=== PATIENT | female | born 1945 | race Caucasian/White ===

== ENCOUNTER 2016-05-05 00:38 | Inpatient (IN) | payer MEDICARE, OTHER ==
[~2016-05-05] VITALS: Ht 170.2 cm; Wt 102.8 kg
[~2016-05-05 00:38] MED LIST: ACET-141 PO; ANR PR; ASC250 PO; COLISTIN IV; DULO30CA45 PO; DULR PR; HYDR10FO PR; HYDR2TAB15 PO; Ipratropium 0.02% (Neb) HHN; LEVA1.2523 HHN; MAGN400O4 PO; MAGN400T28 PO; METH10TA2 PO; MULTI PO; NAPR500T8 PO; PREMVAG VAG; PYRI100T59 PO; RIVA20TA PO; SACC250C PO; TAMS-14 PO; ZINC220T PO
[2016-05-05] MEDS ORDERED: HYDROmorphONE 1 MG/ML SYG IV STA ×2 (00:53→02:02)
[2016-05-05] MEDS ORDERED: SODIUM CHLORIDE 0.9% 1L BAG IV* STA (00:53)
[2016-05-05] MEDS ORDERED: ONDANSETRON 4 MG INJ IV STA (00:53)
[2016-05-05 01:42] LABS: BASOPHILS % 0.6 % (0.0-2.0); EOSINOPHILS # 0.4 10^3/ul (0.0-0.5); EOSINOPHILS % 4.7 % (0.0-7.0); HEMATOCRIT 33.9 % (37.0-47.0); HEMOGLOBIN 10.9 g/dl (12.0-16.0); LYMPHOCYTES # 2.2 10^3/ul (0.8-2.9); LYMPHOCYTES % 27.7 % (15.0-51.0); MEAN CORPUSCULAR HEMOGLOBIN 28.8 pg (29.0-33.0); MEAN CORPUSCULAR HGB CONC 32.2 g/dl (32.0-37.0); MEAN CORPUSCULAR VOLUME 89.3 fl (82.0-101.0); MEAN PLATELET VOLUME 8.3 fl (7.4-10.4); MONOCYTE # 0.6 10^3/ul (0.3-0.9); NEUTROPHIL # 4.8 10^3/ul (1.6-7.5); PLATELET COUNT 143 10^3/UL (140-440)
[2016-05-05 01:47] LABS: CONDITION 1; LH ANALYZER COMMENTS 1
[2016-05-05 01:52] LABS: ALBUMIN 3.9 g/dl (3.3-4.9)
--- NOTE | 2016-05-05 01:52 | ERA ---
ER Documentation Chief Complaint Date/Time DATE: 05/05/16 TIME: 01:47 Chief Complaint pelvic pain,on abx since Sunday for UTI,BOZENA from [facility] 71-year-old female history of chronic pain syndrome, recurrent UTIs who is currently on colistin for a multidrug-resistant organism. The patient presents with lower abdominal pelvic pain that is moderate to severe, constant not associated with any fevers or chills. Her son is concerned that the patient may be septic as she presents with similar symptoms in the past. Patient denies any cough, no significant shortness of breath. History mostly provided by the patient's son. ROS All systems reviewed and are negative except as per history of present illness. Medications Home Meds Active Scripts [Ipratropium 0.02% (Neb)] 0.5 MG/2.5 ML NEBU No Conflict Check, 0.5 MG HHN Q4H RESP THERAPY for 30 Days Prov:LENNY FALLON NP 01/19/16 Levalbuterol Hcl* (Xopenex*) 1.25 Mg/0.5 Ml Vial.neb, 1.25 MG HHN Q4H RESP THERAPY for 30 Days Prov:LENNY FALLON NP 01/19/16 [colistin] No Conflict Check, 75 MG IV Q12 for 3 Days Prov:LENNY FALLON NP 01/19/16 Reported Medications Zinc Sulfate* (Zinc Sulfate*) 220 Mg Tablet, 220 MG PO DAILY, TAB 01/10/16 Rivaroxaban* (Xarelto*) 20 Mg Tablet, 20 MG PO WITH DINNER, TAB 01/10/16 Ascorbic Acid (Vitamin C) 250 Mg Tab, 250 MG PO DAILY, TAB 01/10/16 Pyridoxine Hcl* (Vitamin B-6*) 100 Mg Tablet, 100 MG PO Q8, TAB 01/10/16 Hydrocortisone/Pramoxine* (Proctofoam-HC*) 1%-10 Gm Foam, 1 APPLIC OR BID, EA 01/10/16 Estrogens Conjugated* (Premarin* Vaginal Cream) 1 Applic Cr, 1 APPLIC VAG DAILY , TUB 01/10/16 Multivitamins* (Theragran*) 1 Tab Tab, 1 TAB PO DAILY, TAB 01/10/16 Magnesium Hydroxide* (Milk Of Magnesia*) 400 Mg/5 Ml Oral.susp, 30 ML PO Q24H Y for CONSTIPATION, ML 01/10/16 Methadone Hcl* (Methadone*) 10 Mg Tab, 10 MG PO QID, TAB PER SON GIVE ON SCHEDULE 8AM, 2PM,8 PM, AND 12 AM 01/10/16 Magnesium Oxide* (Magnesium Oxide*) 400 Mg Tablet, 400 MG PO BID, TAB 01/10/16 Saccharomyces Boulardii* (Florastor*) 250 Mg Cap, 250 MG PO BID, CAP 01/10/16 Tamsulosin Hcl* (Flomax*) 0.4 Mg Cap.er.24h, 0.4 MG PO HS, CAP 01/10/16 Naproxen* (Naproxen EC*) 500 Mg Tablet.dr, 500 MG PO BID Y for PAIN AND/OR INFLAMMATION, TAB 01/10/16 Bisacodyl* (Bisacodyl*) 10 Mg Supp, 10 MG OR Q24H Y for CONSTIPATION, SUPP 01/10/16 Hydromorphone Hcl* (Dilaudid*) 2 Mg Tablet, 6 MG PO QID, TAB GIVE ON SCHEDULE PER SON 5AM, 11AM, 5PM, AND 12 AM 01/10/16 Duloxetine Hcl* (Cymbalta*) 30 Mg Capsule.dr, 30 MG PO DAILY, CAP 01/10/16 Hard Fat/Phenylephrine* (Anusol*) 1 Supp Supp, 1 SUPP OR Q12, SUPP 01/10/16 Acetaminophen* (Acetaminophen*) 500 MG Extra Strength Tablet, 1000 MG PO Q6H Y for PAIN, TAB 01/10/16 Allergies Allergies: Coded Allergies: nitrofurantoin (Verified Allergy, Mild, 11/03/15) piperacillin (Verified Allergy, Mild, BURNING SENSATION ALL OVER THE BODY , 11/03/15) tazobactam (Verified Allergy, Mild, BURNING SENSATION ALL OVER THE BODY, ) PMhx/Soc History of Surgery: Yes (CHF, HYSTERECTOMY, RESP ISSUES) Anesthesia Reaction: No Hx Neurological Disorder: Yes Hx Respiratory Disorders: Yes Hx Cardiac Disorders: No Hx Psychiatric Problems: Yes Hx Miscellaneous Medical Probl: Yes (UTI1, copd, pvd, thrombocytopenia, cp syndrome, sepsis) Hx Alcohol Use: No Hx Substance Use: No Hx Tobacco Use: No Smoking Status: Unknown if ever smoked FmHx Family History: No diabetes Physical Exam Vitals Vital Signs Date Time Temp Pulse Resp B/P Pulse Ox O2 Delivery O2 Flow Rate FiO2 05/05/16 01:14 Nasal Cannula 5 05/05/16 00:44 98.0 89 18 187/139 95 Physical Exam General: Well developed, well nourished, appears uncomfortable Head: Normocephalic, atraumatic. Eyes: Pupils equally reactive, EOM intact ENT: Moist mucous membranes Neck: Supple, no lymphadenopathy Respiratory: Lungs clear bilaterally, no distress Cardiovascular: RRR, no murmurs, rubs, or gallops Abdominal: Soft, suprapubic tenderness without rebound or guarding : Deferred MSK: No edema, no unilateral swelling, 5/5 strength Neurologic: Alert and oriented, moving all extremities, normal speech, no focal weakness, no cerebellar signs Skin: No rash Psych: Normal mood Results 24 hrs Current Medications Medications (Trade) Dose Ordered Sig/Anjana Route PRN Reason Start Time Stop Time Status Last Admin Dose Admin Sodium Chloride (NS) 2,820 ml BOLUS OVER 2 HOURS STAT IV* 05/05/16 00:53 05/05/16 00:54 DC 05/05/16 01:17 Hydromorphone HCl (Dilaudid) 1 mg ONCE STAT IV 05/05/16 00:53 05/05/16 00:54 DC 05/05/16 01:19 Ondansetron HCl (Zofran Inj) 4 mg ONCE STAT IV 05/05/16 00:53 05/05/16 00:54 DC 05/05/16 01:18 Procedures/MDM EKG, MONITORS, & DIAGNOSTIC IMAGING: EKG: I reviewed and interpreted a 12-lead EKG. Rhythm: Normal sinus rhythm Ectopy: None Intervals: No abnormalities ST segments: No elevations or depressions T waves: No contiguous inversions Chest x-ray: I reviewed and interpreted a 1 view of the chest Mediastinum: No enlargement Cardiac silhouette: No cardiomegaly Airspace: Clear lung figueredo bilaterally without evidence of pneumothorax Bones: No evidence of fracture CT abdomen and pelvis: [] LAB INTERPRETATION: [] MEDICAL DECISION MAKING: The patient presents with generalized pain but also abdominal pain. The patient is currently being treated with IV antibiotics for multidrug resistant organism. The patient will need sepsis screening. The patient does have chronic pain and takes multiple doses of Dilaudid a day. Her pain may be an exacerbation of her chronic pain however the patient's son states that this is similar to sepsis in the past. The patient will benefit from cultures, fluids, pain control as well as CT imaging of the abdomen and pelvis. The patient did not receive her evening dose of colistin which will be provided in the emergency department. The patient's son showed me culture sensitivities for the patient's organism, most recent sensitivities are capellan resistant only sensitive to colistin. Broader spectrum antibiotics will not be beneficial in this patient. The patient will benefit from infectious disease consultation, she has seen Dr. Milan in the past. Patient getting 75mg BID. ER COURSE: [] I kept the patient and/or family informed of laboratory and diagnostic imaging results throughout the emergency room course. DISPOSITION PLAN: [] CONSULTATION: [] LIZET RAMSEY MD May 05, 2016 01:51
[2016-05-05 01:53] LABS: CHLORIDE 103 mmol/L (97-110); POTASSIUM 4.6 mmol/L (3.5-5.1); SODIUM 143 mmol/L (135-144)
[2016-05-05 01:54] LABS: INR 1.53; PROTIME 18.5 Sec (12.2-14.2); PT RATIO 1.4
[2016-05-05 01:55] LABS: ALBUMIN/GLOBULIN RATIO 0.82; ALKALINE PHOSPHATASE 107 IU/L (42-121); ANION GAP 17 (8-16); ASPARTATE AMINO TRANSFERASE 29 IU/L (15-46); BILIRUBIN,INDIRECT 0.1 mg/dl (0-1.1); BILIRUBIN,TOTAL 0.1 mg/dl (0.2-1.3); CARBON DIOXIDE 28 mmol/L (21-31); CREATININE 1.11 mg/dl (0.44-1.00); PARTIAL THROMBOPLASTIN TIME 41.7 Sec (25.0-35.0); TOTAL PROTEIN 8.6 g/dl (6.1-8.1)
[2016-05-05 01:56] LABS: ALANINE AMINOTRANSFERASE 20 IU/L (13-69); BLOOD UREA NITROGEN 28 mg/dl (7-20); CALCIUM 9.4 mg/dl (8.4-10.2); GLUCOSE 91 mg/dl (70-220)
--- NOTE | 2016-05-05 02:00 | RADRPT ---
PROCEDURE: XR Chest. CLINICAL INDICATION: Possible Sepsis TECHNIQUE: Single frontal chest x-ray. COMPARISON: 01/16/2016 FINDINGS: Dual chamber cardiac pacemaker again seen.There is minimal prominence of the lung interstitium likel y minimal chronic changes. The heart does not appear to be grossly enlarged. No focal lung consolid ation is seen. Old right posterior seventh rib fracture. The patient is mildly rotated to the right . Calcification in the aortic arch. IMPRESSION: No definite acute abnormality seen. Please see above. RPTAT: HJES .Mario Mcfadden MD, MD Date Time Electronically viewed and signed by .Mario Mcfadden MD, MD on 05/05/2016 02:00 .S/
[2016-05-05 02:12] LABS: TROPONIN-I < 0.012 ng/ml (0.00-0.12)
[2016-05-05] MEDS ORDERED: COLISTIMETHATE 150 MG in SOD CHLORIDE 0.9% 100 ML IVPB ONE (02:30)
--- NOTE | 2016-05-05 02:30 | RADRPT ---
PROCEDURE: CT Abdomen and Pelvis without contrast. CLINICAL INDICATION: Possible sepsis , abdominal pain TECHNIQUE: CT scan of the abdomen and pelvis without contrast was performed on a multidetector hig h-resolution CT scanner. The patient was scanned without intravenous contrast. No oral contrast was administered. Coronal and sagittal reformatted images were obtained from the axial source images. Im ages were reviewed on a high-resolution PACS workstation. The total exam CTDI equals 22.96 mGy and the total exam DLP equals 1393.03 mGy-cm. One or more of the following dose reduction techniques were used: - Automated exposure control. - Adjustment of the mA and/or kV according to patient size. - Use of iterative reconstruction technique. COMPARISON: CT abdomen of 11/10/2015 FINDINGS: Lungs: There is again the suggestion of rounded atelectasis in the posterior basilar segment region of the right lower lobe not significantly changed compared to previous study. Linear atelectasis/fi brosis at lung bases. Dual chamber cardiac pacemaker leads. Liver: No abnormality seen. Gallbladder: No abnormality seen. Spleen: No abnormality seen. Stomach: The stomach is not fully distended. No gross abnormality seen. Pancreas: No abnormality seen. Adrenals: No abnormality seen. Kidneys: No abnormality is seen in the right kidney. Two 4 mm nonobstructing calculi are seen in t he left kidney. No ureteral stone is seen. Abdominal aorta: No aneurysm seen. Atherosclerotic calcification is seen. Calcification in iliac a rteries. Inferior vena cava filter. Lymph nodes: No enlarged lymph nodes are seen. Surgical clips in the right lower retroperitoneum an d pelvis. Small bowel: No dilated small bowel loops are seen. Colon: Moderate stool in the rectum. Stool in much of the colon. Appendix: Not seen. Bladder: No abnormality seen Pelvic organs: The patient appears to be status post hysterectomy. Ascites: None seen. Osseous structures: Lumbar spondylosis. Degenerative changes at sacroiliac joints and hips. Old ri ght lower rib fractures. Old right inferior pubic ramus fracture. Levoscoliosis of lumbar spine. C ompression fractures L1 and L2 vertebral bodies again seen. Laxity of the lower rectus abdominus musculature. Mild subcutaneous edema. Likely calcified injecti on granulomas in the gluteal regions bilaterally. IMPRESSION: Suggestion of rounded atelectasis again seen in the right lower lobe. Nonobstructing calculi in lef t kidney again seen. Inferior vena cava filter. Please see above. RPTAT: HJES .Mario Mcfadden MD, Date Time Electronically viewed and signed by .Mario Mcfadden MD, on 05/05/2016 02:30 .S/
[2016-05-05] MEDS ORDERED: ONDANSETRON 4 MG INJ IV PRN ×2 (03:00)
[2016-05-05] MEDS ORDERED: ACETAMINOPHEN 325 MG TAB PO PRN (03:00)
[2016-05-05] MEDS ORDERED: MAGNESIUM HYDROXIDE 30ML CUP PO PRN (03:00)
[2016-05-05] MEDS ORDERED: NACL 0.9% 3 ML SYG IV SCH (03:00)
[2016-05-05] MEDS ORDERED: BISACODYL 10 MG SUPP PR PRN (03:00)
[2016-05-05] MEDS ORDERED: DOCUSATE SODIUM 100 MG CAP PO PRN (03:00)
[2016-05-05] MEDS: HYDROmorphONE 1 MG/ML SYG IV PRN ×4 (04:02→17:20)
[2016-05-05] MEDS: LEVALBUTEROL (NEB) 1.25 MG/0.5 ML AMP HHN SCH ×5 (04:42→21:37)
[2016-05-05 06:27] VITALS: Ht 170.2 cm; Wt 102.8 kg
[2016-05-05] MEDS: PANTOPRAZOLE (EC) 40 MG TAB PO SCH (07:06)
[2016-05-05] MEDS: HYDROmorphONE 2 MG TAB PO SCH ×3 (07:10→16:53)
[2016-05-05 07:53] VITALS: BP 95/54; RESP 72
[2016-05-05] MEDS: METHADONE 10 MG TAB PO SCH ×3 (08:13→20:36)
[2016-05-05] MEDS ORDERED: METHADONE 10 MG TAB PO SCH (09:00)
[2016-05-05] MEDS: PRAMOXINE/HC 10 GM RECT FOAM PR SCH ×2 (09:00→21:00)
[2016-05-05] MEDS: ESTROGENS CONJUGATED 42.5 GM VAG CR VAG SCH (09:00)
--- NOTE | 2016-05-05 09:07 | RADRPT ---
PROCEDURE: US Renal CLINICAL INDICATION: No recurrent UTI TECHNIQUE: Multiple sonographic images of the kidneys and bladder were obtained. Evaluation of th e kidneys and bladder was performed as well with murillo scale and color and Doppler evaluation using a curved array transducer. The images were reviewed on a high-resolution PACS workstation. COMPARISON: The previous noncontrast CT earlier on the same date. The previous CT demonstrated nonobstructing nephroliths within the left kidney. FINDINGS: The right kidney is small measuring 9.6 cm in length. The left kidney is normal in size measuring 10 .7 cm in length. There are no focal areas of abnormal echogenicity. The nonobstructing nephroliths s een on the previous CT are not demonstrated. The bladder appears unremarkable. IMPRESSION: 1. Small right kidney which otherwise appears unremarkable. 2. The left kidney is normal in size. The nonobstructing nephroliths seen on this CT done earlier on the same date are not demonstrated. There is no hydronephrosis or abscess evident. 3. The bladder appears unremarkable. Physician Milagro Date Time Electronically viewed and signed by Physician Milagro on 05/05/2016 09:07 /
[2016-05-05] MEDS: IMIPENEM-CILAST 500MG IV (PMX) 100 ML IV SCH ×4 (09:27→17:23)
[2016-05-05] MEDS: ASCORBIC ACID 250 MG TAB PO SCH (09:34)
[2016-05-05] MEDS: ZINC SULFATE 220 MG CAP PO SCH (09:34)
[2016-05-05] MEDS: PYRIDOXINE 50 MG TAB PO SCH ×3 (09:34→22:15)
[2016-05-05] MEDS: MULTIVITAMINS THERAPEUTIC TAB PO SCH (09:35)
[2016-05-05] MEDS: SACCHAROMYCES BOULARDII 250 MG CAP PO SCH ×2 (09:35→20:35)
[2016-05-05] MEDS: DULOXETINE 30 MG CAP DR PO SCH (09:35)
[2016-05-05] MEDS: MAGNESIUM OXIDE 400 MG TAB PO SCH ×2 (09:35→20:36)
[2016-05-05] MEDS: COLISTIMETHATE 75 MG in SOD CHLORIDE 0.9% 100 ML IVPB SCH ×2 (11:22→20:38)
--- NOTE | 2016-05-05 13:57 | HP ---
DATE OF ADMISSION: 05/05/2016 REASON FOR ADMISSION: Pelvic pain, multidrug-resistant UTI, and increased weakness. HISTORY OF PRESENT ILLNESS: The patient is a 71-year-old unfortunate morbidly obese female with history of COPD and recurrent UTI, nephrolithiasis, diastolic dysfunction heart failure, chronic pain syndrome, on methadone and Dilaudid, venous stasis and chronic cellulitis of the lower extremities, bradycardia status post pacemaker, history of DVT and PE, on Xarelto, overall debilitated who currently resides at [facility]. She has been treated for bouts of recurrent UTI almost continuously. She has been seen by Dr. Milan in the past. She also has a pain specialist. The patient was in usual state of health up until the evening prior to admission as I received a call stating that the patient is more lethargic. She is complaining of severe pelvic pain with dysuria. She said it was almost the worst she ever had, and the son stated that the patient is more lethargic. I instructed to send her to the hospital for evaluation. In addition, she has been on Colistin IV at the [facility]way facility for Acinetobacter baumannii MDR. Dose was 75 mg IV q.12h. Despite this treatment, she continues to have ongoing symptoms. In the ER, she was evaluated. The patient continued to have reports of the abdominal pain and pelvic pain. She underwent a CT scan of abdomen and pelvis in the ER which showed suggestion of atelectasis again seen in the right lower lobe, nonobstructing calculi in the left kidney again seen, inferior vena cava filter. See report. We decided to admit the patient for further care to the medical/surgical floor because of recurrent UTI and pain and change in mental status as reported by the son. Upon evaluation, the patient is overall coherent, does not appear to be toxic. She is complaining of severe dysuria and pelvic pain. In addition, she stated she has a rash which I saw in my office, I thought maybe it was shingles, but it does burn. In addition, she is complaining of mild discomfort of the throat and mild wheezing and stridor because of it. Otherwise, denies any chest pain or significant shortness of breath. The patient is admitted for further care. PAST MEDICAL HISTORY: Includes COPD, peripheral vascular disease, venous stasis , hypertension, recurrent UTIs, thrombocytopenia, chronic pain syndrome, history of DVT and PE, hemorrhoids, cardiac pacemaker. PAST SURGICAL HISTORY: Includes pacemaker placement and hysterectomy. ALLERGIES: 1. NITROFURANTOIN. 2. ZOSYN 3. TAZOBACTAM. SOCIAL HISTORY: The patient is a heavy smoker, but she stopped smoking about 6 months ago. MEDICATIONS: Include the followin. She is on a regular diet. 2. Pro-Stat 30 mL for wound healing. 3. Tylenol 500 two tablets q.6h. p.r.n. 4. Anusol 1 suppository q.12h. 5. Bisacodyl 10 mg suppository rectally. 6. Cymbalta 30 mg daily. 7. Mineral oil as directed. 8. Flomax 0.4 at bedtime. 9. Probiotic b.i.d. 10. Dilaudid 6 mg q.i.d. 11. Ipratropium q.6h. p.r.n. 12. Lasix 40 mg daily. 13. Labetalol every 6 hours p.r.n. 14. Magnesium oxide 400 mg b.i.d. 15. Methadone 10 mg q.i.d. 16. Milk of magnesia p.r.n. 17. Multivitamin 1 tablet daily. 19. Naproxen 500 b.i.d. 20. KCl 20 mEq daily. 21. Pramoxine HCl applied rectally. 22. Premarin 0.625 applied once a day. 23. Vitamin B6 q.8 hours. 24. Vitamin C 250 mg daily. 25. Xarelto 20 mg daily. 26. Zinc sulfate 220 mg daily. REVIEW OF SYSTEMS: Per HPI. PHYSICAL EXAMINATION: VITAL SIGNS: Temperature 98.1, pulse is 100, respirations 22, blood pressure 95 /54, saturation is 95% on 2 L nasal cannula. The patient has been afebrile. GENERAL: The patient is in no acute distress, morbidly obese. The patient is pale. CARDIOVASCULAR: S1 and S2. LUNGS: Mild wheezing, stridor when she coughs. ABDOMEN: Soft, mild discomfort in the low mid abdomen. EXTREMITIES: No clubbing, cyanosis, edema, venous stasis, special compressing bandages on the bilateral lower extremities. She has almost patches of hyperpigmented rash, maybe eczema, in the right lower extremity. NEUROLOGIC: The patient is moving all extremities. Again, the patient is morbidly obese. BMI is 35.5. LABORATORY DATA: White count is 8, hemoglobin 10.9, hematocrit 34, platelet count is 143, neutrophils 60%, lymphocytes 28%. Chemistry: Sodium 142, potassium 4.6, chloride 103, bicarbonate 28, BUN is 28, creatinine 1.11, glucose of 91. Lactic acid normal at 0.8, alkaline phosphatase 107. Troponin was negative. Albumin 3.9. INR 1.53. The patient is on Xarelto. IMAGING TESTS: Chest x-ray shows no definite acute abnormality seen. CT scan of the abdomen and pelvis, see above. Shows suggestive of chronic atelectasis again and in the right lower lobe. Renal ultrasound shows small right kidney which otherwise appears unremarkable. The left kidney is normal in size. The nonobstructive nephrolithiasis seen on the CT done earlier on the same date are not demonstrated. There is no hydronephrosis or abscess evident. The bladder appears unremarkable. ASSESSMENT AND PLAN: This is an unfortunate 71-year-old morbidly obese female with history of chronic obstructive pulmonary disease, congestive heart failure, peripheral vascular disease, overall debilitated with recurrent urinary tract infections, presented again with abdominal pain, recent Acinetobacter baumannii MDR. 1. Multidrug-resistant urinary tract infection. Continue broad-spectrum antibiotics with Merrem and Colistin. ID was consulted. We will obtain a straight catheterization. Will obtain UA and urine culture, which I believe was ordered in the ER, but results are unavailable. That will assist also with any possible pulmonary infection. Cause of infection may be due to nephrolithiasis, bladder disease etc. 2. Respiratory. The patient with mild wheezing with history of chronic obstructive pulmonary disease. Breathing treatment will be provided, cough suppressant as well. Hold off steroids. 3. History of congestive heart failure. Appears to be compensated. The patient with history of diastolic dysfunction heart failure. Continue diuretic therapy. 4. Chronic pain syndrome. Resume all medications. 5. Venous stasis. Continue current dressing. 6. History of bradycardia status post pacemaker. EKG on admission shows normal sinus rhythm at 72 beats per minute. 7. Obese state. Definitely recommend a low fat, low carb diet. We will consult dietary. 8. History of thrombocytopenia, platelet count is now 143, overall stable. 9. Anemia. Check iron panel, B12, folic acid and retic count, check stool for occult blood. Previously seen by Dr. Ingram on 11/09/2015, and she had a colonoscopy which showed poor prep, but there was a possible anal fissure. 10. Case discussed since with son in detail. We will monitor the patient's symptoms and we will follow. Dictated By: EDDY TIAN/ANNA Conf#: [id number] DID#: [id number] MTDD
--- NOTE | 2016-05-05 15:31 | CONS ---
DATE OF ADMISSION: 05/05/2016 DATE OF CONSULTATION: 05/05/2016 TYPE OF CONSULTATION: Infectious Disease. REASON FOR CONSULTATION: Antibiotic management. HISTORY OF PRESENT ILLNESS: Humaira Kelly is a 71-year-old [facility]. Her problems include: 1. Chronic pain syndrome. 2. Recurrent UTIs, currently on colistin for multidrug resistant organism. 3. Coronary artery disease with CHF. 4. Status post hysterectomy. 5. COPD. 6. Peripheral vascular disease. 7. Thrombocytopenia. 8. Recurrent sepsis. ALLERGIES: TO NITROFURANTOIN AND ZOSYN. NO ALLERGIES TO PENICILLIN, SULFA OR FOODS. Acutely, the patient presents with lower abdominal pain, moderate to severe, without fever or chills . Her son was by her bedside and he feels that these symptoms are consistent with recurrent urinary tract infection. PAST MEDICAL HISTORY: Operations as outlined. FAMILY HISTORY: Noncontributory. SOCIAL HISTORY: She does not smoke, drink or abuse drugs. MEDICATIONS: Per chart. REVIEW OF SYSTEMS: As per HPI. PHYSICAL EXAMINATION: GENERAL: The patient is a well-developed, well-nourished female who is chronically ill and appears uncomfortable, in no acute distress. VITAL SIGNS: Stable. She is afebrile. SKIN: Without generalized rash. HEENT: Within normal limits. NECK: Supple. LYMPH NODES: None palpable. CHEST: Decreased breath sounds at the bases. HEART: Without murmur or gallop. ABDOMEN: Soft, nontender. She has some suprapubic tenderness. There is no rebound or guarding. EXTREMITIES: No cyanosis, clubbing, or edema. RECTAL AND GENITAL: Deferred. NEUROLOGIC: No focal neurological abnormalities. IMAGING STUDIES: Chest x-ray shows no evidence of pneumonia. A CT scan of the abdomen and pelvis s howed some rounded atelectasis of the right lower base, nonobstructing calculi in the left kidney in the inferior vena cava filter. A renal ultrasound shows small right kidney with otherwise apparent unremarkable left kidney which is normal in size, nonobstructing nephrolith on CT done earlier the same day not demonstrated, no hydronephrosis or abscess. LABORATORY DATA: White count was 8000, H and H 10.9 and 33.9, platelet count of 43,000. BUN and cr eatinine 28/1.11. IMPRESSION AND PLAN: An order was placed to do a straight catheterization. She was started on imip enem/Primaxin. Blood cultures were done. Urinalysis and cultures were done. She is on colistin at the present time and imipenem. We will await the culture reports before we proceed; however, the c olistin should be stronger than the imipenem, but she has been on colistin, so we will see what the cultures show. I will dictate my findings to Dr. Londono. Dictated By: SATYA CAMPBELL MD, JD/ANNA Conf#: [id number] DID#: [id number]
[2016-05-05] MEDS: RIVAROXABAN 20 MG TABLET PO SCH (17:22)
[2016-05-05] MEDS: MAGNESIUM HYDROXIDE 30ML CUP PO PRN (17:22)
[2016-05-05 17:33] VITALS: BP 111/61; PULSE 93; RESP 16
[2016-05-05 18:22] LABS: ADD UMIC YES; URINE BILIRUBIN (Dip) NEGATIVE (NEGATIVE); URINE BLOOD (Dip) 2+ (NEGATIVE); URINE COLOR AMBER (YELLOW); URINE GLUCOSE (Dip) NEGATIVE (NEGATIVE); URINE KETONES (Dip) TRACE (NEGATIVE); URINE LEUKOCYTE ESTERASE (Dip) NEGATIVE (NEGATIVE); URINE NITRITE (Dip) POSITIVE (NEGATIVE); URINE TOTAL PROTEIN (Dip) TRACE (NEGATIVE); URINE UROBILINOGEN (Dip) 2.0 E.U./dL (0.1-1.0)
[2016-05-05 18:38] LABS: BACTERIA,URINE FEW; TRANSITIONAL EPI CELLS,URINE MODERATE
[2016-05-05 19:21] VITALS: BP 106/58; RESP 20
[2016-05-05] MEDS: TAMSULOSIN (SR) 0.4 MG CAP PO SCH (20:36)
[2016-05-05] MEDS: ACETAMINOPHEN 325 MG TAB PO PRN (22:15)
[2016-05-06] MEDS: IMIPENEM-CILAST 500MG IV (PMX) 100 ML IV SCH ×5 (00:24→23:54)
[2016-05-06] MEDS: METHADONE 10 MG TAB PO SCH ×5 (00:24→23:57)
[2016-05-06] MEDS: HYDROmorphONE 2 MG TAB PO SCH ×5 (00:24→23:54)
[2016-05-06] MEDS: LEVALBUTEROL (NEB) 1.25 MG/0.5 ML AMP HHN SCH ×6 (01:59→21:29)
[2016-05-06] MEDS: PANTOPRAZOLE (EC) 40 MG TAB PO SCH (06:05)
[2016-05-06] MEDS: PYRIDOXINE 50 MG TAB PO SCH ×3 (06:06→21:01)
[2016-05-06] MEDS: HYDROmorphONE 1 MG/ML SYG IV PRN ×3 (06:45→21:49)
[2016-05-06 07:05] LABS: BASOPHILS % 0.3 % (0.0-2.0); EOSINOPHILS # 0.2 10^3/ul (0.0-0.5); EOSINOPHILS % 3.1 % (0.0-7.0); HEMATOCRIT 30.5 % (37.0-47.0); LYMPHOCYTES # 0.8 10^3/ul (0.8-2.9); LYMPHOCYTES % 10.8 % (15.0-51.0); MEAN CORPUSCULAR HEMOGLOBIN 29.1 pg (29.0-33.0); MEAN CORPUSCULAR HGB CONC 32.8 g/dl (32.0-37.0); MEAN CORPUSCULAR VOLUME 88.7 fl (82.0-101.0); MEAN PLATELET VOLUME 8.8 fl (7.4-10.4); MONOCYTE # 0.4 10^3/ul (0.3-0.9); MONOCYTES % 5.9 % (0.0-11.0); NEUTROPHIL # 5.8 10^3/ul (1.6-7.5); NEUTROPHILS % 79.9 % (39.0-77.0); PLATELET COUNT 104 10^3/UL (140-440); RED BLOOD COUNT 3.43 10^6/ul (4.20-5.40); UNCORRECTED WBC 7.2 10^3/ul (4.8-10.8); WHITE BLOOD COUNT 7.2 10^3/ul (4.8-10.8)
[2016-05-06 07:12] LABS: CONDITION 1; LH ANALYZER COMMENTS 1
[2016-05-06 07:30] LABS: ALBUMIN 3.5 g/dl (3.3-4.9); POTASSIUM 4.7 mmol/L (3.5-5.1)
[2016-05-06 07:32] LABS: ALBUMIN/GLOBULIN RATIO 0.87; BILIRUBIN,INDIRECT 0.2 mg/dl (0-1.1); BILIRUBIN,TOTAL 0.2 mg/dl (0.2-1.3); CREATININE 0.99 mg/dl (0.44-1.00); TOTAL PROTEIN 7.5 g/dl (6.1-8.1)
[2016-05-06 07:33] LABS: CALCIUM 9.4 mg/dl (8.4-10.2)
[2016-05-06 07:34] LABS: IRON 52 ug/dl (35-150)
[2016-05-06 07:43] LABS: TOTAL IRON BINDING CAPACITY 305 ug/dl (241-421)
[2016-05-06 08:10] VITALS: BP 102/58; RESP 20
[2016-05-06] MEDS: ESTROGENS CONJUGATED 42.5 GM VAG CR VAG SCH (08:34)
[2016-05-06] MEDS: PRAMOXINE/HC 10 GM RECT FOAM PR SCH ×2 (08:34→20:34)
[2016-05-06] MEDS: DULOXETINE 30 MG CAP DR PO SCH (08:42)
[2016-05-06] MEDS: MULTIVITAMINS THERAPEUTIC TAB PO SCH (08:43)
[2016-05-06] MEDS: SACCHAROMYCES BOULARDII 250 MG CAP PO SCH ×2 (08:43→20:30)
[2016-05-06] MEDS: MAGNESIUM OXIDE 400 MG TAB PO SCH ×2 (08:43→20:30)
[2016-05-06] MEDS: COLISTIMETHATE 75 MG in SOD CHLORIDE 0.9% 100 ML IVPB SCH ×2 (08:44→20:57)
[2016-05-06] MEDS: ZINC SULFATE 220 MG CAP PO SCH (08:44)
[2016-05-06] MEDS: ASCORBIC ACID 250 MG TAB PO SCH (08:44)
[2016-05-06 08:51] LABS: CHOL/HDL RATIO 7.2 RATIO; MAGNESIUM 1.6 mg/dl (1.7-2.5)
[2016-05-06 09:17] LABS: THYROID STIMULATING HORMONE 2.9 MIU/L (0.465-4.680)
[2016-05-06 10:34] LABS: RETICULOCYTE COUNT % 2.8 % (0.5-1.5)
[2016-05-06 17:12] LABS: FOLATE 10.2 ng/ml (2.8-20.0)
[2016-05-06] MEDS: PHENAZOPYRIDINE 200 MG TAB PO SCH (17:25)
[2016-05-06] MEDS: RIVAROXABAN 20 MG TABLET PO SCH (17:26)
[2016-05-06] MEDS ORDERED: FLUCONAZOLE 100 MG TAB PO ONE (18:00)
[2016-05-06 19:25] VITALS: BP 108/57; RESP 20
--- NOTE | 2016-05-06 19:59 | PN ---
DATE: SUBJECTIVE: Patient seen, case was discussed with the son at bedside as well. The patient's main c omplaint is still discomfort at the urethrovaginal area. In addition, she complains of rash in her right finger and ongoing hacking cough with mild stridor. Appetite is decreased per patient. PHYSICAL EXAMINATION: VITAL SIGNS: Temperature is 97.9, T-max 99.1, pulse 74, respirations 20, blood pressure 102/58, sat uration 93% on 2 liters. GENERAL: The patient is in no acute distress, pale. CARDIOVASCULAR: S1 and S2, regular rate. LUNGS: Clear. ABDOMEN: Soft, obese. No pain. EXTREMITIES: She has bilateral lower extremity venous stasis wounds banded. Right finger, some pos sible eczema. In addition, she does have some mild ulnar deviation and swelling of the MCP and PIP joints, suggestive of possible rheumatoid arthritis. LABORATORY DATA: White count is 10.2, hemoglobin 10, hematocrit 31, platelet count 104, neutrophil s 80%, lymphocytes 11%. Chemistry: Sodium 142, potassium 4.7, chloride 105, bicarbonate 25, BUN is 24, creatinine 0.99, glucose of 123. Magnesium is low at 1.6, percent saturation of iron is 17. B 12 is 606. TSH 2.9, triglycerides 216. UA yesterday shows positive nitrites but leukocyte esterase is negative, WBCs 2 to 5 only. INR is 1.53. The patient is on Xarelto. Urine culture preliminary results are pending. MEDICATIONS: Include: 1. Flomax 0.4 at bedtime. 2. Xarelto 20 with dinner. 3. Colistin 75 IV q.12. 4. Vitamin C 250 daily. 5. She is refusing Cymbalta 30 daily. 6. Premarin 0.5 vaginally daily. 7. She is refusing hydrocortisone b.i.d. to the rectum. 8. Refusing Magnesium oxide 400 b.i.d. 9. Multivitamin 1 tab daily. 10. Florastor 250 b.i.d. 11. Zinc sulfate 220 mg daily. 12. Methadone 10 q.i.d. 13. Protonix 40 mg daily. 14. Imipenem 500 IV q.6. 15. Dilaudid 6 mg per scheduled 4 times a day. 16. Xopenex as directed. 17. Zofran p.r.n. 18. Tylenol p.r.n. ASSESSMENT AND PLAN: This is a very unfortunate 71-year-old morbidly obese female with hi story of chronic obstructive pulmonary disease, congestive heart failure, peripheral vascular diseas e, overall debilitated with recurrent urinary tract infection who presented with abdominal pain, vag inal discomfort, was recently treated for Acinetobacter baumannii multi-drug resistant urinary tract infection. 1. Respiratory. The patient with slight stridor. Will obtain a throat culture. She requested to be seen by the beater engineer helper, so will consult Dr. Gamboa. Continue O2 support and breathing treatm ent as needed. 2. Cardiovascular. Stable. Continue Xarelto for anticoagulation. 3. History of congestive heart failure. Appears to be compensated. 4. Chronic pain syndrome. Remains on very strong opioids. 5. Venous stasis. Continue supportive care. 6. Vaginal discomfort. Will add antifungal cream to the vaginal area. We will consult for furt her recommendation. 7. History of bradycardia, status post pacemaker. 8. Obese state with a body mass index of 35.5. 9. Worsening thrombocytopenia. Follow up platelet count. 10. Anemia. The patient with iron deficiency anemia. 11. History of nephrolithiasis. She was placed previously on Flomax. Currently, no evidence of ob struction. 12. Slight ulnar deviation and swelling of the joints of the hands. Will check rheumatoid factor. 13. Add Pyridium for the patient's sensation of dysuria. We will follow. Dictated By: EDDY TIAN/ANNA Conf#: [id number] DID#: [id number]
[2016-05-06] MEDS: TAMSULOSIN (SR) 0.4 MG CAP PO SCH (20:30)
[2016-05-06] MEDS: BETAMETHASONE/CLOTRIMAZOLE 15 GM CR TOP SCH (20:36)
[2016-05-06] MEDS: CLOTRIMAZOLE 1% 45 GM VAG CR VAG SCH (20:40)
--- NOTE | 2016-05-06 21:17 | PN ---
DATE: 05/06/2016 SUBJECTIVE: No acute changes. Patient is alert, complaining of severe pain with urination. She is in no distress and afebrile, looks comfortable. WBC today 7.2, neutrophils 79.9, BUN 24, creatinin e 0.99. MICROBIOLOGY: Urine culture pending. Blood cultures negative. ANTIMICROBIALS She is on: 1. Colistin. 2. Imipenem. PHYSICAL EXAMINATION GENERAL: Fragile, chronically ill-appearing, elderly woman who is alert, in no distress. HEENT: Head atraumatic, normocephalic. Sclerae are anicteric. Buccal mucosa pink. NECK: Supple, trachea midline. CHEST: Rise symmetrical. Breath sounds clear. HEART: S1, S2. ABDOMEN: Soft, bowel tones present. EXTREMITIES: Trace edema. ASSESSMENT 1. Recurrent urinary tract infection. 2. Chronic pain syndrome. 3. History of a permanent pacemaker. 4. History of chronic obstructive pulmonary disease. 5. Fungal excoriation and possible Vaginal candidiasis. PLAN: The patient remains stable; doing slightly better. We are going to order Diflucan and add it to her regimen. Continue her on current antimicrobials and await final cultures. Above was discus sed with patient and her son at bedside. Dictated By: GIOVANNA ESCUDERO CLINICAL SUPPORT SPECIALIST for SATYA QUIROZ/NTS Conf#: [id number] DID#: [id number]
[2016-05-07] MEDS: LEVALBUTEROL (NEB) 1.25 MG/0.5 ML AMP HHN SCH ×6 (01:41→20:05)
[2016-05-07] MEDS: HYDROmorphONE 2 MG TAB PO SCH ×3 (04:47→17:19)
[2016-05-07] MEDS: IMIPENEM-CILAST 500MG IV (PMX) 100 ML IV SCH ×3 (05:47→17:19)
[2016-05-07] MEDS: PANTOPRAZOLE (EC) 40 MG TAB PO SCH (05:47)
[2016-05-07] MEDS: PYRIDOXINE 50 MG TAB PO SCH ×3 (05:47→22:57)
[2016-05-07 06:14] LABS: BASOPHILS % 0.4 % (0.0-2.0); CALCIUM 9.1 mg/dl (8.4-10.2); EOSINOPHILS # 0.2 10^3/ul (0.0-0.5); EOSINOPHILS % 3.5 % (0.0-7.0); HEMATOCRIT 28.6 % (37.0-47.0); HEMOGLOBIN 9.5 g/dl (12.0-16.0); LYMPHOCYTES # 1.3 10^3/ul (0.8-2.9); LYMPHOCYTES % 22.7 % (15.0-51.0); MEAN CORPUSCULAR HEMOGLOBIN 29.5 pg (29.0-33.0); MEAN CORPUSCULAR HGB CONC 33.1 g/dl (32.0-37.0); MEAN CORPUSCULAR VOLUME 89.1 fl (82.0-101.0); MEAN PLATELET VOLUME 8.7 fl (7.4-10.4); MONOCYTE # 0.6 10^3/ul (0.3-0.9); MONOCYTES % 9.4 % (0.0-11.0); NEUTROPHIL # 3.8 10^3/ul (1.6-7.5); PLATELET COUNT 105 10^3/UL (140-440); RED BLOOD COUNT 3.21 10^6/ul (4.20-5.40); RED CELL DISTRIBUTION WIDTH 17.7 % (11.5-14.5); UNCORRECTED WBC 5.9 10^3/ul (4.8-10.8); WHITE BLOOD COUNT 5.9 10^3/ul (4.8-10.8)
[2016-05-07 06:18] LABS: MAGNESIUM 1.4 mg/dl (1.7-2.5); PHOSPHORUS 3.6 mg/dl (2.5-4.9)
[2016-05-07 07:01] LABS: CONDITION 1; LH ANALYZER COMMENTS 1
[2016-05-07] MEDS: HYDROmorphONE 1 MG/ML SYG IV PRN ×2 (07:47→15:00)
[2016-05-07 07:57] VITALS: BP 108/55; RESP 19
[2016-05-07] MEDS: PRAMOXINE/HC 10 GM RECT FOAM PR SCH ×2 (09:00→21:00)
[2016-05-07] MEDS: ESTROGENS CONJUGATED 42.5 GM VAG CR VAG SCH (09:00)
[2016-05-07] MEDS: MULTIVITAMINS THERAPEUTIC TAB PO SCH (09:17)
[2016-05-07] MEDS: ZINC SULFATE 220 MG CAP PO SCH (09:17)
[2016-05-07] MEDS: SACCHAROMYCES BOULARDII 250 MG CAP PO SCH ×2 (09:17→21:04)
[2016-05-07] MEDS: FLUCONAZOLE 100 MG TAB PO SCH (09:17)
[2016-05-07] MEDS: ASCORBIC ACID 250 MG TAB PO SCH (09:17)
[2016-05-07] MEDS: PHENAZOPYRIDINE 200 MG TAB PO SCH ×3 (09:17→18:02)
[2016-05-07] MEDS: MAGNESIUM OXIDE 400 MG TAB PO SCH ×2 (09:17→21:05)
[2016-05-07] MEDS: METHADONE 10 MG TAB PO SCH ×3 (09:18→21:04)
[2016-05-07] MEDS: DULOXETINE 30 MG CAP DR PO SCH (09:18)
[2016-05-07] MEDS: COLISTIMETHATE 75 MG in SOD CHLORIDE 0.9% 100 ML IVPB SCH ×3 (09:31→23:37)
[2016-05-07] MEDS: BETAMETHASONE/CLOTRIMAZOLE 15 GM CR TOP SCH ×2 (09:37→21:00)
[2016-05-07] MEDS: ACETAMINOPHEN 325 MG TAB PO PRN (09:40)
[2016-05-07] MEDS: SENNA TAB PO SCH ×2 (12:32→21:05)
[2016-05-07] MEDS ORDERED: MAGNESIUM SULFATE 2 GM/50 ML 50 ML IVPB ONE (13:30)
--- NOTE | 2016-05-07 14:59 | CONS ---
Date/Time of Note Date/Time of Note DATE: 05/07/16 TIME: 14:57 Assessment/Plan Assessment/Plan Chief Complaint/Hosp Course SUBJECTIVE: No acute changes. Patient is alert, feels a little better, still with significant vaginal pain. She is in no distress and afebrile, looks comfortable. Son at bedside MICROBIOLOGY: Urine culture + contaminant. Blood cultures negative. ANTIMICROBIALS 1. Colistin. 2. Imipenem. 3. Diflucan PHYSICAL EXAMINATION GENERAL: Fragile, chronically ill-appearing, elderly woman who is alert, in no distress. HEENT: Head atraumatic, normocephalic. Sclerae are anicteric. Buccal mucosa pink. NECK: Supple, trachea midline. CHEST: Rise symmetrical. Breath sounds clear. HEART: S1, S2. ABDOMEN: Soft, bowel tones present. EXTREMITIES: Trace edema. ASSESSMENT 1. Recurrent urinary tract infection. 2. Chronic pain syndrome. 3. History of a permanent pacemaker. 4. History of chronic obstructive pulmonary disease. 5. Fungal excoriation and possible Vaginal candidiasis. PLAN: The patient remains stable, still with vaginal discomfort, will repeat urine cx ==> straight cath is preferred, continue abx. DW pt/son/nsg staff Problems: Consultation Date/Type/Reason Admit Date/Time May 05, 2016 at 02:38 Initial Consult Date Type of Consultation: id Exam/Review of Systems Vital Signs Vitals Vital Signs Date Time Temp Pulse Resp B/P Pulse Ox O2 Delivery O2 Flow Rate FiO2 05/07/16 12:52 74 20 95 Nasal Cannula 05/07/16 12:52 3.0 05/07/16 07:57 98.9 108/55 05/05/16 12:43 32 Intake and Output 05/06/16 05/06/16 05/07/16 15:00 23:00 07:00 Intake Total 1450 ml 940 ml Balance 1450 ml 940 ml Results Result Diagram: 05/07/16 0457 05/07/16 0457 Results 24 hrs Laboratory Tests Test 05/07/16 04:57 Anion Gap 15 Basophils # 0.0 Basophils % 0.4 Blood Morphology Comment Blood Urea Nitrogen 21 H Calcium Level 9.1 Carbon Dioxide Level 25 Chloride Level 106 Creatinine 1.00 Eosinophils # 0.2 Eosinophils % 3.5 Glucose Level 125 Hematocrit 28.6 L Hemoglobin 9.5 L Lymphocytes # 1.3 Lymphocytes % 22.7 Magnesium Level 1.4 L Mean Corpuscular Hemoglobin 29.5 Mean Corpuscular Hemoglobin Concent 33.1 Mean Corpuscular Volume 89.1 Mean Platelet Volume 8.7 Monocytes # 0.6 Monocytes % 9.4 Neutrophils # 3.8 Neutrophils % 64.0 Nucleated Red Blood Cells # 0.0 Nucleated Red Blood Cells % 0.0 Phosphorus Level 3.6 Platelet Count 105 L Potassium Level 4.0 Red Blood Count 3.21 L Red Cell Distribution Width 17.7 H Sodium Level 142 White Blood Count 5.9 Medications Medications Current Medications Ondansetron HCl (Zofran Inj) 4 mg Q6H PRN IV NAUSEA AND/OR VOMITING Last administered on 05/05/16 17:29; Admin Dose 4 MG; Start 05/05/16 at 03:00 Acetaminophen (Tylenol Tab) 650 mg Q6H PRN PO PAIN LEVEL 1-3 OR FEVER Last administered on 05/07/16 09:40; Admin Dose 650 MG; Start 05/05/16 at 03:00 Hydromorphone HCl (Dilaudid) 1 mg Q2H PRN IV SEVERE PAIN LEVEL 7-10 Last administered on 05/07/16 07:47; Admin Dose 1 MG; Start 05/05/16 at 03:00 Docusate Sodium (Colace) 100 mg Q12H PRN PO CONSTIPATION Last administered on 11:05; Admin Dose 100 MG; Start 05/05/16 at 03:00 Magnesium Hydroxide (Milk Of Mag) 30 ml DAILY PRN PO CONSTIPATION; Start at 03:00 Pantoprazole 40 mg 40 mg DAILY@06 PO Last administered on 05/07/16 05:47; Admin Dose 40 MG; Start 05/05/16 at 06:00 Imipenem/ Cilastatin Sodium (Primaxin 500 Mg/ 100 ml (Pmx)) 100 ml @ 100 mls/ hr Q6 IV Last administered on 05/07/16 14:39; Admin Dose 100 MLS/HR; Start at 06:00 Ascorbic Acid (Vitamin C) 250 mg DAILY PO Last administered on 05/07/16 09:17 ; Admin Dose 250 MG; Start 05/05/16 at 09:00 Bisacodyl (Dulcolax Supp) 10 mg Q24H PRN ID CONSTIPATION; Start 05/05/16 at 03: 00 Duloxetine HCl (Cymbalta) 30 mg DAILY PO Last administered on 05/07/16 09:18; Admin Dose 30 MG; Start 05/05/16 at 09:00 Estrogens Conjugated (Premarin Vaginal Cr) 1 applic DAILY VAG ; Start 05/05/16 at 09:00 Hydrocortisone/ Pramoxine (Proctofoam-Hc) 1 applic BID ID ; Start 05/05/16 at 09 :00 Hydromorphone HCl (Dilaudid) 6 mg QID@00,05,11,17 PO Last administered on 11:05; Admin Dose 6 MG; Start 05/05/16 at 05:00 Magnesium Hydroxide (Milk Of Mag) 30 ml Q24H PRN PO CONSTIPATION; Start at 03:00 Magnesium Oxide (Mag-Ox 400) 400 mg BID PO Last administered on 05/07/16 09:17 ; Admin Dose 400 MG; Start 05/05/16 at 09:00 Multivitamins Therapeutic (Theragran) 1 tab DAILY PO Last administered on 09:17; Admin Dose 1 TAB; Start 05/05/16 at 09:00 Pyridoxine HCl (Vitamin B6) 100 mg Q8 PO Last administered on 05/07/16 14:32; Admin Dose 100 MG; Start 05/05/16 at 06:00 Saccharomyces Boulardii (Florastor) 250 mg BID PO Last administered on 09:17; Admin Dose 250 MG; Start 05/05/16 at 09:00 Tamsulosin HCl (Flomax) 0.4 mg HS PO Last administered on 05/06/16 20:30; Admin Dose 0.4 MG; Start 05/05/16 at 21:00 Zinc Sulfate (Zinc Sulfate) 220 mg DAILY PO Last administered on 05/07/16 09: 17; Admin Dose 220 MG; Start 05/05/16 at 09:00 Miscellaneous Information 1 ea 1 ea ONCE XX ; Start 05/05/16 at 09:00; Stop at 08:59 Colistimethate Sodium/Sodium Chloride (Coly-Mycin/NS) 100 ml @ 50 mls/hr Q12 IVPB Last administered on 05/07/16 09:31; Admin Dose 50 MLS/HR; Start at 11:00; Stop 05/12/16 at 08:59 Methadone HCl (Methadone) 10 mg QID@00,08,14,20 PO Last administered on 14:32; Admin Dose 10 MG; Start 05/05/16 at 08:00 Betamethasone/ Clotrimazole (Lotrisone Cr) 1 applic BID TOP Last administered on 05/07/16 09:37; Admin Dose 1 APPLIC; Start 05/06/16 at 21:00 Clotrimazole (Clotrim 1% Vaginal Cr) 1 applic HS VAG ; Start 05/06/16 at 21:00 Fluconazole (Diflucan) 100 mg DAILY PO Last administered on 05/07/16 09:17; Admin Dose 100 MG; Start 05/07/16 at 09:00 Senna 1 tab 1 tab BID PO Last administered on 05/07/16 12:32; Admin Dose 1 TAB ; Start 05/07/16 at 12:00 Magnesium Sulfate (Magnesium Sulfate 2 Gm/50 ml) 50 ml @ 25 mls/hr ONCE ONCE IVPB ; Start 05/07/16 at 13:30; Stop 05/07/16 at 15:29 GIOVANNA ESCUDERO NP May 07, 2016 14:59
[2016-05-07 15:40] LABS: RHEUMATOID FACTOR POSITIVE (NEGATIVE)
[2016-05-07 16:58] VITALS: BP 110/59; RESP 20
--- NOTE | 2016-05-07 17:21 | PN ---
DATE: 05/07/2016 SUBJECTIVE: The patient seen. Feeling better, still slight discomfort in the vaginal and urethral area. The patient has been refusing some of the creams, which were prescribed including local antif ungal cream. Case discussed with patient and son at bedside. PHYSICAL EXAMINATION: VITAL SIGNS: Temperature 98.9, pulse 72, respiration 18, blood pressure 108/55, saturation 93% on 2 liters. GENERAL: The patient is pale, hard of hearing. CARDIOVASCULAR: S1, S2, regular rate. LUNGS: Clear. ABDOMEN: Soft. EXTREMITIES: No clubbing, cyanosis, or edema. Bilateral lower extremity compression stockings to t he lower extremities. LABORATORY DATA: White count is 5.9, hemoglobin 9.5, hematocrit 29, platelet count 105, neutrophils 64%, lymphocytes 23%. Chemistry: Sodium is 142, potassium 4.0, chloride 106, bicarbonate 25, BUN is 21, creatinine 1.0, glucose of 125. Magnesium is 1.4. Triglycerides were 316. INR 1.53 on admi ssion. Throat culture preliminary results are pending. MEDICATIONS: Include: 1. Senna 1 tab b.i.d. 2. Diflucan 100 mg daily. 3. Lotrisone cream b.i.d. topically. 4. Clotrimazole cream vaginally at bedtime, refused. 5. Pyridium 200 with meals. 6. Flomax 0.4 at bedtime. 7. Xarelto 20 q. dinner. 8. Colistin 7500 IV q.12h. 9. Vitamin C 250 daily. 10. Cymbalta 30 daily. 11. Estrogen conjugate, refused. 12. Proctofoam b.i.d., refused. 13. Mag oxide 400 b.i.d. 14. Multivitamin 1 tablet daily. 15. Florastor 250 b.i.d. 16. Zinc sulfate 220 daily. 17. Methadone 10 q.i.d. 18. Protonix 40 mg daily. 19. Imipenem 500 IV q.6. 20. Vitamin B6 at 100 q.8h. 21. Dilaudid 6 mg q.i.d. 22. Zofran p.r.n. 23. Tylenol p.r.n. 24. Dilaudid IV p.r.n. 25. Colace p.r.n. 26. Milk of magnesia p.r.n. ASSESSMENT AND PLAN: This is a very unfortunate 71-year-old morbidly obese female with hi story of chronic obstructive pulmonary disease, congestive heart failure, peripheral vascular diseas e, overall very debilitated who presented with recurrent urinary tract infection, pelvic pain, vagin al discomfort, recently treated for Acinetobacter baumannii multidrug resistant urinary tract infect ion. 1. Respiratory. Stable. Follow up ____ cultures. Continue O2 as needed. 2. Cardiovascular. On Xarelto for anticoagulation. Vitals are stable. 3. History of congestive heart failure. Appears to be compensated. 4. Chronic pain syndrome. On strong opioids per pain specialist. 5. Venous stasis. Continue supportive care and leg bandage support. 6. Obese state with body mass index of 35.5. 7. Thrombocytopenia. Observe. No active bleeding. 8. Anemia. The patient with iron deficiency anemia. 9. History of nephrolithiasis and recurrent urinary tract infection, which may be the cause of her infection. Continue Flomax. was consulted. 10. Pelvic pain. Encouraged to take her antifungal cream at night. The patient was also started o n Diflucan. Continue Pyridium to help with pain and burning. 11. Initiate physical therapy. 12. Disposition. Soon back to the group home facility. 13. Constipation. Continue aggressive stool softeners, as patient is on strong opioids. Will resu me [employer] upon discharge. Dictated By: EDDY TIAN/ANNA Conf#: [id number] DID#: [id number]
[2016-05-07 17:45] VITALS: BP 110/57; PULSE 78; RESP 20
[2016-05-07] MEDS: RIVAROXABAN 20 MG TABLET PO SCH (18:02)
[2016-05-07 20:51] VITALS: BP 93/53; RESP 22
[2016-05-07] MEDS: CLOTRIMAZOLE 1% 45 GM VAG CR VAG SCH (21:00)
[2016-05-07] MEDS: TAMSULOSIN (SR) 0.4 MG CAP PO SCH (21:04)
[2016-05-07 22:30] VITALS: BP 102/53; PULSE 70; RESP 18
[2016-05-08] MEDS: IPRATROPIUM (NEB) 0.5 MG/2.5 ML AMP NEB PRN (00:26)
[2016-05-08] MEDS: LEVALBUTEROL (NEB) 1.25 MG/0.5 ML AMP HHN SCH ×6 (00:26→21:06)
[2016-05-08] MEDS: HYDROmorphONE 2 MG TAB PO SCH ×4 (00:56→17:03)
[2016-05-08] MEDS: METHADONE 10 MG TAB PO SCH ×4 (00:56→20:13)
[2016-05-08] MEDS: IMIPENEM-CILAST 500MG IV (PMX) 100 ML IV SCH ×5 (02:01→18:41)
[2016-05-08] MEDS: PANTOPRAZOLE (EC) 40 MG TAB PO SCH (05:33)
[2016-05-08] MEDS: PYRIDOXINE 50 MG TAB PO SCH ×2 (05:33→13:49)
[2016-05-08] MEDS: ACETAMINOPHEN 325 MG TAB PO PRN (05:33)
[2016-05-08 07:54] VITALS: BP 122/61; RESP 18
[2016-05-08] MEDS: PRAMOXINE/HC 10 GM RECT FOAM PR SCH ×2 (09:00→21:00)
[2016-05-08] MEDS: BETAMETHASONE/CLOTRIMAZOLE 15 GM CR TOP SCH ×2 (09:00→21:00)
[2016-05-08] MEDS: HYDROmorphONE 1 MG/ML SYG IV PRN ×3 (09:30→20:54)
[2016-05-08] MEDS: FLUCONAZOLE 100 MG TAB PO SCH (09:37)
[2016-05-08] MEDS: SENNA TAB PO SCH ×2 (09:38→20:52)
[2016-05-08] MEDS: ZINC SULFATE 220 MG CAP PO SCH (09:38)
[2016-05-08] MEDS: MULTIVITAMINS THERAPEUTIC TAB PO SCH (09:38)
[2016-05-08] MEDS: MAGNESIUM OXIDE 400 MG TAB PO SCH ×2 (09:38→20:52)
[2016-05-08] MEDS: PHENAZOPYRIDINE 200 MG TAB PO SCH ×3 (09:38→18:41)
[2016-05-08] MEDS: SACCHAROMYCES BOULARDII 250 MG CAP PO SCH ×2 (09:38→20:52)
[2016-05-08] MEDS: DULOXETINE 30 MG CAP DR PO SCH (09:38)
[2016-05-08] MEDS: ESTROGENS CONJUGATED 42.5 GM VAG CR VAG SCH (09:57)
[2016-05-08] MEDS: ASCORBIC ACID 250 MG TAB PO SCH (09:57)
[2016-05-08] MEDS: COLISTIMETHATE 75 MG in SOD CHLORIDE 0.9% 100 ML IVPB SCH ×2 (10:53→20:53)
[2016-05-08] MEDS ORDERED: LIDOCAINE 4% CR TOP ONE (15:00)
[2016-05-08] MEDS ORDERED: LIDOCAINE 4% CR TOP PRN (15:00)
--- NOTE | 2016-05-08 16:37 | CONS ---
Date/Time of Note Date/Time of Note DATE: 05/08/16 TIME: 16:35 Assessment/Plan Assessment/Plan Chief Complaint/Hosp Course SUBJECTIVE: No acute changes. Patient is alert, still with significant vaginal pain, no fevers, nad MICROBIOLOGY: Urine culture + contaminant. Blood cultures negative. ANTIMICROBIALS 1. Colistin. 2. Imipenem. 3. Diflucan PHYSICAL EXAMINATION GENERAL: Fragile, chronically ill-appearing, elderly woman who is alert, in no distress. HEENT: Head atraumatic, normocephalic. Sclerae are anicteric. Buccal mucosa pink. NECK: Supple, trachea midline. CHEST: Rise symmetrical. Breath sounds clear. HEART: S1, S2. ABDOMEN: Soft, bowel tones present. EXTREMITIES: Trace edema. ASSESSMENT 1. Recurrent urinary tract infection. 2. Chronic pain syndrome with vaginal pain. 3. History of a permanent pacemaker. 4. History of chronic obstructive pulmonary disease. 5. Fungal excoriation and possible Vaginal candidiasis. PLAN: Clinically stable, pending repeat urine cx, continue abx, monitor renal f -n. DW pt Problems: Consultation Date/Type/Reason Admit Date/Time May 05, 2016 at 02:38 Type of Consultation: id Exam/Review of Systems Vital Signs Vitals Vital Signs Date Time Temp Pulse Resp B/P Pulse Ox O2 Delivery O2 Flow Rate FiO2 05/08/16 14:04 92 2.0 05/08/16 14:04 74 22 Nasal Cannula 05/08/16 07:54 98.8 122/61 05/05/16 12:43 32 Intake and Output 05/07/16 05/07/16 05/08/16 15:00 23:00 07:00 Intake Total 200 ml 1240 ml 500 ml Balance 200 ml 1240 ml 500 ml Results Result Diagram: 05/07/16 0457 05/07/16 0457 Medications Medications Current Medications Ondansetron HCl (Zofran Inj) 4 mg Q6H PRN IV NAUSEA AND/OR VOMITING Last administered on 05/05/16 17:29; Admin Dose 4 MG; Start 05/05/16 at 03:00 Acetaminophen (Tylenol Tab) 650 mg Q6H PRN PO PAIN LEVEL 1-3 OR FEVER Last administered on 05/08/16 05:33; Admin Dose 650 MG; Start 05/05/16 at 03:00 Hydromorphone HCl (Dilaudid) 1 mg Q2H PRN IV SEVERE PAIN LEVEL 7-10 Last administered on 05/08/16 15:16; Admin Dose 1 MG; Start 05/05/16 at 03:00 Docusate Sodium (Colace) 100 mg Q12H PRN PO CONSTIPATION Last administered on 11:05; Admin Dose 100 MG; Start 05/05/16 at 03:00 Magnesium Hydroxide (Milk Of Mag) 30 ml DAILY PRN PO CONSTIPATION; Start at 03:00 Pantoprazole 40 mg 40 mg DAILY@06 PO Last administered on 05/08/16 05:33; Admin Dose 40 MG; Start 05/05/16 at 06:00 Imipenem/ Cilastatin Sodium (Primaxin 500 Mg/ 100 ml (Pmx)) 100 ml @ 100 mls/ hr Q6 IV Last administered on 05/08/16 12:59; Admin Dose 100 MLS/HR; Start at 06:00 Ascorbic Acid (Vitamin C) 250 mg DAILY PO Last administered on 05/08/16 09:57 ; Admin Dose 250 MG; Start 05/05/16 at 09:00 Bisacodyl (Dulcolax Supp) 10 mg Q24H PRN [place] CONSTIPATION; Start 05/05/16 at 03: 00 Duloxetine HCl (Cymbalta) 30 mg DAILY PO Last administered on 05/08/16 09:38; Admin Dose 30 MG; Start 05/05/16 at 09:00 Estrogens Conjugated (Premarin Vaginal Cr) 1 applic DAILY VAG Last administered on 05/08/16 09:57; Admin Dose 1 APPLIC; Start 05/05/16 at 09:00 Hydrocortisone/ Pramoxine (Proctofoam-Hc) 1 applic BID PA ; Start 05/05/16 at 09 :00 Hydromorphone HCl (Dilaudid) 6 mg QID@00,05,,17 PO Last administered on 10:59; Admin Dose 6 MG; Start 05/05/16 at 05:00 Magnesium Hydroxide (Milk Of Mag) 30 ml Q24H PRN PO CONSTIPATION; Start at 03:00 Magnesium Oxide (Mag-Ox 400) 400 mg BID PO Last administered on 05/08/16 09:38 ; Admin Dose 400 MG; Start 05/05/16 at 09:00 Multivitamins Therapeutic (Theragran) 1 tab DAILY PO Last administered on 09:38; Admin Dose 1 TAB; Start 05/05/16 at 09:00 Pyridoxine HCl (Vitamin B6) 100 mg Q8 PO Last administered on 05/08/16 13:49; Admin Dose 100 MG; Start 05/05/16 at 06:00 Saccharomyces Boulardii (Florastor) 250 mg BID PO Last administered on 09:38; Admin Dose 250 MG; Start 05/05/16 at 09:00 Tamsulosin HCl (Flomax) 0.4 mg HS PO Last administered on 05/07/16 21:04; Admin Dose 0.4 MG; Start 05/05/16 at 21:00 Zinc Sulfate (Zinc Sulfate) 220 mg DAILY PO Last administered on 05/08/16 09: 38; Admin Dose 220 MG; Start 05/05/16 at 09:00 Miscellaneous Information 1 ea 1 ea ONCE XX ; Start 05/05/16 at 09:00; Stop at 08:59 Colistimethate Sodium/Sodium Chloride (Coly-Mycin/NS) 100 ml @ 50 mls/hr Q12 IVPB Last administered on 05/08/16 10:53; Admin Dose 50 MLS/HR; Start at 11:00; Stop 05/12/16 at 08:59 Methadone HCl (Methadone) 10 mg QID@00,08,14,20 PO Last administered on 13:49; Admin Dose 10 MG; Start 05/05/16 at 08:00 Betamethasone/ Clotrimazole (Lotrisone Cr) 1 applic BID TOP Last administered on 05/07/16 09:37; Admin Dose 1 APPLIC; Start 05/06/16 at 21:00 Clotrimazole (Clotrim 1% Vaginal Cr) 1 applic HS VAG ; Start 05/06/16 at 21:00 Fluconazole (Diflucan) 100 mg DAILY PO Last administered on 05/08/16 09:37; Admin Dose 100 MG; Start 05/07/16 at 09:00 Senna (Senokot) 1 tab BID PO Last administered on 05/08/16 09:38; Admin Dose 1 TAB; Start 05/07/16 at 12:00 Lidocaine (Lmx 4% Plus) 1 applic DAILY PRN TOP urethral pain; Start 05/08/16 at 15:00 GIOVANNA ESCUDERO NP May 08, 2016 16:37
[2016-05-08] MEDS: RIVAROXABAN 20 MG TABLET PO SCH (18:41)
[2016-05-08 19:13] LABS: ADD UMIC YES; URINE BILIRUBIN (Dip) NEGATIVE (NEGATIVE); URINE BLOOD (Dip) NEGATIVE (NEGATIVE); URINE COLOR AMBER (YELLOW); URINE KETONES (Dip) TRACE (NEGATIVE); URINE LEUKOCYTE ESTERASE (Dip) NEGATIVE (NEGATIVE); URINE NITRITE (Dip) POSITIVE (NEGATIVE); URINE TOTAL PROTEIN (Dip) 2+ (NEGATIVE); URINE UROBILINOGEN (Dip) 4.0 E.U./dL (0.1-1.0)
[2016-05-08 19:40] LABS: URINE RBCS 0-2 /HPF (0)
[2016-05-08 19:41] VITALS: BP 110/55; RESP 20
[2016-05-08 19:41] LABS: SQUAMOUS EPITHELIAL CELL,UR OCCASIONAL; TRANSITIONAL EPI CELLS,URINE MODERATE
[2016-05-08] MEDS: TAMSULOSIN (SR) 0.4 MG CAP PO SCH (20:52)
[2016-05-08] MEDS: CLOTRIMAZOLE 1% 45 GM VAG CR VAG SCH (21:00)
--- NOTE | 2016-05-08 23:32 | PN ---
DATE: 05/08/2016 SUBJECTIVE: I appreciate Dr. Carney's input. The patient has significant excoriations in the g enitourinary area, likely a diaper rash, as patient continues to urinate with her diaper. Noted Dr. Carney's recommendations, as discussed with him. The patient overall is feeling better. PHYSICAL EXAMINATION: VITAL SIGNS: Temperature 98.8, pulse 74, respirations 22, blood pressure 122/61, saturation 92% on 3 liters. GENERAL: The patient is in no acute distress, morbidly obese, pale. CARDIOVASCULAR: S1, S2, regular rate. LUNGS: Clear. ABDOMEN: Soft, nontender. EXTREMITIES: No clubbing, cyanosis, or edema. She has bilateral lower extremity venous stasis supp ort bandages. LABORATORIES: No new labs today. UA was just obtained by Dr. Carney. Will follow up with results . Throat culture did show Ayala albicans. The patient was already started on Diflucan yesterday. MEDICATIONS: Include: 1. Lidocaine as directed prior to in and out catheterization. 2. Senna 1 tab b.i.d. 3. Diflucan 100 mg daily. 4. Lotrisone cream b.i.d. 5. Clotrimazole vaginal at bedtime. 6. Pyridium with meals. 7. Flomax 0.4 at bedtime. 8. Xarelto 20 with dinner. 9. Colistin 75 IV q.12h. 10. Vitamin C 250 daily. 11. Cymbalta 30 daily. 12. Premarin cream daily. 13. Magnesium oxide 400 b.i.d. 14. Multivitamin 1 tab daily. 15. Zinc sulfate 220 daily. 16. Methadone 10 q.i.d. 17. Protonix 40 mg daily. 18. Imipenem 500 IV q.6h. 19. Vitamin B6 at 100 q.8h. 20. Dilaudid as well p.r.n. IV and 6 mg q.i.d. 21. Xopenex q.4h. 22. Zofran p.r.n. 23. Tylenol p.r.n. 24. Colace p.r.n. 25. Dulcolax p.r.n. 26. Atrovent p.r.n. ASSESSMENT AND PLAN: This is an unfortunate 71-year-old morbidly obese female with histor y of COPD, CHF, peripheral vascular disease, overall very debilitated, presented with recurrent urin ishan tract infection, severe genitourinary pain, vaginal discomfort, recent multidrug resistant Acine tobacter baumannii urinary tract infection. 1. Respiratory. Stable. Slight stridor may be from Ayala, now on Diflucan, observe. Continue O 2 support as needed. 2. Cardiovascular. Remains on Xarelto for anticoagulation. 3. Recurrent urinary tract infection with MDR acinetobacter. Remains now on imipenem and colistin. Follow up current urine results. ID is following. 4. Chronic pain syndrome. Continue all pain medications. Follow up outpatient pain specialist. 5. Venous stasis. Continue supportive care and MISA hose bandages. 6. Obese state with body mass index of 35.5. Definitely would recommend to hold without the diaper and with bedside commode, so she does not cause erythema, excoriation at the genitourinary area. 7. Thrombocytopenia. Observe. No active bleeding. 8. Anemia. The patient with iron deficiency anemia. 9. History of nephrolithiasis with recurrent urinary tract infections. 10. Pelvic pain. Continue hygiene and antifungals. 11. Disposition: Back to long term facility, hopefully tomorrow. 12. Constipation. Continue stool softeners. We will follow. Dictated By: EDDY TIAN/ANNA Conf#: [id number] DID#: [id number]
[2016-05-09] MEDS: PYRIDOXINE 50 MG TAB PO SCH ×3 (00:43→14:54)
[2016-05-09] MEDS: HYDROmorphONE 2 MG TAB PO SCH ×4 (00:44→16:53)
[2016-05-09] MEDS: METHADONE 10 MG TAB PO SCH ×3 (00:44→14:54)
[2016-05-09] MEDS: MAGNESIUM HYDROXIDE 30ML CUP PO PRN (00:44)
[2016-05-09] MEDS: IMIPENEM-CILAST 500MG IV (PMX) 100 ML IV SCH ×3 (00:44→11:39)
[2016-05-09] MEDS: LEVALBUTEROL (NEB) 1.25 MG/0.5 ML AMP HHN SCH ×4 (01:20→14:15)
[2016-05-09] MEDS: HYDROmorphONE 1 MG/ML SYG IV PRN ×4 (03:05→15:06)
[2016-05-09] MEDS: PANTOPRAZOLE (EC) 40 MG TAB PO SCH (05:37)
[2016-05-09] MEDS: ACETAMINOPHEN 325 MG TAB PO PRN ×2 (05:40→11:38)
--- NOTE | 2016-05-09 05:46 | CONS ---
DATE OF ADMISSION: 05/05/2016 DATE OF CONSULTATION: 05/08/2016 REQUESTING PHYSICIAN: Dr. Everardo Londono Dear Everardo: Thank you for asking me to see this patient in urological consultation. This is a 71-year-old femal e who is a resident of [facility] and she was brought to [facility] as being more lethargic and she has had a history of recurrent urinary tract infection and she has multiple infections that are resistant to antibiotics in the past. She has been followed b y Dr. Milan for her infection and the patient has multiple medical problems that include a history of COPD, recurrent urinary tract infection, kidney stones, history of diastolic dysfunction heart fa ilure, chronic pain syndrome. She has been on methadone and Dilaudid, and she is followed by a pain doctor. She also does have venous stasis of the lower extremities and cellulitis. She has had a h istory of bradycardia and she has a pacemaker, history of deep vein thrombosis, pulmonary embolism. She is on Xarelto and she does have an inferior vena cava filter. The patient does complain of dys uria and she was having a problem having the nurses try to collect urine from her. It is very painf ul to do that. PAST SURGICAL HISTORY: Pacemaker placement, and inferior vena cava filter and a hysterectomy. ALLERGIES: THE PATIENT IS ALLERGIC TO 1. NITROFURANTOIN. 2. ZOSYN. 3. TAZOBACTAM. FAMILY HISTORY: Negative. SOCIAL HISTORY: She is a smoker. She stopped about 6 months ago. MEDICATIONS: Presently her medications include 1. Senokot. 2. Diflucan. 3. Lotrisone cream. 4. Clotrimazole vaginal cream. 5. Pyridium. 6. Tamsulosin. 7. Xarelto. 8. Vitamin C. 9. Cymbalta. 10. Premarin vaginal cream. 11. Magnesium oxide. 12. Multivitamin. 13. She is also on Saccharomyces boulardii. 14. Zinc sulfate. 15. Methadone 16. Protonix. 17. Vitamin B6. 18. Dilaudid p.r.n. 19. Xopenex p.r.n. 20. Zofran p.r.n. 21. Milk of magnesia p.r.n. 22. Ipratropium bromide nebulizer p.r.n. 23. Primaxin IV. PHYSICAL EXAMINATION: GENERAL: Reveals an elderly female, 71 years old. She weighs 102.8 kilograms. She is 67 inches ta ll. VITAL SIGNS: Temperature is 98.8, the pulse is 77, respiration 20, blood pressure 110/55. ABDOMEN: Very obese and the patient does have cellulitis of her lower extremities and she is usuall y bedridden and she does walk a little bit to the bathroom and to the bedside commode at times. GENITOURINARY: The genital area is very ray and she has been using a diaper to urinate and with pipo t incontinence she does have a lot of irritation in the vagina as well as in the inner thighs. LABORATORY DATA: Her CBC shows a white count of 5.9, hemoglobin 9.5, hematocrit 28.6. BUN is 21, c reatinine 1.0. Electrolytes are normal. PT is 18.5, INR 1.53, PTT 41.7. Urinalysis today shows tr lanette of ketones, positive for nitrite and 5 to 10 WBCs. The urine culture from before showed mixed g job-negative and positive organisms which is a contamination from her vagina. Blood cultures have b een negative. IMPRESSION: Question of urinary tract infection and I am not sure whether that is really infection contamination of her urine from voiding and even if when the nursing staff catheterize her it is carmen y difficult to catheterize her. The urethral meatus is not easily seen and passing a catheter has a lways been a traumatic experience for her. PLAN: I did go ahead, with the nurse assisting me, prep her genital area and then I even could not see the urethral meatus, I had to feel the meatus and with tactile guidance, I was able to do a stra ight catheterization on her and drain urine, which was very orange color because of the Pyridium pipo t she is taking. This patient may be having dysuria. Basically when the urine touches the labia an d the inner thighs they are very irritated and that is when she probably feels the dysuria. The uri ne itself may not initially be infected and may not be causing her the pain. However, we did go ah ead and send the urine for UA, C and S. For now will continue her antibiotic and I encouraged her t o try to sit on the bedside commode to urinate or go to the bathroom. This way there will not be an y incontinence and soreness of the genital area and the inner thighs. Dictated By: RAMONITA STEPHENS/ANNA Conf#: [id number] DID#: [id number]
[2016-05-09 07:44] VITALS: BP 119/68; RESP 18
[2016-05-09] MEDS: BETAMETHASONE/CLOTRIMAZOLE 15 GM CR TOP SCH (08:11)
[2016-05-09] MEDS: SENNA TAB PO SCH (08:12)
[2016-05-09] MEDS: PHENAZOPYRIDINE 200 MG TAB PO SCH ×3 (08:12→16:53)
[2016-05-09] MEDS: ASCORBIC ACID 250 MG TAB PO SCH (08:12)
[2016-05-09] MEDS: FLUCONAZOLE 100 MG TAB PO SCH (08:12)
[2016-05-09] MEDS: MULTIVITAMINS THERAPEUTIC TAB PO SCH (08:12)
[2016-05-09] MEDS: DULOXETINE 30 MG CAP DR PO SCH (08:12)
[2016-05-09] MEDS: SACCHAROMYCES BOULARDII 250 MG CAP PO SCH (08:12)
[2016-05-09] MEDS: ZINC SULFATE 220 MG CAP PO SCH (08:12)
[2016-05-09] MEDS: MAGNESIUM OXIDE 400 MG TAB PO SCH (08:12)
[2016-05-09] MEDS: ESTROGENS CONJUGATED 42.5 GM VAG CR VAG SCH (08:13)
[2016-05-09] MEDS: COLISTIMETHATE 75 MG in SOD CHLORIDE 0.9% 100 ML IVPB SCH (08:21)
[2016-05-09] MEDS: PRAMOXINE/HC 10 GM RECT FOAM PR SCH (09:00)
[2016-05-09] MEDS: IPRATROPIUM (NEB) 0.5 MG/2.5 ML AMP NEB PRN ×2 (09:27→14:15)
--- NOTE | 2016-05-09 13:33 | PDOCDIS ---
Discharge Instructions CONDITION Patient Condition: Stable HOME CARE INSTRUCTIONS: Special Diet: carb control ACTIVITY: Activity Restrictions: Slowly Increase Activity FOLLOW UP/APPOINTMENTS Appointments see reconciliation, discharge to [facility] EDDY MELVIN MD May 09, 2016 13:33
--- NOTE | 2016-05-09 16:22 | PN ---
DATE: 05/09/2016 SUBJECTIVE: This is an infectious disease progress note. No acute changes. Patient is alert, stil l with vaginal pain, but no pain with urination. She is in no distress. No fevers. MICROBIOLOGY: Repeat urine culture preliminary negative. ANTIMICROBIALS: Meropenem and colistin. PHYSICAL EXAMINATION: GENERAL: This is a well-developed, obese, chronically ill-appearing, elderly woman who is in no dis tress. HEENT: Head atraumatic, normocephalic. Sclerae anicteric. Buccal mucosa dry. NECK: Supple, trachea midline. CHEST: Rise symmetrical. Breath sounds diminished to bases. HEART: S1, S2. ABDOMEN: Soft, bowel tones present. EXTREMITIES: Without cyanosis. Bilateral lower extremity chronic edema. ASSESSMENT 1. Status post urinary tract infection. 2. Vaginal pain secondary to incontinence. 3. Oral candidiasis. 4. Chronic pain syndrome. 5. Obesity. PLAN: The patient remains stable. Urine culture repeated yesterday negative. We will keep her on fluconazole, complete antibiotics for a total of 7 days, started at care home facility. Trudy royal discharge planning. Okay to discontinue isolation. Dictated By: GIOVANNA ESCUDERO MORTGAGE BANKER for SATYA QUIROZ/ANNA Conf#: [id number] DID#: [id number]
[2016-05-09] MEDS: RIVAROXABAN 20 MG TABLET PO SCH (16:53)
--- NOTE | 2016-05-10 01:32 | DS ---
DATE OF ADMISSION: 05/05/2016 DATE OF DISCHARGE: 05/09/2016 REASON FOR ADMISSION: Pelvic pain, multidrug-resistant UTI, increased weakness. HOSPITAL COURSE: The patient is a 71-year-old unfortunate morbidly obese female with hist ory of COPD; recurrent UTI; nephrolithiasis; diastolic dysfunction heart failure; chronic pain syndr ome, on methadone and Dilaudid; venous stasis and chronic cellulitis of the lower extremities; also bradycardia, status post pacemaker; history of DVT and PE, on Xarelto; overall very debilitated who currently resides at [facility]. Unfortunately, she has been bedridden a nd developed a recurrent UTI. Pain was excruciating, and we decided to send her to the hospital for evaluation. The patient has seen previously Dr. Milan, the infectious disease specialist. Upon a dmission, we continued patient on antibiotic management as patient was found to have Acinetobacter b aumannii MDR UTI. We continued the Colistin and added Merrem because of her increased dysuria and p elvic pain. During her hospitalization, I consulted multiple physicians including Dr. Milan, the nfectious disease specialist, and Dr. Rg Carney, the urologist. The patient underwent multiple cultures. Initial urine culture shows mixed gram-negative and gram-positive organisms, so the urin e was repeated just yesterday after Dr. Carney saw the patient and found that patient has significa nt pelvic excoriations. When the urine touches the labia and the inner thigh, it is very irritating to her and likely causing the dysuria. As Dr. Carney recommended, a bedside commode and possibly to avoid a diaper as that will reduce the soreness in the genital area, inner thighs. In addition, we added Diflucan. Because of her mild stridor and clearing of her throat, we sent a throat culture which did show Ayala albicans. The patient, again, was started on Diflucan. The patient continu es to improve. We started her on Pyridium as well because of the dysuria. The patient is now more stable. Further imaging tests that were done during this hospitalization included a CT scan of the abdomen a nd pelvis which showed suggestion of rounded atelectasis again in the right lower lobe, nonobstructi ng calculi in the left kidney, and inferior vena cava filter is there, and a renal ultrasound showed small right kidney which otherwise appears unremarkable. The left kidney is normal in size. The n onobstructing nephrolithiasis seen on CT scan earlier on the same date is not demonstrated. There i s no hydronephrosis or abscess evident. The bladder appears unremarkable. The patient will be discharged as vital signs are stable. Case discussed with the son regularly. VITAL SIGNS: Temperature is 98.1, pulse 84, respirations 18, blood pressure 119/68, saturation 94% on 2 L. DISCHARGE MEDICATIONS: The patient will be discharged with the following medications: 1. Tylenol 650 q.6 p.r.n. for pain. 2. Vitamin C 250 mg daily. 3. Lotrisone cream applied b.i.d. affected area, to the rash she had on the lower extremities. 4. Dulcolax 10 mg q.24 hours as needed. 5. Clotrimazole vaginally at bedtime for 7 days. 6. Colace 100 mg q.12 as needed. 7. Cymbalta 30 mg daily. 8. Premarin applied daily. 9. Diflucan 100 mg daily. Will continue for 10 days. 10. Dilaudid. She takes 6 mg ____ and 5:00 p.m. 11. Atrovent q.2 p.r.n. 12. Xopenex every 4 hours. Will make it q.6 hours x3 days. 13. Milk of magnesia 30 mL as needed. 14. Magnesium oxide 400 mg p.o. b.i.d. 15. Methadone 10 mg q.i.d. at the times listed. 16. Multivitamin 1 tablet daily. 17. Zofran p.o. q.4 p.r.n. 18. Protonix 40 mg daily. 19. Pyridium 200 mg daily x1 day more. 20. Vitamin B6 100 mg q.8 hours. 21. Xarelto 20 mg with dinner. 22. Florastor 250 mg b.i.d. 23. Senna 1 tablet b.i.d. 24. Flomax 0.4 at bedtime. 25. Zinc sulfate 220 mg daily. Physical therapy, bedside commode, assist with transfer, try to avoid diapers. Will discuss with ID about continuation of imipenem and Colistin. DISPOSITION: The patient will be discharged in fair condition. FINAL DIAGNOSES: 1. Urinary tract infection, multidrug-resistant Acinetobacter baumannii diagnosed at the [facility] facility. 2. Perineal excoriations, diaper rash. 3. Incontinence. 4. Pelvic pain. 5. Upper respiratory infection and stridor positive for Ayala albicans. 6. Venous stasis. 7. Peripheral vascular disease. 8. Morbidly obese state. 9. History of chronic obstructive pulmonary disease. 10. Chronic pain syndrome. 11. Thrombocytopenia. 12. Cardiac pacemaker. 13. Hemorrhoid. 14. History of deep venous thrombosis and pulmonary embolism, on Xarelto. 15. Anemia. Iron levels are low, will prescribe her ferrous sulfate 325 daily. 16. Dyslipidemia, elevated triglycerides of 316. 17. Hypomagnesemia, on magnesium supplements. 18. Mild acute renal failure, improved. 19. Debilitated state. 20. Poor functional capacity. 21. Nonobstructive nephrolithiasis. DIET: 2 gram sodium, low-fat, low-carb diet. ACTIVITY: With physical therapy. Will monitor patient closely at the snf. Positive rheumatoid factor, only titer 1:1 which is low. Dictated By: EDDY TIAN/ANNA Conf#: [id number] DID#: [id number]
== END 2016-05-09 17:15 | DRG 690 ==
LOC: E/R 00:38 → PP2 02:38 → MS2 05-07 16:45
PROVIDERS: ADMIT Internal Medicine; ATTEND Internal Medicine
DX: N39.0 Urinary tract infection, site not specified (principal); N17.9 Acute kidney failure, unspecified; D69.6 Thrombocytopenia, unspecified; B37.0 Candidal stomatitis; E66.01 Morbid (severe) obesity due to excess calories; E83.42 Hypomagnesemia; J44.9 Chronic obstructive pulmonary disease, unspecified; N20.0 Calculus of kidney; D64.9 Anemia, unspecified; Z68.35 Body mass index [BMI] 35.0-35.9, adult; J06.9 Acute upper respiratory infection, unspecified; B37.9 Candidiasis, unspecified; R32 Unspecified urinary incontinence; R10.2 Pelvic and perineal pain; I87.8 Other specified disorders of veins; I73.9 Peripheral vascular disease, unspecified; G89.4 Chronic pain syndrome; K64.9 Unspecified hemorrhoids; E78.5 Hyperlipidemia, unspecified; R53.81 Other malaise; Z95.0 Presence of cardiac pacemaker; L22 Diaper dermatitis
CPT/HCPCS: 36415; 71010; 74176; 76775; 80048; 80053; 80061; 81001; 81003; 82607; 82746; 83540; 83605; 83735; 84100; 84443; 84484; 85025; 85045; 85610; 85730; 86430; 87040; 87070; 87086; 93005; 94640; 94664; 96374; 96375; 96376; A4310; J0743; J1170; J2405; J3475; J7030

== ENCOUNTER 2016-05-31 10:02 | Inpatient (IN) | payer MEDICARE, OTHER ==
[~2016-05-31] VITALS: Ht 170.2 cm; Wt 98.4 kg
[2016-05-31 10:06] VITALS: Ht 170.2 cm; Wt 98.4 kg
[2016-05-31] MEDS ORDERED: SOD CHLORIDE 0.9% 500 ML IV STA (10:11)
[2016-05-31 10:21] VITALS: TEMP 97.6
[2016-05-31] MEDS ORDERED: ALBUTEROL 0.5% (NEB) 2.5 MG/0.5 ML AMP INH STA (10:24)
[2016-05-31] MEDS ORDERED: VANCOMYCIN 1 GM (PMX) 250 ML IVPB SCH (10:30)
[2016-05-31] MEDS ORDERED: CEFEPIME 1GM/50 ML (PMX) 50 ML IVPB ONE (10:30)
[2016-05-31] MEDS ORDERED: FER325 PO (10:36)
[2016-05-31] MEDS ORDERED: DOCU-159 PO (10:36)
[2016-05-31] MEDS ORDERED: FURO-109 PO (10:37)
[2016-05-31] MEDS ORDERED: PANT40TA3 PO (10:38)
[2016-05-31] MEDS ORDERED: IPRA3AMP INHALATION (10:38)
[2016-05-31] MEDS ORDERED: SENN-36 PO (10:39)
[2016-05-31] MEDS ORDERED: morphine 4 MG/ML VIAL IV STA (11:21)
--- NOTE | 2016-05-31 11:24 | RADRPT ---
PROCEDURE: XR Chest. CLINICAL INDICATION: Abdominal pain. TECHNIQUE: Single AP portable chest COMPARISON: 05/05/2016 FINDINGS: The cardiomediastinal silhouette is within normal limits of size . Dual-chamber left chest pacemaker .The lungs are clear without pleural effusion or focal consolidation. No pneumothorax. The osseous structures and soft tissues are unremarkable. IMPRESSION: 1. No evidence for active cardiopulmonary disease. No interval change. RPTAT:AAJJ Emperatriz Sun Physician Date Time Electronically viewed and signed by Emperatriz Sun Physician on 05/31/2016 11:23 LITZY/
[2016-05-31 11:32] LABS: ADD UMIC YES; URINE BILIRUBIN (Dip) NEGATIVE (NEGATIVE); URINE BLOOD (Dip) NEGATIVE (NEGATIVE); URINE COLOR AMBER (YELLOW); URINE KETONES (Dip) NEGATIVE (NEGATIVE); URINE LEUKOCYTE ESTERASE (Dip) TRACE (NEGATIVE); URINE NITRITE (Dip) POSITIVE (NEGATIVE); URINE TOTAL PROTEIN (Dip) 1+ (NEGATIVE); URINE UROBILINOGEN (Dip) 1.0 E.U./dL (0.1-1.0)
--- NOTE | 2016-05-31 11:32 | ERA ---
ER Documentation Chief Complaint Date/Time DATE: 05/31/16 TIME: 11:28 Chief Complaint BROUGHT IN VIA PRIVATE AMBULANCE FROM [facility] DUE TO UTI HPI 71-year-old woman [facility] for continued dysuria and generalized weakness with suspected urinary tract infection despite about a week of levofloxacin therapy. Recent urine cultures revealed sensitivity to levofloxacin so she is being treated as an outpatient with IV Levaquin daily. Despite treatment she has been weak and has had continued symptoms. She has a long history of chronic obstructive pulmonary disease and also felt short of breath today. She has had no fevers or chills, no vomiting or diarrhea, no headache or blurry vision. Patient was transported here by EMS without further complications. HPI supplemented by reviewing past medical history, reviewing [facility] records, later speaking to her PMD, son who is at the bedside, and nurses. ROS All systems reviewed and are negative except as per history of present illness. Medications Home Meds Reported Medications Sennosides* (Senokot*) 8.6 Mg Tablet, 1 TAB PO DAILY, TAB 05/31/16 Pantoprazole* (Protonix*) 40 Mg Tablet.dr, 40 MG PO DAILY, TAB 05/31/16 Ipratropium-Albuterol (Ipratropium-Albuterol) 0.5-3 Mg/3 Ml Ampul.neb, 3 ML INHALATION Q6 Y for SHORTNESS OF BREATH, #30 VIAL 05/31/16 Furosemide* (Lasix*) 40 Mg Tablet, 40 MG PO DAILY, TAB 05/31/16 Ferrous Sulfate* (Ferrous Sulfate*) 325 Mg Tabec, 325 MG PO DAILY, TAB 05/31/16 Docusate Sodium* (Docusate Sodium*) 100 Mg Capsule, 100 MG PO BID, #60 CAP 05/31/16 Zinc Sulfate* (Zinc Sulfate*) 220 Mg Tablet, 220 MG PO DAILY, TAB 01/10/16 Rivaroxaban* (Xarelto*) 20 Mg Tablet, 20 MG PO WITH DINNER, TAB 01/10/16 Ascorbic Acid (Vitamin C) 250 Mg Tab, 250 MG PO DAILY, TAB 01/10/16 Pyridoxine Hcl* (Vitamin B-6*) 100 Mg Tablet, 100 MG PO Q8, TAB 01/10/16 Multivitamins* (Theragran*) 1 Tab Tab, 1 TAB PO DAILY, TAB 01/10/16 Methadone Hcl* (Methadone*) 10 Mg Tab, 10 MG PO QID, TAB PER SON GIVE ON SCHEDULE 8AM, 2PM,8 PM, AND 12 AM 01/10/16 Magnesium Oxide* (Magnesium Oxide*) 400 Mg Tablet, 400 MG PO BID, TAB 01/10/16 Saccharomyces Boulardii* (Florastor*) 250 Mg Cap, 250 MG PO BID, CAP 01/10/16 Tamsulosin Hcl* (Flomax*) 0.4 Mg Cap.er.24h, 0.4 MG PO HS, CAP 01/10/16 Bisacodyl* (Bisacodyl*) 10 Mg Supp, 10 MG AL Q24H Y for CONSTIPATION, SUPP 01/10/16 Hydromorphone Hcl* (Dilaudid*) 2 Mg Tablet, 6 MG PO QID, TAB GIVE ON SCHEDULE PER SON 5AM, 11AM, 5PM, AND 12 AM 01/10/16 Duloxetine Hcl* (Cymbalta*) 30 Mg Capsule.dr, 30 MG PO DAILY, CAP 01/10/16 Acetaminophen* (Acetaminophen*) 500 MG Extra Strength Tablet, 1000 MG PO Q6H Y for PAIN, TAB 01/10/16 Discontinued Reported Medications Hydrocortisone/Pramoxine* (Proctofoam-HC*) 1%-10 Gm Foam, 1 APPLIC AL BID, EA 01/10/16 Estrogens Conjugated* (Premarin* Vaginal Cream) 1 Applic Cr, 1 APPLIC VAG DAILY , TUB 01/10/16 Magnesium Hydroxide* (Milk Of Magnesia*) 400 Mg/5 Ml Oral.susp, 30 ML PO Q24H Y for CONSTIPATION, ML 01/10/16 Naproxen* (Naproxen EC*) 500 Mg Tablet.dr, 500 MG PO BID Y for PAIN AND/OR INFLAMMATION, TAB 01/10/16 Hard Fat/Phenylephrine* (Anusol*) 1 Supp Supp, 1 SUPP AL Q12, SUPP 01/10/16 Discontinued Scripts [Ipratropium 0.02% (Neb)] 0.5 MG/2.5 ML NEBU No Conflict Check, 0.5 MG HHN Q4H RESP THERAPY for 30 Days Prov:LENNY FALLON V. SWITCH MAKER 01/19/16 Levalbuterol Hcl* (Xopenex*) 1.25 Mg/0.5 Ml Vial.neb, 1.25 MG HHN Q4H RESP THERAPY for 30 Days Prov:FALLON,LENNY V. SWITCH MAKER 01/19/16 [colistin] No Conflict Check, 75 MG IV Q12 for 3 Days Prov:FALLON,LENNY V. SWITCH MAKER 01/19/16 Allergies Allergies: Coded Allergies: nitrofurantoin (Verified Allergy, Mild, 05/31/16) piperacillin (Verified Allergy, Mild, BURNING SENSATION ALL OVER THE BODY , 05/31/16) tazobactam (Verified Allergy, Mild, BURNING SENSATION ALL OVER THE BODY, ) PMhx/Soc Chronic pain syndrome, opioid dependence, chronic obstructive pulmonary disease , recent urinary tract infection treated with levofloxacin it appears unsuccessfully,DVT, pacemaker, congestive heart failure, obesity, hypertension History of Surgery: Yes (Spinal laminectomy, abdominal exploration, hysterectomy) Anesthesia Reaction: No Hx Neurological Disorder: No Hx Respiratory Disorders: Yes ("CO2 retention") Hx Cardiac Disorders: Yes (CHF, Pacemaker) Hx Psychiatric Problems: No Hx Miscellaneous Medical Probl: No Hx Alcohol Use: No Hx Substance Use: No Hx Tobacco Use: Yes Smoking Status: Never smoker FmHx Family History: No diabetes Physical Exam Vitals Vital Signs Date Time Temp Pulse Resp B/P Pulse Ox O2 Delivery O2 Flow Rate FiO2 05/31/16 12:44 81 20 115/55 96 Nasal Cannula 3.0 05/31/16 12:02 82 96/51 05/31/16 10:45 Nasal Cannula 05/31/16 10:42 3.0 05/31/16 10:42 89 20 97 Nasal Cannula 3.0 05/31/16 10:21 97.6 70 18 104/61 93 Nasal Cannula 3.0 05/31/16 10:06 98.0 87 18 102/58 89 Physical Exam GENERAL: Well-developed, well-nourished, well-hydrated, dyspneic, afebrile HEENT: Moist mucous membranes, pink conjunctiva, no cervical spine tenderness or step-off deformities, no goiter, no jaundice or icterus, extraocular movements intact without pain. No submandibular induration, and no pharyngeal erythema NEURO: Alert and oriented 3, cranial nerves II through XII intact bilaterally, pupils equal round reactive to light, no focal deficits or facial asymmetry, sensation intact distally Strength 5/5 in upper and lower extremities bilaterally CARDIAC: Regular rate and rhythm, no murmurs rubs or gallops LUNGS: Bibasilar crackles and mild wheezing throughout, no stridor ABDOMEN: Soft nontender, no guarding, no rigidity, no rebound, no psoas sign no obturator sign. Normoactive bowel sounds SKIN: Warm and dry to touch, no abrasions, contusions, or hematomas, no lacerations, no ecchymosis, no target lesions, and without ulcers EXTREMITIES: No clubbing cyanosis or edema, calves are bilaterally symmetrical, no Homans sign, no popliteal cord sign. Distal pulses equal and bilateral PSYCH: Normal affect without agitation or irritability Result Diagram: 05/31/16 1055 05/31/16 1055 Results 24 hrs Laboratory Tests Test 05/31/16 10:55 05/31/16 11:00 Alanine Aminotransferase (ALT/SGPT) 16IU/L Albumin 3.7g/dl Albumin/Globulin Ratio 0.88 Alkaline Phosphatase 133IU/L Anion Gap 17 Aspartate Amino Transf (AST/SGOT) 21IU/L Basophils # 0.010^3/ul Basophils % 0.4% Blood Morphology Comment Blood Urea Nitrogen 25mg/dl Calcium Level 9.2mg/dl Carbon Dioxide Level 31mmol/L Chloride Level 97mmol/L Creatinine 0.85mg/dl Direct Bilirubin 0.00mg/dl Eosinophils # 0.210^3/ul Eosinophils % 2.2% Globulin 4.20g/dl Glucose Level 203mg/dl Hematocrit 34.1% Hemoglobin 11.1g/dl Indirect Bilirubin 0.3mg/dl Lipase 16U/L Lymphocytes # 2.610^3/ul Lymphocytes % 25.3% Mean Corpuscular Hemoglobin 28.8pg Mean Corpuscular Hemoglobin Concent 32.5g/dl Mean Corpuscular Volume 88.5fl Mean Platelet Volume 8.5fl Monocytes # 0.710^3/ul Monocytes % 6.8% Neutrophils # 6.610^3/ul Neutrophils % 65.3% Nucleated Red Blood Cells # 0.010^3/ul Nucleated Red Blood Cells % 0.0/100WBC Platelet Count 48140^3/UL Potassium Level 3.7mmol/L Red Blood Count 3.8610^6/ul Red Cell Distribution Width 17.3% Sodium Level 141mmol/L Total Bilirubin 0.3mg/dl Total Protein 7.9g/dl Troponin I < 0.012ng/ml White Blood Count 10.110^3/ul Urine Bacteria FEW Urine Bilirubin NEGATIVE Urine Clarity HAZY Urine Color TRU Urine Glucose 0.1%% Urine Hemoglobin NEGATIVE Urine Ketones NEGATIVE Urine Leukocyte Esterase TRACE Urine Microscopic RBC NONE SEEN/HPF Urine Microscopic WBC 25-50/HPF Urine Nitrite POSITIVE Urine Specific [place] 1.020 Urine Squamous Epithelial Cells FEW Urine Total Protein 1+ Urine Urobilinogen 1.0 E.U./dL Urine pH 5.5 Current Medications Medications (Trade) Dose Ordered Sig/Anjana Route PRN Reason Start Time Stop Time Status Last Admin Dose Admin Sodium Chloride 500 ml @ 500 mls/hr Q1H STAT IV 05/31/16 10:11 05/31/16 11:10 DC 05/31/16 11:25 Cefepime HCl 50 ml @ 100 mls/hr ONCE ONCE IVPB 05/31/16 10:30 05/31/16 10:59 DC 05/31/16 11:36 Vancomycin HCl (Vancocin) 250 ml @ 125 mls/hr ONCE IVPB 05/31/16 10:30 05/31/16 12:29 DC 05/31/16 12:07 Albuterol (Proventil 0.5% (Neb)) 10 mg ONCE STAT INH 05/31/16 10:24 05/31/16 10:25 DC 05/31/16 10:30 Morphine Sulfate (morphine) 4 mg ONCE STAT IV 05/31/16 11:21 05/31/16 11:22 DC 05/31/16 11:32 Hydromorphone HCl (Dilaudid) 1 mg ONCE STAT IV 05/31/16 12:31 05/31/16 12:32 DC 05/31/16 12:41 Procedures/MDM IV line was established patient was placed on terminal supervisor rhythm strip revealed a sinus rhythm at about 70 bpm with upright P and T waves. Patient was afebrile. Blood and urine cultures have been ordered results are pending I will follow-up. 1 view chest x-ray performed, read by me there is cardiomegaly and a pacemaker in the left chest, no acute infiltrates, no pneumothorax. EKG performed, read by me: 74 bpm, normal sinus rhythm, normal axis, no acute ST segment changes, narrow QRS complex, with good R-wave progression in precordial leads. I administered albuterol 10 mg via nebulizer, morphine 4 mg IV, Zofran 4 mg IV, normal saline 500 cc IV 1 as well as cefepime 1 g IV and vancomycin 1 g IV for UTI. CBC revealed thrombocytopenia, electrolytes revealed dehydration with a BUN/ creatinine of 25/0.9, liver function tests are normal, troponin was negative. Urine analysis was positive for infection. For continued pain I administered hydromorphone 1 mg IV 1. I spoke to her PMD Dr. Londono who agreed to admit the patient for continued IV antibiotic therapy and pain management. Departure Diagnosis: Primary Impression: Acute UTI Additional Impressions: Intractable pain Dehydration Condition: DAVE Govea MD May 31, 2016 11:32
[2016-05-31 11:36] LABS: BASOPHILS % 0.4 % (0.0-2.0); EOSINOPHILS # 0.2 10^3/ul (0.0-0.5); EOSINOPHILS % 2.2 % (0.0-7.0); HEMATOCRIT 34.1 % (37.0-47.0); HEMOGLOBIN 11.1 g/dl (12.0-16.0); LYMPHOCYTES # 2.6 10^3/ul (0.8-2.9); LYMPHOCYTES % 25.3 % (15.0-51.0); MEAN CORPUSCULAR HEMOGLOBIN 28.8 pg (29.0-33.0); MEAN CORPUSCULAR HGB CONC 32.5 g/dl (32.0-37.0); MEAN CORPUSCULAR VOLUME 88.5 fl (82.0-101.0); MEAN PLATELET VOLUME 8.5 fl (7.4-10.4); MONOCYTE # 0.7 10^3/ul (0.3-0.9); MONOCYTES % 6.8 % (0.0-11.0); NEUTROPHIL # 6.6 10^3/ul (1.6-7.5); NEUTROPHILS % 65.3 % (39.0-77.0); PLATELET COUNT 133 10^3/UL (140-440); RED BLOOD COUNT 3.86 10^6/ul (4.20-5.40); RED CELL DISTRIBUTION WIDTH 17.3 % (11.5-14.5); UNCORRECTED WBC 10.1 10^3/ul (4.8-10.8); WHITE BLOOD COUNT 10.1 10^3/ul (4.8-10.8)
[2016-05-31 11:39] LABS: CONDITION 1; LH ANALYZER COMMENTS 1
[2016-05-31 11:46] LABS: ALBUMIN 3.7 g/dl (3.3-4.9)
[2016-05-31 11:47] LABS: BACTERIA,URINE FEW; SQUAMOUS EPITHELIAL CELL,UR FEW; URINE RBCS NONE SEEN /HPF (0)
[2016-05-31 11:47] LABS: CHLORIDE 97 mmol/L (97-110); POTASSIUM 3.7 mmol/L (3.5-5.1); SODIUM 141 mmol/L (135-144)
[2016-05-31 11:49] LABS: ALBUMIN/GLOBULIN RATIO 0.88; ALKALINE PHOSPHATASE 133 IU/L (42-121); ANION GAP 17 (8-16); ASPARTATE AMINO TRANSFERASE 21 IU/L (15-46); BILIRUBIN,INDIRECT 0.3 mg/dl (0-1.1); BILIRUBIN,TOTAL 0.3 mg/dl (0.2-1.3); CARBON DIOXIDE 31 mmol/L (21-31); CREATININE 0.85 mg/dl (0.44-1.00); TOTAL PROTEIN 7.9 g/dl (6.1-8.1)
[2016-05-31 11:50] LABS: ALANINE AMINOTRANSFERASE 16 IU/L (13-69); BLOOD UREA NITROGEN 25 mg/dl (7-20); CALCIUM 9.2 mg/dl (8.4-10.2); GLUCOSE 203 mg/dl (70-220)
[2016-05-31 12:04] LABS: TROPONIN-I < 0.012 ng/ml (0.00-0.12)
[2016-05-31] MEDS ORDERED: HYDROmorphONE 1 MG/ML SYG IV STA ×2 (12:31→14:27)
[2016-05-31 15:18] VITALS: BP 115/57; RESP 20
[2016-05-31] MEDS: IPRATROPIUM (NEB) 0.5 MG/2.5 ML AMP HHN SCH ×2 (15:30→20:44)
[2016-05-31] MEDS ORDERED: NACL 0.9% 3 ML SYG IV SCH (15:30)
[2016-05-31] MEDS: LEVALBUTEROL (NEB) 1.25 MG/0.5 ML AMP HHN SCH ×2 (15:30→20:43)
[2016-05-31] MEDS ORDERED: BISACODYL 10 MG SUPP PR PRN (15:30)
[2016-05-31] MEDS ORDERED: MAGNESIUM HYDROXIDE 30ML CUP PO PRN (15:30)
[2016-05-31] MEDS ORDERED: IPRATROPIUM (NEB) 0.5 MG/2.5 ML AMP HHN PRN (15:30)
[2016-05-31] MEDS ORDERED: LEVALBUTEROL (NEB) 1.25 MG/0.5 ML AMP HHN PRN (15:30)
[2016-05-31] MEDS ORDERED: VANCOMYCIN IV PER PHARMACY XX SCH (15:30)
[2016-05-31] MEDS ORDERED: DOCUSATE SODIUM 100 MG CAP PO PRN (15:30)
[2016-05-31 15:54] LABS: BASOPHIL # 0.1 10^3/ul (0.0-0.1); BASOPHILS % 0.7 % (0.0-2.0); EOSINOPHILS # 0.1 10^3/ul (0.0-0.5); EOSINOPHILS % 0.8 % (0.0-7.0); HEMATOCRIT 31.9 % (37.0-47.0); HEMOGLOBIN 10.3 g/dl (12.0-16.0); LYMPHOCYTES # 1.3 10^3/ul (0.8-2.9); LYMPHOCYTES % 13.4 % (15.0-51.0); MEAN CORPUSCULAR HEMOGLOBIN 28.7 pg (29.0-33.0); MEAN CORPUSCULAR HGB CONC 32.4 g/dl (32.0-37.0); MEAN CORPUSCULAR VOLUME 88.6 fl (82.0-101.0); MONOCYTE # 0.5 10^3/ul (0.3-0.9); MONOCYTES % 5.5 % (0.0-11.0); NEUTROPHIL # 7.5 10^3/ul (1.6-7.5); NEUTROPHILS % 79.6 % (39.0-77.0); PLATELET COUNT 123 10^3/UL (140-440); RED CELL DISTRIBUTION WIDTH 17.3 % (11.5-14.5); UNCORRECTED WBC 9.4 10^3/ul (4.8-10.8); WHITE BLOOD COUNT 9.4 10^3/ul (4.8-10.8)
[2016-05-31 15:55] LABS: CONDITION 1; LH ANALYZER COMMENTS 1
[2016-05-31] MEDS ORDERED: GUAIFENESIN/CODEINE 5ML CUP PO PRN (16:00)
[2016-05-31] MEDS ORDERED: BARIUM SULF 2% 450 ML BTL (BERRY SMOOTHIE) PO ONE (16:00)
--- NOTE | 2016-05-31 16:13 | CONS ---
DATE OF ADMISSION: 05/31/2016 DATE OF CONSULTATION: 05/31/2016 TYPE OF CONSULTATION: Infectious Disease. REASON FOR CONSULTATION: Antibiotic management. HISTORY OF PRESENT ILLNESS: Humaira Kelly is a 71-year-old female well known to us from multipl e previous admissions, usually for UTIs, who comes in from retirement for continued dysuria and ge neralized weakness. She has been on Levaquin for the last week. Recent urine culture revealed sens itivity to Levaquin, and she was treated as an outpatient with IV Levaquin. She has a long history of COPD and also felt short of breath. She had no fever or chills. Other problems include: 1. Chronic pain syndrome. 2. Opioid dependence. 3. Chronic obstructive pulmonary disease. 4. Multiple urinary tract infections. 5. History of DVTs. 6. Pacemaker placement. 7. Coronary artery disease with congestive heart failure. 8. Obesity. 9. Hypertension. 10. Status post spinal laminectomy. 11. Exploratory laparotomy. 12. Status post hysterectomy. 13. History of CO2 retention. ALLERGIES: NITROFURANTOIN AND ZOSYN. PAST MEDICAL HISTORY AND OPERATIONS: As outlined. FAMILY HISTORY: Noncontributory. Her son is always at her bedside and is very cognizant of her pro blems. MEDICATIONS: Per chart. REVIEW OF SYSTEMS: As per HPI. PHYSICAL EXAMINATION: GENERAL: The patient is a chronically ill appearing white female who is somewhat obese, well-nouris hed, in no acute distress. VITAL SIGNS: Stable. She is afebrile. SKIN: Without generalized rash. HEENT: Within normal limits. NECK: Supple. LYMPH NODES: None palpable. CHEST: Decreased breath sounds at the bases. HEART: Without murmur or gallop. ABDOMEN: Soft, nontender, without organosplenomegaly or masses. EXTREMITIES: Without cyanosis, clubbing, or edema. RECTAL AND GENITAL: Deferred. NEUROLOGIC: No focal neurological abnormalities. The patient was begun on vancomycin and cefepime. Urine is positive for nitrites, trace leukocyte e sterase, 20 to 50 white cells per high-power field. Chest x-ray: No evidence of acute cardiopulmon ishan disease. She has a dual-chamber left chest pacemaker. We will continue her on this current the rapy and await laboratory results. I will dictate my findings to Dr. Londono. Dictated By: SATYA CAMPBELL MD, JD/ANNA Conf#: [id number] DID#: [id number]
[2016-05-31] MEDS: ACETAMINOPHEN 325 MG TAB PO PRN ×2 (16:16→22:03)
[2016-05-31] MEDS ORDERED: VANCOMYCIN 1 GM in NS 250 ML IVPB ONE (16:30)
[2016-05-31] MEDS ORDERED: HYDROmorphONE 2 MG TAB PO SCH (17:00)
[2016-05-31] MEDS ORDERED: METHADONE 10 MG TAB PO SCH (17:00)
--- NOTE | 2016-05-31 17:12 | HP ---
DATE OF ADMISSION: 05/31/2016 REASON FOR ADMISSION: Urinary tract infection, acute bronchitis, and chronic obstructive pulmonary disease exacerbation. HISTORY OF PRESENT ILLNESS: The patient is a very unfortunate 71-year-old morbidly obese female with a very sedentary life who does not watch what she eats, active smoker, who has history o f COPD, recurrent UTI, nephrolithiasis, diastolic dysfunction heart failure, chronic pain syndrome, on methadone and Dilaudid, and has venous stasis ulcers of the lower extremity with chronic cellulit is, history of bradycardia status post pacemaker placement, history of DVT and PE on Xarelto, overal l very debilitated, who currently resides at [facility]. The patient's s on is also very involved in patient care and is demanding to be treated usually the way he wants. R ecently she was found to have a urinary tract infection at the facility. Cultures were done, and it was sensitive to Levaquin, so I started her on Levaquin, but she demanded me to change to IV medica tion. I told them that the Levaquin is fine for the UTI. Anyway, she has now been treated with Lev aquin for 4 days, and he states that the patient is doing worse and he wanted her to [facility]. I was not aware of any other condition going on with the patient as the nursing staff did not call me with any change in condition or any symptomatology. In addition, the son just mentions UTI all the time. Anyway, the patient was sent to the hospital now for further evaluation. On previous hospitalization, the patient did have multi resistant Acinetobacter baumannii in the urine, treated with colistin. The patient presented now to the ER for evaluation. Upon evaluation, the UA was ma rginally positive as it shows positive nitrites, only trace leukocyte esterase, and WBC 25 to 50. T otal protein +1, and glucose 0.1%. Also, she was noted to be slightly hypoxic. The patient does us e oxygen at the group home facility, and upon further evaluation and discussion with the patient a nd the patient's son, it was reported the patient has been having a slight mucus production with a g reen colored. She was seen by the ENT doctor, and she was briefly scoped. Now the culture just cam e back 2 days ago with positive for MRSA of which I was not informed. The patient is coughing and a ppears to be in slight respiratory discomfort. Again, the patient was admitted to the medical/surgi zuleyma floor for further care. Chest x-ray was otherwise unremarkable. PAST MEDICAL HISTORY: Includes COPD, peripheral vascular disease, venous stasis, hypertension, recu rrent UTI, thrombocytopenia, chronic pain syndrome, history of DVT and PE, hemorrhoids, cardiac pace maker. SURGICAL HISTORY: Includes pacemaker placement and hysterectomy. ALLERGIES: 1. NITROFURANTOIN. 2. ZOSYN 3. TAZOBACTAM. SOCIAL HISTORY: The patient is a heavy smoker. No alcohol or IV drug use. DIET: Regular diet. The patient resides at [facility]. MEDICATIONS: 1. Tylenol 500, two tablets every 6 hours p.r.n. That is quite a high dose. 2. Anusol-HC 1 suppository every 12 hours. 3. Bisacodyl 10 mg suppository rectally p.r.n. 4. Cymbalta 30 mg daily. 5. Fleet enema insert as directed x1 p.r.n. daily. 6. Flomax 0.4 mg at bedtime. 7. Probiotics Florajen, 1 capsule b.i.d. 8. Dilaudid 6 mg by mouth q.i.d. the patient's time schedule. 9. Ipratropium every 6 hours p.r.n. 10. Lasix 40 mg daily. 11. Xopenex 1.25 every 6 hours p.r.n. for shortness of breath. 12. Magnesium oxide 400 mg b.i.d. 13. Methadone 10 mg by mouth q.i.d. 14. Milk of magnesia 400 mg, 30 mL p.r.n. 15. Multivitamin 1 tablet daily. 16. Naprosyn 500 mg b.i.d. 17. KCl 20 mEq daily. 18. Pramoxine applied topically 2 times a day for hemorrhoids. 19. Premarin p.r.n. 20. Vitamin B6 100 mg q. 8. 21. Vitamin C 250 mg daily. 22. Xarelto 20 mg daily. 23. Zinc sulfate 220 mg daily. Again, looking at the urine done 05/24/2016, she had positive nitrites, leukocyte also small, many b acteria, yeast none. Culture shows Morganella morganii sensitive to amikacin, ceftazidime, ceftriax one, ciprofloxacin, gentamicin, Levaquin, Zosyn, Bactrim, cefoxitin, cefepime, ertapenem. Again, it is sensitive to Levaquin, and this is what she received upon my recommendation at the [facility] facility. The prealbumin was 15.2. CODE STATUS: The patient is FULL CODE. REVIEW OF SYSTEMS: See HPI. The patient is overall complaining of pain, diffuse, going from the ab domen and up to her chest. Son is describing it as perineal secondary to urinary tract infection. The patient also is coughing. Otherwise denies any chest pain. The patient overall says she is not feeling well. This is officially the worst she has been. PHYSICAL EXAMINATION: VITAL SIGNS: Temperature 97.7, pulse is 89, respirations 20, blood pressure 115/57, saturation 97% on 3 liters. GENERAL: The patient is in no acute distress. The patient is morbidly obese, anxious. CARDIOVASCULAR: S1 and S2. LUNGS: Mild rhonchi bilaterally. ABDOMEN: Soft, diffuse tenderness throughout. LOWER EXTREMITIES: No clubbing, cyanosis, or edema. She has bilateral lower extremity chronic ulce rs, banded, does not allow us to take it off. NEUROLOGIC: The patient is moving all extremities. The patient is coughing at times. LABORATORY DATA: White count is 10.1, hemoglobin 11.1, hematocrit 34, platelet count 132, neutrophi ls 65%, lymphocytes 25%. Chemistry: Sodium 141, potassium 3.7, chloride 97, bicarbonate 31, BUN is 25, creatinine 0.85, glucose of 203, elevated AST 21, ALT 16, alkaline phosphatase 133, total prote in 7.9, albumin 3.7, lipase 16. Urinalysis specific gravity is 1.020, hazy, with positive nitrites, trace leukocyte esterase, WBC 25 to 50, +1 protein. IMAGING TESTS: Chest x-ray shows no evidence of active cardiopulmonary disease. No interval change . EKG: Shows electronic atrial pacemaker, septal infarct, age undetermined, 74 beats a minute. ASSESSMENT AND PLAN: This is a very unfortunate 71-year-old morbidly obese female with hi story of COPD, CHF, peripheral vascular disease, overall very debilitated with recurrent UTI. Also, she has history of multi resistant drug UTI and presents now with pelvic abdominal discomfort and h ypoxia. She was found to have urinary tract infection and likely chronic obstructive pulmonary dise ase exacerbation, possible upper respiratory infection. 1. Respiratory. The patient will be placed on O2 support. The patient was recently found to have MRSA per ENT report. I spoke with patient's ENT doctor just now, Dr. Alcaraz, and he informed me that he scoped her and found MRSA. The patient will be started on broad spectrum antibiotic with vancomy jesusita. We will obtain sputum culture. Breathing treatment around the clock will be provided. May co nsider steroid therapy. Cough suppressants will be provided. 1. Cardiovascular. The patient with history of DVT and PE. Continue Xarelto for anticoagulation. 2. Recurrent urinary tract infection, organism group home facility was Morganella morganii. The patient will be placed on cefepime. Because of her abdominal pain and history of nephrolithia sis, we will obtain a CT scan of the abdomen and pelvis. The patient's pain may be also due to cons tipation as she stated that her last bowel movement was 3 days ago. Stool softeners will be provide d as well and monitor and follow up CT scan. 3. Venous stasis. Continue supportive care and bandages. 4. Morbidly obesity with a body mass index of 35.5. Weight loss is advised. The patient does not watch her diet and has a sedentary life. She has been refusing physical therapy before. 5. Gastrointestinal. H and H will be monitored. The patient does have anemia which previously has shown iron deficiency anemia. Check stool for occult blood. 6. Hyperglycemia. Check hemoglobin A1c. 7. Chronic pain syndrome on Dilaudid and methadone. She is adamantly requesting those to be contin ued plus to be provided with p.r.n. IV medications. She does have a pain specialist that she sees. 8. The patient will be placed on Protonix for GI prophylaxis, and we will follow. Dictated By: EDDY TIAN/ANNA Conf#: [id number] DID#: [id number]
[2016-05-31] MEDS: HYDROmorphONE 1 MG/ML SYG IV PRN (19:06)
[2016-05-31] MEDS: RIVAROXABAN 20 MG TABLET PO SCH (19:49)
[2016-05-31 20:00] VITALS: BP 134/61; PULSE 79; RESP 20
[2016-05-31] MEDS: TAMSULOSIN (SR) 0.4 MG CAP PO SCH (20:24)
[2016-05-31] MEDS: MAGNESIUM OXIDE 400 MG TAB PO SCH (20:24)
[2016-05-31] MEDS: CEFEPIME 1GM/50 ML (PMX) 50 ML IV SCH (20:24)
[2016-05-31] MEDS: DOCUSATE SODIUM 100 MG CAP PO SCH (20:24)
[2016-05-31] MEDS: CLOTRIMAZOLE 1% 30 GM CR TOP SCH (20:24)
[2016-05-31] MEDS: SACCHAROMYCES BOULARDII 250 MG CAP PO SCH (20:24)
--- NOTE | 2016-05-31 20:41 | RADRPT ---
PROCEDURE: CT abdomen and pelvis without contrast. CLINICAL INDICATION: Abdominal Pain TECHNIQUE: CT scan of the abdomen and pelvis without contrast was performed and is reconstructed a t 2.5 mm contiguous axial intervals from the dome of the diaphragm to the inferior pubic rami.. The patient was scanned without intravenous contrast. Sagittal and coronal reformatted images were obt ained from the axial source images. The calculated radiation dose measures 1226 mGy centimeters. The CTDI measures 22 mGy. COMPARISON: CT abdomen pelvis May 05, 2016 FINDINGS: There is nodular infiltrate with mild volume loss at the right lung base. This may represent eviden ce of aspiration. Minimal atelectasis is seen at the left lung base. There is no effusion. There are pacemaker wires in the heart. Noted are coronary artery calcifications. The liver is of normal size, contour and attenuation with no mass or ductal dilatation. No gallston es are visualized. No splenic, adrenal or pancreatic abnormalities present. Kidneys are of normal size and contour. No hydronephrosis or masses seen. There is a 4 mm nonobst ructing stone in the mid to upper pole of the left kidney and a second 4 mm nonobstructing pole in t he lower pole of the left kidney. Ureters are of normal course and caliber with no stone. No bladd er mass or stone is present. Uterus has been removed. There is no adnexal mass. There is no aneurysm. There is a filter in the infrarenal inferior vena cava. No adenopathy is p resent. Clips are seen in the right nik pelvis compatible with prior alf dissection. No bowel mass or obstruction is present. The appendix is not confidently visualized, however, no inflamed appendix is seen. mal. No phlegmon, ascites or pneumoperitoneum is visualized. There is rotary dextroscoliosis in the lumbar spine. No fracture is seen and no lytic or blastic le sions are noted. IMPRESSION: Multiple left renal calculi. No evidence of obstruct uropathy, diverticulitis or appendicitis. Post hysterectomy. Rotary dextroscoliosis lumbar spine. IVC filter. Nodular infiltrate right lung base with volume loss. Question aspiration. Left basilar atelectasis . .Santi Hui MD, Date Time Electronically viewed and signed by .Santi Hui MD, MD on 05/31/2016 20:41 .A/
[2016-05-31] MEDS: PYRIDOXINE 50 MG TAB PO SCH (22:03)
[2016-05-31] MEDS: METHYLPREDNISOLONE 125 MG INJ IV SCH (22:04)
[2016-05-31] MEDS: HYDROmorphONE 2 MG TAB PO SCH (23:24)
[2016-06-01] MEDS: METHADONE 10 MG TAB PO SCH ×4 (00:08→19:58)
[2016-06-01] MEDS: HYDROmorphONE 1 MG/ML SYG IV PRN ×2 (00:37→05:06)
[2016-06-01] MEDS: LEVALBUTEROL (NEB) 1.25 MG/0.5 ML AMP HHN SCH ×4 (01:20→20:35)
[2016-06-01] MEDS: IPRATROPIUM (NEB) 0.5 MG/2.5 ML AMP HHN SCH ×4 (01:20→20:35)
[2016-06-01] MEDS: ACETAMINOPHEN 325 MG TAB PO PRN ×3 (03:21→17:06)
[2016-06-01] MEDS: HYDROmorphONE 2 MG TAB PO SCH ×5 (05:00→23:57)
[2016-06-01] MEDS: PYRIDOXINE 50 MG TAB PO SCH ×3 (05:02→21:14)
[2016-06-01] MEDS: PANTOPRAZOLE (EC) 40 MG TAB PO SCH (05:02)
[2016-06-01] MEDS: METHYLPREDNISOLONE 125 MG INJ IV SCH ×3 (05:06→21:14)
[2016-06-01 06:29] LABS: ALBUMIN 3.4 g/dl (3.3-4.9); HEMATOCRIT 30.6 % (37.0-47.0); HEMOGLOBIN 9.9 g/dl (12.0-16.0); LYMPHOCYTES # 0.6 10^3/ul (0.8-2.9); LYMPHOCYTES % 9.5 % (15.0-51.0); MEAN CORPUSCULAR HEMOGLOBIN 28.8 pg (29.0-33.0); MEAN CORPUSCULAR HGB CONC 32.5 g/dl (32.0-37.0); MEAN CORPUSCULAR VOLUME 88.8 fl (82.0-101.0); MEAN PLATELET VOLUME 8.8 fl (7.4-10.4); MONOCYTES % 0.8 % (0.0-11.0); NEUTROPHIL # 5.6 10^3/ul (1.6-7.5); NEUTROPHILS % 89.7 % (39.0-77.0); PLATELET COUNT 106 10^3/UL (140-440); RED BLOOD COUNT 3.45 10^6/ul (4.20-5.40); RED CELL DISTRIBUTION WIDTH 17.2 % (11.5-14.5); UNCORRECTED WBC 6.2 10^3/ul (4.8-10.8); WHITE BLOOD COUNT 6.2 10^3/ul (4.8-10.8)
[2016-06-01 06:30] LABS: POTASSIUM 4.4 mmol/L (3.5-5.1)
[2016-06-01 06:32] LABS: ALBUMIN/GLOBULIN RATIO 0.89; BILIRUBIN,INDIRECT 0.1 mg/dl (0-1.1); BILIRUBIN,TOTAL 0.1 mg/dl (0.2-1.3); CREATININE 0.83 mg/dl (0.44-1.00); TOTAL PROTEIN 7.2 g/dl (6.1-8.1)
[2016-06-01 06:33] LABS: MAGNESIUM 2.3 mg/dl (1.7-2.5); PHOSPHORUS 3.5 mg/dl (2.5-4.9)
[2016-06-01 06:38] LABS: CONDITION 1; LH ANALYZER COMMENTS 1
[2016-06-01 06:54] LABS: THYROID STIMULATING HORMONE 0.937 MIU/L (0.465-4.680)
[2016-06-01] MEDS ORDERED: DEXTROSE 50% 50 ML SYRINGE IV PRN ×2 (07:00)
[2016-06-01] MEDS ORDERED: GLUCOSE GEL 15 GRAM TUBE PO PRN ×2 (07:00)
[2016-06-01] MEDS ORDERED: GLUCOSE GEL 15 GRAM TUBE BUCCAL PRN (07:00)
[2016-06-01] MEDS ORDERED: GLUCAGON 1 MG INJ IM PRN (07:00)
[2016-06-01 08:08] VITALS: BP 138/68; RESP 21
[2016-06-01] MEDS: FERROUS SULFATE (EC) 325 MG TAB PO SCH (08:34)
[2016-06-01] MEDS: ASCORBIC ACID 250 MG TAB PO SCH (08:34)
[2016-06-01] MEDS: FUROSEMIDE 40 MG TAB PO SCH (08:35)
[2016-06-01] MEDS: DOCUSATE SODIUM 100 MG CAP PO SCH ×2 (08:35→21:12)
[2016-06-01] MEDS: DULOXETINE 30 MG CAP DR PO SCH (08:35)
[2016-06-01] MEDS: SENNA TAB PO SCH (08:35)
[2016-06-01] MEDS: MAGNESIUM OXIDE 400 MG TAB PO SCH ×2 (08:35→21:13)
[2016-06-01] MEDS: MULTIVITAMINS THERAPEUTIC TAB PO SCH (08:35)
[2016-06-01] MEDS: ZINC SULFATE 220 MG CAP PO SCH (08:35)
[2016-06-01] MEDS: SACCHAROMYCES BOULARDII 250 MG CAP PO SCH ×2 (08:36→21:13)
[2016-06-01] MEDS: CEFEPIME 1GM/50 ML (PMX) 50 ML IV SCH ×2 (08:36→21:25)
[2016-06-01] MEDS: INSULIN ASPART [NOVOLOG] 3 ML PEN SC SCH ×6 (08:43→21:19)
[2016-06-01] MEDS: ACCUCHECK XX SCH ×4 (08:54→21:00)
[2016-06-01] MEDS ORDERED: PANTOPRAZOLE (EC) 40 MG TAB PO SCH (09:00)
[2016-06-01] MEDS: CLOTRIMAZOLE 1% 30 GM CR TOP SCH ×2 (11:10→21:14)
[2016-06-01] MEDS: VITAMIN A & D 5 GM OINT PACKET TOP SCH ×2 (12:09→21:13)
[2016-06-01] MEDS: VANCOMYCIN 1.5 GM in SOD CHLORIDE 0.9% 250 ML IVPB SCH (12:37)
[2016-06-01] MEDS: PHENAZOPYRIDINE 200 MG TAB PO SCH ×2 (12:39→21:13)
--- NOTE | 2016-06-01 12:45 | PN ---
DATE: 06/01/2016 SUBJECTIVE: Yesterday evening, the patient was noted to require increased oxygen. She was placed o n a simple mask with good results. I added steroids and glucose levels were noted to be higher. Wi ll definitely start her on insulin around the clock to control her hyperglycemia which is associated with a steroid administration. The patient overall appears to be comfortable. She is complaining of perineal burning sensation at the urethra. This is not new finding. Per Dr. Carney in the past , the patient soils herself, causing overall skin irritation. The patient appears more stable. PHYSICAL EXAMINATION: VITAL SIGNS: Temperature is 98.5. The patient is afebrile, pulse is 78, respirations 20, blood pre ssure 138/68, saturation 95% on 8 liters simple mask. GENERAL: The patient is in no acute distress, conversing comfortably in no respiratory distress. CARDIOVASCULAR: S1 and S2. LUNGS: Faint rhonchi, much better. ABDOMEN: Soft, nontender. EXTREMITIES: No clubbing, cyanosis, or edema. She has chronic venous stasis wounds in the lower ex tremity. Again, the patient is a morbidly obese. The patient is moving all extremities. LABORATORIES: White count is 6.2, hemoglobin 9.9, hematocrit 31, platelet count is low at 106, neut rophils 90%, lymphocytes 10%. Chemistry: Sodium is 142, potassium 4.4, chloride 100, bicarbonate 2 8, BUN is 23, creatinine 0.83, glucose of 446, alkaline phosphatase is 137, elevated, albumin 3.4, l ipase is 16, and TSH is 0.937. It was noted that urine culture preliminary report showed Pseudomona s aeruginosa greater than 100,000. Also, blood cultures are negative. CT scan of abdomen and pelvi s as she has been complaining of severe pain shows multiple left renal calculi, no evidence of obstr uctive uropathy, diverticulitis, or appendicitis. There is post hysterectomy. There is alternate d extroscoliosis lumber spine, IVC filter. There is nodular infiltrate in the right lung base with vo lume loss, question aspiration, left posterior atelectasis. Based on that, the patient likely has p neumonia. MEDICATIONS: Include: 1. Accu-Chek before every meal and at bedtime. 2. Vancomycin dose per pharmacy. 3. Vitamin C 250 daily. 4. Cymbalta 30 mg daily. 5. Ferrous sulfate 325 daily. 6. Lasix 40 mg daily. 7. Multivitamin 1 tablet daily. 8. Senna 1 tab daily. 9. Zinc sulfate 220 daily. 10. Insulin aspart before every meal and at bedtime per sliding scale, moderate algorithm. 11. Hypoglycemia protocol. 12. Protonix 40 mg daily. 13. Methadone 10 mg q.i.d. 14. Hydromorphone or Dilaudid 6 mg dose q.i.d. 15. Vitamin B6 100 q.8h. 16. Solu-Medrol 80 mg IV q.8h. 17. Cefepime 1 g q.12h. 18. Colace 100 b.i.d. 19. Mag oxide 400 b.i.d. 20. 250 b.i.d. 21. Flomax 0.4 at bedtime. 22. Lotrimin cream b.i.d. 23. Xarelto 20 mg daily. 24. Robitussin p.r.n. 25. Dilaudid p.r.n. 26. Milk of magnesia p.r.n. 27. Dulcolax p.r.n. 28. Breathing treatments p.r.n. ASSESSMENT AND PLAN: 1. This is a very unfortunate morbidly obese female, overall very debilitated with histor y of chronic obstructive pulmonary disease, oxygen dependent, congestive heart failure, peripheral v ascular disease, overall presents with recurrent urinary tract infection and respiratory distress sawant ggestive of pneumonia and bronchitis. 2. Respiratory. Continue O2, taper down steroids. Continue breathing treatment around the clock. Advised her to stop smoking. Follow up MRSA of the nares. She recently was found positive MRSA cu ltures of the oral mucosa by ENT. Will obtain a speech swallow to rule out aspiration as suggested on the CAT scan. Again, taper down steroids, and we will follow. 3. Cardiovascular: Patient with history of DVT and PE. Blood pressure is under control. Continue Xarelto for anticoagulation. 4. Infectious disease. The patient with urinary tract infection and pneumonia, positive organism P seudomonas aeruginosa. Continue cefepime. Follow up culture. Continue vancomycin secondary to rec ent MRSA of the oropharyngeal area. 5. Perineal burning, likely from poor hygiene, etc. This patient does not use a commode, possibly because of diaper rash, etc. Will be started on clotrimazole, add pterygium. Consider adding amilo ride ointment to assist with symptoms. 6. Gastrointestinal. Hemoglobin and hematocrit stable. 7. No evidence of diabetes, but the patient is hyperglycemic secondary to Solu-Medrol. We will sta rt the patient on insulin, Lantus, and NovoLog. Will titrate it up and decrease steroid use. 8. The patient is on thrombosis prophylaxis on Xarelto and gastrointestinal prophylaxis. 9. Psychiatric remains on Cymbalta which is good for her depression, fibromyalgia. 10. Slightly worsening thrombocytopenia. Continue to observe. 11. Tendency for congestive heart failure. Compensated on Lasix, monitor electrolytes. 12. Continue probiotics. 13. History of kidney stones and obstructive uropathy in the past. Continue Flomax. 14. Chronic pain syndrome. Remains on her previous pain medication regimen plus extra medications here as needed because of her current illness. I have spoken with the son in detail yesterday as we ll plan of care and patient's condition. Continue vitamins. We will follow. Dictated By: EDDY TIAN/ANNA Conf#: [id number] DID#: [id number]
--- NOTE | 2016-06-01 13:02 | PN ---
DATE: 05/31/2016 SUBJECTIVE: Patient is lying comfortably in bed. She is on face mask. She had respiratory distress last night, currently looks comfortable, no shortness of breath. No fevers, saturating 95% on 8 liters face mask. LABORATORY DATA: WBC 6.2, H and H 9.9 and 30.6, platelets 106, neutrophils 89.7 , BUN 23, creatinine 0.85. MICROBIOLOGY: Urine culture growing Pseudomonas species, sensitivities pending. Blood cultures remain negative. DIAGNOSTICS: CT of the abdomen and pelvis revealed multiple left renal calculi , no evidence of obstructive uropathy, diverticulitis or appendicitis. Chest x- ray revealed no evidence for active cardiopulmonary disease. ANTIMICROBIALS: The patient is on: 1. IV vancomycin. 2. Cefepime. 3. She also was started on steroids. PHYSICAL EXAMINATION: GENERAL: This is a well-developed, obese, elderly woman who is in no distress. HEENT: Head atraumatic, normocephalic. Sclerae anicteric. Buccal mucosa dry. NECK: Supple, trachea midline. CHEST: Rise symmetrical. Breath sounds diminished to bases. HEART: S1, S2. ABDOMEN: Obese, soft, bowel tones present. EXTREMITIES: Bilateral lower extremities edema, chronic venous stasis. ASSESSMENT: 1. Acute respiratory distress, questionable aspiration versus chronic obstructive pulmonary disease exacerbation. 2. Recurrent urinary tract infection. 3. Bilateral lower extremities chronic venous stasis. 4. Coronary artery disease with a history of permanent pacemaker. 5. Opioid dependence. 6. Tobacco use. PLAN: The patient is stable, covered with broad spectrum antibiotics. Final cultures are pending. Continue present care, anti-aspiration measures, steroids , bronchodilators. Dictated By: GIOVANNA ESCUDERO BOTTOM SPRAYER for SATYA QUIROZ/ANNA Conf#: [id number] DID#: [id number] PRITESH
[2016-06-01] MEDS: RIVAROXABAN 20 MG TABLET PO SCH (17:07)
[2016-06-01 19:50] VITALS: BP 141/67; RESP 22
[2016-06-01] MEDS ORDERED: INSULIN GLARGINE [LANtus] 3 ML PEN SC SCH (20:00)
[2016-06-01] MEDS: TAMSULOSIN (SR) 0.4 MG CAP PO SCH (21:13)
[2016-06-01] MEDS ORDERED: INSULIN ASPART [NOVOLOG] 3 ML PEN SC ONE (22:00)
[2016-06-02] MEDS: METHADONE 10 MG TAB PO SCH ×4 (01:04→21:39)
[2016-06-02] MEDS: ACCUCHECK XX SCH ×5 (02:00→21:00)
[2016-06-02] MEDS: LEVALBUTEROL (NEB) 1.25 MG/0.5 ML AMP HHN SCH ×4 (02:04→20:22)
[2016-06-02] MEDS: IPRATROPIUM (NEB) 0.5 MG/2.5 ML AMP HHN SCH ×4 (02:04→20:22)
[2016-06-02] MEDS: HYDROmorphONE 1 MG/ML SYG IV PRN ×2 (02:14→15:35)
[2016-06-02] MEDS: ACETAMINOPHEN 325 MG TAB PO PRN (03:05)
[2016-06-02] MEDS ORDERED: INSULIN ASPART [NOVOLOG] 3 ML PEN SC ONE (03:30)
[2016-06-02] MEDS: HYDROmorphONE 2 MG TAB PO SCH ×3 (05:50→17:26)
[2016-06-02] MEDS: PANTOPRAZOLE (EC) 40 MG TAB PO SCH (05:50)
[2016-06-02] MEDS: METHYLPREDNISOLONE 125 MG INJ IV SCH (05:53)
[2016-06-02] MEDS: PYRIDOXINE 50 MG TAB PO SCH ×3 (07:01→21:49)
[2016-06-02 08:00] VITALS: BP 142/62; RESP 22
[2016-06-02] MEDS ORDERED: INSULIN ASPART [NOVOLOG] 3 ML PEN SC SCH (08:00)
[2016-06-02] MEDS: INSULIN ASPART [NOVOLOG] 3 ML PEN SC SCH ×6 (08:11→22:49)
[2016-06-02] MEDS: CEFEPIME 1GM/50 ML (PMX) 50 ML IV SCH ×2 (08:45→21:30)
[2016-06-02] MEDS: ASCORBIC ACID 250 MG TAB PO SCH (08:46)
[2016-06-02] MEDS: SACCHAROMYCES BOULARDII 250 MG CAP PO SCH ×2 (08:46→21:38)
[2016-06-02] MEDS: MULTIVITAMINS THERAPEUTIC TAB PO SCH (08:46)
[2016-06-02] MEDS: PHENAZOPYRIDINE 200 MG TAB PO SCH ×3 (08:46→21:38)
[2016-06-02] MEDS: VITAMIN A & D 5 GM OINT PACKET TOP SCH ×2 (08:46→21:38)
[2016-06-02] MEDS: ZINC SULFATE 220 MG CAP PO SCH (08:46)
[2016-06-02] MEDS: DULOXETINE 30 MG CAP DR PO SCH (08:46)
[2016-06-02] MEDS: FERROUS SULFATE (EC) 325 MG TAB PO SCH (08:46)
[2016-06-02] MEDS: SENNA TAB PO SCH (08:46)
[2016-06-02] MEDS: DOCUSATE SODIUM 100 MG CAP PO SCH ×2 (08:46→21:39)
[2016-06-02] MEDS: MAGNESIUM OXIDE 400 MG TAB PO SCH ×2 (08:46→21:39)
[2016-06-02] MEDS: CLOTRIMAZOLE 1% 30 GM CR TOP SCH ×2 (08:47→21:49)
[2016-06-02] MEDS: FUROSEMIDE 40 MG TAB PO SCH (08:48)
[2016-06-02 10:34] LABS: BASOPHILS % 0.1 % (0.0-2.0); HEMOGLOBIN 9.7 g/dl (12.0-16.0); LYMPHOCYTES # 0.7 10^3/ul (0.8-2.9); LYMPHOCYTES % 8.8 % (15.0-51.0); MEAN CORPUSCULAR HEMOGLOBIN 28.8 pg (29.0-33.0); MEAN CORPUSCULAR HGB CONC 32.2 g/dl (32.0-37.0); MEAN CORPUSCULAR VOLUME 89.5 fl (82.0-101.0); MEAN PLATELET VOLUME 8.4 fl (7.4-10.4); MONOCYTE # 0.3 10^3/ul (0.3-0.9); MONOCYTES % 3.1 % (0.0-11.0); NEUTROPHIL # 7.2 10^3/ul (1.6-7.5); PLATELET COUNT 119 10^3/UL (140-440); RED BLOOD COUNT 3.36 10^6/ul (4.20-5.40); RED CELL DISTRIBUTION WIDTH 16.6 % (11.5-14.5); UNCORRECTED WBC 8.2 10^3/ul (4.8-10.8); WHITE BLOOD COUNT 8.2 10^3/ul (4.8-10.8)
[2016-06-02 10:44] LABS: POTASSIUM 4.4 mmol/L (3.5-5.1)
[2016-06-02 10:47] LABS: CONDITION 1; CREATININE 0.83 mg/dl (0.44-1.00); LH ANALYZER COMMENTS 1
[2016-06-02 10:48] LABS: CALCIUM 8.6 mg/dl (8.4-10.2)
[2016-06-02 10:49] LABS: MAGNESIUM 2.3 mg/dl (1.7-2.5); PHOSPHORUS 2.7 mg/dl (2.5-4.9)
[2016-06-02] MEDS: VANCOMYCIN 1.5 GM in SOD CHLORIDE 0.9% 250 ML IVPB SCH (11:11)
--- NOTE | 2016-06-02 11:54 | PN ---
DATE: 06/02/2016 SUBJECTIVE: Patient seen at bedside. The son is there as well. Case discussed in detail. The pat [place] is doing better, is breathing more comfortably. She is on a special face mask, saturating 91% on 40% FIO2. Overall, the patient denies any shortness of breath. She does complain of urethral pa in which has been a chronic complaint with her. The plan is to add Diflucan. In addition, multiple creams were ordered and will discuss with Dr. Milan further recommendations. The patient's urine culture came back Pseudomonas aeruginosa sensitive to cefepime. In addition, the patient is positiv e for MRSA of the nares. I had a long discussion with the son. In addition, the patient is quite h yperglycemic in the 400. She is very sensitive to steroids. We will taper the steroids fast as the patient's respiratory failure is improving significantly. PHYSICAL EXAMINATION: VITAL SIGNS: Temperature 98.7, pulse is 89, respirations 20, pulse is 89, respirations 20, blood pr essure 122/60, saturation 91% on Ventimask on FIO2 of 40%. GENERAL: The patient is in no acute distress, feels comfortable. CARDIOVASCULAR: S1 and S2. LUNGS: Now clear bilaterally. ABDOMEN: Soft, nontender. EXTREMITIES: No clubbing, cyanosis, or edema. She does have chronic venous stasis with bandages of the lower extremities. LABORATORY DATA: White count is 8.2, hemoglobin 9.7, hematocrit 30, platelet count 119, neutrophils 88%, lymphocyte 8.8. Chemistry: Sodium is 139, potassium 4.4, chloride 98, bicarbonate 27, BUN is 31, creatinine 0.83, glucose of 456, phosphorus 2.7, magnesium 2.3, calcium is 8.6. Urine culture shows Pseudomonas aeruginosa greater than 100,000, gram-negative rods 10,000 to 20,000. The pseudom onas is sensitive to cefepime, gentamicin, tobramycin and amikacin. MRSA screening is positive. MEDICATIONS: Include: 1. Lantus 24 units daily. 2. Insulin aspart 20 units q.a.c. meals. 3. Bactroban ointment b.i.d. I just added that. 4. Accu-Chek q.a.c. and at bedtime. 5. Solu-Medrol 60 IV every 8 hours we will taper down. 6. Pyridium 200 t.i.d. 7. Vancomycin dose per pharmacy. 8. Vitamin and D b.i.d. 9. Vitamin C 250 daily. 10. Cymbalta 30 mg daily. 11. Ferrous sulfate 325 daily. 12. Lasix 40 mg daily. 13. Multivitamin 1 tablet daily. 14. Senna 1 tab daily. 15. Zinc sulfate 220 daily. 16. Insulin aspart as per sliding scale. 17. Accu-Cheks q.a.c. and at bedtime. 18. Hypoglycemia protocol. 19. Protonix 40 mg daily. 20. Methadone 10 mg q.i.d. 21. Dilaudid 6 q.i.d. 22. Vitamin B6 100 q.8h. 23. Cefepime 1 gram q.12h. 24. Colace 100 b.i.d. 25. Magnesium oxide 400 b.i.d. 26. Florastor 250 b.i.d. 27. Flomax 0.4 at bedtime. 28. Lotrimin cream b.i.d. 29. Xarelto 20 mg with dinner. 30. Robitussin p.r.n. 31. Tylenol p.r.n. 32. Dilaudid p.r.n. 33. Colace p.r.n. 34. Milk of magnesia p.r.n. 35. Dulcolax p.r.n. 36. Xopenex and Atrovent every 6 hours plus q.4h. p.r.n. 37. Vancomycin dose per pharmacy. ASSESSMENT AND PLAN: This is an unfortunate 71-year-old female, morbidly obese, overall v juan antonio debilitated with history of COPD, O2 dependent, CHF, peripheral vascular disease with history of recurrent UTI, multidrug resistant, presented with respiratory distress and urinary tract infection . 1. Respiratory. Taper down steroids as the patient's breathing is improved. Continue O2 support, titrate it down to keep O2 above or equal to 89 to 98. Continue treatment for pneumonia as CT scan suggests right lower lung infiltrate versus atelectasis. Speech therapy is following. I appreciate recommendations. The patient is adamant about eating what she wants. Also, she has positive MRSA of the nares as she is on IV vancomycin. 2. Cardiovascular. Patient with history of DVT and PE, remains on Xarelto for anticoagulation and vitals are stable. 3. Infectious disease. The patient with urinary tract infection, likely underlying pneumonia, posi tive Pseudomonas aeruginosa, UTI and MRSA pneumonia. Continue cefepime and vancomycin. Will add Di flucan for possible yeast infection and follow up all cultures and ID to follow regarding further an tibiotic management. 4. Perineal burning. Add Diflucan and observe. Remains on Pyridium as well on clotrimazole and on vitamin A and D for diaper rash. 5. Gastrointestinal. Hemoglobin and hematocrit remain stable. No need for transfusion. 6. Hyperglycemia, steroid used. Taper down steroids. Continue insulin for now. 7. Psychiatric. Continue Cymbalta. The patient may also have fibromyalgia. She is very sensitive to touch. 8. Thrombocytopenia. Observe. No active bleeding. 9. Tendency for CHF. Continue the patient's regular Lasix dose orally. 10. History of kidney stones with no evidence of obstruction, on Flomax. 11. Chronic pain syndrome, on multiple pain meds including Dilaudid, methadone. Definitely would b enefit from stool softeners. 12. Case discussed in detail with the son. I answered all his questions. We will follow. Dictated By: EDDY TIAN/ANNA Conf#: [id number] DID#: [id number]
[2016-06-02] MEDS: GUAIFENESIN LA 600 MG TABSR PO SCH ×2 (12:37→21:39)
[2016-06-02] MEDS: FLUCONAZOLE 100 MG TAB PO SCH (12:37)
[2016-06-02] MEDS: BISACODYL 10 MG SUPP PR PRN (12:37)
[2016-06-02] MEDS: MUPIROCIN 2% 22 GM OINT TOP SCH ×4 (12:38→22:30)
--- NOTE | 2016-06-02 12:51 | CONS ---
Date/Time of Note Date/Time of Note DATE: 06/02/16 TIME: 12:48 Assessment/Plan Assessment/Plan Chief Complaint/Hosp Course SUBJECTIVE: Patient is lying comfortably in bed. She is alert, no SOB, no fevers, son at bedside MICROBIOLOGY: Urine culture growing Pseudomonas species, sensitivities pending. Blood cultures remain negative. + MRSA DIAGNOSTICS: CT of the abdomen and pelvis revealed multiple left renal calculi , no evidence of obstructive uropathy, diverticulitis or appendicitis. Chest x- ray revealed no evidence for active cardiopulmonary disease. ANTIMICROBIALS: The patient is on: 1. IV vancomycin. 2. Cefepime. 3. She also was started on steroids. PHYSICAL EXAMINATION: GENERAL: This is a well-developed, obese, elderly woman who is in no distress. HEENT: Head atraumatic, normocephalic. Sclerae anicteric. Buccal mucosa dry. NECK: Supple, trachea midline. CHEST: Rise symmetrical. Breath sounds diminished to bases. HEART: S1, S2. ABDOMEN: Obese, soft, bowel tones present. EXTREMITIES: Bilateral lower extremities edema, chronic venous stasis. ASSESSMENT: 1. S/p acute respiratory distress, questionable aspiration PNA/chronic obstructive pulmonary disease exacerbation. 2. Recurrent urinary tract infection==> PSA. 3. Bilateral lower extremities chronic venous stasis. 4. Coronary artery disease with a history of permanent pacemaker. 5. Opioid dependence. 6. Tobacco use. 7. MRSA + nares PLAN: The patient is stable, on appropriate antibiotics, will add Bactroban to nares DW son at bedside DW pt Problems: Consultation Date/Type/Reason Admit Date/Time May 31, 2016 at 12:25 Initial Consult Date Type of Consultation: id Exam/Review of Systems Vital Signs Vitals Vital Signs Date Time Temp Pulse Resp B/P Pulse Ox O2 Delivery O2 Flow Rate FiO2 06/02/16 08:53 89 20 91 Venti Mask 12.0 40 06/02/16 08:00 98.7 142/62 Intake and Output 06/01/16 06/01/16 06/02/16 15:00 23:00 07:00 Intake Total 300 ml 990 ml 500 ml Balance 300 ml 990 ml 500 ml Results Result Diagram: 06/02/16 1009 06/02/16 1009 Results 24 hrs Laboratory Tests Test 06/01/16 17:08 06/01/16 21:05 06/02/16 02:09 06/02/16 02:20 Bedside Glucose 432 *H 394 H 441 *H Glucose Level 411 *H Test 06/02/16 02:32 06/02/16 08:08 06/02/16 10:09 06/02/16 11:03 Bedside Glucose 453 *H 420 *H 511 *H Anion Gap 18 H Basophils # 0.0 Basophils % 0.1 Blood Morphology Comment Blood Urea Nitrogen 31 H Calcium Level 8.6 Carbon Dioxide Level 27 Chloride Level 98 Creatinine 0.83 Eosinophils # 0.0 Eosinophils % 0.0 Glucose Level 456 *H Hematocrit 30.0 L Hemoglobin 9.7 L Lymphocytes # 0.7 L Lymphocytes % 8.8 L Magnesium Level 2.3 Mean Corpuscular Hemoglobin 28.8 L Mean Corpuscular Hemoglobin Concent 32.2 Mean Corpuscular Volume 89.5 Mean Platelet Volume 8.4 Monocytes # 0.3 Monocytes % 3.1 Neutrophils # 7.2 Neutrophils % 88.0 H Nucleated Red Blood Cells # 0.0 Nucleated Red Blood Cells % 0.0 Phosphorus Level 2.7 Platelet Count 119 L Potassium Level 4.4 Red Blood Count 3.36 L Red Cell Distribution Width 16.6 H Sodium Level 139 White Blood Count 8.2 # Medications Medications Current Medications Acetaminophen (Tylenol Tab) 650 mg Q6H PRN PO PAIN LEVEL 1-3 OR FEVER Last administered on 06/02/16 03:05; Admin Dose 650 MG; Start 05/31/16 at 15:30 Hydromorphone HCl (Dilaudid) 1 mg Q4H PRN IV SEVERE PAIN LEVEL 7-10 Last administered on 06/02/16 02:14; Admin Dose 1 MG; Start 05/31/16 at 15:30 Docusate Sodium (Colace) 100 mg Q12H PRN PO CONSTIPATION; Start 05/31/16 at 15: 30 Magnesium Hydroxide (Milk Of Mag) 30 ml DAILY PRN PO CONSTIPATION; Start at 15:30 Bisacodyl (Dulcolax Supp) 10 mg DAILY PRN [place] CONSTIPATION Last administered on 06/02/16 12:37; Admin Dose 10 MG; Start 05/31/16 at 15:30 Pantoprazole 40 mg 40 mg DAILY@06 PO Last administered on 06/02/16 05:50; Admin Dose 40 MG; Start 06/01/16 at 06:00 Cefepime HCl (Maxipime 1gm/50 ml (Pmx)) 50 ml @ 100 mls/hr Q12 IV Last administered on 06/02/16 08:45; Admin Dose 100 MLS/HR; Start 05/31/16 at 21:00 Ascorbic Acid (Vitamin C) 250 mg DAILY PO Last administered on 06/02/16 08:46 ; Admin Dose 250 MG; Start 06/01/16 at 09:00 Docusate Sodium (Colace) 100 mg BID PO Last administered on 06/02/16 08:46; Admin Dose 100 MG; Start 05/31/16 at 21:00 Duloxetine HCl (Cymbalta) 30 mg DAILY PO Last administered on 06/02/16 08:46; Admin Dose 30 MG; Start 06/01/16 at 09:00 Ferrous Sulfate (Ferrous Sulfate (Ec)) 325 mg DAILY PO Last administered on 08:46; Admin Dose 325 MG; Start 06/01/16 at 09:00 Furosemide (Lasix) 40 mg DAILY PO Last administered on 06/02/16 08:48; Admin Dose 40 MG; Start 06/01/16 at 09:00 Magnesium Oxide (Mag-Ox 400) 400 mg BID PO Last administered on 06/02/16 08:46 ; Admin Dose 400 MG; Start 05/31/16 at 21:00 Multivitamins Therapeutic (Theragran) 1 tab DAILY PO Last administered on 08:46; Admin Dose 1 TAB; Start 06/01/16 at 09:00 Pyridoxine HCl (Vitamin B6) 100 mg Q8 PO Last administered on 06/02/16 12:38; Admin Dose 100 MG; Start 05/31/16 at 22:00 Saccharomyces Boulardii (Florastor) 250 mg BID PO Last administered on 08:46; Admin Dose 250 MG; Start 05/31/16 at 21:00 Senna (Senokot) 1 tab DAILY PO Last administered on 06/02/16 08:46; Admin Dose 1 TAB; Start 06/01/16 at 09:00 Tamsulosin HCl (Flomax) 0.4 mg HS PO Last administered on 06/01/16 21:13; Admin Dose 0.4 MG; Start 05/31/16 at 21:00 Zinc Sulfate (Zinc Sulfate) 220 mg DAILY PO Last administered on 06/02/16 08: 46; Admin Dose 220 MG; Start 06/01/16 at 09:00 Clotrimazole (Lotrimin Cr) 1 applic BID TOP Last administered on 06/02/16 08: 47; Admin Dose 1 APPLIC; Start 05/31/16 at 21:00 Guaifenesin/ Codeine Phosphate 10 ml 10 ml Q4H PRN PO cough; Start 05/31/16 at 16:00 Vancomycin HCl/ Sodium Chloride (Vancocin/NS) 250 ml @ 83.333 mls/ hr Q24H IVPB Last administered on 06/02/16 11:11; Admin Dose 83.333 MLS/HR; Start at 12:00 Methadone HCl (Methadone) 10 mg QID@00,08,14,20 PO Last administered on 12:37; Admin Dose 10 MG; Start 06/01/16 at 00:00 Hydromorphone HCl (Dilaudid) 6 mg QID@00,05,11,17 PO Last administered on 11:00; Admin Dose 6 MG; Start 06/01/16 at 00:00 Diagnostic Test (Pha) (Accucheck) 1 ea 02 XX ; Start 06/02/16 at 02:00 Miscellaneous Information 1 ea NOTE XX ; Start 06/01/16 at 07:00 Glucose (Glutose) 15 gm Q15M PRN PO DECREASED GLUCOSE; Start 06/01/16 at 07:00 Glucose (Glutose) 22.5 gm Q15M PRN PO DECREASED GLUCOSE; Start 06/01/16 at 07: 00 Dextrose (D50w Syringe) 25 ml Q15M PRN IV DECREASED GLUCOSE; Start 06/01/16 at 07:00 Dextrose (D50w Syringe) 50 ml Q15M PRN IV DECREASED GLUCOSE; Start 06/01/16 at 07:00 Glucagon (Glucagen) 1 mg Q15M PRN IM DECREASED GLUCOSE; Start 06/01/16 at 07:00 Glucose (Glutose) 15 gm Q15M PRN BUCCAL DECREASED GLUCOSE; Start 06/01/16 at 07 :00 Phenazopyridine HCl (Pyridium) 200 mg TID PO Last administered on 06/02/16 12: 40; Admin Dose 200 MG; Start 06/01/16 at 13:00; Stop 06/03/16 at 08:00 Vitamin A/Vitamin D (Vitamin A & D Oint) 1 applic BID TOP Last administered on 06/02/16 08:46; Admin Dose 1 APPLIC; Start 06/01/16 at 12:00 Insulin Glargine (Lantus) 24 unit DAILY@20 SC ; Start 06/02/16 at 20:00 Mupirocin (Bactroban) 1 applic BID TOP Last administered on 06/02/16 12:38; Admin Dose 1 APPLIC; Start 06/02/16 at 11:00 Methylprednisolone Sodium Succinate (Solu-Medrol) 40 mg Q12 IV ; Start 06/02/16 at 21:00 Guaifenesin (Mucinex) 600 mg BID PO Last administered on 06/02/16 12:37; Admin Dose 600 MG; Start 06/02/16 at 12:30 Fluconazole (Diflucan) 100 mg DAILY PO Last administered on 06/02/16 12:37; Admin Dose 100 MG; Start 06/02/16 at 11:30 Miscellaneous Information (*Rx Drug Level Order Reminder*) 1 ONCE ONCE XX ; Start 06/03/16 at 11:00; Stop 06/03/16 at 11:01 GIOVANNA ESCUDERO NP Jun 02, 2016 12:51
[2016-06-02] MEDS: RIVAROXABAN 20 MG TABLET PO SCH (17:26)
[2016-06-02 20:20] VITALS: BP 144/67; RESP 20
[2016-06-02] MEDS: METHYLPREDNISOLONE 40 MG INJ IV SCH (21:38)
[2016-06-02] MEDS: TAMSULOSIN (SR) 0.4 MG CAP PO SCH (21:39)
[2016-06-02] MEDS: INSULIN GLARGINE [LANtus] 3 ML PEN SC SCH (21:46)
[2016-06-03] MEDS: HYDROmorphONE 2 MG TAB PO SCH ×4 (00:23→17:22)
[2016-06-03] MEDS: METHADONE 10 MG TAB PO SCH ×4 (00:23→20:43)
[2016-06-03] MEDS: ACETAMINOPHEN 325 MG TAB PO PRN (00:27)
[2016-06-03] MEDS: ACCUCHECK XX SCH ×5 (02:00→21:00)
[2016-06-03] MEDS: HYDROmorphONE 1 MG/ML SYG IV PRN ×4 (02:06→19:36)
[2016-06-03] MEDS: LEVALBUTEROL (NEB) 1.25 MG/0.5 ML AMP HHN SCH ×4 (02:08→20:24)
[2016-06-03] MEDS: IPRATROPIUM (NEB) 0.5 MG/2.5 ML AMP HHN SCH ×4 (02:08→20:24)
[2016-06-03 05:13] VITALS: BP 136/65
[2016-06-03] MEDS: PYRIDOXINE 50 MG TAB PO SCH ×3 (05:24→22:14)
[2016-06-03] MEDS: PANTOPRAZOLE (EC) 40 MG TAB PO SCH (05:24)
[2016-06-03 05:52] LABS: BASOPHILS % 0.1 % (0.0-2.0); EOSINOPHILS % 0.1 % (0.0-7.0); HEMATOCRIT 31.1 % (37.0-47.0); HEMOGLOBIN 10.2 g/dl (12.0-16.0); LYMPHOCYTES # 0.9 10^3/ul (0.8-2.9); MEAN CORPUSCULAR HEMOGLOBIN 29.2 pg (29.0-33.0); MEAN CORPUSCULAR HGB CONC 32.6 g/dl (32.0-37.0); MEAN CORPUSCULAR VOLUME 89.3 fl (82.0-101.0); MEAN PLATELET VOLUME 8.1 fl (7.4-10.4); MONOCYTE # 0.3 10^3/ul (0.3-0.9); MONOCYTES % 3.3 % (0.0-11.0); NEUTROPHIL # 7.4 10^3/ul (1.6-7.5); NEUTROPHILS % 85.5 % (39.0-77.0); PLATELET COUNT 129 10^3/UL (140-440); RED BLOOD COUNT 3.48 10^6/ul (4.20-5.40); RED CELL DISTRIBUTION WIDTH 16.6 % (11.5-14.5); UNCORRECTED WBC 8.6 10^3/ul (4.8-10.8); WHITE BLOOD COUNT 8.6 10^3/ul (4.8-10.8)
[2016-06-03 06:04] LABS: MAGNESIUM 2.3 mg/dl (1.7-2.5); PHOSPHORUS 2.6 mg/dl (2.5-4.9)
[2016-06-03 06:13] LABS: CONDITION 1; LH ANALYZER COMMENTS 1
[2016-06-03 06:52] LABS: POTASSIUM 5.6 mmol/L (3.5-5.1)
[2016-06-03 06:54] LABS: CREATININE 0.79 mg/dl (0.44-1.00)
[2016-06-03 06:55] LABS: CALCIUM 8.6 mg/dl (8.4-10.2)
[2016-06-03] MEDS: INSULIN ASPART [NOVOLOG] 3 ML PEN SC SCH ×7 (07:52→22:44)
[2016-06-03 08:43] VITALS: BP 115/63; RESP 16
[2016-06-03] MEDS: MUPIROCIN 2% 22 GM OINT TOP SCH ×4 (09:00→22:22)
[2016-06-03] MEDS: ASCORBIC ACID 250 MG TAB PO SCH (09:14)
[2016-06-03] MEDS: MAGNESIUM OXIDE 400 MG TAB PO SCH ×2 (09:14→22:14)
[2016-06-03] MEDS: SENNA TAB PO SCH (09:14)
[2016-06-03] MEDS: FERROUS SULFATE (EC) 325 MG TAB PO SCH (09:14)
[2016-06-03] MEDS: DULOXETINE 30 MG CAP DR PO SCH (09:14)
[2016-06-03] MEDS: VITAMIN A & D 5 GM OINT PACKET TOP SCH ×2 (09:14→22:22)
[2016-06-03] MEDS: DOCUSATE SODIUM 100 MG CAP PO SCH ×2 (09:15→21:00)
[2016-06-03] MEDS: SACCHAROMYCES BOULARDII 250 MG CAP PO SCH ×2 (09:15→22:14)
[2016-06-03] MEDS: CLOTRIMAZOLE 1% 30 GM CR TOP SCH ×2 (09:15→22:22)
[2016-06-03] MEDS: GUAIFENESIN LA 600 MG TABSR PO SCH ×2 (09:15→22:14)
[2016-06-03] MEDS: FLUCONAZOLE 100 MG TAB PO SCH (09:15)
[2016-06-03] MEDS: ZINC SULFATE 220 MG CAP PO SCH (09:15)
[2016-06-03] MEDS: MULTIVITAMINS THERAPEUTIC TAB PO SCH (09:15)
[2016-06-03] MEDS: FUROSEMIDE 40 MG TAB PO SCH (09:16)
[2016-06-03] MEDS: CEFEPIME 1GM/50 ML (PMX) 50 ML IV SCH ×2 (09:22→22:15)
[2016-06-03] MEDS: METHYLPREDNISOLONE 40 MG INJ IV SCH ×2 (09:22→22:14)
--- NOTE | 2016-06-03 10:28 | CONS ---
Date/Time of Note Date/Time of Note DATE: 06/03/16 TIME: 10:25 Consult Date/Type/Reason Admit Date/Time May 31, 2016 at 12:25 Initial Consult Date Type of Consultation: neph Subjective 71-year-old female, morbidly obese, overall very debilitated with history of COPD, O2 dependent, CHF, peripheral vascular disease with history of recurrent UTI, multidrug resistant, presented with respiratory distress and urinary tract infection. The patient is doing better, is breathing more comfortably. She is on face mask, saturating 91% on 40% FIO2. Overall, the patient denies any shortness of breath. She does complain of urethral pain which has been a chronic complaint with her. The plan is to add Diflucan. In addition, multiple creams were ordered and will discuss with Dr. Milan further recommendations. The patient's urine culture came back Pseudomonas aeruginosa sensitive to cefepime. In addition, the patient is positive for MRSA of the nares. on a steroid taper. POC reviewed with dr. jha. PHYSICAL EXAMINATION: VITAL SIGNS: Temperature 98.7, pulse is 89, respirations 20, pulse is 89, respirations 20, blood pressure 122/60, saturation 91% on Ventimask on FIO2 of 40%. GENERAL: The patient is in no acute distress, feels comfortable. CARDIOVASCULAR: S1 and S2. LUNGS: Now clear bilaterally. ABDOMEN: Soft, nontender. EXTREMITIES: No clubbing, cyanosis, or edema. She does have chronic venous stasis with bandages of the lower extremities. Objective Vital Signs Date Time Temp Pulse Resp B/P Pulse Ox O2 Delivery O2 Flow Rate FiO2 06/03/16 08:43 97.4 72 16 115/63 94 06/03/16 05:23 4.0 06/03/16 02:10 Nasal Cannula 40 Intake and Output 06/02/16 06/02/16 06/03/16 15:00 23:00 07:00 Intake Total 1250 ml 480 ml Balance 1250 ml 480 ml Results/Medications Result Diagram: 06/03/16 0515 06/03/16 0515 Results 24 hrs Laboratory Tests Test 06/02/16 11:03 06/02/16 12:13 06/02/16 14:07 06/02/16 17:29 Bedside Glucose 511 *H 442 *H 300 H Glucose Level 499 *H Test 06/02/16 21:33 06/03/16 02:05 06/03/16 05:15 06/03/16 07:50 Bedside Glucose 252 H 307 H 312 H Anion Gap 17 H Basophils # 0.0 Basophils % 0.1 Blood Morphology Comment Blood Urea Nitrogen 33 H Calcium Level 8.6 Carbon Dioxide Level 28 Chloride Level 101 Creatinine 0.79 Eosinophils # 0.0 Eosinophils % 0.1 Glucose Level 362 H Hematocrit 31.1 L Hemoglobin 10.2 L Lymphocytes # 0.9 Lymphocytes % 11.0 L Magnesium Level 2.3 Mean Corpuscular Hemoglobin 29.2 Mean Corpuscular Hemoglobin Concent 32.6 Mean Corpuscular Volume 89.3 Mean Platelet Volume 8.1 Monocytes # 0.3 Monocytes % 3.3 Neutrophils # 7.4 Neutrophils % 85.5 H Nucleated Red Blood Cells # 0.0 Nucleated Red Blood Cells % 0.0 Phosphorus Level 2.6 Platelet Count 129 L Potassium Level 5.6 H Red Blood Count 3.48 L Red Cell Distribution Width 16.6 H Sodium Level 140 White Blood Count 8.6 Medications Current Medications Acetaminophen (Tylenol Tab) 650 mg Q6H PRN PO PAIN LEVEL 1-3 OR FEVER Last administered on 06/03/16 00:27; Admin Dose 650 MG; Start 05/31/16 at 15:30 Hydromorphone HCl (Dilaudid) 1 mg Q4H PRN IV SEVERE PAIN LEVEL 7-10 Last administered on 06/03/16 09:14; Admin Dose 1 MG; Start 05/31/16 at 15:30 Docusate Sodium (Colace) 100 mg Q12H PRN PO CONSTIPATION; Start 05/31/16 at 15: 30 Magnesium Hydroxide (Milk Of Mag) 30 ml DAILY PRN PO CONSTIPATION; Start at 15:30 Bisacodyl (Dulcolax Supp) 10 mg DAILY PRN [place] CONSTIPATION Last administered on 06/02/16 12:37; Admin Dose 10 MG; Start 05/31/16 at 15:30 Pantoprazole 40 mg 40 mg DAILY@06 PO Last administered on 06/03/16 05:24; Admin Dose 40 MG; Start 06/01/16 at 06:00 Cefepime HCl (Maxipime 1gm/50 ml (Pmx)) 50 ml @ 100 mls/hr Q12 IV Last administered on 06/03/16 09:22; Admin Dose 100 MLS/HR; Start 05/31/16 at 21:00 Ascorbic Acid (Vitamin C) 250 mg DAILY PO Last administered on 06/03/16 09:14 ; Admin Dose 250 MG; Start 06/01/16 at 09:00 Docusate Sodium (Colace) 100 mg BID PO Last administered on 06/03/16 09:15; Admin Dose 100 MG; Start 05/31/16 at 21:00 Duloxetine HCl (Cymbalta) 30 mg DAILY PO Last administered on 06/03/16 09:14; Admin Dose 30 MG; Start 06/01/16 at 09:00 Ferrous Sulfate (Ferrous Sulfate (Ec)) 325 mg DAILY PO Last administered on 09:14; Admin Dose 325 MG; Start 06/01/16 at 09:00 Furosemide (Lasix) 40 mg DAILY PO Last administered on 06/03/16 09:16; Admin Dose 40 MG; Start 06/01/16 at 09:00 Magnesium Oxide (Mag-Ox 400) 400 mg BID PO Last administered on 06/03/16 09:14 ; Admin Dose 400 MG; Start 05/31/16 at 21:00 Multivitamins Therapeutic (Theragran) 1 tab DAILY PO Last administered on 09:15; Admin Dose 1 TAB; Start 06/01/16 at 09:00 Pyridoxine HCl (Vitamin B6) 100 mg Q8 PO Last administered on 06/03/16 05:24; Admin Dose 100 MG; Start 05/31/16 at 22:00 Saccharomyces Boulardii (Florastor) 250 mg BID PO Last administered on 09:15; Admin Dose 250 MG; Start 05/31/16 at 21:00 Senna (Senokot) 1 tab DAILY PO Last administered on 06/03/16 09:14; Admin Dose 1 TAB; Start 06/01/16 at 09:00 Tamsulosin HCl (Flomax) 0.4 mg HS PO Last administered on 06/02/16 21:39; Admin Dose 0.4 MG; Start 05/31/16 at 21:00 Zinc Sulfate (Zinc Sulfate) 220 mg DAILY PO Last administered on 06/03/16 09: 15; Admin Dose 220 MG; Start 06/01/16 at 09:00 Clotrimazole (Lotrimin Cr) 1 applic BID TOP Last administered on 06/03/16 09: 15; Admin Dose 1 APPLIC; Start 05/31/16 at 21:00 Guaifenesin/ Codeine Phosphate 10 ml 10 ml Q4H PRN PO cough; Start 05/31/16 at 16:00 Vancomycin HCl/ Sodium Chloride (Vancocin/NS) 250 ml @ 83.333 mls/ hr Q24H IVPB Last administered on 06/02/16 11:11; Admin Dose 83.333 MLS/HR; Start at 12:00 Methadone HCl (Methadone) 10 mg QID@00,08,14,20 PO Last administered on 07:51; Admin Dose 10 MG; Start 06/01/16 at 00:00 Hydromorphone HCl (Dilaudid) 6 mg QID@00,05,11,17 PO Last administered on 05:25; Admin Dose 6 MG; Start 06/01/16 at 00:00 Diagnostic Test (Pha) (Accucheck) 1 ea 02 XX ; Start 06/02/16 at 02:00 Miscellaneous Information 1 ea NOTE XX ; Start 06/01/16 at 07:00 Glucose (Glutose) 15 gm Q15M PRN PO DECREASED GLUCOSE; Start 06/01/16 at 07:00 Glucose (Glutose) 22.5 gm Q15M PRN PO DECREASED GLUCOSE; Start 06/01/16 at 07: 00 Dextrose (D50w Syringe) 25 ml Q15M PRN IV DECREASED GLUCOSE; Start 06/01/16 at 07:00 Dextrose (D50w Syringe) 50 ml Q15M PRN IV DECREASED GLUCOSE; Start 06/01/16 at 07:00 Glucagon (Glucagen) 1 mg Q15M PRN IM DECREASED GLUCOSE; Start 06/01/16 at 07:00 Glucose (Glutose) 15 gm Q15M PRN BUCCAL DECREASED GLUCOSE; Start 06/01/16 at 07 :00 Vitamin A/Vitamin D (Vitamin A & D Oint) 1 applic BID TOP Last administered on 06/03/16 09:14; Admin Dose 1 APPLIC; Start 06/01/16 at 12:00 Insulin Glargine (Lantus) 24 unit DAILY@20 SC Last administered on 06/02/16 21 :46; Admin Dose 24 UNIT; Start 06/02/16 at 20:00 Mupirocin (Bactroban) 1 applic BID TOP Last administered on 06/03/16 09:15; Admin Dose 1 APPLIC; Start 06/02/16 at 11:00 Methylprednisolone Sodium Succinate (Solu-Medrol) 40 mg Q12 IV Last administered on 06/03/16 09:22; Admin Dose 40 MG; Start 06/02/16 at 21:00 Guaifenesin (Mucinex) 600 mg BID PO Last administered on 06/03/16 09:15; Admin Dose 600 MG; Start 06/02/16 at 12:30 Fluconazole (Diflucan) 100 mg DAILY PO Last administered on 06/03/16 09:15; Admin Dose 100 MG; Start 06/02/16 at 11:30 Miscellaneous Information (*Rx Drug Level Order Reminder*) 1 ONCE ONCE XX ; Start 06/03/16 at 11:00; Stop 06/03/16 at 11:01 Mupirocin (Bactroban) 1 applic BID TOP ; Start 06/02/16 at 14:30 Assessment/Plan Chief Complaint/Hosp Course 1. Respiratory. Taper down steroids as the patient's breathing is improved. Continue O2 support, titrate it down to keep O2 above or equal to 89 to 98. Continue treatment for pneumonia as CT scan suggests right lower lung infiltrate versus atelectasis. Speech therapy is following. I appreciate recommendations. The patient is adamant about eating what she wants. Also, she has positive MRSA of the nares as she is on IV vancomycin. 2. Cardiovascular. Patient with history of DVT and PE, remains on Xarelto for anticoagulation and vitals are stable. 3. Infectious disease. The patient with urinary tract infection, likely underlying pneumonia, positive Pseudomonas aeruginosa, UTI and MRSA pneumonia. Continue cefepime and vancomycin. Will add Diflucan for possible yeast infection and follow up all cultures and ID to follow regarding further antibiotic management. 4. Perineal burning. Add Diflucan and observe. Remains on Pyridium as well on clotrimazole and on vitamin A and D for diaper rash. 5. Gastrointestinal. Hemoglobin and hematocrit remain stable. No need for transfusion. 6. Hyperglycemia, steroid used. Taper down steroids. Continue insulin for now. 7. Psychiatric. Continue Cymbalta. The patient may also have fibromyalgia. She is very sensitive to touch. 8. Thrombocytopenia. Observe. No active bleeding. 9. Tendency for CHF. Continue the patient's regular Lasix dose orally. 10. History of kidney stones with no evidence of obstruction, on Flomax. 11. Chronic pain syndrome, on multiple pain meds including Dilaudid, methadone. Problems: BRETT BARROSO MD Jun 03, 2016 10:28
[2016-06-03] MEDS: VANCOMYCIN 1.5 GM in SOD CHLORIDE 0.9% 250 ML IVPB SCH (12:21)
[2016-06-03] MEDS: BISACODYL 10 MG SUPP PR PRN (13:20)
--- NOTE | 2016-06-03 14:37 | CONS ---
Date/Time of Note Date/Time of Note DATE: 06/03/16 TIME: 14:36 Assessment/Plan Assessment/Plan Chief Complaint/Hosp Course SUBJECTIVE: Patient is lying comfortably in bed. She is alert, no SOB, no fevers, son at bedside MICROBIOLOGY: Urine culture growing Pseudomonas species, sensitivities pending. Blood cultures remain negative. + MRSA DIAGNOSTICS: CT of the abdomen and pelvis revealed multiple left renal calculi , no evidence of obstructive uropathy, diverticulitis or appendicitis. Chest x- ray revealed no evidence for active cardiopulmonary disease. ANTIMICROBIALS: The patient is on: 1. IV vancomycin. 2. Cefepime. 3. She also was started on steroids. PHYSICAL EXAMINATION: GENERAL: This is a well-developed, obese, elderly woman who is in no distress. HEENT: Head atraumatic, normocephalic. Sclerae anicteric. Buccal mucosa dry. NECK: Supple, trachea midline. CHEST: Rise symmetrical. Breath sounds diminished to bases. HEART: S1, S2. ABDOMEN: Obese, soft, bowel tones present. EXTREMITIES: Bilateral lower extremities edema, chronic venous stasis. ASSESSMENT: 1. S/p acute respiratory distress, questionable aspiration PNA/chronic obstructive pulmonary disease exacerbation. 2. Recurrent urinary tract infection==> PSA. 3. Bilateral lower extremities chronic venous stasis. 4. Coronary artery disease with a history of permanent pacemaker. 5. Opioid dependence. 6. Tobacco use. 7. MRSA + nares PLAN: The patient is stable, continue antibiotics, Bactroban to nares DW son at bedside DW pt Problems: Consultation Date/Type/Reason Admit Date/Time May 31, 2016 at 12:25 Type of Consultation: id Exam/Review of Systems Vital Signs Vitals Vital Signs Date Time Temp Pulse Resp B/P Pulse Ox O2 Delivery O2 Flow Rate FiO2 06/03/16 13:04 Nasal Cannula 4.0 06/03/16 08:43 97.4 72 16 115/63 94 06/03/16 02:10 40 Intake and Output 06/02/16 06/02/16 06/03/16 15:00 23:00 07:00 Intake Total 1250 ml 480 ml Balance 1250 ml 480 ml Results Result Diagram: 06/03/16 0515 06/03/16 0515 Results 24 hrs Laboratory Tests Test 06/02/16 17:29 06/02/16 21:33 06/03/16 02:05 06/03/16 05:15 Bedside Glucose 300 H 252 H 307 H Anion Gap 17 H Basophils # 0.0 Basophils % 0.1 Blood Morphology Comment Blood Urea Nitrogen 33 H Calcium Level 8.6 Carbon Dioxide Level 28 Chloride Level 101 Creatinine 0.79 Eosinophils # 0.0 Eosinophils % 0.1 Glucose Level 362 H Hematocrit 31.1 L Hemoglobin 10.2 L Lymphocytes # 0.9 Lymphocytes % 11.0 L Magnesium Level 2.3 Mean Corpuscular Hemoglobin 29.2 Mean Corpuscular Hemoglobin Concent 32.6 Mean Corpuscular Volume 89.3 Mean Platelet Volume 8.1 Monocytes # 0.3 Monocytes % 3.3 Neutrophils # 7.4 Neutrophils % 85.5 H Nucleated Red Blood Cells # 0.0 Nucleated Red Blood Cells % 0.0 Phosphorus Level 2.6 Platelet Count 129 L Potassium Level 5.6 H Red Blood Count 3.48 L Red Cell Distribution Width 16.6 H Sodium Level 140 White Blood Count 8.6 Test 06/03/16 07:50 06/03/16 11:00 06/03/16 11:08 Bedside Glucose 312 H 265 H Vancomycin Level Trough 12.7 Medications Medications Current Medications Acetaminophen (Tylenol Tab) 650 mg Q6H PRN PO PAIN LEVEL 1-3 OR FEVER Last administered on 06/03/16 00:27; Admin Dose 650 MG; Start 05/31/16 at 15:30 Hydromorphone HCl (Dilaudid) 1 mg Q4H PRN IV SEVERE PAIN LEVEL 7-10 Last administered on 06/03/16 09:14; Admin Dose 1 MG; Start 05/31/16 at 15:30 Docusate Sodium (Colace) 100 mg Q12H PRN PO CONSTIPATION; Start 05/31/16 at 15: 30 Magnesium Hydroxide (Milk Of Mag) 30 ml DAILY PRN PO CONSTIPATION Last administered on 06/03/16 13:20; Admin Dose 30 ML; Start 05/31/16 at 15:30 Bisacodyl (Dulcolax Supp) 10 mg DAILY PRN OR CONSTIPATION Last administered on 06/03/16 13:20; Admin Dose 10 MG; Start 05/31/16 at 15:30 Pantoprazole 40 mg 40 mg DAILY@06 PO Last administered on 06/03/16 05:24; Admin Dose 40 MG; Start 06/01/16 at 06:00 Cefepime HCl (Maxipime 1gm/50 ml (Pmx)) 50 ml @ 100 mls/hr Q12 IV Last administered on 06/03/16 09:22; Admin Dose 100 MLS/HR; Start 05/31/16 at 21:00 Ascorbic Acid (Vitamin C) 250 mg DAILY PO Last administered on 06/03/16 09:14 ; Admin Dose 250 MG; Start 06/01/16 at 09:00 Docusate Sodium (Colace) 100 mg BID PO Last administered on 06/03/16 09:15; Admin Dose 100 MG; Start 05/31/16 at 21:00 Duloxetine HCl (Cymbalta) 30 mg DAILY PO Last administered on 06/03/16 09:14; Admin Dose 30 MG; Start 06/01/16 at 09:00 Ferrous Sulfate (Ferrous Sulfate (Ec)) 325 mg DAILY PO Last administered on 09:14; Admin Dose 325 MG; Start 06/01/16 at 09:00 Furosemide (Lasix) 40 mg DAILY PO Last administered on 06/03/16 09:16; Admin Dose 40 MG; Start 06/01/16 at 09:00 Magnesium Oxide (Mag-Ox 400) 400 mg BID PO Last administered on 06/03/16 09:14 ; Admin Dose 400 MG; Start 05/31/16 at 21:00 Multivitamins Therapeutic (Theragran) 1 tab DAILY PO Last administered on 09:15; Admin Dose 1 TAB; Start 06/01/16 at 09:00 Pyridoxine HCl (Vitamin B6) 100 mg Q8 PO Last administered on 06/03/16 14:20; Admin Dose 100 MG; Start 05/31/16 at 22:00 Saccharomyces Boulardii (Florastor) 250 mg BID PO Last administered on 09:15; Admin Dose 250 MG; Start 05/31/16 at 21:00 Senna (Senokot) 1 tab DAILY PO Last administered on 06/03/16 09:14; Admin Dose 1 TAB; Start 06/01/16 at 09:00 Tamsulosin HCl (Flomax) 0.4 mg HS PO Last administered on 06/02/16 21:39; Admin Dose 0.4 MG; Start 05/31/16 at 21:00 Zinc Sulfate (Zinc Sulfate) 220 mg DAILY PO Last administered on 06/03/16 09: 15; Admin Dose 220 MG; Start 06/01/16 at 09:00 Clotrimazole (Lotrimin Cr) 1 applic BID TOP Last administered on 06/03/16 09: 15; Admin Dose 1 APPLIC; Start 05/31/16 at 21:00 Guaifenesin/ Codeine Phosphate 10 ml 10 ml Q4H PRN PO cough; Start 05/31/16 at 16:00 Vancomycin HCl/ Sodium Chloride (Vancocin/NS) 250 ml @ 83.333 mls/ hr Q24H IVPB Last administered on 06/03/16 12:21; Admin Dose 83.333 MLS/HR; Start at 12:00 Methadone HCl (Methadone) 10 mg QID@00,08,14,20 PO Last administered on 14:20; Admin Dose 10 MG; Start 06/01/16 at 00:00 Hydromorphone HCl (Dilaudid) 6 mg QID@00,05,11,17 PO Last administered on 11:05; Admin Dose 6 MG; Start 06/01/16 at 00:00 Diagnostic Test (Pha) (Accucheck) 1 ea 02 XX ; Start 06/02/16 at 02:00 Miscellaneous Information 1 ea NOTE XX ; Start 06/01/16 at 07:00 Glucose (Glutose) 15 gm Q15M PRN PO DECREASED GLUCOSE; Start 06/01/16 at 07:00 Glucose (Glutose) 22.5 gm Q15M PRN PO DECREASED GLUCOSE; Start 06/01/16 at 07: 00 Dextrose (D50w Syringe) 25 ml Q15M PRN IV DECREASED GLUCOSE; Start 06/01/16 at 07:00 Dextrose (D50w Syringe) 50 ml Q15M PRN IV DECREASED GLUCOSE; Start 06/01/16 at 07:00 Glucagon (Glucagen) 1 mg Q15M PRN IM DECREASED GLUCOSE; Start 06/01/16 at 07:00 Glucose (Glutose) 15 gm Q15M PRN BUCCAL DECREASED GLUCOSE; Start 06/01/16 at 07 :00 Vitamin A/Vitamin D (Vitamin A & D Oint) 1 applic BID TOP Last administered on 06/03/16 09:14; Admin Dose 1 APPLIC; Start 06/01/16 at 12:00 Insulin Glargine (Lantus) 24 unit DAILY@20 SC Last administered on 06/02/16 21 :46; Admin Dose 24 UNIT; Start 06/02/16 at 20:00 Mupirocin (Bactroban) 1 applic BID TOP Last administered on 06/03/16 09:15; Admin Dose 1 APPLIC; Start 06/02/16 at 11:00 Methylprednisolone Sodium Succinate (Solu-Medrol) 40 mg Q12 IV Last administered on 06/03/16 09:22; Admin Dose 40 MG; Start 06/02/16 at 21:00 Guaifenesin (Mucinex) 600 mg BID PO Last administered on 06/03/16 09:15; Admin Dose 600 MG; Start 06/02/16 at 12:30 Fluconazole (Diflucan) 100 mg DAILY PO Last administered on 06/03/16 09:15; Admin Dose 100 MG; Start 06/02/16 at 11:30 Mupirocin (Bactroban) 1 applic BID TOP ; Start 06/02/16 at 14:30 GIOVANNA ESCUDERO NP Jun 03, 2016 14:37
[2016-06-03] MEDS: RIVAROXABAN 20 MG TABLET PO SCH (17:22)
[2016-06-03 21:11] VITALS: BP 100/55; RESP 18
[2016-06-03] MEDS: TAMSULOSIN (SR) 0.4 MG CAP PO SCH (22:15)
[2016-06-03] MEDS: INSULIN GLARGINE [LANtus] 3 ML PEN SC SCH (22:19)
[2016-06-04] MEDS: HYDROmorphONE 2 MG TAB PO SCH ×5 (00:33→23:59)
[2016-06-04] MEDS: METHADONE 10 MG TAB PO SCH ×7 (00:33→23:59)
[2016-06-04] MEDS: LEVALBUTEROL (NEB) 1.25 MG/0.5 ML AMP HHN SCH ×4 (01:23→20:27)
[2016-06-04] MEDS: IPRATROPIUM (NEB) 0.5 MG/2.5 ML AMP HHN SCH ×4 (01:24→20:27)
[2016-06-04] MEDS: ACCUCHECK XX SCH ×5 (02:00→21:32)
[2016-06-04] MEDS: HYDROmorphONE 1 MG/ML SYG IV PRN ×5 (02:21→22:18)
[2016-06-04] MEDS: ACETAMINOPHEN 325 MG TAB PO PRN ×3 (02:34→15:05)
[2016-06-04] MEDS: PANTOPRAZOLE (EC) 40 MG TAB PO SCH (05:15)
[2016-06-04] MEDS: PYRIDOXINE 50 MG TAB PO SCH ×3 (05:15→21:31)
[2016-06-04 07:29] VITALS: BP 135/69; RESP 16
[2016-06-04] MEDS: INSULIN ASPART [NOVOLOG] 3 ML PEN SC SCH ×7 (08:00→21:43)
[2016-06-04] MEDS: MUPIROCIN 2% 22 GM OINT TOP SCH ×4 (09:00→21:32)
[2016-06-04] MEDS: FUROSEMIDE 40 MG TAB PO SCH ×2 (09:00→16:18)
[2016-06-04] MEDS: MULTIVITAMINS THERAPEUTIC TAB PO SCH (09:27)
[2016-06-04] MEDS: ZINC SULFATE 220 MG CAP PO SCH (09:27)
[2016-06-04] MEDS: DOCUSATE SODIUM 100 MG CAP PO SCH ×2 (09:27→21:31)
[2016-06-04] MEDS: METHYLPREDNISOLONE 40 MG INJ IV SCH ×2 (09:27→21:33)
[2016-06-04] MEDS: MAGNESIUM OXIDE 400 MG TAB PO SCH ×2 (09:27→21:44)
[2016-06-04] MEDS: DULOXETINE 30 MG CAP DR PO SCH (09:28)
[2016-06-04] MEDS: SENNA TAB PO SCH (09:28)
[2016-06-04] MEDS: FLUCONAZOLE 100 MG TAB PO SCH (09:28)
[2016-06-04] MEDS: FERROUS SULFATE (EC) 325 MG TAB PO SCH (09:28)
[2016-06-04] MEDS: ASCORBIC ACID 250 MG TAB PO SCH (09:28)
[2016-06-04] MEDS: SACCHAROMYCES BOULARDII 250 MG CAP PO SCH ×2 (09:28→21:30)
[2016-06-04] MEDS: GUAIFENESIN LA 600 MG TABSR PO SCH ×2 (09:28→21:31)
[2016-06-04] MEDS: VITAMIN A & D 5 GM OINT PACKET TOP SCH ×2 (09:30→21:32)
[2016-06-04] MEDS: CLOTRIMAZOLE 1% 30 GM CR TOP SCH ×2 (09:30→21:32)
[2016-06-04] MEDS: CEFEPIME 1GM/50 ML (PMX) 50 ML IV SCH ×2 (09:58→21:33)
--- NOTE | 2016-06-04 11:15 | CONS ---
Date/Time of Note Date/Time of Note DATE: 06/04/16 TIME: 11:14 Consult Date/Type/Reason Admit Date/Time May 31, 2016 at 12:25 Type of Consultation: id Subjective 71-year-old female, morbidly obese, overall very debilitated with history of COPD, O2 dependent, CHF, peripheral vascular disease with history of recurrent UTI, multidrug resistant, presented with respiratory distress and urinary tract infection. The patient is doing better, is breathing more comfortably. She is on face mask, saturating 91% on 40% FIO2. Overall, the patient denies any shortness of breath. She does complain of urethral pain which has been a chronic complaint with her. The plan is to add Diflucan. In addition, multiple creams were ordered and will discuss with Dr. Milan further recommendations. The patient's urine culture came back Pseudomonas aeruginosa sensitive to cefepime. In addition, the patient is positive for MRSA of the nares. on a steroid taper. POC reviewed with dr. jha. PHYSICAL EXAMINATION: GENERAL: The patient is in no acute distress, feels comfortable. CARDIOVASCULAR: S1 and S2. LUNGS: Now clear bilaterally. ABDOMEN: Soft, nontender. EXTREMITIES: No clubbing, cyanosis, or edema. She does have chronic venous stasis with bandages of the lower extremities. Objective Vital Signs Date Time Temp Pulse Resp B/P Pulse Ox O2 Delivery O2 Flow Rate FiO2 06/04/16 09:44 95 3.0 06/04/16 09:41 79 22 06/04/16 07:29 97.7 135/69 06/04/16 01:24 Nasal Cannula 06/03/16 02:10 40 Intake and Output 06/03/16 06/03/16 06/04/16 14:59 22:59 06:59 Intake Total 920 ml 800 ml Balance 920 ml 800 ml Results/Medications Result Diagram: 06/03/16 0515 06/04/16 0250 Results 24 hrs Laboratory Tests Test 06/03/16 15:07 06/03/16 15:35 06/03/16 17:25 06/03/16 22:13 Bedside Glucose 85 98 184 242 H Test 06/04/16 02:27 06/04/16 02:50 06/04/16 07:59 Bedside Glucose 468 *H 324 H Glucose Level 452 *H Medications Current Medications Acetaminophen (Tylenol Tab) 650 mg Q6H PRN PO PAIN LEVEL 1-3 OR FEVER Last administered on 06/04/16 09:27; Admin Dose 650 MG; Start 05/31/16 at 15:30 Hydromorphone HCl (Dilaudid) 1 mg Q4H PRN IV SEVERE PAIN LEVEL 7-10 Last administered on 06/04/16 08:05; Admin Dose 1 MG; Start 05/31/16 at 15:30 Docusate Sodium (Colace) 100 mg Q12H PRN PO CONSTIPATION; Start 05/31/16 at 15: 30 Magnesium Hydroxide (Milk Of Mag) 30 ml DAILY PRN PO CONSTIPATION Last administered on 06/03/16 13:20; Admin Dose 30 ML; Start 05/31/16 at 15:30 Bisacodyl (Dulcolax Supp) 10 mg DAILY PRN LA CONSTIPATION Last administered on 06/03/16 13:20; Admin Dose 10 MG; Start 05/31/16 at 15:30 Pantoprazole 40 mg 40 mg DAILY@06 PO Last administered on 06/04/16 05:15; Admin Dose 40 MG; Start 06/01/16 at 06:00 Cefepime HCl (Maxipime 1gm/50 ml (Pmx)) 50 ml @ 100 mls/hr Q12 IV Last administered on 06/04/16 09:58; Admin Dose 100 MLS/HR; Start 05/31/16 at 21:00 Ascorbic Acid (Vitamin C) 250 mg DAILY PO Last administered on 06/04/16 09:28 ; Admin Dose 250 MG; Start 06/01/16 at 09:00 Docusate Sodium (Colace) 100 mg BID PO Last administered on 06/04/16 09:27; Admin Dose 100 MG; Start 05/31/16 at 21:00 Duloxetine HCl (Cymbalta) 30 mg DAILY PO Last administered on 06/04/16 09:28; Admin Dose 30 MG; Start 06/01/16 at 09:00 Ferrous Sulfate (Ferrous Sulfate (Ec)) 325 mg DAILY PO Last administered on 09:28; Admin Dose 325 MG; Start 06/01/16 at 09:00 Furosemide (Lasix) 40 mg DAILY PO Last administered on 06/03/16 09:16; Admin Dose 40 MG; Start 06/01/16 at 09:00 Magnesium Oxide (Mag-Ox 400) 400 mg BID PO Last administered on 06/04/16 09:27 ; Admin Dose 400 MG; Start 05/31/16 at 21:00 Multivitamins Therapeutic (Theragran) 1 tab DAILY PO Last administered on 09:27; Admin Dose 1 TAB; Start 06/01/16 at 09:00 Pyridoxine HCl (Vitamin B6) 100 mg Q8 PO Last administered on 06/04/16 05:15; Admin Dose 100 MG; Start 05/31/16 at 22:00 Saccharomyces Boulardii (Florastor) 250 mg BID PO Last administered on 09:28; Admin Dose 250 MG; Start 05/31/16 at 21:00 Senna (Senokot) 1 tab DAILY PO Last administered on 06/04/16 09:28; Admin Dose 1 TAB; Start 06/01/16 at 09:00 Tamsulosin HCl (Flomax) 0.4 mg HS PO Last administered on 06/03/16 22:15; Admin Dose 0.4 MG; Start 05/31/16 at 21:00 Zinc Sulfate (Zinc Sulfate) 220 mg DAILY PO Last administered on 06/04/16 09: 27; Admin Dose 220 MG; Start 06/01/16 at 09:00 Clotrimazole (Lotrimin Cr) 1 applic BID TOP Last administered on 06/04/16 09: 30; Admin Dose 1 APPLIC; Start 05/31/16 at 21:00 Guaifenesin/ Codeine Phosphate 10 ml 10 ml Q4H PRN PO cough; Start 05/31/16 at 16:00 Vancomycin HCl/ Sodium Chloride (Vancocin/NS) 250 ml @ 83.333 mls/ hr Q24H IVPB Last administered on 06/03/16 12:21; Admin Dose 83.333 MLS/HR; Start at 12:00 Methadone HCl (Methadone) 10 mg QID@00,08,14,20 PO Last administered on 09:29; Admin Dose 10 MG; Start 06/01/16 at 00:00 Hydromorphone HCl (Dilaudid) 6 mg QID@00,05,11,17 PO Last administered on 05:11; Admin Dose 6 MG; Start 06/01/16 at 00:00 Diagnostic Test (Pha) (Accucheck) 1 ea 02 XX ; Start 06/02/16 at 02:00 Miscellaneous Information 1 ea NOTE XX ; Start 06/01/16 at 07:00 Glucose (Glutose) 15 gm Q15M PRN PO DECREASED GLUCOSE; Start 06/01/16 at 07:00 Glucose (Glutose) 22.5 gm Q15M PRN PO DECREASED GLUCOSE; Start 06/01/16 at 07: 00 Dextrose (D50w Syringe) 25 ml Q15M PRN IV DECREASED GLUCOSE; Start 06/01/16 at 07:00 Dextrose (D50w Syringe) 50 ml Q15M PRN IV DECREASED GLUCOSE; Start 06/01/16 at 07:00 Glucagon (Glucagen) 1 mg Q15M PRN IM DECREASED GLUCOSE; Start 06/01/16 at 07:00 Glucose (Glutose) 15 gm Q15M PRN BUCCAL DECREASED GLUCOSE; Start 06/01/16 at 07 :00 Vitamin A/Vitamin D (Vitamin A & D Oint) 1 applic BID TOP Last administered on 06/04/16 09:30; Admin Dose 1 APPLIC; Start 06/01/16 at 12:00 Insulin Glargine (Lantus) 24 unit DAILY@20 SC Last administered on 06/03/16 22 :19; Admin Dose 24 UNIT; Start 06/02/16 at 20:00 Mupirocin (Bactroban) 1 applic BID TOP Last administered on 06/04/16 09:31; Admin Dose 1 APPLIC; Start 06/02/16 at 11:00 Methylprednisolone Sodium Succinate (Solu-Medrol) 40 mg Q12 IV Last administered on 06/04/16 09:27; Admin Dose 40 MG; Start 06/02/16 at 21:00 Guaifenesin (Mucinex) 600 mg BID PO Last administered on 06/04/16 09:28; Admin Dose 600 MG; Start 06/02/16 at 12:30 Fluconazole (Diflucan) 100 mg DAILY PO Last administered on 06/04/16 09:28; Admin Dose 100 MG; Start 06/02/16 at 11:30 Mupirocin (Bactroban) 1 applic BID TOP ; Start 06/02/16 at 14:30 Assessment/Plan Chief Complaint/Hosp Course 1. Respiratory. Taper down steroids as the patient's breathing is improved. Continue O2 support, titrate it down to keep O2 above or equal to 89 to 98. Continue treatment for pneumonia as CT scan suggests right lower lung infiltrate versus atelectasis. Speech therapy is following. I appreciate recommendations. The patient is adamant about eating what she wants. Also, she has positive MRSA of the nares as she is on IV vancomycin. 2. Cardiovascular. Patient with history of DVT and PE, remains on Xarelto for anticoagulation and vitals are stable. 3. Infectious disease. The patient with urinary tract infection, likely underlying pneumonia, positive Pseudomonas aeruginosa, UTI and MRSA pneumonia. Continue cefepime and vancomycin. Will add Diflucan for possible yeast infection and follow up all cultures and ID to follow regarding further antibiotic management. 4. Perineal burning. Add Diflucan and observe. Remains on Pyridium as well on clotrimazole and on vitamin A and D for diaper rash. 5. Gastrointestinal. Hemoglobin and hematocrit remain stable. No need for transfusion. 6. Hyperglycemia, steroid used. Taper down steroids. Continue insulin for now. 7. Psychiatric. Continue Cymbalta. The patient may also have fibromyalgia. She is very sensitive to touch. 8. Thrombocytopenia. Observe. No active bleeding. 9. Tendency for CHF. Continue the patient's regular Lasix dose orally. 10. History of kidney stones with no evidence of obstruction, on Flomax. 11. Chronic pain syndrome, on multiple pain meds including Dilaudid, methadone. Problems: BRETT BARROSO MD Jun 04, 2016 11:15
[2016-06-04] MEDS: VANCOMYCIN 1.5 GM in SOD CHLORIDE 0.9% 250 ML IVPB SCH (11:22)
[2016-06-04] MEDS: RIVAROXABAN 20 MG TABLET PO SCH (16:57)
--- NOTE | 2016-06-04 18:14 | CONS ---
Date/Time of Note Date/Time of Note DATE: 06/04/16 TIME: 18:11 Assessment/Plan Assessment/Plan Chief Complaint/Hosp Course SUBJECTIVE: Patient is lying comfortably in bed. She is alert, c/o vaginal pain, no fevers, nad, son at bedside MICROBIOLOGY: Urine culture growing Pseudomonas species, sensitivities pending. Blood cultures remain negative. + MRSA DIAGNOSTICS: CT of the abdomen and pelvis revealed multiple left renal calculi , no evidence of obstructive uropathy, diverticulitis or appendicitis. Chest x- ray revealed no evidence for active cardiopulmonary disease. ANTIMICROBIALS: The patient is on: 1. IV vancomycin. 2. Cefepime. 3. She also was started on steroids. PHYSICAL EXAMINATION: GENERAL: This is a well-developed, obese, elderly woman who is in no distress. HEENT: Head atraumatic, normocephalic. Sclerae anicteric. Buccal mucosa dry. NECK: Supple, trachea midline. CHEST: Rise symmetrical. Breath sounds diminished to bases. HEART: S1, S2. ABDOMEN: Obese, soft, bowel tones present. EXTREMITIES: Bilateral lower extremities edema, chronic venous stasis. ASSESSMENT: 1. S/p acute respiratory distress, questionable aspiration PNA/chronic obstructive pulmonary disease exacerbation. 2. Recurrent urinary tract infection==> PSA. 3. Bilateral lower extremities chronic venous stasis. 4. Coronary artery disease with a history of permanent pacemaker. 5. Opioid dependence. 6. Tobacco use. 7. MRSA + nares PLAN: The patient is clinically unchanged, c/o increased vaginal pain, concern that abx not working, will start Amikacin, repeat urine cx, continue Bactroban to nares DW son at bedside DW pt Problems: Consultation Date/Type/Reason Admit Date/Time May 31, 2016 at 12:25 Type of Consultation: id Exam/Review of Systems Vital Signs Vitals Vital Signs Date Time Temp Pulse Resp B/P Pulse Ox O2 Delivery O2 Flow Rate FiO2 06/04/16 16:05 77 30 93 Nasal Cannula 3.0 06/04/16 07:29 97.7 135/69 06/03/16 02:10 40 Intake and Output 06/03/16 06/03/16 06/04/16 15:00 23:00 07:00 Intake Total 920 ml 800 ml Balance 920 ml 800 ml Results Result Diagram: 06/03/16 0515 06/04/16 0250 Results 24 hrs Laboratory Tests Test 06/03/16 22:13 06/04/16 02:27 06/04/16 02:50 06/04/16 07:59 Bedside Glucose 242 H 468 *H 324 H Glucose Level 452 *H Test 06/04/16 11:26 06/04/16 14:59 06/04/16 17:41 Bedside Glucose 218 266 H 339 H Medications Medications Current Medications Acetaminophen (Tylenol Tab) 650 mg Q6H PRN PO PAIN LEVEL 1-3 OR FEVER Last administered on 06/04/16 15:05; Admin Dose 650 MG; Start 05/31/16 at 15:30 Hydromorphone HCl (Dilaudid) 1 mg Q4H PRN IV SEVERE PAIN LEVEL 7-10 Last administered on 06/04/16 17:49; Admin Dose 1 MG; Start 05/31/16 at 15:30 Docusate Sodium (Colace) 100 mg Q12H PRN PO CONSTIPATION; Start 05/31/16 at 15: 30 Magnesium Hydroxide (Milk Of Mag) 30 ml DAILY PRN PO CONSTIPATION Last administered on 06/03/16 13:20; Admin Dose 30 ML; Start 05/31/16 at 15:30 Bisacodyl (Dulcolax Supp) [address] CONSTIPATION Last administered on 06/03/16 13:20; Admin Dose 10 MG; Start 05/31/16 at 15:30 Pantoprazole 40 mg 40 mg DAILY@06 PO Last administered on 06/04/16 05:15; Admin Dose 40 MG; Start 06/01/16 at 06:00 Cefepime HCl (Maxipime 1gm/50 ml (Pmx)) 50 ml @ 100 mls/hr Q12 IV Last administered on 06/04/16 09:58; Admin Dose 100 MLS/HR; Start 05/31/16 at 21:00 Ascorbic Acid (Vitamin C) 250 mg DAILY PO Last administered on 06/04/16 09:28 ; Admin Dose 250 MG; Start 06/01/16 at 09:00 Docusate Sodium (Colace) 100 mg BID PO Last administered on 06/04/16 09:27; Admin Dose 100 MG; Start 05/31/16 at 21:00 Duloxetine HCl (Cymbalta) 30 mg DAILY PO Last administered on 06/04/16 09:28; Admin Dose 30 MG; Start 06/01/16 at 09:00 Ferrous Sulfate (Ferrous Sulfate (Ec)) 325 mg DAILY PO Last administered on 09:28; Admin Dose 325 MG; Start 06/01/16 at 09:00 Furosemide (Lasix) 40 mg DAILY PO Last administered on 06/04/16 16:18; Admin Dose 40 MG; Start 06/01/16 at 09:00 Magnesium Oxide (Mag-Ox 400) 400 mg BID PO Last administered on 06/04/16 09:27 ; Admin Dose 400 MG; Start 05/31/16 at 21:00 Multivitamins Therapeutic (Theragran) 1 tab DAILY PO Last administered on 09:27; Admin Dose 1 TAB; Start 06/01/16 at 09:00 Pyridoxine HCl (Vitamin B6) 100 mg Q8 PO Last administered on 06/04/16 14:22; Admin Dose 100 MG; Start 05/31/16 at 22:00 Saccharomyces Boulardii (Florastor) 250 mg BID PO Last administered on 09:28; Admin Dose 250 MG; Start 05/31/16 at 21:00 Senna (Senokot) 1 tab DAILY PO Last administered on 06/04/16 09:28; Admin Dose 1 TAB; Start 06/01/16 at 09:00 Tamsulosin HCl (Flomax) 0.4 mg HS PO Last administered on 06/03/16 22:15; Admin Dose 0.4 MG; Start 05/31/16 at 21:00 Zinc Sulfate (Zinc Sulfate) 220 mg DAILY PO Last administered on 06/04/16 09: 27; Admin Dose 220 MG; Start 06/01/16 at 09:00 Clotrimazole (Lotrimin Cr) 1 applic BID TOP Last administered on 06/04/16 09: 30; Admin Dose 1 APPLIC; Start 05/31/16 at 21:00 Guaifenesin/ Codeine Phosphate 10 ml 10 ml Q4H PRN PO cough; Start 05/31/16 at 16:00 Vancomycin HCl/ Sodium Chloride (Vancocin/NS) 250 ml @ 83.333 mls/ hr Q24H IVPB Last administered on 06/04/16 11:22; Admin Dose 83.333 MLS/HR; Start at 12:00 Methadone HCl (Methadone) 10 mg QID@00,08,14,20 PO Last administered on 14:22; Admin Dose 10 MG; Start 06/01/16 at 00:00 Hydromorphone HCl (Dilaudid) 6 mg QID@00,05,11,17 PO Last administered on 16:57; Admin Dose 6 MG; Start 06/01/16 at 00:00 Diagnostic Test (Pha) (Accucheck) 1 ea 02 XX ; Start 06/02/16 at 02:00 Miscellaneous Information 1 ea NOTE XX ; Start 06/01/16 at 07:00 Glucose (Glutose) 15 gm Q15M PRN PO DECREASED GLUCOSE; Start 06/01/16 at 07:00 Glucose (Glutose) 22.5 gm Q15M PRN PO DECREASED GLUCOSE; Start 06/01/16 at 07: 00 Dextrose (D50w Syringe) 25 ml Q15M PRN IV DECREASED GLUCOSE; Start 06/01/16 at 07:00 Dextrose (D50w Syringe) 50 ml Q15M PRN IV DECREASED GLUCOSE; Start 06/01/16 at 07:00 Glucagon (Glucagen) 1 mg Q15M PRN IM DECREASED GLUCOSE; Start 06/01/16 at 07:00 Glucose (Glutose) 15 gm Q15M PRN BUCCAL DECREASED GLUCOSE; Start 06/01/16 at 07 :00 Vitamin A/Vitamin D (Vitamin A & D Oint) 1 applic BID TOP Last administered on 06/04/16 09:30; Admin Dose 1 APPLIC; Start 06/01/16 at 12:00 Insulin Glargine (Lantus) 24 unit DAILY@20 SC Last administered on 06/03/16 22 :19; Admin Dose 24 UNIT; Start 06/02/16 at 20:00 Mupirocin (Bactroban) 1 applic BID TOP Last administered on 06/04/16 09:31; Admin Dose 1 APPLIC; Start 06/02/16 at 11:00 Methylprednisolone Sodium Succinate (Solu-Medrol) 40 mg Q12 IV Last administered on 06/04/16 09:27; Admin Dose 40 MG; Start 2/17/17 at 21:00 Guaifenesin (Mucinex) 600 mg BID PO Last administered on 06/04/16 09:28; Admin Dose 600 MG; Start 06/02/16 at 12:30 Fluconazole (Diflucan) 100 mg DAILY PO Last administered on 06/04/16 09:28; Admin Dose 100 MG; Start 06/02/16 at 11:30 Mupirocin (Bactroban) 1 applic BID TOP ; Start 06/02/16 at 14:30 GIOVANNA ESCUDERO NP Jun 04, 2016 18:14
[2016-06-04] MEDS ORDERED: AMIKACIN IV PER PHARMACY XX SCH (18:30)
[2016-06-04] MEDS ORDERED: IOHEXOL 300MG/ML 150 ML BTL ONE (18:32)
[2016-06-04] MEDS ORDERED: SOD CHLORIDE 0.9% 100 ML ONE (18:32)
[2016-06-04 19:20] VITALS: BP 129/60; RESP 18
[2016-06-04] MEDS: AMIKACIN 1,000 MG in SOD CHLORIDE 0.9% 100 ML IVPB SCH (20:03)
[2016-06-04] MEDS: INSULIN GLARGINE [LANtus] 3 ML PEN SC SCH (20:14)
[2016-06-04] MEDS: TAMSULOSIN (SR) 0.4 MG CAP PO SCH (21:31)
[2016-06-04] MEDS: PHENAZOPYRIDINE 100 MG TAB PO SCH (21:31)
[2016-06-05] MEDS: LEVALBUTEROL (NEB) 1.25 MG/0.5 ML AMP HHN SCH ×4 (01:03→20:00)
[2016-06-05] MEDS: IPRATROPIUM (NEB) 0.5 MG/2.5 ML AMP HHN SCH ×4 (01:03→20:00)
[2016-06-05] MEDS: ACCUCHECK XX SCH ×5 (02:00→20:55)
[2016-06-05] MEDS: HYDROmorphONE 1 MG/ML SYG IV PRN ×5 (03:40→21:59)
[2016-06-05] MEDS: ACETAMINOPHEN 325 MG TAB PO PRN ×2 (04:13→10:10)
[2016-06-05] MEDS: PYRIDOXINE 50 MG TAB PO SCH ×3 (05:39→21:59)
[2016-06-05] MEDS: PANTOPRAZOLE (EC) 40 MG TAB PO SCH (05:39)
[2016-06-05] MEDS: HYDROmorphONE 2 MG TAB PO SCH ×3 (05:39→17:21)
[2016-06-05 08:05] VITALS: BP 119/58; RESP 18
[2016-06-05] MEDS: METHADONE 10 MG TAB PO SCH ×3 (08:10→20:39)
[2016-06-05] MEDS: DULOXETINE 30 MG CAP DR PO SCH (08:11)
[2016-06-05] MEDS: MAGNESIUM OXIDE 400 MG TAB PO SCH ×2 (08:11→20:38)
[2016-06-05] MEDS: FERROUS SULFATE (EC) 325 MG TAB PO SCH (08:11)
[2016-06-05] MEDS: ZINC SULFATE 220 MG CAP PO SCH (08:11)
[2016-06-05] MEDS: SENNA TAB PO SCH (08:12)
[2016-06-05] MEDS: FLUCONAZOLE 100 MG TAB PO SCH (08:12)
[2016-06-05] MEDS: PHENAZOPYRIDINE 100 MG TAB PO SCH ×3 (08:12→20:39)
[2016-06-05] MEDS: SACCHAROMYCES BOULARDII 250 MG CAP PO SCH ×2 (08:12→20:39)
[2016-06-05] MEDS: MULTIVITAMINS THERAPEUTIC TAB PO SCH (08:12)
[2016-06-05] MEDS: DOCUSATE SODIUM 100 MG CAP PO SCH ×2 (08:12→20:38)
[2016-06-05] MEDS: ASCORBIC ACID 250 MG TAB PO SCH (08:12)
[2016-06-05] MEDS: INSULIN ASPART [NOVOLOG] 3 ML PEN SC SCH ×7 (08:23→20:43)
[2016-06-05] MEDS: MUPIROCIN 2% 22 GM OINT TOP SCH ×3 (08:23→20:40)
[2016-06-05] MEDS: VITAMIN A & D 5 GM OINT PACKET TOP SCH ×2 (08:25→20:40)
[2016-06-05] MEDS: METHYLPREDNISOLONE 40 MG INJ IV SCH ×2 (08:26→20:39)
[2016-06-05] MEDS: CEFEPIME 1GM/50 ML (PMX) 50 ML IV SCH (08:31)
[2016-06-05] MEDS: GUAIFENESIN LA 600 MG TABSR PO SCH ×2 (08:31→20:38)
[2016-06-05] MEDS: CLOTRIMAZOLE 1% 30 GM CR TOP SCH ×2 (08:32→20:49)
[2016-06-05] MEDS: FUROSEMIDE 40 MG TAB PO SCH (08:47)
[2016-06-05] MEDS: VANCOMYCIN 1.5 GM in SOD CHLORIDE 0.9% 250 ML IVPB SCH (12:02)
--- NOTE | 2016-06-05 12:23 | PN ---
DATE: 06/05/2016 SUBJECTIVE: The patient continues to complain about dysuria. Denies any chest pain. No hemoptysis , hematemesis or hematochezia. No other acute events noted. OBJECTIVE: VITAL SIGNS: Blood pressure 119/58, respiration 18, pulse 73, temperature 98.7. HEENT: Head is normocephalic. NECK: Supple. HEART: Regular rate. LUNGS: Show diminished breath sounds at base. ABDOMEN: Soft, nontender to palpation. No rebound or guarding. EXTREMITIES: Negative for clubbing, cyanosis. Positive venous insufficiency changes. Positive sto ne. DERMATOLOGIC: No rashes. MUSCULOSKELETAL: No joint effusions. NEUROLOGIC: No change in exam. LABORATORY DATA: Reviewed. No new labs this morning. ASSESSMENT AND PLAN: 1. Acute respiratory failure. Etiology is secondary to pneumonia. The patient is clinically stabl e. Continue current treatment plan. Continue IV antibiotics. Continue supplemental oxygen, nebuli zers, and monitor closely. 2. History of deep venous thrombosis and pulmonary embolism. The patient is on Xarelto. We will c ontinue. 3. Sepsis secondary to urinary tract infection and pneumonia. Continue current antibiotic regimen. Cultures have been reviewed. Follow up with Infectious Disease. 4. Dysuria. Etiology may be secondary to urinary tract infection. Continue medical management. C ontinue Pyridium. 5. History of congestive heart failure. The patient currently clinically stable. Continue current medical management. 6. Venous insufficiency. Continue compression stockings. Continue diuretic therapy. We will cont inue to monitor. 7. Hypoglycemia, likely due to steroids. Continue insulin sliding scale. We will continue to tape r down steroids. 8. Chronic pain syndrome. Continue current pain regimen. 9. Nephrolithiasis. The patient has no evidence of obstruction. Continue to monitor. Continue Fl omax. 11. Depression. Continue Cymbalta. 12. History of coronary artery disease, history of pacemaker. Continue medical management. Dictated By: JUAN ROCHA/ANNA Conf#: [id number] DID#: [id number]
--- NOTE | 2016-06-05 12:56 | CONS ---
Date/Time of Note Date/Time of Note DATE: 06/05/16 TIME: 12:54 Assessment/Plan Assessment/Plan Chief Complaint/Hosp Course SUBJECTIVE: Patient is lying comfortably in bed, no fevers, nad MICROBIOLOGY: Urine culture growing Pseudomonas species/E coli ESBL. Blood cultures remain negative. + MRSA DIAGNOSTICS: CT of the abdomen and pelvis revealed multiple left renal calculi , no evidence of obstructive uropathy, diverticulitis or appendicitis. Chest x- ray revealed no evidence for active cardiopulmonary disease. ANTIMICROBIALS: The patient is on: 1. IV vancomycin. 2. Cefepime. 3. Amikacin. PHYSICAL EXAMINATION: GENERAL: This is a well-developed, obese, elderly woman who is in no distress. HEENT: Head atraumatic, normocephalic. Sclerae anicteric. Buccal mucosa dry. NECK: Supple, trachea midline. CHEST: Rise symmetrical. Breath sounds diminished to bases. HEART: S1, S2. ABDOMEN: Obese, soft, bowel tones present. EXTREMITIES: Bilateral lower extremities edema, chronic venous stasis. ASSESSMENT: 1. S/p acute respiratory distress, questionable aspiration PNA/chronic obstructive pulmonary disease exacerbation. 2. Recurrent urinary tract infection==> PSA. 3. Bilateral lower extremities chronic venous stasis. 4. Coronary artery disease with a history of permanent pacemaker. 5. Opioid dependence. 6. Tobacco use. 7. MRSA + nares PLAN: The patient is stable, continue abx, dc Vanco, repeat urine cx in am, continue Bactroban to nares DW staff Problems: Consultation Date/Type/Reason Admit Date/Time May 31, 2016 at 12:25 Type of Consultation: id Exam/Review of Systems Vital Signs Vitals Vital Signs Date Time Temp Pulse Resp B/P Pulse Ox O2 Delivery O2 Flow Rate FiO2 06/05/16 08:40 70 16 91 Nasal Cannula 3.0 32 06/05/16 08:05 98.7 119/58 Intake and Output 06/04/16 06/04/16 06/05/16 15:00 23:00 07:00 Intake Total 830 ml 930 ml Balance 830 ml 930 ml Results Result Diagram: 06/03/16 0515 06/04/16 0250 Results 24 hrs Laboratory Tests Test 06/04/16 14:59 06/04/16 17:41 06/04/16 20:08 06/04/16 21:34 Bedside Glucose 266 H 339 H 358 H 341 H Test 06/05/16 02:58 06/05/16 05:50 06/05/16 07:45 06/05/16 10:24 Bedside Glucose 293 H 226 H Random Amikacin Level Lab Scanned Report REFERENCE LAB Test 06/05/16 10:24 06/05/16 12:05 Lab Scanned Report REFERENCE LAB Bedside Glucose 262 H Medications Medications Current Medications Acetaminophen (Tylenol Tab) 650 mg Q6H PRN PO PAIN LEVEL 1-3 OR FEVER Last administered on 06/05/16 10:10; Admin Dose 650 MG; Start 05/31/16 at 15:30 Hydromorphone HCl (Dilaudid) 1 mg Q4H PRN IV SEVERE PAIN LEVEL 7-10 Last administered on 06/05/16 12:02; Admin Dose 1 MG; Start 05/31/16 at 15:30 Docusate Sodium (Colace) 100 mg Q12H PRN PO CONSTIPATION; Start 05/31/16 at 15: 30 Magnesium Hydroxide (Milk Of Mag) 30 ml DAILY PRN PO CONSTIPATION Last administered on 06/03/16 13:20; Admin Dose 30 ML; Start 05/31/16 at 15:30 Bisacodyl (Dulcolax Supp) 10 mg DAILY PRN [place] CONSTIPATION Last administered on 06/03/16 13:20; Admin Dose 10 MG; Start 05/31/16 at 15:30 Pantoprazole 40 mg 40 mg DAILY@06 PO Last administered on 06/05/16 05:39; Admin Dose 40 MG; Start 06/01/16 at 06:00 Cefepime HCl (Maxipime 1gm/50 ml (Pmx)) 50 ml @ 100 mls/hr Q12 IV Last administered on 06/05/16 08:31; Admin Dose 100 MLS/HR; Start 05/31/16 at 21:00 Ascorbic Acid (Vitamin C) 250 mg DAILY PO Last administered on 06/05/16 08:12 ; Admin Dose 250 MG; Start 06/01/16 at 09:00 Docusate Sodium (Colace) 100 mg BID PO Last administered on 06/05/16 08:12; Admin Dose 100 MG; Start 05/31/16 at 21:00 Duloxetine HCl (Cymbalta) 30 mg DAILY PO Last administered on 06/05/16 08:11; Admin Dose 30 MG; Start 06/01/16 at 09:00 Ferrous Sulfate (Ferrous Sulfate (Ec)) 325 mg DAILY PO Last administered on 08:11; Admin Dose 325 MG; Start 06/01/16 at 09:00 Furosemide (Lasix) 40 mg DAILY PO Last administered on 06/04/16 16:18; Admin Dose 40 MG; Start 06/01/16 at 09:00 Magnesium Oxide (Mag-Ox 400) 400 mg BID PO Last administered on 06/05/16 08:11 ; Admin Dose 400 MG; Start 05/31/16 at 21:00 Multivitamins Therapeutic (Theragran) 1 tab DAILY PO Last administered on 08:12; Admin Dose 1 TAB; Start 06/01/16 at 09:00 Pyridoxine HCl (Vitamin B6) 100 mg Q8 PO Last administered on 06/05/16 05:39; Admin Dose 100 MG; Start 05/31/16 at 22:00 Saccharomyces Boulardii (Florastor) 250 mg BID PO Last administered on 08:12; Admin Dose 250 MG; Start 05/31/16 at 21:00 Senna (Senokot) 1 tab DAILY PO Last administered on 06/05/16 08:12; Admin Dose 1 TAB; Start 06/01/16 at 09:00 Tamsulosin HCl (Flomax) 0.4 mg HS PO Last administered on 06/04/16 21:31; Admin Dose 0.4 MG; Start 05/31/16 at 21:00 Zinc Sulfate (Zinc Sulfate) 220 mg DAILY PO Last administered on 06/05/16 08: 11; Admin Dose 220 MG; Start 06/01/16 at 09:00 Clotrimazole (Lotrimin Cr) 1 applic BID TOP Last administered on 06/05/16 08: 32; Admin Dose 1 APPLIC; Start 05/31/16 at 21:00 Guaifenesin/ Codeine Phosphate 10 ml 10 ml Q4H PRN PO cough; Start 05/31/16 at 16:00 Vancomycin HCl/ Sodium Chloride (Vancocin/NS) 250 ml @ 83.333 mls/ hr Q24H IVPB Last administered on 06/05/16 12:02; Admin Dose 83.333 MLS/HR; Start at 12:00 Methadone HCl (Methadone) 10 mg QID@00,08,14,20 PO Last administered on 08:10; Admin Dose 10 MG; Start 06/01/16 at 00:00 Hydromorphone HCl (Dilaudid) 6 mg QID@00,05,11,17 PO Last administered on 10:54; Admin Dose 6 MG; Start 06/01/16 at 00:00 Diagnostic Test (Pha) (Accucheck) 1 ea 02 XX Last administered on 06/05/16 02: 00; Admin Dose 1 EA; Start 06/02/16 at 02:00 Miscellaneous Information 1 ea NOTE XX ; Start 06/01/16 at 07:00 Glucose (Glutose) 15 gm Q15M PRN PO DECREASED GLUCOSE; Start 06/01/16 at 07:00 Glucose (Glutose) 22.5 gm Q15M PRN PO DECREASED GLUCOSE; Start 06/01/16 at 07: 00 Dextrose (D50w Syringe) 25 ml Q15M PRN IV DECREASED GLUCOSE; Start 06/01/16 at 07:00 Dextrose (D50w Syringe) 50 ml Q15M PRN IV DECREASED GLUCOSE; Start 06/01/16 at 07:00 Glucagon (Glucagen) 1 mg Q15M PRN IM DECREASED GLUCOSE; Start 06/01/16 at 07:00 Glucose (Glutose) 15 gm Q15M PRN BUCCAL DECREASED GLUCOSE; Start 06/01/16 at 07 :00 Vitamin A/Vitamin D (Vitamin A & D Oint) 1 applic BID TOP Last administered on 06/05/16 08:25; Admin Dose 1 APPLIC; Start 06/01/16 at 12:00 Insulin Glargine (Lantus) 24 unit DAILY@20 SC Last administered on 06/04/16 20 :14; Admin Dose 24 UNIT; Start 06/02/16 at 20:00 Guaifenesin (Mucinex) 600 mg BID PO Last administered on 06/05/16 08:31; Admin Dose 600 MG; Start 06/02/16 at 12:30 Fluconazole (Diflucan) 100 mg DAILY PO Last administered on 06/05/16 08:12; Admin Dose 100 MG; Start 06/02/16 at 11:30 Mupirocin (Bactroban) 1 applic BID TOP Last administered on 06/05/16 08:23; Admin Dose 1 APPLIC; Start 06/02/16 at 14:30 Amikacin Sulfate (Amikacin Iv Per Pharmacy) AMIKACIN PER PHARMACY NOTE XX ; Start 06/04/16 at 18:30 Phenazopyridine HCl 100 mg 100 mg TID PO Last administered on 06/05/16 12:02; Admin Dose 100 MG; Start 06/04/16 at 21:00 Amikacin Sulfate/ Sodium Chloride (Amikacin/NS) 104 ml @ 102 mls/hr Q24H IVPB Last administered on 06/04/16 20:03; Admin Dose 102 MLS/HR; Start 06/04/16 at 20:00 Miscellaneous Information (*Rx Drug Level Order Reminder*) AMIKACIN RANDOM LEVEL 2/... 06 XX Last administered on 06/05/16 06:39; Admin Dose 1 EA; Start 06/05/16 at 06:00; Stop 06/05/16 at 20:00 Methylprednisolone Sodium Succinate (Solu-Medrol) 20 mg Q12 IV ; Start 06/05/16 at 21:00 GIOVANNA ESCUDERO NP Jun 05, 2016 12:56
[2016-06-05] MEDS: RIVAROXABAN 20 MG TABLET PO SCH (17:31)
[2016-06-05 19:34] VITALS: BP 109/64; RESP 18
[2016-06-05] MEDS: AMIKACIN 1,000 MG in SOD CHLORIDE 0.9% 100 ML IVPB SCH (20:38)
[2016-06-05] MEDS: TAMSULOSIN (SR) 0.4 MG CAP PO SCH (20:38)
[2016-06-05] MEDS: INSULIN GLARGINE [LANtus] 3 ML PEN SC SCH (20:42)
[2016-06-05] MEDS: CEFEPIME 2GM/50 ML (PMX) 50 ML IVPB SCH (22:14)
[2016-06-06] MEDS: HYDROmorphONE 2 MG TAB PO SCH ×4 (00:08→17:12)
[2016-06-06] MEDS: METHADONE 10 MG TAB PO SCH ×4 (00:09→20:09)
[2016-06-06] MEDS: ACCUCHECK XX SCH ×3 (02:00→21:00)
[2016-06-06] MEDS: LEVALBUTEROL (NEB) 1.25 MG/0.5 ML AMP HHN SCH ×4 (02:10→20:07)
[2016-06-06] MEDS: IPRATROPIUM (NEB) 0.5 MG/2.5 ML AMP HHN SCH ×4 (02:10→20:07)
[2016-06-06] MEDS: HYDROmorphONE 1 MG/ML SYG IV PRN ×6 (02:30→22:51)
[2016-06-06] MEDS ORDERED: INSULIN ASPART [NOVOLOG] 3 ML PEN SC ONE (03:00)
[2016-06-06] MEDS ORDERED: INSULIN GLARGINE [LANtus] 3 ML PEN SC ONE (03:00)
[2016-06-06 03:54] LABS: BASOPHILS % 0.1 % (0.0-2.0); EOSINOPHILS % 0.1 % (0.0-7.0); HEMATOCRIT 34.3 % (37.0-47.0); LYMPHOCYTES # 1.2 10^3/ul (0.8-2.9); LYMPHOCYTES % 11.1 % (15.0-51.0); MEAN CORPUSCULAR HEMOGLOBIN 28.6 pg (29.0-33.0); MEAN CORPUSCULAR VOLUME 89.4 fl (82.0-101.0); MEAN PLATELET VOLUME 8.5 fl (7.4-10.4); MONOCYTE # 0.4 10^3/ul (0.3-0.9); MONOCYTES % 3.7 % (0.0-11.0); NEUTROPHIL # 9.4 10^3/ul (1.6-7.5); PLATELET COUNT 167 10^3/UL (140-440); RED BLOOD COUNT 3.84 10^6/ul (4.20-5.40); RED CELL DISTRIBUTION WIDTH 17.6 % (11.5-14.5)
[2016-06-06 03:58] LABS: CONDITION 1; LH ANALYZER COMMENTS 1
[2016-06-06 04:05] LABS: POTASSIUM 5.7 mmol/L (3.5-5.1)
[2016-06-06 04:08] LABS: CREATININE 0.78 mg/dl (0.44-1.00); PHOSPHORUS 3.5 mg/dl (2.5-4.9)
[2016-06-06 04:09] LABS: CALCIUM 8.7 mg/dl (8.4-10.2); MAGNESIUM 2.4 mg/dl (1.7-2.5)
[2016-06-06] MEDS: PANTOPRAZOLE (EC) 40 MG TAB PO SCH (05:08)
[2016-06-06] MEDS: PYRIDOXINE 50 MG TAB PO SCH ×3 (06:23→21:22)
[2016-06-06 07:29] VITALS: BP 128/65; RESP 18
[2016-06-06] MEDS: FERROUS SULFATE (EC) 325 MG TAB PO SCH (08:21)
[2016-06-06] MEDS: ZINC SULFATE 220 MG CAP PO SCH (08:21)
[2016-06-06] MEDS: DOCUSATE SODIUM 100 MG CAP PO SCH ×2 (08:21→21:22)
[2016-06-06] MEDS: ASCORBIC ACID 250 MG TAB PO SCH (08:22)
[2016-06-06] MEDS: SENNA TAB PO SCH (08:22)
[2016-06-06] MEDS: MULTIVITAMINS THERAPEUTIC TAB PO SCH (08:22)
[2016-06-06] MEDS: GUAIFENESIN LA 600 MG TABSR PO SCH ×2 (08:22→21:22)
[2016-06-06] MEDS: SACCHAROMYCES BOULARDII 250 MG CAP PO SCH ×2 (08:22→21:22)
[2016-06-06] MEDS: DULOXETINE 30 MG CAP DR PO SCH (08:22)
[2016-06-06] MEDS: PHENAZOPYRIDINE 100 MG TAB PO SCH ×3 (08:22→21:22)
[2016-06-06] MEDS: METHYLPREDNISOLONE 40 MG INJ IV SCH (08:23)
[2016-06-06] MEDS: INSULIN ASPART [NOVOLOG] 3 ML PEN SC SCH ×7 (08:27→21:27)
[2016-06-06] MEDS: ACETAMINOPHEN 325 MG TAB PO PRN ×2 (08:53→13:59)
[2016-06-06] MEDS: FLUCONAZOLE 100 MG TAB PO SCH ×2 (09:00→13:59)
[2016-06-06] MEDS: VITAMIN A & D 5 GM OINT PACKET TOP SCH ×2 (09:00→22:47)
[2016-06-06] MEDS: CLOTRIMAZOLE 1% 30 GM CR TOP SCH ×2 (09:00→21:23)
[2016-06-06] MEDS: FUROSEMIDE 40 MG TAB PO SCH (09:00)
[2016-06-06] MEDS: MAGNESIUM OXIDE 400 MG TAB PO SCH ×2 (09:00→21:21)
[2016-06-06] MEDS: MUPIROCIN 2% 22 GM OINT TOP SCH ×2 (09:00→21:23)
[2016-06-06] MEDS: predniSONE 20 MG TAB PO SCH (09:30)
--- NOTE | 2016-06-06 12:14 | PN ---
DATE: 06/06/2016 SUBJECTIVE: The patient continues to complain about dysuria, pain, and flank pain with radiation to groin. No other acute events noted. No hemoptysis, hematemesis, or hematochezia. OBJECTIVE: VITAL SIGNS: Blood pressure 128/65, respirations 19, pulse 88, temperature 97.6. HEENT: Head is normocephalic. NECK: Supple. HEART: Regular rate. LUNGS: Show diminished breath sounds at the base. ABDOMEN: Soft, positive tenderness to palpation in the suprapubic region and the right lower quadra nt. EXTREMITIES: Negative for clubbing, cyanosis, no edema. DERMATOLOGIC: No rashes. MUSCULOSKELETAL: No joint effusions. NEUROLOGIC: No change in exam. MEDICATIONS: The patient's medications have been reviewed. LABORATORY DATA: Shows sodium 139, potassium , chloride 97, bicarbonate 32, BUN 46, creatinine is 0.78, glucose 396. White count 11.0, hemoglobin 9.0, hematocrit 24.3, platelet count 167. ASSESSMENT AND PLAN: 1. Acute respiratory failure. Etiology is secondary to pneumonia and bronchitis. The patient clin ically improving. Continue antibiotic therapy. Will continue to taper off steroids. Continue supp lemental oxygen. 2. History of deep venous thrombosis and pulmonary embolism, status post inferior vena cava filter. The patient is on Xarelto, continue. 3. Sepsis secondary to urinary tract infection and pneumonia. Continue current antibiotic regimen. 4. Dysuria. The patient continues to have pain. We will place a urology consult with Dr. Carney, continue Pyridium, continue pain control. 5. Nephrolithiasis. The patient has no evidence of obstruction. Continue to monitor. Follow up w [facility] urology. 6. History of congestive heart failure. The patient is currently stable. Continue medical managem ent. 7. Venous insufficiency. Continue compression stockings. 8. Hypoglycemia, etiology secondary to steroids. Will continue insulin sliding scale. 9. Hypokalemia, likely due to underlying hypoglycemia. Will repeat a potassium level. 10. Chronic pain syndrome. Continue current pain regimen. 11. Depression. Continue Cymbalta. 12. History of coronary artery disease, status post pacemaker. Continue medical management. Dictated By: JUAN ROCHA/ANNA Conf#: [id number] [facility]#: [id number]
--- NOTE | 2016-06-06 12:46 | PN ---
DATE: 06/06/2016 SUBJECTIVE: Patient is awake, states that she continues to have vaginal pain. She is in no distres s. No fevers. WBC 11, H and H 11 and 34.3, platelets 167, neutrophils 85. BUN 46, creatinine 0.78, glucose was ea rlier 430, now 144. MICROBIOLOGY: Urine culture grew Pseudomonas aeruginosa and Escherichia coli extended-spectrum beta -lactamase, multi-drug resistant organisms. ANTIMICROBIALS: 1. Cefepime 2. Amikacin. PHYSICAL EXAMINATION: GENERAL: This is an obese, chronically ill-appearing, elderly woman who is awake, in no distress. HEENT: Head atraumatic, normocephalic. Sclerae anicteric. Buccal mucosa dry. NECK: Supple. CHEST: Rise symmetrical. Breath sounds diminished to bases. HEART: S1, S2. ABDOMEN: Soft, bowel tones present. EXTREMITIES: Bilateral lower extremities trace edema, chronic venous stasis. ASSESSMENT: 1. Recurrent urinary tract infection with persistent vaginal pain, which is chronic. The patient w as previously evaluated by Dr. Carney. 2. Chronic pain syndrome. 3. Methicillin-resistant Staphylococcus aureus nares colonization. 4. Chronic venous stasis of bilateral lower extremities. 5. History of permanent pacemaker placement. 6. Resolving pneumonia. PLAN: The patient remains clinically unchanged. She is on appropriate antimicrobials. We are serg g to repeat urine culture. Continue present care, pain management, encourage ambulation, control bl ood sugar. Dictated By: GIOVANNA ESCUDERO HEAD SOFT SUGAR OPERATOR for SATYA QUIROZ/ANNA Conf#: [id number] DID#: [id number]
[2016-06-06] MEDS: CEFEPIME 2GM/50 ML (PMX) 50 ML IVPB SCH ×2 (13:52→22:47)
[2016-06-06] MEDS: RIVAROXABAN 20 MG TABLET PO SCH (17:51)
--- NOTE | 2016-06-06 19:42 | CONS ---
DATE OF ADMISSION: 05/31/2016 DATE OF CONSULTATION: 06/06/2016 TYPE OF CONSULTATION: Cardiology REQUESTING PHYSICIAN: Dr. Ramos Dear Dr. Ramos: Thank you for asking me to see this patient in urological consultation. This is a 71-year-old female who was admitted to the hospital with urinary tract infection and respiratory failure secondary to pneumonia and bronchitis. The patient has had urinary tract infections in the past and has been rec eiving antibiotic on and off for that. She continues, however, to complain of dysuria, and she has been on Pyridium, and that also is not helping her. She is on antibiotic, and the patient is on cef epime and amikacin and fluconazole, and still complaining that is not helping her. Therefore, a uro logical consultation was requested. The patient is almost completely bedridden. She has not been ab le to get out of the bed. She used to get up and go to the bathroom, but right now she urinates as well as she has a bowel movement in the bed, and they have to clean her up. MEDICATIONS: That she is on presently include: 1. Prednisone. 2. Cefepime. 3. Pyridium. 4. Amikacin., 5. Insulin. 6. Bactroban. 7. Mucinex. 8. Fluconazole. 9. Vitamin D. 10. Ascorbic acid. 11. Cymbalta. 12. Ferrous sulfate. 13. Lasix. 14. Senna. 15. Zinc sulfate. 16. Pantoprazole 17. Methadone. 18. Vitamin B6. 19. Colace. 20. Magnesium oxide. 21. Tamsulosin. 22. Lotrimin cream. 23. Xarelto. 24. Robitussin. 25. Tylenol. 26. Dilaudid. 27. Colace. 28. Milk of magnesia. 29. Dulcolax. 30. Xopenex p.r.n. 31. Ipratropium bromide p.r.n. ALLERGIES: NITROFURANTOIN, PIPERACILLIN, AND TAZOBACTAM. PHYSICAL EXAMINATION: GENERAL: Reveals an elderly female. She weighs 98.4 kilograms. She is 67 inches tall. VITAL SIGNS: Temperature is 97.6, pulse is 70, respiration 18, blood pressure 128/65. ABDOMEN: Very obese. EXTREMITIES: She does have cellulitis of the lower extremities, and she just voided in bed. In fac t, all the sheets in bed are stained orange color from the Pyridium. LABORATORY DATA: CBC shows a white count of 11.0. Hemoglobin 11.0 as well, hematocrit 34.3, BUN is 46, creatinine 0.78, sodium 139, potassium 5.7, chloride 97, CO2 32. The patient a blood culture t hat is negative, another blood culture that is negative. She had a urine culture that was done on t he date of admission, on 05/31/2016, and the urine culture did grown 100,000 pseudomonas and 10,000 to 20,000 E. coli ESBL. I tried to collect urine for culture straight from her bladder, so I did tr y to catheterize her, and she does flex her legs and separate them. However, the labia are very sen sitive and contaminated by fecal material, and she is very sore. She hardly would let me do the str aight catheterization for her, and after trying to convince her many times, I was able to just clean the meatus with Betadine and then pass a catheter into her bladder, and she had hardly 5 mL of tameka ge-colored urine inside her bladder. We sent that for culture. IMPRESSION: Urinary tract infection. The urine is very easily contaminated in her vagina, and the labia are very sore, and her "dysuria" is burning sensation from her labia rather than the urine its elf hurting her in the urethra, and as the urine comes out and touches the labia, she is hurting, a nd the labia are raw as well. The plan is to basically anytime one has to check her urine, the urin e has to be collected by straight catheter clean from the bladder, and try to avoid any contaminatio n as much as possible. I discussed with her and her son for over 30 minutes what would be helpful if she is able to sit on the bedside commode or in the bathroom on the toilet whenever she has a bowel movement. She has to allow the OUTDOOR GUIDE to clean her in the vaginal area, to try to keep the area clean and contaminated, and once the urine infection is treated, she should be alright except that the urine may touch the vagin al wall and the labia, and that could cause her some burning. The Pyridium would help if there is an infection in the urine, but if the labia are red, then I think she has to try to keep that area as dry as much as possible, and to try to alleviate her pain, maybe use 2% lidocaine gel over that area and see if that would help alleviate her pain a little bit. I do thank you for allowing me to help in her care. Dictated By: RAMONITA STEPHENS/ANNA Conf#: [id number] DID#: [id number]
[2016-06-06 21:08] VITALS: BP 108/52; RESP 20
[2016-06-06] MEDS: TAMSULOSIN (SR) 0.4 MG CAP PO SCH (21:22)
[2016-06-06] MEDS: INSULIN GLARGINE [LANtus] 3 ML PEN SC SCH (21:26)
[2016-06-06] MEDS: AMIKACIN 1,000 MG in SOD CHLORIDE 0.9% 100 ML IVPB SCH (21:27)
[2016-06-06] MEDS: LIDOCAINE 5% 35 GM OINT TOP SCH (23:35)
[2016-06-07] MEDS: HYDROmorphONE 2 MG TAB PO SCH ×5 (00:39→23:54)
[2016-06-07] MEDS: METHADONE 10 MG TAB PO SCH ×4 (01:28→20:20)
[2016-06-07] MEDS: ACCUCHECK XX SCH ×5 (02:00→21:00)
[2016-06-07] MEDS: IPRATROPIUM (NEB) 0.5 MG/2.5 ML AMP HHN SCH ×4 (02:27→21:00)
[2016-06-07] MEDS: LEVALBUTEROL (NEB) 1.25 MG/0.5 ML AMP HHN SCH ×4 (02:27→20:59)
[2016-06-07] MEDS: HYDROmorphONE 1 MG/ML SYG IV PRN ×5 (03:25→22:06)
[2016-06-07] MEDS: PANTOPRAZOLE (EC) 40 MG TAB PO SCH (05:31)
[2016-06-07] MEDS: PYRIDOXINE 50 MG TAB PO SCH ×3 (05:31→22:05)
[2016-06-07 07:58] VITALS: BP 113/59; RESP 16
[2016-06-07] MEDS: predniSONE 20 MG TAB PO SCH (08:11)
[2016-06-07] MEDS: SACCHAROMYCES BOULARDII 250 MG CAP PO SCH ×2 (08:11→20:20)
[2016-06-07] MEDS: ASCORBIC ACID 250 MG TAB PO SCH (08:11)
[2016-06-07] MEDS: PHENAZOPYRIDINE 100 MG TAB PO SCH ×3 (08:11→20:20)
[2016-06-07] MEDS: FERROUS SULFATE (EC) 325 MG TAB PO SCH (08:11)
[2016-06-07] MEDS: CEFEPIME 2GM/50 ML (PMX) 50 ML IVPB SCH ×2 (08:11→20:19)
[2016-06-07] MEDS: DOCUSATE SODIUM 100 MG CAP PO SCH ×2 (08:12→20:21)
[2016-06-07] MEDS: MULTIVITAMINS THERAPEUTIC TAB PO SCH (08:12)
[2016-06-07] MEDS: SENNA TAB PO SCH (08:12)
[2016-06-07] MEDS: ZINC SULFATE 220 MG CAP PO SCH (08:12)
[2016-06-07] MEDS: DULOXETINE 30 MG CAP DR PO SCH (08:12)
[2016-06-07] MEDS: MAGNESIUM OXIDE 400 MG TAB PO SCH ×2 (08:12→20:21)
[2016-06-07] MEDS: VITAMIN A & D 5 GM OINT PACKET TOP SCH ×2 (08:13→20:20)
[2016-06-07] MEDS: FUROSEMIDE 40 MG TAB PO SCH (08:14)
[2016-06-07] MEDS: LIDOCAINE 5% 35 GM OINT TOP SCH ×4 (08:15→20:20)
[2016-06-07] MEDS: CLOTRIMAZOLE 1% 30 GM CR TOP SCH ×2 (08:15→20:20)
[2016-06-07] MEDS: MUPIROCIN 2% 22 GM OINT TOP SCH ×2 (08:15→20:20)
[2016-06-07] MEDS: INSULIN ASPART [NOVOLOG] 3 ML PEN SC SCH ×7 (08:15→20:23)
[2016-06-07] MEDS: GUAIFENESIN LA 600 MG TABSR PO SCH ×2 (09:03→20:21)
--- NOTE | 2016-06-07 10:04 | PN ---
DATE: 06/07/2016 SUBJECTIVE: The patient continues to complain of dysuria, although clinically improving. No other acute events noted. No hemoptysis, hematemesis or hematochezia. OBJECTIVE: VITAL SIGNS: Blood pressure is 113/59, respirations 16, pulse 76, temperature 98.3. HEENT: Head is normocephalic. NECK: Supple. HEART: Regular rate. LUNGS: Show diminished breath sounds at the bases. ABDOMEN: Soft, nontender to palpation. No rebound or guarding. EXTREMITIES: Negative for clubbing, cyanosis. No edema. DERMATOLOGIC: No rashes. MUSCULOSKELETAL: No joint effusions. NEUROLOGIC: No change in exam. MEDICATIONS: The patient's medications have been reviewed. LABORATORY DATA: Reviewed, currently pending. ASSESSMENT AND PLAN: 1. Acute respiratory failure secondary to pneumonia and bronchitis. The patient is clinically impr oving. Continue current antibiotic regimen. Continue to taper off steroids. 2. History of deep venous thrombosis and pulmonary embolism. The patient is status post IVC filter . Continue Xarelto. 3. Sepsis secondary to pneumonia. Continue current antibiotic regimen. 4. Dysuria. Etiology is likely secondary to urinary tract infection, possible vulvovaginitis. Rudi reciate urology's evaluation. Continue Pyridium. Continue to monitor. 5. Nephrolithiasis. No evidence of obstruction. Continue medical management. 6. History of congestive heart failure, currently stable. Continue current treatment plan 7. Venous insufficiency. Continue compression stockings. 8. Hypokalemia, improved. Continue to monitor. 9. Chronic pain syndrome. Continue current pain regimen. 10. Hyperglycemia secondary to steroids. Continue current insulin regimen. 11. Depression. Continue Cymbalta. 12. History of coronary artery disease, status post pacemaker. Continue to monitor. Dictated By: JUAN ROCHA/NTS Conf#: [id number] DID#: [id number]
--- NOTE | 2016-06-07 13:57 | PN ---
DATE: 06/07/2016 SUBJECTIVE: No acute changes. The patient is alert, feels better today, looks comfortable, no fevers. Vital signs stable. ANTIMICROBIALS: She is on: 1. Amikacin. 2. Cefepime. PHYSICAL EXAMINATION: GENERAL: Well-developed, obese, elderly woman who is awake, in no distress. HEENT: Head atraumatic, normocephalic. Sclerae anicteric. Buccal mucosa pink. NECK: Supple, trachea midline. CHEST: Rise symmetrical. Breath sounds clear. HEART: S1, S2. ABDOMEN: Distended, soft. Bowel tones present. EXTREMITIES: Without cyanosis. ASSESSMENT: 1. Recurrent urinary tract infection. 2. Chronic vaginitis. 3. Methicillin-resistant Staphylococcus aureus nares colonization. 4. Resolving bronchitis, possible aspiration. 5. Coronary artery disease, history of permanent pacemaker. 6. Chronic pain syndrome with opioid dependence. 7. Bilateral lower extremities chronic venous stasis. PLAN: The patient remains stable, overall improving. She is being seen by urology. Pending repeat urine culture, continue on current antibiotics. Dictated By: GIOVANNA ESCUDERO APPLICATION DEVELOPMENT SPECIALIST for SATYA QUIROZ/ANNA Conf#: [id number] DID#: [id number] PRITESH
[2016-06-07] MEDS: ACETAMINOPHEN 325 MG TAB PO PRN (14:12)
[2016-06-07 14:27] LABS: BASOPHILS % 0.1 % (0.0-2.0); EOSINOPHILS % 0.2 % (0.0-7.0); HEMATOCRIT 34.5 % (37.0-47.0); HEMOGLOBIN 11.1 g/dl (12.0-16.0); LYMPHOCYTES # 0.8 10^3/ul (0.8-2.9); LYMPHOCYTES % 5.8 % (15.0-51.0); MEAN CORPUSCULAR HEMOGLOBIN 28.9 pg (29.0-33.0); MEAN CORPUSCULAR HGB CONC 32.2 g/dl (32.0-37.0); MEAN CORPUSCULAR VOLUME 89.7 fl (82.0-101.0); MEAN PLATELET VOLUME 8.4 fl (7.4-10.4); MONOCYTE # 0.2 10^3/ul (0.3-0.9); MONOCYTES % 1.6 % (0.0-11.0); NEUTROPHIL # 13.5 10^3/ul (1.6-7.5); NEUTROPHILS % 92.3 % (39.0-77.0); PLATELET COUNT 161 10^3/UL (140-440); RED BLOOD COUNT 3.84 10^6/ul (4.20-5.40); RED CELL DISTRIBUTION WIDTH 17.7 % (11.5-14.5); UNCORRECTED WBC 14.6 10^3/ul (4.8-10.8); WHITE BLOOD COUNT 14.6 10^3/ul (4.8-10.8)
[2016-06-07 14:34] LABS: CONDITION 1; LH ANALYZER COMMENTS 1; POTASSIUM 5.1 mmol/L (3.5-5.1)
[2016-06-07 14:36] LABS: CREATININE 0.86 mg/dl (0.44-1.00)
[2016-06-07 14:37] LABS: CALCIUM 8.7 mg/dl (8.4-10.2)
[2016-06-07 15:51] LABS: ANISOCYTOSIS 1+; HYPOCHROMASIA 1+
[2016-06-07 15:52] LABS: PLATELET ESTIMATE PLT APPEAR ADEQUATE
[2016-06-07] MEDS: RIVAROXABAN 20 MG TABLET PO SCH (17:15)
--- NOTE | 2016-06-07 17:29 | PN ---
DATE: 06/07/2016 SUBJECTIVE: Dysuria and vaginal and perineal pain. The patient has history of urinary tract infect ion. OBJECTIVE: GENERAL: The patient states that she is feeling better today. The lidocaine gel application on the labia is alleviating her pain. VITAL SIGNS: Her temperature is 98.3, pulse is 73, respirations 20, blood pressure 113/59. ABDOMEN: Soft. LABORATORY DATA: Her CBC today shows a white count of 14.6, hemoglobin 11.1, hematocrit 34.5. BUN is 45, creatinine 0.86, sodium 141, potassium 5.1, chloride 99, CO2 31. Urine culture that was sent yesterday still in process. IMPRESSION: 1. Vaginitis. 2. History of urinary tract infection. PLAN: Continue the same medications, apply the lidocaine gel and continue the antibiotic and await the report of the latest urine culture that was sent yesterday from in-and-out catheterization. Dictated By: RAMONITA STEPHENS/ANNA Conf#: [id number] DID#: [id number]
[2016-06-07 17:35] VITALS: BP 122/59
[2016-06-07 20:17] VITALS: BP 115/57; PULSE 80; RESP 18
[2016-06-07] MEDS: TAMSULOSIN (SR) 0.4 MG CAP PO SCH (20:20)
[2016-06-07] MEDS: INSULIN GLARGINE [LANtus] 3 ML PEN SC SCH (20:23)
[2016-06-07 21:06] VITALS: BP 132/63; RESP 18
[2016-06-08] MEDS: METHADONE 10 MG TAB PO SCH ×5 (00:38→23:56)
[2016-06-08] MEDS: IPRATROPIUM (NEB) 0.5 MG/2.5 ML AMP HHN SCH ×4 (01:14→20:20)
[2016-06-08] MEDS: LEVALBUTEROL (NEB) 1.25 MG/0.5 ML AMP HHN SCH ×4 (01:15→20:20)
[2016-06-08] MEDS: HYDROmorphONE 1 MG/ML SYG IV PRN ×6 (01:53→22:11)
[2016-06-08] MEDS: ACCUCHECK XX SCH ×5 (02:00→21:00)
[2016-06-08] MEDS: HYDROmorphONE 2 MG TAB PO SCH ×4 (04:59→23:56)
[2016-06-08] MEDS: PYRIDOXINE 50 MG TAB PO SCH ×3 (05:04→21:01)
[2016-06-08] MEDS: PANTOPRAZOLE (EC) 40 MG TAB PO SCH (05:04)
[2016-06-08 07:14] VITALS: BP 118/58; RESP 16
[2016-06-08] MEDS: INSULIN ASPART [NOVOLOG] 3 ML PEN SC SCH ×7 (08:00→20:53)
[2016-06-08] MEDS: CEFEPIME 2GM/50 ML (PMX) 50 ML IVPB SCH ×2 (08:58→20:57)
[2016-06-08] MEDS: VITAMIN A & D 5 GM OINT PACKET TOP SCH ×2 (09:00→20:46)
[2016-06-08] MEDS: FERROUS SULFATE (EC) 325 MG TAB PO SCH (09:01)
[2016-06-08] MEDS: MULTIVITAMINS THERAPEUTIC TAB PO SCH (09:01)
[2016-06-08] MEDS: DOCUSATE SODIUM 100 MG CAP PO SCH ×2 (09:01→20:42)
[2016-06-08] MEDS: ASCORBIC ACID 250 MG TAB PO SCH (09:01)
[2016-06-08] MEDS: FLUCONAZOLE 100 MG TAB PO SCH (09:01)
[2016-06-08] MEDS: SACCHAROMYCES BOULARDII 250 MG CAP PO SCH ×2 (09:01→20:42)
[2016-06-08] MEDS: DULOXETINE 30 MG CAP DR PO SCH (09:01)
[2016-06-08] MEDS: FUROSEMIDE 40 MG TAB PO SCH (09:02)
[2016-06-08] MEDS: SENNA TAB PO SCH (09:02)
[2016-06-08] MEDS: MAGNESIUM OXIDE 400 MG TAB PO SCH ×2 (09:02→20:44)
[2016-06-08] MEDS: MUPIROCIN 2% 22 GM OINT TOP SCH ×2 (09:03→20:47)
[2016-06-08] MEDS: GUAIFENESIN LA 600 MG TABSR PO SCH ×2 (09:03→20:42)
[2016-06-08] MEDS: LIDOCAINE 5% 35 GM OINT TOP SCH ×4 (09:04→20:47)
[2016-06-08] MEDS: CLOTRIMAZOLE 1% 30 GM CR TOP SCH ×2 (09:04→20:46)
[2016-06-08] MEDS ORDERED: predniSONE 20 MG TAB PO SCH (09:15)
[2016-06-08] MEDS: ZINC SULFATE 220 MG CAP PO SCH (09:26)
[2016-06-08] MEDS: PHENAZOPYRIDINE 100 MG TAB PO SCH ×3 (09:26→20:42)
[2016-06-08] MEDS: AMIKACIN 1,000 MG in SOD CHLORIDE 0.9% 100 ML IVPB SCH (09:27)
--- NOTE | 2016-06-08 10:21 | PN ---
DATE: 06/08/2016 SUBJECTIVE: The patient is clinically stable, continues to complain about right lower quadrant pain . No other acute events noted. No hemoptysis, hematemesis or hematochezia. OBJECTIVE: VITAL SIGNS: Blood pressure is 118/58, respirations 16, pulse 73, temperature 97.8. HEENT: Head is normocephalic. NECK: Supple. HEART: Regular rate. LUNGS: Show diminished breath sounds at base. ABDOMEN: Patient has positive tenderness to palpation right upper quadrant. No voluntary guarding or rebound. EXTREMITIES: Negative for clubbing, cyanosis, no edema. DERMATOLOGIC: No rashes. MUSCULOSKELETAL: No joint effusions. NEUROLOGIC: No change in exam. LABORATORY DATA: Shows white count 14.6, hemoglobin 11.1, hematocrit 34.5, platelet count is 161. Sodium 141, potassium 5.1, chloride 99, BUN 45, creatinine 0.86. ASSESSMENT AND PLAN: 1. Acute respiratory failure secondary to pneumonia and bronchitis. The patient is clinically impr oving. Continue current antibiotic regimen and continue to wean off steroids. 2. History of deep venous thrombosis and pulmonary embolism. The patient is status post IVC filter . Continue Xarelto. 3. Sepsis secondary to pneumonia. Continue current antibiotic regimen. 4. Dysuria secondary to urinary tract infection, vulvovaginitis. Continue medical management. Appr eciate urology evaluation. 5. Right lower quadrant abdominal pain. Underlying etiology is unclear. CT scan was reviewed. No acute findings. Unclear if this is due to renal colic. Will get abdominal ultrasound and monitor. 6. Nephrolithiasis. No evidence of obstruction. Continue current medical management. 7. History of congestive heart failure, currently stable. Continue current treatment plan. 8. Venous insufficiency. Continue compression stockings. 9. Chronic pain syndrome. Continue current pain regimen. 10. Hyperglycemia. Secondary to steroids. Continue current insulin regimen. 11. Depression. Continue Cymbalta. 12. History of coronary artery disease, status post pacemaker. Continue to monitor. Dictated By: JUAN ROCHA/ANNA Conf#: [id number] DID#: [id number]
--- NOTE | 2016-06-08 12:52 | PN ---
DATE: 06/08/2016 SUBJECTIVE: The patient remained stable overnight. No fevers, feels better, looks comfortable. WBC 14.6, platelets 92.3. No bands. BUN 45, creatinine 0.86. MICROBIOLOGY: Repeat urine culture still pending. ANTIMICROBIALS: The patient is on amikacin and cefepime. Cefepime is day #9, amikacin is day #5. PHYSICAL EXAMINATION: GENERAL: This is a morbidly obese, well-developed, fragile, elderly woman who is awake, in no distress. HEENT: Head atraumatic, normocephalic. Sclerae anicteric. Buccal mucosa pink. NECK: Supple. CHEST: Rise symmetrical. Breath sounds clear. HEART: S1, S2. ABDOMEN: Soft. Bowel tones present. EXTREMITIES: No cyanosis. ASSESSMENT: 1. Recurrent urinary tract infection. 2. Vaginal pain secondary to vaginitis. 3. Morbid obesity. 4. Status post chronic obstructive pulmonary disease exacerbation and possible pneumonia on admission. 5. Methicillin-resistant Staphylococcus aureus nares colonization. 6. Coronary artery disease, history of permanent pacemaker placement. 7. Leukocytosis, likely steroid induced. Patient had been on Solu-Medrol since admission, but was tapered to oral prednisone. PLAN: The patient remains stable. We will keep her on antibiotics for a couple more days. Continue following urology recommendation. Encourage increased activity. Continue Bactroban to nares. Dictated By: GIOVANNA ESCUDERO STOCK SHEETS CLEANER INSPECTOR for SATYA QUIROZ/NTS Conf#: [id number] DID#: [id number] [facility] HOSPITALKaterine
--- NOTE | 2016-06-08 13:17 | PN ---
DATE: 06/08/2016 SUBJECTIVE: Dysuria, vaginal pain and vaginitis. The patient states that the lidocaine cream is hel ping, but not fast enough. It takes time for the local anesthetic cream to work, but it is certainl y better. VITAL SIGNS: Her temperature is 97.8, the pulse is 81, respirations 18, blood pressure 118/58. LABORATORY DATA: Her CBC shows a white count of 14.6, hemoglobin is 11.1, hematocrit is 34.5. The last urine culture from 2 days ago is still pending. IMPRESSION: Urinary tract infection that is being managed and the patient is feeling better. She green s have difficulty with ambulation and she does have contamination of the vaginal area and that could cause her infection in the urine as well. RECOMMENDATION: At present is to continue the antibiotic and continue with the local lidocaine crea m to help with her discomfort. Dictated By: RAMONITA STEPHENS/ANNA Conf#: [id number] DID#: [id number]
--- NOTE | 2016-06-08 16:36 | RADRPT ---
PROCEDURE: US Abdomen. CLINICAL INDICATION: Abdominal pain TECHNIQUE: Multiple real-time images were acquired of the patient's abdomen and right lower quadra nt utilizing a high resolution transducer. COMPARISON: 05/31/2016 FINDINGS: The appendix is not visualized. There is normal bowel seen in the right lower abdomen. No free fluid is identified. RPTAT: AA IMPRESSION: No ultrasound evidence of appendicitis. If there is a high clinical suspicion for appendicitis, cross-sectional imaging is recommended. .Jeferson Ro MD, Date Time Electronically viewed and signed by .Jeferson Ro MD, on 06/08/2016 16:36 .S/
[2016-06-08] MEDS: RIVAROXABAN 20 MG TABLET PO SCH (17:48)
[2016-06-08 20:40] VITALS: BP 108/57; RESP 20
[2016-06-08] MEDS: TAMSULOSIN (SR) 0.4 MG CAP PO SCH (20:42)
[2016-06-08] MEDS: INSULIN GLARGINE [LANtus] 3 ML PEN SC SCH (20:52)
[2016-06-09] MEDS: ACCUCHECK XX SCH ×5 (02:00→20:30)
[2016-06-09] MEDS: IPRATROPIUM (NEB) 0.5 MG/2.5 ML AMP HHN SCH ×4 (02:06→19:39)
[2016-06-09] MEDS: LEVALBUTEROL (NEB) 1.25 MG/0.5 ML AMP HHN SCH ×4 (02:06→19:39)
[2016-06-09] MEDS: HYDROmorphONE 1 MG/ML SYG IV PRN ×5 (03:14→22:35)
[2016-06-09] MEDS: HYDROmorphONE 2 MG TAB PO SCH ×3 (05:19→17:02)
[2016-06-09] MEDS: PYRIDOXINE 50 MG TAB PO SCH ×3 (05:20→22:41)
[2016-06-09] MEDS: PANTOPRAZOLE (EC) 40 MG TAB PO SCH (05:20)
[2016-06-09 06:11] LABS: ADD SCAN DIFF NO
[2016-06-09 06:34] LABS: POTASSIUM 4.7 mmol/L (3.5-5.1)
[2016-06-09 06:36] LABS: CREATININE 0.84 mg/dl (0.44-1.00)
[2016-06-09 06:37] LABS: CALCIUM 8.9 mg/dl (8.4-10.2); MAGNESIUM 2.4 mg/dl (1.7-2.5); PHOSPHORUS 4.2 mg/dl (2.5-4.9)
[2016-06-09 06:46] LABS: BASOPHILS % 0.2 % (0.0-2.0); EOSINOPHILS # 0.1 10^3/ul (0.0-0.5); EOSINOPHILS % 0.7 % (0.0-7.0); HEMATOCRIT 39.1 % (37.0-47.0); HEMOGLOBIN 11.5 g/dl (12.0-16.0); LYMPHOCYTES % 15.1 % (15.0-51.0); MEAN CORPUSCULAR HEMOGLOBIN 28.3 pg (29.0-33.0); MEAN CORPUSCULAR HGB CONC 29.4 g/dl (32.0-37.0); MEAN CORPUSCULAR VOLUME 96.3 fl (82.0-101.0); MEAN PLATELET VOLUME 10.4 fl (7.4-10.4); MONOCYTES % 5.1 % (0.0-11.0); NEUTROPHIL # 15.2 10^3/ul (1.6-7.5); NEUTROPHILS % 77.6 % (39.0-77.0); PLATELET COUNT 184 10^3/UL (140-415); RED BLOOD COUNT 4.06 10^6/ul (4.20-5.40); RED CELL DISTRIBUTION WIDTH 17.1 % (11.5-14.5); WHITE BLOOD COUNT 19.5 10^3/ul (4.8-10.8)
[2016-06-09] MEDS: INSULIN ASPART [NOVOLOG] 3 ML PEN SC SCH ×7 (08:00→20:29)
[2016-06-09 08:25] VITALS: BP 121/58; RESP 20
[2016-06-09] MEDS: GUAIFENESIN LA 600 MG TABSR PO SCH ×2 (09:14→20:17)
[2016-06-09] MEDS: ASCORBIC ACID 250 MG TAB PO SCH (09:14)
[2016-06-09] MEDS: PHENAZOPYRIDINE 100 MG TAB PO SCH ×3 (09:15→20:18)
[2016-06-09] MEDS: DOCUSATE SODIUM 100 MG CAP PO SCH ×2 (09:16→20:18)
[2016-06-09] MEDS: MULTIVITAMINS THERAPEUTIC TAB PO SCH (09:17)
[2016-06-09] MEDS: DULOXETINE 30 MG CAP DR PO SCH (09:17)
[2016-06-09] MEDS: FERROUS SULFATE (EC) 325 MG TAB PO SCH (09:17)
[2016-06-09] MEDS: SACCHAROMYCES BOULARDII 250 MG CAP PO SCH ×2 (09:17→20:18)
[2016-06-09] MEDS: METHADONE 10 MG TAB PO SCH ×3 (09:18→20:18)
[2016-06-09] MEDS: MAGNESIUM OXIDE 400 MG TAB PO SCH ×2 (09:18→20:18)
[2016-06-09] MEDS: FLUCONAZOLE 100 MG TAB PO SCH (09:18)
[2016-06-09] MEDS: ZINC SULFATE 220 MG CAP PO SCH (09:18)
[2016-06-09] MEDS: SENNA TAB PO SCH (09:18)
[2016-06-09] MEDS: predniSONE 10 MG TAB PO SCH (09:18)
[2016-06-09] MEDS: MUPIROCIN 2% 22 GM OINT TOP SCH ×2 (09:21→20:19)
[2016-06-09] MEDS: FUROSEMIDE 40 MG TAB PO SCH (09:21)
[2016-06-09] MEDS: LIDOCAINE 5% 35 GM OINT TOP SCH ×4 (09:23→20:19)
[2016-06-09] MEDS: VITAMIN A & D 5 GM OINT PACKET TOP SCH ×2 (09:23→20:20)
[2016-06-09] MEDS: CLOTRIMAZOLE 1% 30 GM CR TOP SCH ×2 (09:23→20:19)
[2016-06-09] MEDS: CEFEPIME 2GM/50 ML (PMX) 50 ML IVPB SCH (09:29)
--- NOTE | 2016-06-09 09:55 | PN ---
DATE: 06/09/2016 SUBJECTIVE: The patient continues to have right upper quadrant pain, right lower quadrant pain. Th e patient also developing urticarial rash in the right upper extremity. No other acute events noted . No nausea symptoms. OBJECTIVE: VITAL SIGNS: Blood pressure 121/58, respirations 20, pulse 86, temperature 98.1. HEENT: Head is normocephalic. NECK: Supple. HEART: Regular rate. LUNGS: Show diminished breath sounds at the base. ABDOMEN: Soft with tenderness to palpation in the right upper quadrant. EXTREMITIES: Negative for clubbing, cyanosis, positive dressings, compression stockings in lower ex tremity. DERMATOLOGIC: The patient has right upper extremity erythematous rash noted with bulla, u rticarial in appearance. NEUROLOGIC: No focal deficits. MEDICATIONS: The patient's medication have been reviewed. LABORATORY DATA: Shows sodium 142, potassium 4.7, chloride 95, BUN 49, creatinine 0.84. White coun t 17.5, hemoglobin 11.5, hematocrit 39.1, platelet count 185. Abdominal ultrasound shows no acute f indings. ASSESSMENT AND PLAN: 1. Acute respiratory failure secondary to pneumonia, bronchitis. The patient has been clinically i mproving. Continue current antibiotic regimen and continue to taper off steroids. 2. Leukocytosis, etiology is unclear. Multifactorial causes including steroid effect. However, we will rule out intra-abdominal process given persistent abdominal pain. We will repeat a CT scan of abdomen and pelvis. Will check a lactic acid level and procalcitonin level, continue antibiotics, monitor. 3. Urticarial rash in right upper extremity. This may be due to contact dermatitis. We will contin ue prednisone. Continue hydrocortisone cream, monitor closely. 4. Sepsis secondary to pneumonia. Continue current antibiotic regimen. 5. Dysuria and urea secondary to urinary tract infection and vaginitis. Continue to improving. Co ntinue to monitor. 6. History of deep venous thrombosis and pulmonary embolism. The patient is on Xarelto, continue. 7. Nephrolithiasis. No evidence of obstruction. Continue to monitor. 8. Lower quadrant abdominal pain. Etiology unclear. Will get a CT scan of the abdomen and abdomin al ultrasound was negative for any acute findings. 9. History of congestive heart failure, currently stable. Continue medical management. 10. Venous insufficiency. Continue compression stockings. 11. Chronic pain syndrome. Continue current pain regimen. 12. Hyperglycemia secondary to steroids. Continue current insulin regimen. 13. Depression. Continue Cymbalta. 14. History of coronary artery disease, status post pacemaker. Continue to monitor. Dictated By: JUAN ROCHA/ANNA Conf#: [id number] DID#: [id number]
[2016-06-09] MEDS: HYDROCORTISONE 0.5% 28.35 GM CR TOP SCH ×2 (11:11→20:19)
--- NOTE | 2016-06-09 13:54 | RADRPT ---
PROCEDURE: CT Abdomen and Pelvis without contrast. CLINICAL INDICATION: Abdominal and pelvic pain. TECHNIQUE: CT scan of the abdomen and pelvis without contrast was performed. Coronal and sagittal reformatted images were obtained from the axial source images. Images were reviewed on a high-resolu tion PACS workstation. Total exam DLP is 972.54 mGy-cm. CTDIvol is 16.34 mGy. One or more of the f ollowing dose reduction techniques were used: Automated exposure control, adjustment of the mA and/o r kV according to patient size, use of iterative reconstruction technique. COMPARISON: CT scan of the abdomen and pelvis dated 05/31/2016. FINDINGS: There is air space disease at both lung bases posteriorly with right worse than left consistent with atelectasis. Superimposed pneumonia at the right lung base cannot be excluded. The lung bases are otherwise normal. There is no pleural effusion or pericardial effusion. The heart size is normal. There is a dual lead permanent pacemaker in the right atrium and right ventricle. The liver is normal in size and attenuation. There is no focal hepatic lesion. The gallbladder and bile ducts are normal. The spleen is normal in size. There is no focal splenic lesion. Both adrenals are normal with no enlargement or mass. The pancreas is unremarkable with no mass or evidence of pancreatitis. There is no renal mass or hydronephrosis on either side. There is no right renal calculus. There i s a nonobstructing 0.3 cm calculus in the upper left kidney and a nonobstructing 0.2 cm calculus in the lower left kidney. There is no ureteral calculus on either side. The abdominal aorta is not dilated. There is calcification in the aorta consistent with atheroscler osis. There is an inferior vena cava filter with the superior tip below the level of the renal vein s. 2 of the legs of the inferior vena cava filter are protruding through the wall posteriorly. The re is no hematoma at this site. There is no retroperitoneal lymphadenopathy or mass. There is no pelvic lymphadenopathy or mass. Surgical clips are present in the pelvis in the uterus is absent. The ovaries are not visualized. The bladder and distal ureters are unremarkable. The periappendiceal region is unremarkable with no evidence of appendicitis. There is a large amount of stool in the rectosigmoid consistent with constipation. The bowel and me sentery are otherwise normal. There is no free fluid or free gas. There is an old healed fracture of the right inferior pubic ramus. There is no acute fracture or ly tic lesion. There are degenerative changes of the spine. IMPRESSION: 1. Atelectasis at the lung bases and possible right basilar superimposed pneumonia. 2. Permanent pacemaker. 3. Nonobstructing left renal calculi. 4. Atherosclerosis. 5. IVC filter in satisfactory position. 2 of the legs of the IVC filter protruding through the wal l posteriorly. This can be a cause of posterior abdominal pain. 6. Status post hysterectomy. 7. Constipation. 8. Old healed fracture of the right inferior pubic ramus. 9. Degenerative changes of the spine. RPTAT: QQ .Conrado Treviño MD, MD Date Time Electronically viewed and signed by .Conrado Treviño MD, on 06/09/2016 13:53 .R/
--- NOTE | 2016-06-09 13:56 | PN ---
DATE: 06/09/2016 SUBJECTIVE: No acute changes overnight. The patient is lying comfortably in bed. She has been com plaining of abdominal pain earlier. Her vital signs have been stable, no fevers. LABORATORY DATA: WBC today increased to 19.5 with platelets 184, neutrophils went down to 77.6. BU N 49, creatinine 0.84. ANTIMICROBIALS: The patient is on: 1. Cefepime day #10. 2. Amikacin day #6. PHYSICAL EXAMINATION: GENERAL: This is an obese, chronically ill-appearing, elderly woman who is lying comfortably in bed . HEENT: Head atraumatic, normocephalic. Sclerae anicteric. Buccal mucosa dry. NECK: Supple, trachea midline. CHEST: Rise symmetrical. Breath sounds clear, diminished to bases. HEART: S1, S2. ABDOMEN: Soft with tenderness on palpation. EXTREMITIES: With chronic venous stasis of bilateral lower extremities. ASSESSMENT: 1. cytosis, possibly secondary to steroids. Rule out infectious etiology. Rule out Clostridi um difficile, although the patient has no diarrhea, but she is getting opioids around the clock. 2. Polymicrobial urinary tract infection. 3. Methicillin-resistant Staphylococcus aureus nares colonization. 4. Chronic vaginitis. 5. Status post chronic obstructive pulmonary disease exacerbation and possible pneumonia on admissi on. 6. Chronic pain syndrome. PLAN: The patient is clinically stable with increased leukocytosis that could be secondary to stero ids. Her repeat urine culture on 06/08/2016 is negative. She is being followed by multiple consult ants. We are going to add empiric Flagyl to the regimen. Discontinue cefepime. Repeat her blood c ultures and await for CT of the abdomen report. Dictated By: GIOVANNA ESCUDERO GLASS TUBE BENDER for SATYA CAMPBELL MD NI/NTS Conf#: [id number] DID#: [id number]
[2016-06-09] MEDS: metroNIDAZOLE 500 MG/NS (PMX) 100 ML IVPB SCH ×2 (14:02→22:41)
[2016-06-09] MEDS: ACETAMINOPHEN 325 MG TAB PO PRN (16:29)
[2016-06-09] MEDS: RIVAROXABAN 20 MG TABLET PO SCH (18:35)
[2016-06-09] MEDS: AMIKACIN 1,000 MG in SOD CHLORIDE 0.9% 100 ML IVPB SCH (20:17)
[2016-06-09] MEDS: TAMSULOSIN (SR) 0.4 MG CAP PO SCH (20:18)
[2016-06-09] MEDS: INSULIN GLARGINE [LANtus] 3 ML PEN SC SCH (20:28)
[2016-06-09 20:35] VITALS: BP 111/57; RESP 20
--- NOTE | 2016-06-09 20:56 | PN ---
DATE: 06/09/2016 CHIEF COMPLAINT: Urinary tract infection and vaginitis. SUBJECTIVE: The patient complained of dysuria. She does have raw areas in the vaginal area and whe n the urine touches these areas, she has pain. I have put her on lidocaine topical cream and that i s helping her. She thinks that she is getting better. Also, yesterday I did do a straight catheter ization on her and send urine for C and S, and that urine showing no growth after 24 hours. OBJECTIVE VITAL SIGNS: Her temperature is 98.1, pulse is 84, respiration 18, blood pressure 121/58. ABDOMEN: Soft. LABORATORY DATA: Her CBC shows a white count of 19.5, hemoglobin is 11.5, hematocrit 39.1. The BUN is 49, creatinine 0.84. Electrolytes: Sodium 142, potassium 4.7, chloride 95, CO2 26. IMPRESSION: Vaginitis and urinary tract infection. The patient is on antibiotic and on local appli cation of lidocaine and she is responding well to that. PLAN: Continue present management. Dictated By: RAMONITA STEPHENS/ANNA Conf#: [id number] DID#: [id number]
[2016-06-10] MEDS: HYDROmorphONE 2 MG TAB PO SCH ×4 (00:10→17:12)
[2016-06-10] MEDS: METHADONE 10 MG TAB PO SCH ×4 (00:10→20:23)
[2016-06-10] MEDS: ACCUCHECK XX SCH ×5 (02:00→20:33)
[2016-06-10] MEDS: IPRATROPIUM (NEB) 0.5 MG/2.5 ML AMP HHN SCH ×4 (02:58→19:46)
[2016-06-10] MEDS: LEVALBUTEROL (NEB) 1.25 MG/0.5 ML AMP HHN SCH ×4 (02:58→19:46)
[2016-06-10] MEDS: HYDROmorphONE 1 MG/ML SYG IV PRN ×5 (03:49→22:02)
[2016-06-10] MEDS: PANTOPRAZOLE (EC) 40 MG TAB PO SCH (05:15)
[2016-06-10] MEDS: PYRIDOXINE 50 MG TAB PO SCH ×3 (05:15→22:10)
[2016-06-10] MEDS: metroNIDAZOLE 500 MG/NS (PMX) 100 ML IVPB SCH ×3 (05:25→22:02)
[2016-06-10 06:23] LABS: ADD SCAN DIFF NO; BASOPHILS % 0.2 % (0.0-2.0); EOSINOPHILS # 0.1 10^3/ul (0.0-0.5); EOSINOPHILS % 0.8 % (0.0-7.0); HEMOGLOBIN 12.4 g/dl (12.0-16.0); LYMPHOCYTES # 3.1 10^3/ul (0.8-2.9); LYMPHOCYTES % 19.9 % (15.0-51.0); MEAN CORPUSCULAR HEMOGLOBIN 28.3 pg (29.0-33.0); MEAN CORPUSCULAR HGB CONC 29.5 g/dl (32.0-37.0); MEAN CORPUSCULAR VOLUME 95.9 fl (82.0-101.0); MEAN PLATELET VOLUME 10.5 fl (7.4-10.4); MONOCYTE # 0.8 10^3/ul (0.3-0.9); MONOCYTES % 5.1 % (0.0-11.0); NEUTROPHIL # 11.2 10^3/ul (1.6-7.5); NEUTROPHILS % 72.9 % (39.0-77.0); PLATELET COUNT 181 10^3/UL (140-415); RED BLOOD COUNT 4.38 10^6/ul (4.20-5.40); RED CELL DISTRIBUTION WIDTH 17.4 % (11.5-14.5); WHITE BLOOD COUNT 15.4 10^3/ul (4.8-10.8)
[2016-06-10 06:57] LABS: POTASSIUM 4.1 mmol/L (3.5-5.1)
[2016-06-10 06:59] LABS: CREATININE 0.77 mg/dl (0.44-1.00)
[2016-06-10 07:00] LABS: CALCIUM 8.6 mg/dl (8.4-10.2); MAGNESIUM 2.4 mg/dl (1.7-2.5); PHOSPHORUS 4.5 mg/dl (2.5-4.9)
[2016-06-10] MEDS: INSULIN ASPART [NOVOLOG] 3 ML PEN SC SCH ×7 (07:59→20:29)
[2016-06-10 08:12] VITALS: BP 135/64; RESP 20
[2016-06-10] MEDS ORDERED: LIDOCAINE 5% PATCH TD ONE (08:30)
[2016-06-10] MEDS: FUROSEMIDE 40 MG TAB PO SCH (09:10)
[2016-06-10] MEDS: MAGNESIUM OXIDE 400 MG TAB PO SCH ×2 (09:10→20:29)
[2016-06-10] MEDS: PHENAZOPYRIDINE 100 MG TAB PO SCH ×3 (09:11→20:32)
[2016-06-10] MEDS: ASCORBIC ACID 250 MG TAB PO SCH (09:11)
[2016-06-10] MEDS: SACCHAROMYCES BOULARDII 250 MG CAP PO SCH ×2 (09:11→20:29)
[2016-06-10] MEDS: DULOXETINE 30 MG CAP DR PO SCH (09:12)
[2016-06-10] MEDS: GUAIFENESIN LA 600 MG TABSR PO SCH ×2 (09:12→20:29)
[2016-06-10] MEDS: MULTIVITAMINS THERAPEUTIC TAB PO SCH (09:13)
[2016-06-10] MEDS: FERROUS SULFATE (EC) 325 MG TAB PO SCH (09:13)
[2016-06-10] MEDS: FLUCONAZOLE 100 MG TAB PO SCH (09:13)
[2016-06-10] MEDS: SENNA TAB PO SCH (09:13)
[2016-06-10] MEDS: predniSONE 10 MG TAB PO SCH (09:14)
[2016-06-10] MEDS: DOCUSATE SODIUM 100 MG CAP PO SCH ×2 (09:14→20:30)
[2016-06-10] MEDS: ZINC SULFATE 220 MG CAP PO SCH (09:14)
--- NOTE | 2016-06-10 09:50 | PN ---
DATE: 06/10/2016 SUBJECTIVE: THE PATIENT HAD AN ALLERGIC REACTION TO IV ANTIBIOTIC. It is improving. No other acut e events noted. The patient's abdominal pain is present but stable. OBJECTIVE: VITAL SIGNS: Blood pressure is 130/64, respirations 20, pulse 74, temperature 98.2. HEENT: Head is normocephalic. NECK: Supple. HEART: Regular rate. LUNGS: Show diminished breath sounds at the base. ABDOMEN: The patient has pain in the right lower quadrant on palpation. There is no rebound or vol untary guarding. EXTREMITIES: Negative for clubbing, cyanosis, or edema. DERMATOLOGIC: The patient has urticaria wheals on her upper extremity, improving. NEUROLOGIC: No focal deficits. MEDICATIONS: Patient medications reviewed. LABORATORY DATA: Shows white count 15.4, hemoglobin 10.4, hematocrit 42.0, platelet count is 181. Sodium 141, potassium 4.1, chloride 95, BUN 47, creatinine 0.77. ASSESSMENT AND PLAN: 1. Acute respiratory failure secondary to pneumonia and bronchitis. The patient is clinically impr oving. Continue current medical management. Follow up with infectious disease. 2. Leukocytosis. Etiology unclear, may be steroid effect. The patient's CT scan of the abdomen an d pelvis showed no acute findings. Will continue to monitor. White count has been improving. 3. Urticaria rash in right upper extremity, possibly due to amikacin. Will hold amikacin. Will c ontact infectious disease to consider changing antibiotic regimen. Continue hydrocortisone cream. 4. Sepsis secondary to pneumonia, clinically improving. Continue antibiotic regimen. 5. Dysuria, improved. 6. History of deep venous thrombosis and pulmonary embolism. Continue Xarelto. 7. Nephrolithiasis. No evidence of obstruction. Continue to monitor. 8. Right lower quadrant pain, unclear etiology. CT scan showed no acute findings. Continue to obs erve. Possible musculoskeletal. Will place a lidocaine patch for the patient. 9. History of congestive heart failure. Continue current medical management. 10. Venous insufficiency. Continue compression stockings. 11. Chronic pain syndrome. Continue current pain regimen. 12. Depression. Continue Cymbalta. 13. History of coronary artery disease status post pacemaker. Continue to monitor. 14. Hyperglycemia secondary to steroids. Continue current insulin regimen. Dictated By: JUAN ROCHA/ANNA Conf#: [id number] [facility]#: [id number]
[2016-06-10] MEDS: VITAMIN A & D 5 GM OINT PACKET TOP SCH ×2 (09:51→20:32)
[2016-06-10] MEDS: HYDROCORTISONE 0.5% 28.35 GM CR TOP SCH ×2 (09:52→20:33)
[2016-06-10] MEDS: CLOTRIMAZOLE 1% 30 GM CR TOP SCH ×2 (09:52→20:32)
[2016-06-10] MEDS: LIDOCAINE 5% 35 GM OINT TOP SCH ×4 (09:52→20:33)
[2016-06-10] MEDS: MUPIROCIN 2% 22 GM OINT TOP SCH ×2 (09:53→20:32)
--- NOTE | 2016-06-10 10:57 | PN ---
DATE: 06/10/2016 SUBJECTIVE: Dysuria and vaginitis. The patient is feeling better and she has less complaints. OBJECTIVE: VITAL SIGNS: Temperature is 98.2, pulse is 78, respirations 20, and blood pressure 135/64. ABDOMEN: Soft. The urine culture that I collected on the shows no growth after 48 hours. The CBC shows a whit e count of 15.4, hemoglobin 12.4, hematocrit 42.0, BUN is 47, creatinine 0.77. The patient may not have a UTI, it may be that the urine is contaminated from her vagina, or when sh e does urinate, the urine touches the wall of the vagina where she is excoriated and raw, and theref ore she will have the burning sensation. At the present, her urine culture is no growth and that is because she has been on an antibiotic as well, and she is on lidocaine ointment over the vagina and that is helping her. PLAN: Continue the present treatment. Dictated By: RAMONITA STEPHENS/ANNA Conf#: [id number] DID#: [id number]
--- NOTE | 2016-06-10 14:25 | CONS ---
Date/Time of Note Date/Time of Note DATE: 06/10/16 TIME: 14:25 Assessment/Plan Assessment/Plan Chief Complaint/Hosp Course ID PROGRESS NOTE CURRENT ABX=> Diflucan #9, Flagyl #2, s/p Amikacin #7 = DC'd today s/p Cefepime => Dc'd today 24H INTERVAL SUMMARY * Awake, alert, she remembers me, she is not feeling back to normal, predominantly feeling week * Son expresses concern that nurse notified Dr. Ramos regarding mild rash; hence Amikacin may have been DC'd too early. I explained to son/patient that Amikacin was started on 06/04 hence today would have been day #7 anyway which is adequate Rx. * Afebrile, VSS, no dysuria/hematuria, denies pruritic rash Sue: 05/31/16-1099 Rcvd: 05/31/16-112 Source: CATHETER U Sp Descrip: Microbiology URINE CULTURE Final Organism 1 PSEUDOMONAS AERUGINOSA COLONY COUNT >100,000 CFU/ml Organism 2 ESCHERICHIA COLI (ESBL) COLONY COUNT 10,000 - 20,000 CFU/ml . MULTI DRUG RESISTANT ORGANISM PHONED TO MS FILEMON, ARIADNE, PHARM AND A COPY TO AT 1040 06/05/16 BY AD. MICAH MURRAY ESBL M.I.C. RX M.I.C. RX --------- --- --------- --- AMIKACIN 4 S 16 S AMPICILLIN >=32 R AZTREONAM R CEFAZOLIN R CEFEPIME 8 S 8 S CEFOTAXIME R CEFTAZIDIME 16 I CIPROFLOXACIN >=4 R >=4 R GENTAMICIN 4 S >=16 R IMIPENEM >=16 R <=0.25 S LEVOFLOXACIN >=8 R >=8 R NITROFURANTOIN 32 S TOBRAMYCIN <=1 S >=16 R TRIMETHOPRIM/SULFAMETHOXAZOLE >=320 R PIPERACILLIN/TAZOBACTAM R 8 S PHYSICAL EXAMINATION: GENERAL: VSS, NAD HEENT: Unremarkable -- NECK: Supple, trachea midline. CHEST: Rise symmetrical, without dyspnea on observation HEART: Pulse RRR ABDOMEN: Soft, benign EXTREMITIES: Warm ID ASSESSMENT 71 yo obese F admit with: 1. Dysuria => excoriated meatus on lidocaine topical vaginal ointment, Dr. Carney on the case 2. Chronic vaginitis = yeast overgrowth exacerbated by ABX 3. Polymicrobial urinary tract infection vs contaminant URINE CULTURE Final Organism 1 PSEUDOMONAS AERUGINOSA COLONY COUNT >100,000 CFU/ml Organism 2 ESCHERICHIA COLI (ESBL) COLONY COUNT 10,000 - 20,000 CFU/ml . MULTI DRUG RESISTANT ORGANISM 4. Status post chronic obstructive pulmonary disease exacerbation: Hx of emphysema + Asthma, and possible pneumonia on admission. * Hx of chronic lung scarring @ base confounds Dx 5. CV Issues: Hx of HTN, HTN heart disease, CHF, Pacer, hx of DVT w/PE remote 6. 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 BLEXT venous stasis edema w/chronic venous stasis dermatitis, hx of venous stasis ulcers * => Stable with BLEXT compression wraps 8. Diarrhea = ABX associated 9. Pre-DM vs DMT2 10. Tobacco user 11. Hx of noncompliance with diet and tobacco cessation 12. Psych Dx NOS: Anxiety/Depression (+)MRSA Nares INVASIVES: PIV, ABX ALLERGY: KNDA CURRENT ABX: =>Diflucan #9, Flagyl #2, s/p Cefepime/Amikacin => DC'd 06/10/16 ID RECOMMENDATIONS 1. Lengthy discussion w/the Son/Patient = concur with Dr. Richard STEELE ABX today, she has received adequate course. * Per Dr. Carney note, excoriated meatus + Vaginal tissue may be contributing to contaminated urine samples. Nevertheless, patient is well known to "[employer] ID consultants and she and son are for the most part good historians and aware when true UTI is present per systemic symptoms. I assured the son no need to continue ABX despite the fact that patient is still feeling profound weakness today. He tells me repeat UA & culture is pending - let's see how she does OFF ABX overnight for GNR coverage and await repeat urine sample results. 2. Continue empiric Flagyl for concern ABX associated diarrhea, continue Diflucan for known recurrent yeast vaginitis. 3. Son & Patient well known to "[employer]" -- I spend much time assuring him and mom that treatment course is on target. * Will do my best to round earlier in the day tomorrow to see how she is doing OFF GNR coverage. Son is quite knowledgeable and we discussed risk of MDRO and the fact that patient frequently will have different pathogens on repeat sampling. If she continues to have general weakness sxs and/or develops fevers/ chills/other indicators of recurrent UTI we can repeat Blood/Urine at that time. * Son & Patient express understanding/concurrence/gratitude for lengthy explanation. * Son tells me "I always feel mom is in good hands after I discuss her cultures and ABX plan of care with you." Son tells mom he is going to go home now that he knows she is in good hands. Problems: Consultation Date/Type/Reason Admit Date/Time May 31, 2016 at 12:25 Initial Consult Date Type of Consultation: id Exam/Review of Systems Vital Signs Vitals Vital Signs Date Time Temp Pulse Resp B/P Pulse Ox O2 Delivery O2 Flow Rate FiO2 06/10/16 14:08 80 20 92 Nasal Cannula 4.0 06/10/16 08:12 98.2 135/64 06/07/16 02:28 32 Intake and Output 06/09/16 06/09/16 06/10/16 15:00 23:00 07:00 Intake Total 150 ml 600 ml 100 ml Balance 150 ml 600 ml 100 ml Results Result Diagram: 06/10/16 0532 06/10/16 0532 Results 24 hrs Laboratory Tests Test 06/09/16 17:18 06/09/16 20:21 06/10/16 05:32 06/10/16 07:58 Bedside Glucose 108 239 H 132 Anion Gap 15 Basophils # 0.0 Basophils % 0.2 Blood Urea Nitrogen 47 H Calcium Level 8.6 Carbon Dioxide Level 35 H Chloride Level 95 L Creatinine 0.77 Eosinophils # 0.1 Eosinophils % 0.8 Glucose Level 115 Hematocrit 42.0 Hemoglobin 12.4 Lymphocytes # 3.1 H Lymphocytes % 19.9 Magnesium Level 2.4 Mean Corpuscular Hemoglobin 28.3 L Mean Corpuscular Hemoglobin Concent 29.5 L Mean Corpuscular Volume 95.9 Mean Platelet Volume 10.5 H Monocytes # 0.8 Monocytes % 5.1 Neutrophils # 11.2 H Neutrophils % 72.9 Nucleated Red Blood Cells # 0.0 Nucleated Red Blood Cells % 0.0 Phosphorus Level 4.5 Platelet Count 181 Potassium Level 4.1 Red Blood Count 4.38 Red Cell Distribution Width 17.4 H Sodium Level 141 White Blood Count 15.4 #H Test 06/10/16 12:06 Bedside Glucose 215 Medications Medications Current Medications Acetaminophen (Tylenol Tab) 650 mg Q6H PRN PO PAIN LEVEL 1-3 OR FEVER Last administered on 06/09/16 16:29; Admin Dose 650 MG; Start 05/31/16 at 15:30 Hydromorphone HCl (Dilaudid) 1 mg Q4H PRN IV SEVERE PAIN LEVEL 7-10 Last administered on 06/10/16 12:08; Admin Dose 1 MG; Start 05/31/16 at 15:30 Docusate Sodium (Colace) 100 mg Q12H PRN PO CONSTIPATION; Start 05/31/16 at 15: 30 Magnesium Hydroxide (Milk Of Mag) 30 ml DAILY PRN PO CONSTIPATION Last administered on 06/03/16 13:20; Admin Dose 30 ML; Start 05/31/16 at 15:30 Bisacodyl (Dulcolax Supp) 10 mg DAILY PRN [place] CONSTIPATION Last administered on 06/03/16 13:20; Admin Dose 10 MG; Start 05/31/16 at 15:30 Pantoprazole (Protonix Tab) 40 mg DAILY@06 PO Last administered on 06/10/16 05 :15; Admin Dose 40 MG; Start 06/01/16 at 06:00 Ascorbic Acid (Vitamin C) 250 mg DAILY PO Last administered on 06/10/16 09:11 ; Admin Dose 250 MG; Start 06/01/16 at 09:00 Docusate Sodium (Colace) 100 mg BID PO Last administered on 06/10/16 09:14; Admin Dose 100 MG; Start 05/31/16 at 21:00 Duloxetine HCl (Cymbalta) 30 mg DAILY PO Last administered on 06/10/16 09:12; Admin Dose 30 MG; Start 06/01/16 at 09:00 Ferrous Sulfate (Ferrous Sulfate (Ec)) 325 mg DAILY PO Last administered on 09:13; Admin Dose 325 MG; Start 06/01/16 at 09:00 Furosemide (Lasix) 40 mg DAILY PO Last administered on 06/10/16 09:10; Admin Dose 40 MG; Start 06/01/16 at 09:00 Magnesium Oxide (Mag-Ox 400) 400 mg BID PO Last administered on 06/10/16 09:10 ; Admin Dose 400 MG; Start 05/31/16 at 21:00 Multivitamins Therapeutic (Theragran) 1 tab DAILY PO Last administered on 09:13; Admin Dose 1 TAB; Start 06/01/16 at 09:00 Pyridoxine HCl (Vitamin B6) 100 mg Q8 PO Last administered on 06/10/16 05:15; Admin Dose 100 MG; Start 05/31/16 at 22:00 Saccharomyces Boulardii (Florastor) 250 mg BID PO Last administered on 09:11; Admin Dose 250 MG; Start 05/31/16 at 21:00 Senna (Senokot) 1 tab DAILY PO Last administered on 06/10/16 09:13; Admin Dose 1 TAB; Start 06/01/16 at 09:00 Tamsulosin HCl (Flomax) 0.4 mg HS PO Last administered on 06/09/16 20:18; Admin Dose 0.4 MG; Start 05/31/16 at 21:00 Zinc Sulfate (Zinc Sulfate) 220 mg DAILY PO Last administered on 06/10/16 09: 14; Admin Dose 220 MG; Start 06/01/16 at 09:00 Clotrimazole (Lotrimin Cr) 1 applic BID TOP Last administered on 06/10/16 09: 52; Admin Dose 1 APPLIC; Start 05/31/16 at 21:00 Guaifenesin/ Codeine Phosphate (Robitussin Ac Liquid Cup) 10 ml Q4H PRN PO cough; Start 05/31/16 at 16:00 Methadone HCl (Methadone) 10 mg QID@00,08,14,20 PO Last administered on 14:01; Admin Dose 10 MG; Start 06/01/16 at 00:00 Hydromorphone HCl (Dilaudid) 6 mg QID@00,05,11,17 PO Last administered on 11:07; Admin Dose 6 MG; Start 06/01/16 at 00:00 Diagnostic Test (Pha) (Accucheck) 1 ea 02 XX Last administered on 06/10/16 02: 00; Admin Dose 1 EA; Start 06/02/16 at 02:00 Miscellaneous Information 1 ea NOTE XX ; Start 06/01/16 at 07:00 Glucose (Glutose) 15 gm Q15M PRN PO DECREASED GLUCOSE; Start 06/01/16 at 07:00 Glucose (Glutose) 22.5 gm Q15M PRN PO DECREASED GLUCOSE; Start 06/01/16 at 07: 00 Dextrose (D50w Syringe) 25 ml Q15M PRN IV DECREASED GLUCOSE; Start 06/01/16 at 07:00 Dextrose (D50w Syringe) 50 ml Q15M PRN IV DECREASED GLUCOSE; Start 06/01/16 at 07:00 Glucagon (Glucagen) 1 mg Q15M PRN IM DECREASED GLUCOSE; Start 06/01/16 at 07:00 Glucose (Glutose) 15 gm Q15M PRN BUCCAL DECREASED GLUCOSE; Start 06/01/16 at 07 :00 Vitamin A/Vitamin D (Vitamin A & D Oint) 1 applic BID TOP Last administered on 06/10/16 09:51; Admin Dose 1 APPLIC; Start 06/01/16 at 12:00 Insulin Glargine (Lantus) 24 unit DAILY@20 SC Last administered on 06/09/16 20 :28; Admin Dose 24 UNIT; Start 06/02/16 at 20:00 Guaifenesin (Mucinex) 600 mg BID PO Last administered on 06/10/16 09:12; Admin Dose 600 MG; Start 06/02/16 at 12:30 Fluconazole (Diflucan) 100 mg DAILY PO Last administered on 06/10/16 09:13; Admin Dose 100 MG; Start 06/02/16 at 11:30 Mupirocin (Bactroban) 1 applic BID TOP Last administered on 06/10/16 09:53; Admin Dose 1 APPLIC; Start 06/02/16 at 14:30 Phenazopyridine HCl (Pyridium) 100 mg TID PO Last administered on 06/10/16 09: 11; Admin Dose 100 MG; Start 06/04/16 at 21:00 Lidocaine (Lidocaine 5% Oint) 1 applic QID TOP Last administered on 06/10/16 12:12; Admin Dose 1 APPLIC; Start 06/06/16 at 21:00 Prednisone (Prednisone) 10 mg DAILY PO Last administered on 06/10/16 09:14; Admin Dose 10 MG; Start 06/09/16 at 09:00 Hydrocortisone 1 applic 1 applic BID TOP Last administered on 06/10/16 09:52; Admin Dose 1 APPLIC; Start 06/09/16 at 10:00 Metronidazole (Flagyl 500 Mg (Pmx)) 100 ml @ 100 mls/hr Q8 IVPB Last administered on 06/10/16 14:01; Admin Dose 100 MLS/HR; Start 06/09/16 at 14:00 JD GARCIA NP Jun 10, 2016 14:25
[2016-06-10] MEDS: RIVAROXABAN 20 MG TABLET PO SCH (17:12)
[2016-06-10 20:19] VITALS: BP 121/63; RESP 20
[2016-06-10] MEDS: INSULIN GLARGINE [LANtus] 3 ML PEN SC SCH (20:28)
[2016-06-10] MEDS: TAMSULOSIN (SR) 0.4 MG CAP PO SCH (20:29)
[2016-06-11] MEDS: HYDROmorphONE 2 MG TAB PO SCH ×4 (00:02→17:16)
[2016-06-11] MEDS: METHADONE 10 MG TAB PO SCH ×4 (00:05→21:34)
[2016-06-11] MEDS: IPRATROPIUM (NEB) 0.5 MG/2.5 ML AMP HHN SCH ×4 (01:54→20:49)
[2016-06-11] MEDS: LEVALBUTEROL (NEB) 1.25 MG/0.5 ML AMP HHN SCH ×4 (01:54→20:49)
[2016-06-11] MEDS: ACCUCHECK XX SCH ×5 (02:00→21:42)
[2016-06-11] MEDS: HYDROmorphONE 1 MG/ML SYG IV PRN ×4 (02:35→19:32)
[2016-06-11] MEDS: PANTOPRAZOLE (EC) 40 MG TAB PO SCH (05:12)
[2016-06-11] MEDS: PYRIDOXINE 50 MG TAB PO SCH ×3 (05:12→21:34)
[2016-06-11] MEDS: metroNIDAZOLE 500 MG/NS (PMX) 100 ML IVPB SCH ×3 (05:49→21:46)
[2016-06-11 05:51] LABS: ADD SCAN DIFF NO
[2016-06-11 05:55] LABS: BASOPHILS % 0.2 % (0.0-2.0); EOSINOPHILS # 0.2 10^3/ul (0.0-0.5); EOSINOPHILS % 1.2 % (0.0-7.0); HEMATOCRIT 39.6 % (37.0-47.0); HEMOGLOBIN 11.5 g/dl (12.0-16.0); LYMPHOCYTES % 20.8 % (15.0-51.0); MEAN CORPUSCULAR VOLUME 96.6 fl (82.0-101.0); MEAN PLATELET VOLUME 10.9 fl (7.4-10.4); MONOCYTE # 0.9 10^3/ul (0.3-0.9); MONOCYTES % 6.4 % (0.0-11.0); NEUTROPHIL # 10.1 10^3/ul (1.6-7.5); NEUTROPHILS % 70.5 % (39.0-77.0); PLATELET COUNT 171 10^3/UL (140-415); RED CELL DISTRIBUTION WIDTH 17.2 % (11.5-14.5); WHITE BLOOD COUNT 14.3 10^3/ul (4.8-10.8)
[2016-06-11 06:06] LABS: POTASSIUM 4.4 mmol/L (3.5-5.1)
[2016-06-11 06:08] LABS: CREATININE 0.72 mg/dl (0.44-1.00)
[2016-06-11 06:09] LABS: CALCIUM 8.9 mg/dl (8.4-10.2); MAGNESIUM 2.2 mg/dl (1.7-2.5)
[2016-06-11 08:00] VITALS: BP 123/63; RESP 21
[2016-06-11] MEDS: INSULIN ASPART [NOVOLOG] 3 ML PEN SC SCH ×7 (08:15→21:44)
[2016-06-11] MEDS: FERROUS SULFATE (EC) 325 MG TAB PO SCH (08:18)
[2016-06-11] MEDS: DOCUSATE SODIUM 100 MG CAP PO SCH ×2 (08:19→21:35)
[2016-06-11] MEDS: MULTIVITAMINS THERAPEUTIC TAB PO SCH (08:19)
[2016-06-11] MEDS: DULOXETINE 30 MG CAP DR PO SCH (08:19)
[2016-06-11] MEDS: MAGNESIUM OXIDE 400 MG TAB PO SCH ×2 (08:19→21:35)
[2016-06-11] MEDS: PHENAZOPYRIDINE 100 MG TAB PO SCH ×3 (08:19→21:00)
[2016-06-11] MEDS: predniSONE 10 MG TAB PO SCH (08:20)
[2016-06-11] MEDS: ZINC SULFATE 220 MG CAP PO SCH (08:20)
[2016-06-11] MEDS: SACCHAROMYCES BOULARDII 250 MG CAP PO SCH ×2 (08:20→21:35)
[2016-06-11] MEDS: SENNA TAB PO SCH (08:20)
[2016-06-11] MEDS: FUROSEMIDE 40 MG TAB PO SCH (08:21)
[2016-06-11] MEDS: FLUCONAZOLE 100 MG TAB PO SCH (08:21)
[2016-06-11] MEDS: GUAIFENESIN LA 600 MG TABSR PO SCH ×2 (08:21→21:35)
[2016-06-11] MEDS: VITAMIN A & D 5 GM OINT PACKET TOP SCH ×2 (08:21→21:36)
[2016-06-11] MEDS: LIDOCAINE 5% 35 GM OINT TOP SCH ×4 (08:22→21:00)
[2016-06-11] MEDS: CLOTRIMAZOLE 1% 30 GM CR TOP SCH ×2 (08:22→21:00)
[2016-06-11] MEDS: MUPIROCIN 2% 22 GM OINT TOP SCH ×2 (08:22→21:00)
[2016-06-11] MEDS: HYDROCORTISONE 0.5% 28.35 GM CR TOP SCH ×2 (08:22→21:00)
[2016-06-11] MEDS: ASCORBIC ACID 250 MG TAB PO SCH (09:00)
--- NOTE | 2016-06-11 09:34 | PN ---
DATE: 06/11/2016 SUBJECTIVE: The patient is stable. The patient's pain is adequately controlled. No acute events n oted. OBJECTIVE: VITAL SIGNS: Blood pressure is 123/63, respirations 21, pulse 87, temperature 98.3. HEENT: Head is normocephalic. Pupils are reactive to light. NECK: Supple. HEART: Regular rate. LUNGS: Show diminished breath sounds at the bases. ABDOMEN: Soft, nontender to palpation. No rebound or guarding. EXTREMITIES: Negative for clubbing, cyanosis, edema. DERMATOLOGIC: No rashes; the patient's urticarial rash is resolved. MUSCULOSKELETAL: No joint effusions. NEUROLOGIC: No change. LABORATORY DATA: Shows white count 14.3, hemoglobin 8.5, hematocrit 39.6, platelet count 171. Bee ent has sodium 139, potassium 4.4, chloride 93, bicarbonate 35, BUN 39, creatinine 0.72. ASSESSMENT AND PLAN: 1. Acute respiratory failure secondary to pneumonia or bronchitis. The patient is clinically impro ving. Will continue current medical management. Continue current antibiotic regimen. 2. Leukocytosis, improving. Continue to monitor. 3. Urticarial rash, resolved. 4. Sepsis secondary to pneumonia, clinically improving. Continue current antibiotic regimen. 5. Dysuria, improving. Continue current medical management. 6. History of deep venous thrombosis, pulmonary embolism. Continue Xarelto. 7. Nephrolithiasis, nonobstructive. Continue to monitor. 8. Right lower quadrant pain. Etiology may be musculoskeletal. Continue lidocaine patch. Pain is improving. 9. Congestive heart failure. Continue current medical management. 10. Venous insufficiency. Continue compression stockings. 11. Chronic pain syndrome. Continue current pain regimen. 12. Depression. Continue Cymbalta. 13. History of coronary artery disease, status post pacemaker. Continue to monitor. 14. Hyperglycemia secondary to steroids. Continue current insulin regimen. Dictated By: JUAN ROCHA/ANNA Conf#: [id number] DID#: [id number]
--- NOTE | 2016-06-11 14:30 | CONS ---
Date/Time of Note Date/Time of Note DATE: 06/11/16 TIME: 14:25 Assessment/Plan Assessment/Plan Chief Complaint/Hosp Course ID PROGRESS NOTE CURRENT ABX=> Diflucan #10, Flagyl #3, s/p Amikacin #7 = DC'd 06/10 s/p Cefepime => Dc'd 06/10 24H INTERVAL SUMMARY * No fevers overnight OFF ABX, WBC slightly down today * Patient awake, alert, responsive = overall feeling much better, still w/ fatigue, no dysuria, no diarrhea * Pt incontinent of urine + stool, C.Diff ordered, not collected due to lack of BM * Specimen: [id number] Status: Complete Sue: 06/08/16 Rcvd: 06/08 Source: CLEAN CATC Sp Descrip: Microbiology URINE CULTURE Final NO GROWTH AFTER 48 HOURS Seu: 05/31/16-1099 Rcvd: 05/31/16 Source: CATHETER U Sp Descrip: Microbiology URINE CULTURE Final Organism 1 PSEUDOMONAS AERUGINOSA COLONY COUNT >100,000 CFU/ml Organism 2 ESCHERICHIA COLI (ESBL) COLONY COUNT 10,000 - 20,000 CFU/ml . MULTI DRUG RESISTANT ORGANISM PHONED TO MS FILEMON, [place], PHARM AND A COPY TO AT 1040 06/05/16 BY AD. MICAH MURRAY ESBL M.I.CVesta RX M.I.C. RX --------- --- --------- --- AMIKACIN 4 S 16 S AMPICILLIN >=32 R AZTREONAM R CEFAZOLIN R CEFEPIME 8 S 8 S CEFOTAXIME R CEFTAZIDIME 16 I CIPROFLOXACIN >=4 R >=4 R GENTAMICIN 4 S >=16 R IMIPENEM >=16 R <=0.25 S LEVOFLOXACIN >=8 R >=8 R NITROFURANTOIN 32 S TOBRAMYCIN <=1 S >=16 R TRIMETHOPRIM/SULFAMETHOXAZOLE >=320 R PIPERACILLIN/TAZOBACTAM R 8 S PHYSICAL EXAMINATION: GENERAL: VSS, NAD HEENT: Unremarkable -- NECK: Supple, trachea midline. CHEST: Rise symmetrical, without dyspnea on observation HEART: Pulse RRR ABDOMEN: Soft, benign EXTREMITIES: Warm ID ASSESSMENT 71 yo obese F admit with: 1. s/p Dysuria => excoriated meatus on lidocaine topical vaginal ointment, Dr. Carney on the case 2. Chronic vaginitis = yeast overgrowth exacerbated by ABX => On Diflucan 3. s/p Polymicrobial GNR UTI => S/p "double cover" PSAR ABX Rx Cefepime + Amikacin w/repeat Urine 06/08/16 (-) 4. s/p chronic obstructive pulmonary disease exacerbation: Hx of emphysema + Asthma, and possible pneumonia on admission. * Remains on supplemental low flow O2 * Hx of chronic lung scarring @ base confounds Dx 5. CV Issues: Hx of HTN, HTN heart disease, CHF, Pacer, hx of DVT w/PE remote = STABLE ISSUES 6. 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 BLEXT venous stasis edema w/chronic venous stasis dermatitis, hx of venous stasis ulcers * => Stable with BLEXT compression wraps 8. Constipation = Opioids 9. Pre-DM vs DMT2 10. Tobacco user 11. Hx of noncompliance with diet and tobacco cessation 12. Psych Dx NOS: Anxiety/Depression = due to chronic pain, failed back syndrome , obesity, debility, limited mobility * Overall mood is stable (+)MRSA Nares INVASIVES: PIV, ABX ALLERGY: KNDA CURRENT ABX: =>Diflucan #10, Flagyl #3, s/p Cefepime/Amikacin => DC'd 06/10/16 ID RECOMMENDATIONS 1. Continue Diflucan for yeast vaginitis -> Rx topical vaginal ointment Lidocaine onboard per 2. Patient has topical vaginal Estrogen; however she is not able to apply it correctly - reports no one skilled enough at [facility] to apply * I encouraged patient/son to discuss Estrogen topical vaginal Rx application w/ cigar patcher @ [facility] - perhaps they can arrange for skilled RN to apply this hormone supplement daily which may offer benefit in terms of [facility] of normal vaginal PH balance towards goal of prevented UTI? 3. Leukocytosis on down trend -- now OFF ABX s/p Amikacin x 7days for PSAR + "double cover" Cefepime Rx w/RESOLUTION OF GNE UTI per (-)Urine Cx 06/08/16. * Anticipate WBC to normalize OFF ABX 4. Patient on Empiric Flagyl without ABX associated diarrhea -> Not able to obtain stool sample due to constipation. Unclear if patient is benefiting from empiric Flagyl Rx or not -- Vaginitis may benefit from continuation post GNR ABX -- defer to and Primary MD. 5. DC PLANNING: Patient clear to DC Back to SNF on Diflucan PO and Flagyl PO per /primary provider. 6. Extensive update given to patient and son who are well-known to me. Son is an excellent patient advocate and "[employer]" consultants have long-term trusting relationship with the son/patient. * Son has kept the patient optimized in face of numerous co-morbidities. He is an excellent historian, knowledgeable about patient's conditions. He is closely involved in Mom's daily care and very aware of Mom's symptomatology -- He knows when Mom has symptoms of recurrent UTI, despite dismissal of nursing and at times providers of his concerns. He is a valuable part of the diagnostic and treatment team effort and has good communication with "[employer] consultants. * Son/Patient agree to current ABX recommendations. They are given update on (- )repeat Urine cx results and express understanding/concur with plan to KEEP OFF ABX unless recurrent UTI symptomatology present. They also concur with strategy to AVOID routine/unnecessary UA/U.Cx screenings via either "clean catch void" vs "In/Out" catheter -- they are aware of the recurrent problem of excoriated meatal trauma and risk of false(+) urine samples. Hence, no need to run surveillance urine tests. . Problems: Consultation Date/Type/Reason Admit Date/Time May 31, 2016 at 12:25 Type of Consultation: id Exam/Review of Systems Vital Signs Vitals Vital Signs Date Time Temp Pulse Resp B/P Pulse Ox O2 Delivery O2 Flow Rate FiO2 06/11/16 09:07 95 5.0 06/11/16 09:07 90 20 Nasal Cannula 06/11/16 08:00 98.3 123/63 Intake and Output 06/10/16 06/10/16 06/11/16 15:00 23:00 07:00 Intake Total 100 ml 1480 ml 880 ml Balance 100 ml 1480 ml 880 ml Results Result Diagram: 06/11/16 0455 06/11/16 0455 Results 24 hrs Laboratory Tests Test 06/10/16 17:15 06/10/16 20:22 06/11/16 02:22 06/11/16 04:55 Bedside Glucose 166 217 131 Anion Gap 15 Basophils # 0.0 Basophils % 0.2 Blood Urea Nitrogen 39 H Calcium Level 8.9 Carbon Dioxide Level 35 H Chloride Level 93 L Creatinine 0.72 Eosinophils # 0.2 Eosinophils % 1.2 Glucose Level 173 Hematocrit 39.6 Hemoglobin 11.5 L Lymphocytes # 3.0 H Lymphocytes % 20.8 Magnesium Level 2.2 Mean Corpuscular Hemoglobin 28.0 L Mean Corpuscular Hemoglobin Concent 29.0 L Mean Corpuscular Volume 96.6 Mean Platelet Volume 10.9 H Monocytes # 0.9 Monocytes % 6.4 Neutrophils # 10.1 H Neutrophils % 70.5 Nucleated Red Blood Cells # 0.0 Nucleated Red Blood Cells % 0.0 Phosphorus Level 4.0 Platelet Count 171 Potassium Level 4.4 Red Blood Count 4.10 L Red Cell Distribution Width 17.2 H Sodium Level 139 White Blood Count 14.3 H Test 06/11/16 08:18 06/11/16 11:57 Bedside Glucose 138 99 Medications Medications Current Medications Acetaminophen (Tylenol Tab) 650 mg Q6H PRN PO PAIN LEVEL 1-3 OR FEVER Last administered on 06/09/16 16:29; Admin Dose 650 MG; Start 05/31/16 at 15:30 Hydromorphone HCl (Dilaudid) 1 mg Q4H PRN IV SEVERE PAIN LEVEL 7-10 Last administered on 06/11/16 08:16; Admin Dose 1 MG; Start 05/31/16 at 15:30 Docusate Sodium (Colace) 100 mg Q12H PRN PO CONSTIPATION; Start 05/31/16 at 15: 30 Magnesium Hydroxide (Milk Of Mag) 30 ml DAILY PRN PO CONSTIPATION Last administered on 06/03/16 13:20; Admin Dose 30 ML; Start 05/31/16 at 15:30 Bisacodyl (Dulcolax Supp) 10 mg DAILY PRN [place] CONSTIPATION Last administered on 06/03/16 13:20; Admin Dose 10 MG; Start 05/31/16 at 15:30 Pantoprazole (Protonix Tab) 40 mg DAILY@06 PO Last administered on 06/11/16 05 :12; Admin Dose 40 MG; Start 06/01/16 at 06:00 Ascorbic Acid (Vitamin C) 250 mg DAILY PO Last administered on 06/10/16 09:11 ; Admin Dose 250 MG; Start 06/01/16 at 09:00 Docusate Sodium (Colace) 100 mg BID PO Last administered on 06/11/16 08:19; Admin Dose 100 MG; Start 05/31/16 at 21:00 Duloxetine HCl (Cymbalta) 30 mg DAILY PO Last administered on 06/11/16 08:19; Admin Dose 30 MG; Start 06/01/16 at 09:00 Ferrous Sulfate (Ferrous Sulfate (Ec)) 325 mg DAILY PO Last administered on 08:18; Admin Dose 325 MG; Start 06/01/16 at 09:00 Furosemide (Lasix) 40 mg DAILY PO Last administered on 06/11/16 08:21; Admin Dose 40 MG; Start 06/01/16 at 09:00 Magnesium Oxide (Mag-Ox 400) 400 mg BID PO Last administered on 06/11/16 08:19 ; Admin Dose 400 MG; Start 05/31/16 at 21:00 Multivitamins Therapeutic (Theragran) 1 tab DAILY PO Last administered on 08:19; Admin Dose 1 TAB; Start 06/01/16 at 09:00 Pyridoxine HCl (Vitamin B6) 100 mg Q8 PO Last administered on 06/11/16 14:14; Admin Dose 100 MG; Start 05/31/16 at 22:00 Saccharomyces Boulardii (Florastor) 250 mg BID PO Last administered on 08:20; Admin Dose 250 MG; Start 05/31/16 at 21:00 Senna (Senokot) 1 tab DAILY PO Last administered on 06/11/16 08:20; Admin Dose 1 TAB; Start 06/01/16 at 09:00 Tamsulosin HCl (Flomax) 0.4 mg HS PO Last administered on 06/10/16 20:29; Admin Dose 0.4 MG; Start 05/31/16 at 21:00 Zinc Sulfate (Zinc Sulfate) 220 mg DAILY PO Last administered on 06/11/16 08: 20; Admin Dose 220 MG; Start 06/01/16 at 09:00 Clotrimazole (Lotrimin Cr) 1 applic BID TOP Last administered on 06/11/16 08: 22; Admin Dose 1 APPLIC; Start 05/31/16 at 21:00 Guaifenesin/ Codeine Phosphate (Robitussin Ac Liquid Cup) 10 ml Q4H PRN PO cough; Start 05/31/16 at 16:00 Methadone HCl (Methadone) 10 mg QID@00,08,14,20 PO Last administered on 14:14; Admin Dose 10 MG; Start 06/01/16 at 00:00 Hydromorphone HCl (Dilaudid) 6 mg QID@00,05,11,17 PO Last administered on 11:56; Admin Dose 6 MG; Start 06/01/16 at 00:00 Diagnostic Test (Pha) (Accucheck) 1 ea 02 XX Last administered on 06/10/16 02: 00; Admin Dose 1 EA; Start 06/02/16 at 02:00 Miscellaneous Information 1 ea NOTE XX ; Start 06/01/16 at 07:00 Glucose (Glutose) 15 gm Q15M PRN PO DECREASED GLUCOSE; Start 06/01/16 at 07:00 Glucose (Glutose) 22.5 gm Q15M PRN PO DECREASED GLUCOSE; Start 06/01/16 at 07: 00 Dextrose (D50w Syringe) 25 ml Q15M PRN IV DECREASED GLUCOSE; Start 06/01/16 at 07:00 Dextrose (D50w Syringe) 50 ml Q15M PRN IV DECREASED GLUCOSE; Start 06/01/16 at 07:00 Glucagon (Glucagen) 1 mg Q15M PRN IM DECREASED GLUCOSE; Start 06/01/16 at 07:00 Glucose (Glutose) 15 gm Q15M PRN BUCCAL DECREASED GLUCOSE; Start 06/01/16 at 07 :00 Vitamin A/Vitamin D (Vitamin A & D Oint) 1 applic BID TOP Last administered on 06/11/16 08:21; Admin Dose 1 APPLIC; Start 06/01/16 at 12:00 Insulin Glargine (Lantus) 24 unit DAILY@20 SC Last administered on 06/10/16 20 :28; Admin Dose 24 UNIT; Start 06/02/16 at 20:00 Guaifenesin (Mucinex) 600 mg BID PO Last administered on 06/11/16 08:21; Admin Dose 600 MG; Start 06/02/16 at 12:30 Fluconazole (Diflucan) 100 mg DAILY PO Last administered on 06/11/16 08:21; Admin Dose 100 MG; Start 06/02/16 at 11:30 Mupirocin (Bactroban) 1 applic BID TOP Last administered on 06/11/16 08:22; Admin Dose 1 APPLIC; Start 06/02/16 at 14:30 Phenazopyridine HCl (Pyridium) 100 mg TID PO Last administered on 06/11/16 08: 19; Admin Dose 100 MG; Start 06/04/16 at 21:00 Lidocaine (Lidocaine 5% Oint) 1 applic QID TOP Last administered on 06/11/16 08:22; Admin Dose 1 APPLIC; Start 06/06/16 at 21:00 Prednisone (Prednisone) 10 mg DAILY PO Last administered on 06/11/16 08:20; Admin Dose 10 MG; Start 06/09/16 at 09:00 Hydrocortisone 1 applic 1 applic BID TOP Last administered on 06/11/16 08:22; Admin Dose 1 APPLIC; Start 06/09/16 at 10:00 Metronidazole (Flagyl 500 Mg (Pmx)) 100 ml @ 100 mls/hr Q8 IVPB Last administered on 06/11/16 14:15; Admin Dose 100 MLS/HR; Start 06/09/16 at 14:00 JD GARCIA NP Jun 11, 2016 14:30
--- NOTE | 2016-06-11 15:26 | PN ---
DATE: SUBJECTIVE: Dysuria and history of urinary tract infection. The patient states that she is feeling better. She still feels some burning sensation and that is not because of the urinary tract infect ion, but because of the urine. When she urinates, it is touching her vaginal area and labia that ar e raw and burning. The urine culture that I did on her 3 days ago is no growth in 48 hours. OBJECTIVE: VITAL SIGNS: Temperature is 98.3, pulse is 90, respiration 20, blood pressure 123/63. ABDOMEN: Soft. LABORATORY DATA: CBC shows a white count of 14.3, hemoglobin 11.5, hematocrit 39.6. The BUN is 39, creatinine 0.72. Electrolytes are normal. Again, the urine culture from 06/08/2016 is no growth a fter 48 hours. IMPRESSION: Dysuria that is from the urine touching the raw areas of the labia and the vagina. The bladder infection has been managed and responding to the antibiotic. PLAN: To continue present treatment. Dictated By: RAMONITA STEPHENS/ANNA Conf#: [id number] DID#: [id number]
[2016-06-11] MEDS: RIVAROXABAN 20 MG TABLET PO SCH (17:16)
[2016-06-11 20:05] VITALS: BP 107/58; RESP 18
[2016-06-11] MEDS: TAMSULOSIN (SR) 0.4 MG CAP PO SCH (21:34)
[2016-06-11] MEDS: INSULIN GLARGINE [LANtus] 3 ML PEN SC SCH (21:44)
[2016-06-12] MEDS: HYDROmorphONE 2 MG TAB PO SCH ×3 (00:08→11:09)
[2016-06-12] MEDS: METHADONE 10 MG TAB PO SCH ×2 (00:09→08:13)
[2016-06-12] MEDS: ACCUCHECK XX SCH ×3 (02:17→11:09)
[2016-06-12] MEDS: HYDROmorphONE 1 MG/ML SYG IV PRN (02:30)
[2016-06-12] MEDS: IPRATROPIUM (NEB) 0.5 MG/2.5 ML AMP HHN SCH ×2 (02:39→08:00)
[2016-06-12] MEDS: LEVALBUTEROL (NEB) 1.25 MG/0.5 ML AMP HHN SCH ×2 (02:39→08:00)
[2016-06-12 04:52] LABS: ADD SCAN DIFF NO
[2016-06-12 04:57] LABS: BASOPHIL # 0.1 10^3/ul (0.0-0.1); BASOPHILS % 0.4 % (0.0-2.0); EOSINOPHILS # 0.2 10^3/ul (0.0-0.5); EOSINOPHILS % 1.3 % (0.0-7.0); HEMATOCRIT 37.5 % (37.0-47.0); HEMOGLOBIN 11.2 g/dl (12.0-16.0); LYMPHOCYTES # 3.1 10^3/ul (0.8-2.9); LYMPHOCYTES % 26.5 % (15.0-51.0); MEAN CORPUSCULAR HEMOGLOBIN 28.5 pg (29.0-33.0); MEAN CORPUSCULAR HGB CONC 29.9 g/dl (32.0-37.0); MEAN CORPUSCULAR VOLUME 95.4 fl (82.0-101.0); MONOCYTE # 0.9 10^3/ul (0.3-0.9); MONOCYTES % 7.5 % (0.0-11.0); NEUTROPHIL # 7.4 10^3/ul (1.6-7.5); NEUTROPHILS % 63.5 % (39.0-77.0); PLATELET COUNT 149 10^3/UL (140-415); RED BLOOD COUNT 3.93 10^6/ul (4.20-5.40); WHITE BLOOD COUNT 11.6 10^3/ul (4.8-10.8)
[2016-06-12] MEDS: PANTOPRAZOLE (EC) 40 MG TAB PO SCH (05:38)
[2016-06-12] MEDS: PYRIDOXINE 50 MG TAB PO SCH (05:39)
[2016-06-12] MEDS: metroNIDAZOLE 500 MG/NS (PMX) 100 ML IVPB SCH (05:40)
[2016-06-12 08:03] VITALS: BP 119/60; RESP 20
[2016-06-12] MEDS: INSULIN ASPART [NOVOLOG] 3 ML PEN SC SCH ×2 (08:15)
--- NOTE | 2016-06-12 08:59 | PN ---
DATE: 06/12/2016 SUBJECTIVE: Dysuria and burning sensation in the vaginal area, history of urinary tract infection. The patient states that she is feeling better today and that she is feeling better in her genital a chiara. There is no pain. OBJECTIVE VITAL SIGNS: Her temperature is 98.1, respirations 20. The pulse is 86, blood pressure 107/58. ABDOMEN: Soft. LABORATORY DATA: Her CBC shows a white count of 11.6, hemoglobin 11.2, hematocrit 37.5. The BUN is 39, creatinine 0.72. Last urine culture, which was done by straight catheterization when I did it on the , showed no growth in 48 hours. IMPRESSION: Vaginal burning from the urine touching raw areas of the labia. The patient is getting lidocaine ointment cream on the labia and the rectal area and that is helping with her dysuria. Th e urine itself was initially infected, but now it is clear and she responded well to the antibiotics RECOMMENDATION: Continue present treatment. Dictated By: RAMONITA STEPHENS/ANNA Conf#: [id number] DID#: [id number]
[2016-06-12] MEDS: SACCHAROMYCES BOULARDII 250 MG CAP PO SCH (09:17)
[2016-06-12] MEDS: DULOXETINE 30 MG CAP DR PO SCH (09:17)
[2016-06-12] MEDS: PHENAZOPYRIDINE 100 MG TAB PO SCH (09:17)
[2016-06-12] MEDS: ASCORBIC ACID 250 MG TAB PO SCH (09:17)
[2016-06-12] MEDS: VITAMIN A & D 5 GM OINT PACKET TOP SCH (09:17)
[2016-06-12] MEDS: FERROUS SULFATE (EC) 325 MG TAB PO SCH (09:17)
[2016-06-12] MEDS: DOCUSATE SODIUM 100 MG CAP PO SCH (09:18)
[2016-06-12] MEDS: FUROSEMIDE 40 MG TAB PO SCH (09:18)
[2016-06-12] MEDS: predniSONE 10 MG TAB PO SCH (09:18)
[2016-06-12] MEDS: SENNA TAB PO SCH (09:18)
[2016-06-12] MEDS: FLUCONAZOLE 100 MG TAB PO SCH (09:19)
[2016-06-12] MEDS: GUAIFENESIN LA 600 MG TABSR PO SCH (09:19)
[2016-06-12] MEDS: MULTIVITAMINS THERAPEUTIC TAB PO SCH (09:19)
[2016-06-12] MEDS: ZINC SULFATE 220 MG CAP PO SCH (09:19)
[2016-06-12] MEDS: MUPIROCIN 2% 22 GM OINT TOP SCH (09:20)
[2016-06-12] MEDS: MAGNESIUM OXIDE 400 MG TAB PO SCH (09:20)
[2016-06-12] MEDS: HYDROCORTISONE 0.5% 28.35 GM CR TOP SCH (09:21)
[2016-06-12] MEDS: LIDOCAINE 5% 35 GM OINT TOP SCH (09:21)
[2016-06-12] MEDS: CLOTRIMAZOLE 1% 30 GM CR TOP SCH (09:21)
--- NOTE | 2016-06-12 12:20 | CONS ---
Date/Time of Note Date/Time of Note DATE: 06/12/16 TIME: 12:19 Assessment/Plan Assessment/Plan Chief Complaint/Hosp Course SUBJECTIVE: Patient is lying comfortably in bed, no fevers, nad MICROBIOLOGY: Urine culture growing Pseudomonas species/E coli ESBL. Blood cultures remain negative. + MRSA DIAGNOSTICS: CT of the abdomen and pelvis revealed multiple left renal calculi , no evidence of obstructive uropathy, diverticulitis or appendicitis. Chest x- ray revealed no evidence for active cardiopulmonary disease. PHYSICAL EXAMINATION: GENERAL: This is a well-developed, obese, elderly woman who is in no distress. HEENT: Head atraumatic, normocephalic. Sclerae anicteric. Buccal mucosa dry. NECK: Supple, trachea midline. CHEST: Rise symmetrical. Breath sounds diminished to bases. HEART: S1, S2. ABDOMEN: Obese, soft, bowel tones present. EXTREMITIES: Bilateral lower extremities edema, chronic venous stasis. ASSESSMENT: 1. S/p acute respiratory distress, questionable aspiration PNA/chronic obstructive pulmonary disease exacerbation. 2. Recurrent urinary tract infection==> PSA. 3. Bilateral lower extremities chronic venous stasis. 4. Coronary artery disease with a history of permanent pacemaker. 5. Opioid dependence. 6. Tobacco use. 7. MRSA + nares PLAN: The patient is stable off abx, urology follows, repeat urine cx negative DW staff Problems: Consultation Date/Type/Reason Admit Date/Time May 31, 2016 at 12:25 Type of Consultation: id Exam/Review of Systems Vital Signs Vitals Vital Signs Date Time Temp Pulse Resp B/P Pulse Ox O2 Delivery O2 Flow Rate FiO2 06/12/16 10:58 3.0 06/12/16 10:22 Nasal Cannula 06/12/16 08:03 99.5 75 20 119/60 98 Intake and Output 06/11/16 06/11/16 06/12/16 15:00 23:00 07:00 Intake Total 1200 ml 500 ml Balance 1200 ml 500 ml Results Result Diagram: 06/12/16 0440 06/11/16 0455 Results 24 hrs Laboratory Tests Test 06/11/16 17:18 06/11/16 21:39 06/12/16 02:11 06/12/16 04:40 Bedside Glucose 123 214 94 Basophils # 0.1 Basophils % 0.4 Eosinophils # 0.2 Eosinophils % 1.3 Hematocrit 37.5 Hemoglobin 11.2 L Lymphocytes # 3.1 H Lymphocytes % 26.5 Mean Corpuscular Hemoglobin 28.5 L Mean Corpuscular Hemoglobin Concent 29.9 L Mean Corpuscular Volume 95.4 Mean Platelet Volume 10.0 Monocytes # 0.9 Monocytes % 7.5 Neutrophils # 7.4 Neutrophils % 63.5 Nucleated Red Blood Cells # 0.0 Nucleated Red Blood Cells % 0.0 Platelet Count 149 Red Blood Count 3.93 L Red Cell Distribution Width 17.0 H White Blood Count 11.6 H Test 06/12/16 08:05 06/12/16 11:11 Bedside Glucose 263 H 173 Medications Medications Current Medications Acetaminophen (Tylenol Tab) 650 mg Q6H PRN PO PAIN LEVEL 1-3 OR FEVER Last administered on 06/09/16 16:29; Admin Dose 650 MG; Start 05/31/16 at 15:30 Hydromorphone HCl (Dilaudid) 1 mg Q4H PRN IV SEVERE PAIN LEVEL 7-10 Last administered on 06/12/16 02:30; Admin Dose 1 MG; Start 05/31/16 at 15:30 Docusate Sodium (Colace) 100 mg Q12H PRN PO CONSTIPATION; Start 05/31/16 at 15: 30 Magnesium Hydroxide (Milk Of Mag) 30 ml DAILY PRN PO CONSTIPATION Last administered on 06/03/16 13:20; Admin Dose 30 ML; Start 05/31/16 at 15:30 Bisacodyl (Dulcolax Supp) 10 mg DAILY PRN [place] CONSTIPATION Last administered on 06/03/16 13:20; Admin Dose 10 MG; Start 05/31/16 at 15:30 Pantoprazole (Protonix Tab) 40 mg DAILY@06 PO Last administered on 06/12/16 05 :38; Admin Dose 40 MG; Start 06/01/16 at 06:00 Ascorbic Acid (Vitamin C) 250 mg DAILY PO Last administered on 06/12/16 09:17 ; Admin Dose 250 MG; Start 06/01/16 at 09:00 Docusate Sodium (Colace) 100 mg BID PO Last administered on 06/12/16 09:18; Admin Dose 100 MG; Start 05/31/16 at 21:00 Duloxetine HCl (Cymbalta) 30 mg DAILY PO Last administered on 06/12/16 09:17; Admin Dose 30 MG; Start 06/01/16 at 09:00 Ferrous Sulfate (Ferrous Sulfate (Ec)) 325 mg DAILY PO Last administered on 09:17; Admin Dose 325 MG; Start 06/01/16 at 09:00 Furosemide (Lasix) 40 mg DAILY PO Last administered on 06/12/16 09:18; Admin Dose 40 MG; Start 06/01/16 at 09:00 Magnesium Oxide (Mag-Ox 400) 400 mg BID PO Last administered on 06/12/16 09:20 ; Admin Dose 400 MG; Start 05/31/16 at 21:00 Multivitamins Therapeutic (Theragran) 1 tab DAILY PO Last administered on 09:19; Admin Dose 1 TAB; Start 06/01/16 at 09:00 Pyridoxine HCl (Vitamin B6) 100 mg Q8 PO Last administered on 06/12/16 05:39; Admin Dose 100 MG; Start 05/31/16 at 22:00 Saccharomyces Boulardii (Florastor) 250 mg BID PO Last administered on 09:17; Admin Dose 250 MG; Start 05/31/16 at 21:00 Senna (Senokot) 1 tab DAILY PO Last administered on 06/12/16 09:18; Admin Dose 1 TAB; Start 06/01/16 at 09:00 Tamsulosin HCl (Flomax) 0.4 mg HS PO Last administered on 06/11/16 21:34; Admin Dose 0.4 MG; Start 05/31/16 at 21:00 Zinc Sulfate (Zinc Sulfate) 220 mg DAILY PO Last administered on 06/12/16 09: 19; Admin Dose 220 MG; Start 06/01/16 at 09:00 Clotrimazole (Lotrimin Cr) 1 applic BID TOP Last administered on 06/12/16 09: 21; Admin Dose 1 APPLIC; Start 05/31/16 at 21:00 Guaifenesin/ Codeine Phosphate (Robitussin Ac Liquid Cup) 10 ml Q4H PRN PO cough; Start 05/31/16 at 16:00 Methadone HCl (Methadone) 10 mg QID@00,08,14,20 PO Last administered on 08:13; Admin Dose 10 MG; Start 06/01/16 at 00:00 Hydromorphone HCl (Dilaudid) 6 mg QID@00,05,,17 PO Last administered on 11:09; Admin Dose 6 MG; Start 06/01/16 at 00:00 Diagnostic Test (Pha) (Accucheck) 1 ea 02 XX Last administered on 06/12/16 02: 17; Admin Dose 1 EA; Start 06/02/16 at 02:00 Miscellaneous Information 1 ea NOTE XX ; Start 06/01/16 at 07:00 Glucose (Glutose) 15 gm Q15M PRN PO DECREASED GLUCOSE; Start 06/01/16 at 07:00 Glucose (Glutose) 22.5 gm Q15M PRN PO DECREASED GLUCOSE; Start 06/01/16 at 07: 00 Dextrose (D50w Syringe) 25 ml Q15M PRN IV DECREASED GLUCOSE; Start 06/01/16 at 07:00 Dextrose (D50w Syringe) 50 ml Q15M PRN IV DECREASED GLUCOSE; Start 06/01/16 at 07:00 Glucagon (Glucagen) 1 mg Q15M PRN IM DECREASED GLUCOSE; Start 06/01/16 at 07:00 Glucose (Glutose) 15 gm Q15M PRN BUCCAL DECREASED GLUCOSE; Start 06/01/16 at 07 :00 Vitamin A/Vitamin D (Vitamin A & D Oint) 1 applic BID TOP Last administered on 06/12/16 09:17; Admin Dose 1 APPLIC; Start 06/01/16 at 12:00 Guaifenesin (Mucinex) 600 mg BID PO Last administered on 06/12/16 09:19; Admin Dose 600 MG; Start 06/02/16 at 12:30 Fluconazole (Diflucan) 100 mg DAILY PO Last administered on 06/12/16 09:19; Admin Dose 100 MG; Start 06/02/16 at 11:30 Mupirocin (Bactroban) 1 applic BID TOP Last administered on 06/12/16 09:20; Admin Dose 1 APPLIC; Start 06/02/16 at 14:30 Phenazopyridine HCl (Pyridium) 100 mg TID PO Last administered on 06/12/16 09: 17; Admin Dose 100 MG; Start 06/04/16 at 21:00 Lidocaine (Lidocaine 5% Oint) 1 applic QID TOP Last administered on 06/12/16 09:21; Admin Dose 1 APPLIC; Start 06/06/16 at 21:00 Prednisone (Prednisone) 10 mg DAILY PO Last administered on 06/12/16 09:18; Admin Dose 10 MG; Start 06/09/16 at 09:00 Hydrocortisone 1 applic 1 applic BID TOP Last administered on 06/12/16 09:21; Admin Dose 1 APPLIC; Start 06/09/16 at 10:00 Metronidazole (Flagyl 500 Mg (Pmx)) 100 ml @ 100 mls/hr Q8 IVPB Last administered on 06/12/16 05:40; Admin Dose 100 MLS/HR; Start 06/09/16 at 14:00 GIOVANNA ESCUDERO NP Jun 12, 2016 12:20
--- NOTE | 2016-06-12 23:20 | DS ---
DATE OF ADMISSION: 05/31/2016 DATE OF DISCHARGE: 06/12/2016 HOSPITAL COURSE: This is a 71-year-old morbidly obese female with a past medical history of COPD; h istory of UTI and nephrolithiasis; diastolic heart failure; chronic pain syndrome on methadone, Dila udid; history of venous stasis ulcers; chronic cellulitis; history of bradycardia, status post pacem hans; history of DVT, PE, on Xarelto who [facility] due to [facility]TI. The patient upon arrival in the emergency room had dysuria, was starte d on antibiotics, admitted to Med/Surg for evaluation. In terms of the patient's UTI, the patient g rew out pseudomonas and E. coli in the urine. She was evaluated by Infectious Disease, Dr. Milan, was placed on antibiotic therapy. During her hospital stay, the patient was complaining of dysuria and perineal pain. She was seen by Dr. Carney. The patient had local wound care to the perineum a s well as placed on Pyridium for dysuria with improvement. The patient also developed abdominal rosalind n, has had 2 CT scans of the abdomen which showed no acute findings. The patient's pain medications were adjusted and also given a lidocaine patch with improvement of her symptoms. The patient romana g the hospital course also had leukocytosis which was felt to be secondary to infection and steroid effect which subsequently has improved. Additionally, patient developed an urticarial rash due to a mikacin which subsequently was discontinued with resolution of rash. The patient's other chronic me dical problems including coronary artery disease, depression, chronic pain syndrome have been stable during the hospital course. The patient also noted to have hyperglycemia due to steroids which has improved after the patient's prednisone has been tapering off. Currently at this time, the patient stable, no acute distress, will be discharged back to [facility]. At the time of discharge, the patient stable, no acute distress. FINAL DIAGNOSES: 1. Acute respiratory failure secondary to pneumonia and bronchitis, clinically improving. 2. Leukocytosis, improved. 3. Urinary tract infection, improving. 4. Sepsis secondary to pneumonia and urinary tract infection, clinically improved. 5. Urticarial rash, resolved. 6. Dysuria. 7. History of deep venous thrombosis, pulmonary embolism. 8. Nephrolithiasis. 9. Chronic pain syndrome. 10. Venous insufficiency. 11. Depression. 12. Coronary artery disease. 13. Hyperglycemia secondary to steroids, improving. FINAL MEDICATIONS: See reconciliation list. Please note I spent over 40 minutes of time preparing the patient's discharge. Please note at time of discharge, the patient stable, in no acute distress. Dictated By: JUAN ROCHA/ANNA Conf#: [id number] DID#: [id number]
== END 2016-06-12 12:40 | DRG 193 ==
LOC: E/R 10:02 → MS2 12:25
PROVIDERS: ADMIT Internal Medicine; ATTEND Internal Medicine
DX: J18.9 Pneumonia, unspecified organism (principal); A41.9 Sepsis, unspecified organism; J96.00 Acute respiratory failure, unspecified whether with hypoxia or hypercapnia; D69.6 Thrombocytopenia, unspecified; F11.20 Opioid dependence, uncomplicated; J44.1 Chronic obstructive pulmonary disease with (acute) exacerbation; N39.0 Urinary tract infection, site not specified; B37.49 Other urogenital candidiasis; J69.0 Pneumonitis due to inhalation of food and vomit; Z68.35 Body mass index [BMI] 35.0-35.9, adult; R73.9 Hyperglycemia, unspecified; G89.4 Chronic pain syndrome; Z72.0 Tobacco use; E66.9 Obesity, unspecified; E86.0 Dehydration; I87.8 Other specified disorders of veins; Z22.322 Carrier or suspected carrier of Methicillin resistant Staphylococcus aureus; B96.5 Pseudomonas (aeruginosa) (mallei) (pseudomallei) as the cause of diseases classified elsewhere; Z86.711 Personal history of pulmonary embolism; Z86.718 Personal history of other venous thrombosis and embolism
CPT/HCPCS: 36415; 71010; 74176; 76705; 80048; 80053; 80150; 80202; 81001; 81003; 82947; 82962; 83036; 83605; 83690; 83735; 83880; 84100; 84132; 84145; 84443; 84484; 85025; 87040; 87081; 87086; 92526; 92610; 93005; 94640; 94644; 94664; 96374; 96375; 97161; J0278; J0692; J1170; J1815; J2270; J2920; J2930; J3370; J7040; J7050; J7512; Q9967

== ENCOUNTER 2016-07-11 22:41 | Inpatient (IN) | payer MEDICARE, OTHER ==
[~2016-07-11] VITALS: Ht 172.7 cm; Wt 91.0 kg
[~2016-07-11 22:41] MED LIST changes: -ANR PR; -COLISTIN IV; +DOCU-159 PO; +FER325 PO; +FURO-109 PO; -HYDR10FO PR; +IPRA3AMP INHALATION; -Ipratropium 0.02% (Neb) HHN; -LEVA1.2523 HHN; -MAGN400O4 PO; -NAPR500T8 PO; +PANT40TA3 PO; -PREMVAG VAG; +SENN-36 PO
[2016-07-11 22:53] VITALS: Ht 172.7 cm; Wt 91.0 kg
[2016-07-11] MEDS ORDERED: ONDANSETRON 4 MG INJ IV STA (23:01)
[2016-07-11] MEDS ORDERED: HYDROmorphONE 1 MG/ML SYG IV STA (23:01)
[2016-07-11 23:11] LABS: ADD SCAN DIFF NO
[2016-07-11 23:13] LABS: ABNORMAL IP MESSAGE 1; HEMATOCRIT 32.9 % (37.0-47.0); HEMOGLOBIN 10.3 g/dl (12.0-16.0); MEAN CORPUSCULAR HEMOGLOBIN 29.3 pg (29.0-33.0); MEAN CORPUSCULAR HGB CONC 31.3 g/dl (32.0-37.0); MEAN CORPUSCULAR VOLUME 93.7 fl (82.0-101.0); MEAN PLATELET VOLUME 10.6 fl (7.4-10.4); PLATELET COUNT 98 10^3/UL (140-415); RED BLOOD COUNT 3.51 10^6/ul (4.20-5.40); RED CELL DISTRIBUTION WIDTH 17.7 % (11.5-14.5); WHITE BLOOD COUNT 9.9 10^3/ul (4.8-10.8)
[2016-07-11 23:23] LABS: ALBUMIN 3.5 g/dl (3.3-4.9); CHLORIDE 101 mmol/L (97-110); SODIUM 138 mmol/L (135-144)
[2016-07-11 23:24] LABS: INR 1.93; PROTIME 22.2 Sec (12.2-14.2); PT RATIO 1.7
[2016-07-11 23:25] LABS: ANION GAP 11 (8-16); BILIRUBIN,INDIRECT 0.3 mg/dl (0-1.1); BILIRUBIN,TOTAL 0.3 mg/dl (0.2-1.3); CARBON DIOXIDE 29 mmol/L (21-31); CREATININE 0.85 mg/dl (0.44-1.00); PARTIAL THROMBOPLASTIN TIME 48.8 Sec (25.0-35.0)
[2016-07-11 23:26] LABS: ALANINE AMINOTRANSFERASE 19 IU/L (13-69); ALBUMIN/GLOBULIN RATIO 0.81; ALKALINE PHOSPHATASE 151 IU/L (42-121); ASPARTATE AMINO TRANSFERASE 23 IU/L (15-46); BLOOD UREA NITROGEN 14 mg/dl (7-20); CALCIUM 8.6 mg/dl (8.4-10.2); GLUCOSE 246 mg/dl (70-220); TOTAL PROTEIN 7.8 g/dl (6.1-8.1)
[2016-07-11 23:33] LABS: ADD UMIC YES; URINE BILIRUBIN (Dip) NEGATIVE (NEGATIVE); URINE BLOOD (Dip) 3+ (NEGATIVE); URINE COLOR YELLOW (YELLOW); URINE KETONES (Dip) NEGATIVE (NEGATIVE); URINE LEUKOCYTE ESTERASE (Dip) 2+ (NEGATIVE); URINE NITRITE (Dip) POSITIVE (NEGATIVE); URINE TOTAL PROTEIN (Dip) TRACE (NEGATIVE); URINE UROBILINOGEN (Dip) 1.0 E.U./dL (0.1-1.0)
[2016-07-11 23:42] LABS: TROPONIN-I < 0.012 ng/ml (0.00-0.12)
[2016-07-11 23:42] LABS: BACTERIA,URINE MODERATE; SQUAMOUS EPITHELIAL CELL,UR MODERATE; URINE RBCS >200 /HPF (0)
--- NOTE | 2016-07-11 23:57 | RADRPT ---
PROCEDURE: XR Chest. CLINICAL INDICATION: Possible sepsis. TECHNIQUE: Single frontal view of the chest was obtained COMPARISON: 05/31/2016. FINDINGS: Left anterior chest wall dual chamber cardiac pacer with lead tips overlie expected location the rig ht atrium right ventricle. The heart and mediastinum are within normal limits. Mildly decreased lung inflation over interval, which accentuates pulmonary vascular markings. Mild pulmonary vascular congestion is new. There is no pleural effusion or pneumothorax. IMPRESSION: New mild pulmonary vascular congestion. RPTAT: [facility] Physician Betsy Date Time Electronically viewed and signed by Physician Betsy on 07/11/2016 23:56 RS/
[2016-07-12] VITALS (9 sets, daily range): BP systolic 96–127; BP diastolic 52–88; PULSE 72–89; RESP 16–19; TEMP 98.2
[2016-07-12] MEDS ORDERED: SODIUM CHLORIDE 0.9% 1L BAG IV* STA (00:08)
[2016-07-12 00:27] LABS: LYMPHOCYTES # 0.6 10^3/ul (0.8-2.9); MONOCYTE # 0.8 10^3/ul (0.3-0.9); NEUTROPHIL # 8.3 10^3/ul (1.6-7.5)
[2016-07-12 00:28] LABS: PLATELET ESTIMATE PLT APPEAR DECREASED
[2016-07-12] MEDS ORDERED: LEVOFLOXACIN 750MG/D5W (PMX) 150 ML IVPB ONE (00:30)
[2016-07-12] MEDS: SOD CHLORIDE 0.9% 1,000 ML IV SCH ×2 (00:41→14:59)
--- NOTE | 2016-07-12 00:57 | ERA ---
ER Documentation Chief Complaint Date/Time DATE: 07/12/16 TIME: 00:55 Chief Complaint ALOC X COUPLE HOURS WITH HIGH FEVER FROM CONV HOME HPI This is a 71-year-old female comes in for the alteration in mental status from a [place] [facility] facility. Patient has history of recurrent UTIs. History is per EMS run sheet and correction transfer status patient is a poor historian at baseline secondary to baseline dementia. Dr. Harkins was kind enough to call ahead with a report ROS All systems reviewed and are negative except as per history of present illness. Medications Home Meds Reported Medications Sennosides* (Senokot*) 8.6 Mg Tablet, 1 TAB PO BID, TAB 05/31/16 Pantoprazole* (Protonix*) 40 Mg Tablet.dr, 40 MG PO DAILY, TAB 05/31/16 Ipratropium-Albuterol (Ipratropium-Albuterol) 0.5-3 Mg/3 Ml Ampul.neb, 3 ML INHALATION Q6 Y for SHORTNESS OF BREATH, #30 VIAL 05/31/16 Furosemide* (Lasix*) 40 Mg Tablet, 40 MG PO DAILY, TAB 05/31/16 Ferrous Sulfate* (Ferrous Sulfate*) 325 Mg Tabec, 325 MG PO DAILY, TAB 05/31/16 Docusate Sodium* (Docusate Sodium*) 100 Mg Capsule, 100 MG PO BID, #60 CAP 05/31/16 Zinc Sulfate* (Zinc Sulfate*) 220 Mg Tablet, 220 MG PO DAILY, TAB 01/10/16 Rivaroxaban* (Xarelto*) 20 Mg Tablet, 20 MG PO WITH DINNER, TAB 01/10/16 Ascorbic Acid (Vitamin C) 250 Mg Tab, 250 MG PO DAILY, TAB 01/10/16 Pyridoxine Hcl* (Vitamin B-6*) 100 Mg Tablet, 100 MG PO Q8, TAB 01/10/16 Multivitamins* (Theragran*) 1 Tab Tab, 1 TAB PO DAILY, TAB 01/10/16 Methadone Hcl* (Methadone*) 10 Mg Tab, 10 MG PO QID, TAB PER SON GIVE ON SCHEDULE 8AM, 2PM,8 PM, AND 12 AM 01/10/16 Magnesium Oxide* (Magnesium Oxide*) 400 Mg Tablet, 400 MG PO BID, TAB 01/10/16 Saccharomyces Boulardii* (Florastor*) 250 Mg Cap, 250 MG PO BID, CAP 01/10/16 Tamsulosin Hcl* (Flomax*) 0.4 Mg Cap.er.24h, 0.4 MG PO HS, CAP 01/10/16 Bisacodyl* (Bisacodyl*) 10 Mg Supp, 10 MG OR Q24H Y for CONSTIPATION, SUPP 01/10/16 Hydromorphone Hcl* (Dilaudid*) 2 Mg Tablet, 6 MG PO QID, TAB GIVE ON SCHEDULE PER SON 5AM, 11AM, 5PM, AND 12 AM 01/10/16 Duloxetine Hcl* (Cymbalta*) 30 Mg Capsule.dr, 30 MG PO DAILY, CAP 01/10/16 Acetaminophen* (Acetaminophen*) 500 MG Extra Strength Tablet, 1000 MG PO Q6H Y for PAIN, TAB 01/10/16 Allergies Allergies: Coded Allergies: nitrofurantoin (Verified Allergy, Mild, 07/11/16) piperacillin (Verified Allergy, Mild, BURNING SENSATION ALL OVER THE BODY , 07/11/16) tazobactam (Verified Allergy, Mild, BURNING SENSATION ALL OVER THE BODY, ) PMhx/Soc History of Surgery: Yes (Spinal laminectomy, abdominal exploration, hysterectomy) Anesthesia Reaction: No Hx Neurological Disorder: No Hx Respiratory Disorders: No Hx Cardiac Disorders: Yes (PVD,PACEMAKER,CHF) Hx Psychiatric Problems: No Hx Alcohol Use: No Hx Substance Use: No Hx Tobacco Use: Yes Smoking Status: Former smoker Physical Exam Vitals Vital Signs Date Time Temp Pulse Resp B/P Pulse Ox O2 Delivery O2 Flow Rate FiO2 07/11/16 22:56 Nasal Cannula 3 07/11/16 22:53 103.1 105 20 148/76 87 Physical Exam Const: [] Head: Atraumatic Eyes: Normal Conjunctiva ENT: Normal External Ears, Nose and Mouth. Neck: Full range of motion..~ No meningismus. Resp: Clear to auscultation bilaterally Cardio: Regular rate and rhythm, no murmurs Abd: Soft, non tender, non distended. Normal bowel sounds Skin: No petechiae or rashes Back: No midline or flank tenderness Ext: No cyanosis, or edema Neur: Awake and alert Psych: Normal Mood and Affect Result Diagram: 07/11/16 2300 07/11/16 2300 Results 24 hrs Laboratory Tests Test 07/11/16 23:00 07/11/16 23:15 White Blood Count 9.910^3/ul Red Blood Count 3.5110^6/ul Hemoglobin 10.3g/dl Hematocrit 32.9% Mean Corpuscular Volume 93.7fl Mean Corpuscular Hemoglobin 29.3pg Mean Corpuscular Hemoglobin Concent 31.3g/dl Red Cell Distribution Width 17.7% Platelet Count 9810^3/UL Mean Platelet Volume 10.6fl Neutrophils % 84.0% Band Neutrophils % 2.0% Lymphocytes % 6.0% Monocytes % 8.0% Neutrophils # 8.310^3/ul Lymphocytes # 0.610^3/ul Monocytes # 0.810^3/ul Platelet Estimate PLT APPEAR DECREASED Prothrombin Time 22.2Sec Prothrombin Time Ratio 1.7 INR International Normalized Ratio 1.93 Activated Partial Thromboplast Time 48.8Sec Sodium Level 138mmol/L Potassium Level 3.0mmol/L Chloride Level 101mmol/L Carbon Dioxide Level 29mmol/L Anion Gap 11 Blood Urea Nitrogen 14mg/dl Creatinine 0.85mg/dl Glucose Level 246mg/dl Lactic Acid Level 2.8mmol/L Calcium Level 8.6mg/dl Total Bilirubin 0.3mg/dl Direct Bilirubin 0.00mg/dl Indirect Bilirubin 0.3mg/dl Aspartate Amino Transf (AST/SGOT) 23IU/L Alanine Aminotransferase (ALT/SGPT) 19IU/L Alkaline Phosphatase 151IU/L Troponin I < 0.012ng/ml Total Protein 7.8g/dl Albumin 3.5g/dl Globulin 4.30g/dl Albumin/Globulin Ratio 0.81 Urine Color YELLOW Urine Clarity SLIGHTLY CLOUDY Urine pH 6.0 Urine Specific [place] 1.010 Urine Ketones NEGATIVE Urine Nitrite POSITIVE Urine Bilirubin NEGATIVE Urine Urobilinogen 1.0 E.U./dL Urine Leukocyte Esterase 2+ Urine Microscopic RBC >200/HPF Urine Microscopic WBC >200/HPF Urine Squamous Epithelial Cells MODERATE Urine Bacteria MODERATE Urine Hemoglobin 3+ Urine Glucose 0.1%% Urine Total Protein TRACE Current Medications Medications (Trade) Dose Ordered Sig/Anjana Route PRN Reason Start Time Stop Time Status Last Admin Dose Admin Hydromorphone HCl (Dilaudid) 1 mg ONCE STAT IV 07/11/16 23:01 07/11/16 23:02 DC 07/11/16 23:05 Ondansetron HCl (Zofran Inj) 4 mg ONCE STAT IV 07/11/16 23:01 07/11/16 23:02 DC 07/11/16 23:06 Sodium Chloride 2820 ml 2,820 ml BOLUS OVER 2 HOURS STAT IV* 07/12/16 00:08 07/12/16 00:21 DC 07/12/16 00:39 Levofloxacin/ Dextrose 150 ml @ 100 mls/hr ONCE ONCE IVPB 07/12/16 00:30 07/12/16 01:59 07/12/16 00:39 Sodium Chloride (NS) 1,000 ml @ 70 mls/hr [id number] IV 07/12/16 00:41 IV Flush (NS 3 ml) 3 ml PER PROTOCOL IV 07/12/16 01:00 UNV Ondansetron HCl (Zofran Inj) 4 mg Q6H PRN IV NAUSEA AND/OR VOMITING 07/12/16 01:00 Acetaminophen (Tylenol Tab) 650 mg Q6H PRN PO PAIN LEVEL 1-3 OR FEVER 07/12/16 01:00 Acetaminophen/ Hydrocodone Bitart ([place] (5/325)) 1 tab Q6H PRN PO MODERATE PAIN LEVEL 4-6 07/12/16 01:00 Hydromorphone HCl (Dilaudid) 0.5 mg Q4H PRN IV SEVERE PAIN LEVEL 7-10 07/12/16 01:00 Docusate Sodium (Colace) 100 mg Q12H PRN PO CONSTIPATION 07/12/16 01:00 UNV Magnesium Hydroxide (Milk Of Mag) 30 ml DAILY PRN PO CONSTIPATION 07/12/16 01:00 UNV Zolpidem Tartrate (Ambien) 5 mg QHS PRN PO SLEEP 07/12/16 01:00 UNV Pantoprazole 40 mg 40 mg DAILY@06 PO 07/12/16 06:00 Imipenem/ Cilastatin Sodium (Primaxin 500 Mg/ 100 ml (Pmx)) 100 ml @ 100 mls/hr Q6 IV 07/12/16 01:00 Ascorbic Acid (Vitamin C) 250 mg DAILY PO 07/12/16 09:00 UNV Bisacodyl (Dulcolax Supp) 10 mg Q24H PRN OR CONSTIPATION 07/12/16 01:00 Docusate Sodium (Colace) 100 mg BID PO 07/12/16 09:00 UNV Duloxetine HCl (Cymbalta) 30 mg DAILY PO 07/12/16 09:00 UNV Hydromorphone HCl (Dilaudid) 6 mg QID PO 07/12/16 09:00 Albuterol/ Ipratropium (Duoneb) 3 ml Q6H RESP THERAPY PRN HHN SHORTNESS OF BREATH 07/12/16 01:00 Magnesium Oxide (Mag-Ox 400) 400 mg BID PO 07/12/16 09:00 UNV Methadone HCl (Methadone) 10 mg QID PO 07/12/16 09:00 UNV Multivitamins Therapeutic (Theragran) 1 tab DAILY PO 07/12/16 09:00 UNV Pantoprazole (Protonix Tab) 40 mg DAILY PO 07/12/16 09:00 07/12/16 09:00 DC Pyridoxine HCl (Vitamin B6) 100 mg Q8 PO 07/12/16 06:00 UNV Rivaroxaban (Xarelto) 20 mg WITH DINNER PO 07/12/16 18:00 UNV Saccharomyces Boulardii (Florastor) 250 mg BID PO 07/12/16 09:00 UNV Senna (Senokot) 1 tab BID PO 07/12/16 09:00 UNV Tamsulosin HCl (Flomax) 0.4 mg HS PO 07/12/16 21:00 UNV Zinc Sulfate (Zinc Sulfate) 220 mg DAILY PO 07/12/16 09:00 UNV Procedures/MDM EKG: Rate/Rhythm: [Normal Sinus Rhythm] QRS, ST, T-waves: [No changes consistent w/ acute ischemia] Impression: [No evidence of ischemia or arrhythmia] Chest X-ray 1V Interpreted by me: Soft Tissue: No acute abnormalities Bones: No acute abnormalities Mediastinum/Cardiac Silhouette/Lungs: [No acute abnormalities] Patient's infectious symptoms have not stabilized and the patient is at risk of rapid decompensation. The patient will be admitted for careful hydration, antibiotic therapy, and infectious source control. Severe Sepsis Assessment: Infectious Source: [pyleonephritis] End organ damage indicated by: [Lactate > 2.0 mmol/L Severe Sepsis Managment: Blood Cultures X 2 before broad spectrum antibiotics initiated within 3 hours of recognition. 30 ml/kg NS bolus Completed Initial Lactate: 2.8 Repeat Lactate pending Critical Care: Time: 45 minutes Treatments/Evaluations: Emergent fluid management, while maintaining close respiratory support. Immediate broad spectrum antibiotic therapy. Simultaneous assessment for possible sources in order to direct therapy. Consideration for invasive and chemical support to prevent respiratory or cardiac collapse. Septic Shock Assessment (1 hour post 30 ml/kg fluid bolus): Hypotension (SBP < 90 or 40 mmHg drop, MAP < 65): [No] Lactic acid > 4.0 [No] Accepting Care Team: Current data and ongoing care discussed. Time: 12:30 AM Primary Provider: Dr. Londono Consulting: [[place]] Outstanding Data: none Departure Diagnosis: Primary Impression: Altered mental status Qualified Code: R41.82 - Altered mental status, unspecified altered mental status type Additional Impressions: Sepsis Qualified Code: A41.9 - Sepsis, due to unspecified organism UTI (urinary tract infection) Qualified Code: N39.0 - Urinary tract infection without hematuria, site unspecified Condition: Critical NATY FERNANDO Jul 12, 2016 00:57
[2016-07-12] MEDS ORDERED: BISACODYL 10 MG SUPP PR PRN (01:00)
[2016-07-12] MEDS ORDERED: DOCUSATE SODIUM 100 MG CAP PO PRN (01:00)
[2016-07-12] MEDS ORDERED: ALBUTEROL/IPRATROPIUM (NEB) 3 ML AMP HHN PRN ×2 (01:00→18:00)
[2016-07-12] MEDS ORDERED: MAGNESIUM HYDROXIDE 30ML CUP PO PRN (01:00)
[2016-07-12] MEDS ORDERED: ZOLPIDEM 5 MG TAB PO PRN (01:00)
[2016-07-12] MEDS ORDERED: NACL 0.9% 3 ML SYG IV SCH (01:00)
[2016-07-12] MEDS: IMIPENEM-CILAST 500MG IV (PMX) 100 ML IV SCH ×4 (02:40→18:17)
[2016-07-12] MEDS: ACETAMINOPHEN 325 MG TAB PO PRN ×3 (02:53→22:06)
[2016-07-12] MEDS: HYDROmorphONE 1 MG/ML SYG IV PRN ×5 (04:42→22:06)
[2016-07-12] MEDS: HYDROmorphONE 2 MG TAB PO SCH ×4 (05:16→23:44)
[2016-07-12] MEDS: METHADONE 10 MG TAB PO SCH ×3 (08:37→20:24)
[2016-07-12] MEDS ORDERED: PANTOPRAZOLE (EC) 40 MG TAB PO SCH (09:00)
[2016-07-12] MEDS: ASCORBIC ACID 250 MG TAB PO SCH (09:45)
[2016-07-12] MEDS: PYRIDOXINE 50 MG TAB PO SCH ×3 (09:45→20:18)
[2016-07-12] MEDS: DULOXETINE 30 MG CAP DR PO SCH (09:46)
[2016-07-12] MEDS: PANTOPRAZOLE (EC) 40 MG TAB PO SCH (09:47)
[2016-07-12] MEDS: ZINC SULFATE 220 MG CAP PO SCH (09:48)
[2016-07-12] MEDS: SENNA TAB PO SCH ×2 (09:48→20:17)
[2016-07-12] MEDS: DOCUSATE SODIUM 100 MG CAP PO SCH ×2 (09:48→20:18)
[2016-07-12] MEDS: MULTIVITAMINS THERAPEUTIC TAB PO SCH (09:48)
[2016-07-12] MEDS: MAGNESIUM OXIDE 400 MG TAB PO SCH ×2 (11:07→20:17)
[2016-07-12] MEDS: SACCHAROMYCES BOULARDII 250 MG CAP PO SCH ×2 (11:07→20:18)
[2016-07-12] MEDS: HYDROCODONE/APAP (5/325) TAB PO PRN ×2 (11:13→19:58)
--- NOTE | 2016-07-12 15:13 | CONS ---
DATE OF ADMISSION: 07/12/2016 DATE OF CONSULTATION: 07/12/2016 TYPE OF CONSULTATION: Infectious Disease. REASON FOR CONSULTATION: Antibiotic management. HISTORY OF PRESENT ILLNESS: Kassidy Kelly is a 71-year-old white female well known to us from [facility], both here and at [facility]. She comes in with altered lev el of consciousness with high fevers and probable urinary tract infection. Dr. Londono is her primary physician. The patient has recurrent UTIs. PAST PROBLEMS: Include: 1. Spinal laminectomy. 2. Abdominal exploration. 3. Status post hysterectomy. 4. Peripheral vascular disease. 5. Coronary artery disease with CHF. 6. Status post pacemaker placement. 7. History of smoking in the past. ALLERGIES TO NITROFURANTOIN AND TO ZOSYN. Acutely, the patient comes in with a white count of 9.9, H and H 10.3 and 32.9, platelet count 98,00 0. BUN and creatinine 14/0.85, potassium 3.0. Glucose random was 246. Her temperature was 103.1 o n admission. PHYSICAL EXAMINATION: VITAL SIGNS: Stable. SKIN: Without generalized rash. HEENT: Within normal limits. NECK: Supple. LYMPH NODES: None palpable. CHEST: Decreased breath sounds at the bases. HEART: Without murmur or gallop. ABDOMEN: Soft, nontender, without organosplenomegaly or masses. EXTREMITIES: Without cyanosis, clubbing, or edema. RECTAL AND GENITAL: Deferred. NEUROLOGICAL: No focal neurological abnormality. IMPRESSION AND PLAN: Patient was started on imipenem and Levaquin. We are going to stop her Levaqui n. Her chest x-ray showed no acute abnormalities, mild pulmonary vascular congestion. Her microbio logy is pending. Lactic acid during analysis and blood cultures are all pending. I will dictate my findings to Dr. Londono. Dictated By: SATYA CAMPBELL MD, JD/ANNA Conf#: [id number] DID#: [id number]
[2016-07-12] MEDS ORDERED: POTASSIUM CHLORIDE (SR) 20 MEQ TAB PO STA (17:53)
[2016-07-12] MEDS: RIVAROXABAN 20 MG TABLET PO SCH (18:18)
[2016-07-12] MEDS ORDERED: GUAIFENESIN/DM 5ML CUP PO PRN (18:30)
--- NOTE | 2016-07-12 20:11 | HP ---
DATE OF ADMISSION: 07/12/2016 REASON FOR ADMISSION: UTI, sepsis, encephalopathy. HISTORY OF PRESENT ILLNESS: The patient is a very unfortunate 71-year-old morbidly obese female who currently resides at the [facility] facility at [facility] She was previously under the care of Dr. Bryant, but they presented to my office requesting for me to be their doctor. I was not very enthusiastic as our relationship has not been very pleasant. Anyway, the patient is morbidly obese. She has history of COPD. She stopped smoking recently. Has history of recurrent UTI, on IV antibiotics frequently. Previously had Acinetobacter baumannii in the urine, multidrug-resistant organisms. She has diastolic dysfunction heart failure; chronic pain syndrome, on methadone and Dilaudid; venous stasis ulcers of the lower extremities; bradycardia, status post pacemaker placement; history of DVT and PE, on Xarelto. Overall very debilitated, doesn't watch what she eats. She has candies at bedside every time I go and see her. She always eats when her head is flat, and always the family is very argumentative and difficult to deal with. Also the son is very manipulative, and everything has to go his way. If not, then the conversation becomes unpleasant. The patient was previously hospitalized basically for the same. About 2 weeks ago, she was treated for UTI and treated with amikacin. Repeat cultures all revealed positive urine cultures sensitive to imipenem, and I wanted to start her on imipenem, but the son stated that he does not want me to start her on any antibiotics yet as she is asymptomatic. That was about 2 to 3 days ago. The evening prior to admission, I received a call from the son stating that he requests her to be transferred to the hospital as she is more confused. The patient was brought into [facility] for evaluation. The patient was noted to have elevated lactic acid at 2.8 and positive UA. The patient was started on antibiotics, and she was admitted for further care. I consulted Dr. Milan, the infectious disease specialist, who already saw the patient in consultation. The patient currently with no complaints. She denies any chest pain or shortness of breath. Son is at bedside. He states that the patient was very confused yesterday. The patient denies that. Overall, the patient appears to be comfortable. The patient is admitted for further care. PAST MEDICAL HISTORY: Includes COPD, peripheral vascular disease, venous stasis , hypertension, recurrent UTIs, thrombocytopenia, chronic pain syndrome, history of DVT and PE in the past, hemorrhoids and cardiac pacemaker placement. SURGICAL HISTORY: Includes pacemaker placement and hysterectomy. ALLERGIES: 1. NITROFURANTOIN. 2. ZOSYN. 3. TAZOBACTAM. SOCIAL HISTORY: The patient is a heavy smoker. Per patient, she stopped a few months ago to smoke. No history of alcohol, IV drug abuse. DIET: Regular diet, no added salt and low-carb diet. CODE STATUS: The patient is FULL CODE. Looking at labs that were just done and urine test, on 07/06 she had a positive UA, trace leukocyte esterase, WBC 50 to 100, and cultures revealed E. coli sensitive to imipenem, nitrofurantoin, amikacin, ertapenem and tigecycline. This was on 07/06/2016. MEDICATIONS: The patient's current medications include the followin. Tylenol 500 mg two tablets q.6 p.r.n. 2. Vitamin C 250 mg daily. 3. Bisacodyl 10 mg insert rectally p.r.n. daily. 4. Cymbalta 30 mg daily. 5. Diflucan. She finished that. 6. Lasix 40 mg daily. 7. Ferrous sulfate 325 daily. 8. Hydromorphone 2 mg three tablets 4 times a day at the instructed time at midnight, 5:00, 11:00 and 5:00 p.m. 9. Hydrocortisone cream applied as directed. 10. Ipratropium 0.5 every 6 hours. 11. Levalbuterol 1.25 every 4 hours. 12. Milk of magnesia p.r.n. 13. Methadone 10 mg at the specific hours of midnight, 8:00, 2:00 and 8:00 p.m. 14. Multivitamin 1 tablet daily. 15. Vitamin B6 100 mg q.8 hours. 16. Protonix 40 mg daily. 17. Zinc sulfate 220 mg daily. 18. Xarelto 20 mg daily. 19. Flomax 0.4 mg at bedtime. 20. Senna 8.6 daily. 21. Bactrim ointment as directed. 22. O2 support as directed. Again, recently she has finished a course of amikacin IV which was started on 03 /, treated for 7 days. The patient resides at [facility]. REVIEW OF SYSTEMS: Per HPI. PHYSICAL EXAMINATION: VITAL SIGNS: Temperature is 97.8, pulse 86, respirations 18, blood pressure 127 /88, saturation 95% on 2 L. GENERAL: The patient is morbidly obese, BMI of 30.5. Weight 91 kg. The patient is pale. NECK: No JVD. CARDIOVASCULAR: S1 and S2. LUNGS: Mild rhonchi bilaterally. ABDOMEN: Soft, nontender, morbidly obese. EXTREMITIES: Bilateral venous stasis, also covered with special stockings. The patient is moving all extremities. She is very debilitated, hadn't participated too much with physical therapy. LABORATORY DATA: White count 9.9, hemoglobin ____, hematocrit 33, platelet count is 98, neutrophils 84%, lymphocytes 6%, bands of 2%. Chemistry: Sodium 138, potassium 3.0, chloride 101, bicarbonate 29, BUN is 14, creatinine 0.85. Glucose is elevated to 246. It is high. AST 23, ALT 19, alkaline phosphatase 151. Troponin is less than 0.012. Total protein 7.8, albumin 3.5. UA shows yellow, slightly cloudy, specific gravity 1.010, nitrites positive, leukocyte esterase +2, WBC greater than 200, RBC greater than 200. Hemoglobin +3 and 0.1 % glucose. IMAGING: Chest x-ray shows the following: New mild pulmonary vascular congestion. ASSESSMENT AND PLAN: This is a very unfortunate, debilitated, morbidly obese female with history of chronic obstructive pulmonary disease, peripheral vascular disease, recurrent urinary tract infections, oxygen dependent who presented with urinary tract infection, sepsis, encephalopathy per son. 1. Respiratory. The patient will be placed on breathing treatments around the clock and continue O2 support. Aspiration precaution is advised. Noted above chest x-ray. Will Hep-Lock IV fluids and will monitor. 2. Cardiovascular. Continue Xarelto for previous history of DVT and PE. As patient is sedentary, she definitely needs to be on blood thinners. Resume diuretic therapy soon and monitor fluid overload. 3. Recurrent urinary tract infection. This may be mostly secondary to patient' s hygiene and bedridden state. We advised her previously to go to a bedside commode, to urinate frequently. She was seen also by the urologist on previous admission. His impression at that time was vaginitis and urinary tract infection. At that time he recommended to continue antibiotics and local application of lidocaine may help her. The patient was started on Imipenem for ESBL E.coli, will follow up current cultures. 4. Hyperglycemia. Check ____ Accu-Chek q.a.c. and at bedtime, and based on that, further treatment plan will be made. The patient does not have history of diabetes, but likely because of the infection, she has hyperglycemia. 5. I appreciate Dr. Milan's infectious disease input and recommendations. 6. Constipation. Stool softeners will be given in the setting of opioid use. 7. Chronic pain. Family very sensitive about her opioid use. Apparently she follows a pain specialist as an outpatient basis, and regimen has to be given exactly at the times prescribed. They were not open to change or reduce pain medication. The patient also will receive pain medication for breakthrough pain. 8. The patient is on Protonix for gastrointestinal prophylaxis. 9. I spoke with the charge nurse regarding my relationship with the patient. The son is very manipulative. He has to have his own way. He doesn't even listen to my input. Again, will see if patient can switch doctors, which would be I think better for the patient and for me. Son is aware, but I believe he is concerned that they may find a doctor that will be more hesitant with the treatment the way he wants it to be done, so he doesn't want to switch physicians. Anyway, will continue to follow. 10. Air mattress bed was ordered to prevent any wounds. Case discussed with nursing staff. We will follow. Dictated By: EDDY TIAN/ANNA Conf#: [id number] DID#: [id number] MTDD
[2016-07-12] MEDS: TAMSULOSIN (SR) 0.4 MG CAP PO SCH (20:17)
[2016-07-12] MEDS: GUAIFENESIN LA 600 MG TABSR PO SCH (20:18)
[2016-07-12] MEDS: ALBUTEROL/IPRATROPIUM (NEB) 3 ML AMP HHN SCH (20:53)
[2016-07-13] VITALS (12 sets, daily range): BP systolic 108–142; BP diastolic 53–62; PULSE 82–86; RESP 16–18
[2016-07-13] MEDS: METHADONE 10 MG TAB PO SCH ×5 (00:49→23:55)
[2016-07-13] MEDS: IMIPENEM-CILAST 500MG IV (PMX) 100 ML IV SCH ×5 (01:19→23:54)
[2016-07-13] MEDS: HYDROmorphONE 1 MG/ML SYG IV PRN ×4 (02:33→21:37)
[2016-07-13] MEDS: PYRIDOXINE 50 MG TAB PO SCH ×3 (05:32→20:44)
[2016-07-13] MEDS: PANTOPRAZOLE (EC) 40 MG TAB PO SCH (05:33)
[2016-07-13] MEDS: HYDROmorphONE 2 MG TAB PO SCH ×4 (05:54→23:55)
[2016-07-13 08:01] LABS: ADD SCAN DIFF NO
[2016-07-13 08:09] LABS: ABNORMAL IP MESSAGE 1; BASOPHILS % 0.5 % (0.0-2.0); EOSINOPHILS # 0.1 10^3/ul (0.0-0.5); EOSINOPHILS % 3.4 % (0.0-7.0); HEMATOCRIT 30.4 % (37.0-47.0); LYMPHOCYTES # 0.7 10^3/ul (0.8-2.9); LYMPHOCYTES % 17.9 % (15.0-51.0); MEAN CORPUSCULAR HGB CONC 29.6 g/dl (32.0-37.0); MEAN CORPUSCULAR VOLUME 98.1 fl (82.0-101.0); MEAN PLATELET VOLUME 11.7 fl (7.4-10.4); MONOCYTE # 0.4 10^3/ul (0.3-0.9); MONOCYTES % 11.4 % (0.0-11.0); NEUTROPHIL # 2.5 10^3/ul (1.6-7.5); NEUTROPHILS % 65.8 % (39.0-77.0); PLATELET COUNT 59 10^3/UL (140-415); RED CELL DISTRIBUTION WIDTH 18.2 % (11.5-14.5); WHITE BLOOD COUNT 3.9 10^3/ul (4.8-10.8)
[2016-07-13] MEDS: ALBUTEROL/IPRATROPIUM (NEB) 3 ML AMP HHN SCH ×3 (08:10→19:59)
[2016-07-13 08:22] LABS: ALBUMIN 2.9 g/dl (3.3-4.9)
[2016-07-13 08:23] LABS: POTASSIUM 3.7 mmol/L (3.5-5.1)
[2016-07-13] MEDS: SACCHAROMYCES BOULARDII 250 MG CAP PO SCH ×2 (08:23→20:44)
[2016-07-13] MEDS: ZINC SULFATE 220 MG CAP PO SCH (08:23)
[2016-07-13] MEDS: SENNA TAB PO SCH ×2 (08:24→20:44)
[2016-07-13] MEDS: DULOXETINE 30 MG CAP DR PO SCH (08:24)
[2016-07-13] MEDS: FUROSEMIDE 40 MG TAB PO SCH (08:24)
[2016-07-13] MEDS: POTASSIUM CHLORIDE (SR) 20 MEQ TAB PO SCH (08:24)
[2016-07-13] MEDS: ASCORBIC ACID 250 MG TAB PO SCH (08:24)
[2016-07-13 08:25] LABS: ALBUMIN/GLOBULIN RATIO 0.9; BILIRUBIN,INDIRECT 0.1 mg/dl (0-1.1); BILIRUBIN,TOTAL 0.1 mg/dl (0.2-1.3); CREATININE 0.77 mg/dl (0.44-1.00); TOTAL PROTEIN 6.1 g/dl (6.1-8.1)
[2016-07-13] MEDS: MAGNESIUM OXIDE 400 MG TAB PO SCH ×2 (08:25→20:43)
[2016-07-13] MEDS: DOCUSATE SODIUM 100 MG CAP PO SCH ×2 (08:25→20:44)
[2016-07-13] MEDS: MULTIVITAMINS THERAPEUTIC TAB PO SCH (08:25)
[2016-07-13] MEDS: GUAIFENESIN LA 600 MG TABSR PO SCH ×2 (08:25→20:44)
[2016-07-13 08:26] LABS: CALCIUM 8.3 mg/dl (8.4-10.2)
[2016-07-13 09:16] LABS: PHOSPHORUS 3.7 mg/dl (2.5-4.9)
[2016-07-13] MEDS: HYDROCODONE/APAP (5/325) TAB PO PRN ×2 (11:41→17:44)
--- NOTE | 2016-07-13 15:48 | PN ---
DATE: 07/13/2016 SUBJECTIVE: Patient seen, case discussed with nursing staff as well. The patient is complaining of perineal pain. She attributes it to her UTI. She is requesting for IV Dilaudid. PHYSICAL EXAMINATION: VITAL SIGNS: Temperature is 98. The patient is afebrile, pulse 83, respirations 18, blood pressure 121/61, saturation 91% to 98% on room air. GENERAL: No acute distress, morbidly obese. The patient is pale. CARDIOVASCULAR: S1, S2. LUNGS: Upper airway rhonchi. ABDOMEN: Soft, nontender. EXTREMITIES: No clubbing, cyanosis, or edema. Venous stasis of the lower extremities with a specia l elastic wrapping. LABORATORY DATA: White count is 3.9, hemoglobin 9, hematocrit 30, platelet count low at 59, neutrop hils 66%, lymphocytes 18%. Chemistry: Sodium 139, potassium 3.7, chloride 106, bicarbonate 26, BUN is 17, creatinine 0.77, glucose is high at 269. BNP was 1100 just a little bit high. Albumin 2.9. UA was positive and urine culture shows gram-negative rods greater than 100,000. Awaiting culture s and sensitivities. MEDICATIONS: Include: 1. Lasix 40 mg daily. 2. KCl 20 mEq daily. 3. Flomax 0.4 at bedtime. 4. Mucinex 600 b.i.d. 5. DuoNeb q.6h. 6. Robitussin-DM 10 mL q.4h. p.r.n. 7. Xarelto 20 mg with dinner. 8. DuoNeb p.r.n. as well. 9. Vitamin C 250 daily. 10. Colace 100 b.i.d. 11. Cymbalta 30 daily. 12. Mag oxide 400 b.i.d. 13. Multivitamin 1 tab daily. 14. Florastor 250 b.i.d. 15. Senna 1 tab b.i.d. 16. Zinc sulfate 220 daily. 17. Methadone 10 q.i.d. 18. Protonix 40 daily. 19. Vitamin B6 at 100 q.8h. 20. Dilaudid 6 mg q.i.d. 21. Zofran p.r.n. 22. Tylenol p.r.n. 23. Dilaudid, [place] p.r.n. 24. Milk of magnesia p.r.n. 25. Daydayien . . Imipenem 500 ____ 27. Dulcolax p.r.n. ASSESSMENT AND PLAN: This is 71-year-old obese female with history of COPD, O2 dependent, recurrent UTIs, peripheral vascular disease who presents with sepsis and encephalopathy. 1. Respiratory. Continue breathing treatment and O2 support, hold on steroids. 2. Cardiovascular. The patient is on Xarelto for deep venous thrombosis and pulmonary embolus in t he past. Monitor for fluid overload state. 3. Urinary tract infection. Continue imipenem. Follow up culture results. 4. Perineal discomfort may be secondary to vaginitis versus yeast infection. Will start the patien t on Diflucan. May consider adding Flagyl. We will put Lotrisone cream to the area and monitor. 5. Constipation. Continue stool softeners as patient is on opioids. 6. Chronic pain. Again, on chronic pain medication. She has been on this pain medication for a lo ng time. She has been seen by the pain specialist as well. 7. Continue Protonix for gastrointestinal prophylaxis. DISPOSITION: When cultures are back, hopefully, we can discharge her on IV antibiotics prior to the longterm. 1. Physical therapy and air mattress bed. 2. Monitor closely. Dictated By: EDDY TIAN/ANNA Conf#: [id number] DID#: [id number]
--- NOTE | 2016-07-13 16:05 | PN ---
DATE: 07/13/2016 SUBJECTIVE: The patient is lying comfortably in bed, complaining of vaginal pain. She is in no dis tress. Afebrile. LABORATORY DATA: WBC today 3.9, platelets 59, neutrophils 65.8, no bands. BUN 17, creatinine 0.77. MICROBIOLOGY: Urine culture growing gram-negative rods. Blood culture negative. ANTIMICROBIALS: The patient is on: 1. Oral fluconazole. 2. IV imipenem. PHYSICAL EXAMINATION: GENERAL: This is a morbidly obese, well-developed, chronically ill-appearing, elderly woman who is awake, in no distress. HEENT: Head atraumatic, normocephalic. Sclerae anicteric. Buccal mucosa dry. NECK: Supple, trachea midline. CHEST: Rise symmetrical. Breath sounds diminished to bases. HEART: S1, S2. ABDOMEN: Soft. Bowel sounds present. ASSESSMENT: 1. Sepsis secondary to recurrent urinary tract infection. 2. Chronic pain syndrome. 3. Chronic obstructive pulmonary disease. 4. Coronary artery disease, status post permanent pacemaker. 5. Chronic venous stasis. 6. ALLERGY TO MACROBID AND ZOSYN. PLAN: The patient remains stable. Continue present care. Continue on current antimicrobials. Kiersten it for final cultures. Dictated By: GIOVANNA ESCUDERO PROGRAM LEAD for SATYA QUIROZ/ANNA Conf#: [id number] DID#: [id number]
[2016-07-13] MEDS: FLUCONAZOLE 100 MG TAB PO SCH (17:44)
[2016-07-13] MEDS: RIVAROXABAN 20 MG TABLET PO SCH (17:44)
[2016-07-13] MEDS: BETAMETHASONE/CLOTRIMAZOLE 15 GM CR TOP SCH (20:44)
[2016-07-13] MEDS: TAMSULOSIN (SR) 0.4 MG CAP PO SCH (20:44)
[2016-07-14] VITALS (11 sets, daily range): BP systolic 111–136; BP diastolic 57–80; PULSE 79–88; RESP 16–90
[2016-07-14] MEDS: HYDROCODONE/APAP (5/325) TAB PO PRN ×3 (01:41→19:01)
[2016-07-14] MEDS: PYRIDOXINE 50 MG TAB PO SCH ×3 (05:24→22:20)
[2016-07-14] MEDS: IMIPENEM-CILAST 500MG IV (PMX) 100 ML IV SCH ×4 (05:24→23:43)
[2016-07-14] MEDS: PANTOPRAZOLE (EC) 40 MG TAB PO SCH (05:25)
[2016-07-14] MEDS: HYDROmorphONE 2 MG TAB PO SCH ×4 (05:25→23:53)
[2016-07-14] MEDS: ZINC SULFATE 220 MG CAP PO SCH (08:30)
[2016-07-14] MEDS: POTASSIUM CHLORIDE (SR) 20 MEQ TAB PO SCH (08:30)
[2016-07-14] MEDS: SENNA TAB PO SCH ×2 (08:30→20:31)
[2016-07-14] MEDS: MULTIVITAMINS THERAPEUTIC TAB PO SCH (08:30)
[2016-07-14] MEDS: MAGNESIUM OXIDE 400 MG TAB PO SCH ×2 (08:30→20:31)
[2016-07-14] MEDS: FLUCONAZOLE 100 MG TAB PO SCH (08:30)
[2016-07-14] MEDS: METHADONE 10 MG TAB PO SCH ×4 (08:30→23:43)
[2016-07-14] MEDS: DOCUSATE SODIUM 100 MG CAP PO SCH ×2 (08:30→20:31)
[2016-07-14] MEDS: DULOXETINE 30 MG CAP DR PO SCH (08:31)
[2016-07-14] MEDS: GUAIFENESIN LA 600 MG TABSR PO SCH ×2 (08:31→20:31)
[2016-07-14] MEDS: FUROSEMIDE 40 MG TAB PO SCH (08:31)
[2016-07-14] MEDS: ASCORBIC ACID 250 MG TAB PO SCH (08:31)
[2016-07-14] MEDS: SACCHAROMYCES BOULARDII 250 MG CAP PO SCH ×2 (08:31→20:31)
[2016-07-14] MEDS: ALBUTEROL/IPRATROPIUM (NEB) 3 ML AMP HHN SCH ×4 (10:16→20:16)
[2016-07-14] MEDS: HYDROmorphONE 1 MG/ML SYG IV PRN ×3 (12:41→23:44)
--- NOTE | 2016-07-14 15:14 | CONS ---
Date/Time of Note Date/Time of Note DATE: 07/14/16 TIME: 15:13 Assessment/Plan Assessment/Plan Chief Complaint/Hosp Course SUBJECTIVE: Sleeping, in no distress. Afebrile. MICROBIOLOGY: Urine culture growing E coli ESBL. Blood culture negative. ANTIMICROBIALS: The patient is on: 1. Oral fluconazole. 2. IV imipenem. PHYSICAL EXAMINATION: GENERAL: This is a morbidly obese, well-developed, chronically ill-appearing, elderly woman who is awake, in no distress. HEENT: Head atraumatic, normocephalic. Sclerae anicteric. Buccal mucosa dry. NECK: Supple, trachea midline. CHEST: Rise symmetrical. Breath sounds diminished to bases. HEART: S1, S2. ABDOMEN: Soft. Bowel sounds present. ASSESSMENT: 1. Sepsis secondary to recurrent urinary tract infection. 2. Chronic pain syndrome. 3. Chronic obstructive pulmonary disease. 4. Coronary artery disease, status post permanent pacemaker. 5. BLE chronic venous stasis. 6. ALLERGY TO MACROBID AND ZOSYN. 7. Vaginal candidiasis PLAN: The patient remains stable. Continue present care. Continue on current antimicrobials. Problems: Consultation Date/Type/Reason Admit Date/Time Jul 12, 2016 at 00:40 Initial Consult Date Type of Consultation: id Exam/Review of Systems Vital Signs Vitals Vital Signs Date Time Temp Pulse Resp B/P Pulse Ox O2 Delivery O2 Flow Rate FiO2 07/14/16 12:13 98.8 90 20 111/58 89 07/14/16 10:24 2.0 07/14/16 10:24 Nasal Cannula 07/13/16 14:43 21 Intake and Output 07/13/16 07/13/16 07/14/16 15:00 23:00 07:00 Intake Total 1000 ml 880 ml Balance 1000 ml 880 ml Results Result Diagram: 07/13/16 0642 07/13/16 0642 Medications Medications Current Medications Ondansetron HCl (Zofran Inj) 4 mg Q6H PRN IV NAUSEA AND/OR VOMITING; Start at 01:00 Acetaminophen (Tylenol Tab) 650 mg Q6H PRN PO PAIN LEVEL 1-3 OR FEVER Last administered on 07/12/16t 22:06; Admin Dose 650 MG; Start 07/12/16 at 01:00 Acetaminophen/ Hydrocodone Bitart ([place] (5/325)) 1 tab Q6H PRN PO MODERATE PAIN LEVEL 4-6 Last administered on 07/14/16 08:35; Admin Dose 1 TAB; Start at 01:00 Hydromorphone HCl (Dilaudid) 0.5 mg Q4H PRN IV SEVERE PAIN LEVEL 7-10 Last administered on 07/14/16 12:41; Admin Dose 0.5 MG; Start 07/12/16 at 01:00 Docusate Sodium (Colace) 100 mg Q12H PRN PO CONSTIPATION; Start 07/12/16 at 01: 00 Magnesium Hydroxide (Milk Of Mag) 30 ml DAILY PRN PO CONSTIPATION; Start at 01:00 Zolpidem Tartrate (Ambien) 5 mg QHS PRN PO SLEEP; Start 07/12/16 at 01:00 Pantoprazole 40 mg 40 mg DAILY@06 PO Last administered on 07/14/16 05:25; Admin Dose 40 MG; Start 07/12/16 at 06:00 Imipenem/ Cilastatin Sodium (Primaxin 500 Mg/ 100 ml (Pmx)) 100 ml @ 100 mls/ hr Q6 IV Last administered on 07/14/16 12:35; Admin Dose 100 MLS/HR; Start at 01:00 Ascorbic Acid (Vitamin C) 250 mg DAILY PO Last administered on 07/14/16 08:31 ; Admin Dose 250 MG; Start 07/12/16 at 09:00 Bisacodyl (Dulcolax Supp) 10 mg Q24H PRN [place] CONSTIPATION; Start 07/12/16 at 01: 00 Docusate Sodium (Colace) 100 mg BID PO Last administered on 07/14/16 08:30; Admin Dose 100 MG; Start 07/12/16 at 09:00 Duloxetine HCl (Cymbalta) 30 mg DAILY PO Last administered on 07/14/16 08:31; Admin Dose 30 MG; Start 07/12/16 at 09:00 Hydromorphone HCl (Dilaudid) 6 mg QID@00,05,11,17 PO Last administered on 11:00; Admin Dose 6 MG; Start 07/12/16 at 05:00 Magnesium Oxide (Mag-Ox 400) 400 mg BID PO Last administered on 07/14/16 08:30 ; Admin Dose 400 MG; Start 07/12/16 at 09:00 Methadone HCl (Methadone) 10 mg QID@00,08,14,20 PO Last administered on 14:03; Admin Dose 10 MG; Start 07/12/16 at 08:00 Multivitamins Therapeutic (Theragran) 1 tab DAILY PO Last administered on 08:30; Admin Dose 1 TAB; Start 07/12/16 at 09:00 Pyridoxine HCl (Vitamin B6) 100 mg Q8 PO Last administered on 07/14/16 14:02; Admin Dose 100 MG; Start 07/12/16 at 06:00 Saccharomyces Boulardii (Florastor) 250 mg BID PO Last administered on 08:31; Admin Dose 250 MG; Start 07/12/16 at 09:00 Senna (Senokot) 1 tab BID PO Last administered on 07/14/16 08:30; Admin Dose 1 TAB; Start 07/12/16 at 09:00 Tamsulosin HCl (Flomax) 0.4 mg HS PO Last administered on 07/13/16 20:44; Admin Dose 0.4 MG; Start 07/12/16 at 21:00 Zinc Sulfate (Zinc Sulfate) 220 mg DAILY PO Last administered on 07/14/16 08: 30; Admin Dose 220 MG; Start 07/12/16 at 09:00 Guaifenesin (Mucinex) 600 mg BID PO Last administered on 07/14/16 08:31; Admin Dose 600 MG; Start 07/12/16 at 21:00 Guaifenesin/ Dextromethorphan (Robitussin Dm Liquid Cup) 10 ml Q4H PRN PO cough , ; Start 07/12/16 at 18:30 Furosemide (Lasix) 40 mg DAILY PO Last administered on 07/14/16 08:31; Admin Dose 40 MG; Start 07/13/16 at 09:00 Potassium Chloride (Klor-Con 20) 20 meq DAILY PO Last administered on 08:30; Admin Dose 20 MEQ; Start 07/13/16 at 09:00 Fluconazole (Diflucan) 100 mg DAILY PO Last administered on 07/14/16 08:30; Admin Dose 100 MG; Start 07/13/16 at 15:30 Betamethasone/ Clotrimazole (Lotrisone Cr) 1 applic BID TOP Last administered on 07/13/16t 20:44; Admin Dose 1 APPLIC; Start 07/13/16 at 21:00 GIOVANNA ESCUDERO NP Jul 14, 2016 15:14
[2016-07-14] MEDS: ONDANSETRON 4 MG INJ IV PRN (15:34)
[2016-07-14] MEDS: BETAMETHASONE/CLOTRIMAZOLE 15 GM CR TOP SCH ×2 (15:34→20:32)
[2016-07-14] MEDS: RIVAROXABAN 20 MG TABLET PO SCH (17:06)
--- NOTE | 2016-07-14 17:06 | PN ---
DATE: 07/14/2016 The patient has been complaining of slight nausea. She says she has less of an appetite because of it. Then I see that she finished a half a can of with crackers. The patient overall is stable , per nursing staff, responding to the antibiotics. PHYSICAL EXAMINATION: VITAL SIGNS: Temperature 98.8, pulse 98, respirations 20, blood pressure 111/58, saturation 89 to 9 2% on 2 liters. GENERAL: The patient is morbidly obese, pale. CARDIOVASCULAR: S1 and S2, regular rate. LUNGS: Decreased bilaterally. Faint wheezing. ABDOMEN: Soft, nontender. EXTREMITIES: No clubbing, cyanosis, or edema. LABORATORY: No new labs today. Labs from yesterday were reviewed. The patient's urine culture cristina wed ESBL Escherichia coli sensitive to 3 antibiotics, including nitrofurantoin, imipenem and amikaci n. The patient's blood culture is negative. MEDICATIONS: 1. Lotrisone cream b.i.d. 2. Diflucan 100 mg daily. 3. Lasix 40 mg daily. 4. KCl 20 mEq daily. 5. Flomax 0.4 at bedtime. 6. Mucinex 600 b.i.d. 7. DuoNebs as directed q.6h. 8. Robitussin DM p.r.n. 9. Xarelto 20 mg daily. 10. DuoNebs q.2 p.r.n. 11. Vitamin C 250 daily. 12. Colace 100 b.i.d. 13. Cymbalta 30 mg daily. 14. Mag-Ox 400 b.i.d. 15. Multivitamin 1 tab daily. 16. Florastor 250 b.i.d. 17. Senna 1 tab b.i.d. 18. Zinc sulfate 220 daily. 19. Methadone 10 mg q.i.d. 20. Protonix 20 mg daily. 21. Vitamin B6 100 mg q.8h. 22. Dilaudid she takes 6 mg q.i.d. routine. 23. Zofran p.r.n. 24. Tylenol p.r.n. 25. [place] p.r.n. 24. Colace p.r.n. 26. Milk of Magnesia p.r.n. 27. Ambien p.r.n. 28. Imipenem IV dose per pharmacy. ASSESSMENT AND PLAN: This is a 71-year-old, obese, female with a history of COPD, O2 depe ndent, recurrent UTIs, who presents with ESBL Escherichia coli, and also she has a history of periph eral vascular disease. 1. Urinary tract infection. Continue imipenem. The patient is afebrile. White count is normal. 2. Respiratory. Continue breathing treatments and O2 support as needed. 3. History of deep venous thrombosis and pulmonary embolism. She remains on Xarelto, but I am josephine rned that the patient has worsening thrombocytopenia. Follow up platelet counts. Will follow. No active bleeding. 4. Perineal discomfort. Continue Diflucan and Lotrisone cream. 5. Constipation. Continue stool softener. May benefit from Movantik for opioid-induced constipati on. 6. Chronic pain. On a hefty dose of pain medications, given to her by her pain specialist. With t hat she needs more pain medication while she is in the hospital, unfortunately. 7. Continue Protonix for GI prophylaxis. 8. Nausea. Add Reglan for 24 hours. Continue Zofran p.r.n. 9. Monitor the patient's p.o. intake and symptoms. DISPOSITION: [facility], with IV antibiotics. Dictated By: EDDY TIAN/ANNA Conf#: [id number] DID#: [id number]
[2016-07-14] MEDS: METOCLOPRAMIDE 10 MG INJ IV SCH (20:30)
[2016-07-14] MEDS: TAMSULOSIN (SR) 0.4 MG CAP PO SCH (20:31)
[2016-07-15] VITALS (7 sets, daily range): BP systolic 99–125; BP diastolic 49–65; RESP 16–21
[2016-07-15] MEDS: HYDROmorphONE 1 MG/ML SYG IV PRN ×5 (03:27→21:06)
[2016-07-15] MEDS: PYRIDOXINE 50 MG TAB PO SCH ×3 (05:22→22:00)
[2016-07-15] MEDS: HYDROmorphONE 2 MG TAB PO SCH ×3 (05:23→17:26)
[2016-07-15] MEDS: PANTOPRAZOLE (EC) 40 MG TAB PO SCH (05:23)
[2016-07-15] MEDS: IMIPENEM-CILAST 500MG IV (PMX) 100 ML IV SCH ×4 (05:23→23:56)
[2016-07-15] MEDS: HYDROCODONE/APAP (5/325) TAB PO PRN ×3 (06:44→21:57)
[2016-07-15] MEDS: ALBUTEROL/IPRATROPIUM (NEB) 3 ML AMP HHN SCH ×3 (08:00→20:41)
[2016-07-15 08:06] LABS: ADD SCAN DIFF NO
[2016-07-15 08:08] LABS: BASOPHIL # 0.1 10^3/ul (0.0-0.1); BASOPHILS % 0.8 % (0.0-2.0); EOSINOPHILS # 0.2 10^3/ul (0.0-0.5); EOSINOPHILS % 2.7 % (0.0-7.0); HEMATOCRIT 31.1 % (37.0-47.0); HEMOGLOBIN 9.4 g/dl (12.0-16.0); LYMPHOCYTES # 1.7 10^3/ul (0.8-2.9); LYMPHOCYTES % 25.3 % (15.0-51.0); MEAN CORPUSCULAR HEMOGLOBIN 28.7 pg (29.0-33.0); MEAN CORPUSCULAR HGB CONC 30.2 g/dl (32.0-37.0); MEAN CORPUSCULAR VOLUME 94.8 fl (82.0-101.0); MEAN PLATELET VOLUME 10.7 fl (7.4-10.4); MONOCYTE # 0.7 10^3/ul (0.3-0.9); MONOCYTES % 9.9 % (0.0-11.0); NEUTROPHILS % 60.4 % (39.0-77.0); NUCLEATED RED BLOOD CELLS% 0.3 /100WBC (0.0-0.0); PLATELET COUNT 104 10^3/UL (140-415); RED BLOOD COUNT 3.28 10^6/ul (4.20-5.40); RED CELL DISTRIBUTION WIDTH 17.8 % (11.5-14.5); WHITE BLOOD COUNT 6.6 10^3/ul (4.8-10.8)
[2016-07-15 08:31] LABS: ALBUMIN 3.2 g/dl (3.3-4.9); POTASSIUM 3.9 mmol/L (3.5-5.1)
[2016-07-15 08:33] LABS: CREATININE 0.74 mg/dl (0.44-1.00)
[2016-07-15 08:34] LABS: ALBUMIN/GLOBULIN RATIO 0.86; BILIRUBIN,INDIRECT 0.1 mg/dl (0-1.1); BILIRUBIN,TOTAL 0.1 mg/dl (0.2-1.3); CALCIUM 8.7 mg/dl (8.4-10.2); TOTAL PROTEIN 6.9 g/dl (6.1-8.1)
[2016-07-15 08:35] LABS: PHOSPHORUS 3.7 mg/dl (2.5-4.9)
[2016-07-15] MEDS: SACCHAROMYCES BOULARDII 250 MG CAP PO SCH ×2 (09:35→21:59)
[2016-07-15] MEDS: ASCORBIC ACID 250 MG TAB PO SCH (09:36)
[2016-07-15] MEDS: MAGNESIUM OXIDE 400 MG TAB PO SCH ×2 (09:37→21:59)
[2016-07-15] MEDS: METHADONE 10 MG TAB PO SCH ×3 (09:37→20:01)
[2016-07-15] MEDS: SENNA TAB PO SCH ×2 (09:37→21:59)
[2016-07-15] MEDS: POTASSIUM CHLORIDE (SR) 20 MEQ TAB PO SCH (09:37)
[2016-07-15] MEDS: ZINC SULFATE 220 MG CAP PO SCH (09:38)
[2016-07-15] MEDS: MULTIVITAMINS THERAPEUTIC TAB PO SCH (09:38)
[2016-07-15] MEDS: GUAIFENESIN LA 600 MG TABSR PO SCH ×2 (09:38→21:59)
[2016-07-15] MEDS: FLUCONAZOLE 100 MG TAB PO SCH (09:38)
[2016-07-15] MEDS: FUROSEMIDE 40 MG TAB PO SCH (09:38)
[2016-07-15] MEDS: DOCUSATE SODIUM 100 MG CAP PO SCH ×2 (09:38→21:00)
[2016-07-15] MEDS: METOCLOPRAMIDE 10 MG INJ IV SCH (09:39)
[2016-07-15] MEDS: DULOXETINE 30 MG CAP DR PO SCH (09:39)
[2016-07-15] MEDS: BETAMETHASONE/CLOTRIMAZOLE 15 GM CR TOP SCH ×2 (09:39→21:59)
[2016-07-15] MEDS ORDERED: GLUCAGON 1 MG INJ IM PRN ×2 (15:00→22:00)
[2016-07-15] MEDS ORDERED: DEXTROSE 50% 50 ML SYRINGE IV PRN ×4 (15:00→22:00)
[2016-07-15] MEDS ORDERED: GLUCOSE GEL 15 GRAM TUBE BUCCAL PRN ×2 (15:00→22:00)
[2016-07-15] MEDS ORDERED: GLUCOSE GEL 15 GRAM TUBE PO PRN ×4 (15:00→22:00)
[2016-07-15] MEDS: RIVAROXABAN 20 MG TABLET PO SCH (17:30)
--- NOTE | 2016-07-15 17:46 | PN ---
DATE: 07/15/2016 SUBJECTIVE: The patient seen, feeling better today. I noted patient's glucose levels in the labs a re elevated in the 200s. Hemoglobin A1c was 5.5 on previous admission. We will do Accu-Cheks befor e meals and at bedtime and monitor. Follow up repeat hemoglobin A1c. [facility]. The patient overall feeling better. PHYSICAL EXAMINATION: VITAL SIGNS: Temperature 98.3, pulse 82, respirations 20, blood pressure 112/56, saturation 94% on 2 liters. GENERAL: The patient is morbidly obese. The patient is pale. CARDIOVASCULAR: S1 and S2. LUNGS: Faint rhonchi bilaterally, more on the right compared to the left. ABDOMEN: Soft, nontender. EXTREMITIES: No clubbing, cyanosis, or edema. She has venous stasis of the lower extremities with compression stockings of the lower extremities. LABORATORY DATA: White count is 6.6, hemoglobin 9.4, hematocrit 31, platelet count of 104, improved . Neutrophils 60%, lymphocytes 25%, monocytes 10%. Chemistry: Sodium 137, potassium 3.9, chloride 99, bicarbonate 32, BUN 19, creatinine 0.74, glucose is high at 249. Alkaline phosphatase border[place] 128, albumin 3.2. Magnesium and phosphorus normal today. Again, urine culture shows E. coli ESB L sensitive to imipenem. MEDICATIONS: All reviewed include: 1. Accu-Chek before meals and at bedtime. 2. Insulin aspart per sliding scale. 3. Hypoglycemia protocol. 4. Lotrisone cream b.i.d. 5. Diflucan 100 mg daily. 6. Lasix 40 mg daily. 7. KCl 20 mEq daily. 8. Flomax 0.4 at bedtime. 9. Mucinex 600 b.i.d. 10. DuoNeb q.6h. 11. Robitussin p.r.n. 12. Xarelto 20 mg daily. 13. Ipratropium p.r.n. 14. Vitamin C 250 daily. 15. Colace 100 b.i.d. 16. Cymbalta 30 mg daily. 17. Magnesium oxide 400 b.i.d. 18. Multivitamin 1 tab daily. 19. Florastor 250 b.i.d. 20. Senna 1 tab b.i.d. 21. Zinc sulfate 220 daily. 22. Methadone 10 mg q.i.d. 23. Protonix 40 mg daily. 24. Vitamin B6 100 q.8h. 25. Dilaudid 6 mg q.i.d. 26. Zofran p.r.n. 27. Tylenol p.r.n. 28. [place] p.r.n. 29. Dilaudid p.r.n. 30. Colace p.r.n. 31. Milk of magnesia p.r.n. 32. Ambien p.r.n. 33. Imipenem 500 IV q.6h. 34. Dulcolax p.r.n. ASSESSMENT AND PLAN: This is a 71-year-old female with history of chronic obstructive pul monary disease, O2 dependent, recurrent urinary tract infection, who presented with extended-spectru m beta-lactamase Escherichia coli. 1. Urinary tract infection with extended-spectrum beta-lactamase Escherichia coli. Continue imipen em. ID is following. White count is normal. The patient is afebrile. Mental status is at baselin e. 2. Respiratory. Continue O2 support. The patient with a history of chronic obstructive pulmonary disease. Continue breathing treatments. Consider placing her on Symbicort. 3. Continue deep vein thrombosis prophylaxis. She is on Xarelto as she has history of DVT and PE. Thrombocytopenia better. 4. Perineal discomfort. Continue Diflucan and Lotrisone cream. 5. Constipation. Continue stool softeners. Place her on Movantik for opioid-induced constipation. 6. Chronic pain, on Dilaudid and methadone prescribed by her pain specialist. She takes it for man y years. 7. Continue Protonix for GI prophylaxis. 8. Ask physical therapy to see the patient to evaluate strength. 9. Depression. Continue Cymbalta. 10. History of congestive heart failure, appears to be compensated. Continue Lasix and potassium s upplements. 11. Hyperglycemia. Check Accu-Chek before meals and at bedtime and hemoglobin A1c. We will cover her with insulin sliding scale for now. 12. Further decision about routine diabetic medications. We will follow. Dictated By: EDDY TIAN/ANNA Conf#: [id number] DID#: [id number]
[2016-07-15] MEDS ORDERED: INSULIN ASPART [NOVOLOG] 3 ML PEN SC SCH (18:05)
--- NOTE | 2016-07-15 19:47 | CONS ---
Date/Time of Note Date/Time of Note DATE: 07/15/16 TIME: 19:45 Assessment/Plan Assessment/Plan Chief Complaint/Hosp Course SUBJECTIVE: Alert, c/o vaginal pain, states symptoms are not better, no fevers, nad MICROBIOLOGY: Urine culture growing E coli ESBL. Blood culture negative. ANTIMICROBIALS: The patient is on: 1. Oral fluconazole. 2. IV imipenem. PHYSICAL EXAMINATION: GENERAL: This is a morbidly obese, well-developed, chronically ill-appearing, elderly woman who is awake, in no distress. HEENT: Head atraumatic, normocephalic. Sclerae anicteric. Buccal mucosa dry. NECK: Supple, trachea midline. CHEST: Rise symmetrical. Breath sounds diminished to bases. HEART: S1, S2. ABDOMEN: Soft. Bowel sounds present. ASSESSMENT: 1. Sepsis secondary to recurrent urinary tract infection. 2. Chronic pain syndrome. 3. Chronic obstructive pulmonary disease. 4. Coronary artery disease, status post permanent pacemaker. 5. BLE chronic venous stasis. 6. ALLERGY TO MACROBID AND ZOSYN. 7. Vaginal candidiasis/chronic vaginal pain PLAN: The patient remains unchanged, on appropriate abx, continue present care /PT DW pt/son Problems: Consultation Date/Type/Reason Admit Date/Time Jul 12, 2016 at 00:40 Type of Consultation: id Exam/Review of Systems Vital Signs Vitals Vital Signs Date Time Temp Pulse Resp B/P Pulse Ox O2 Delivery O2 Flow Rate FiO2 07/15/16 16:08 98.8 86 20 115/59 90 07/15/16 13:53 Nasal Cannula 2.0 07/13/16 14:43 21 Intake and Output 07/14/16 07/14/16 07/15/16 15:00 23:00 07:00 Intake Total 100 ml 900 ml 1200 ml Balance 100 ml 900 ml 1200 ml Results Result Diagram: 07/15/16 0746 07/15/16 0746 Results 24 hrs Laboratory Tests Test 07/15/16 07:46 07/15/16 17:35 White Blood Count 6.6 # Red Blood Count 3.28 L Hemoglobin 9.4 L Hematocrit 31.1 L Mean Corpuscular Volume 94.8 Mean Corpuscular Hemoglobin 28.7 L Mean Corpuscular Hemoglobin Concent 30.2 L Red Cell Distribution Width 17.8 H Platelet Count 104 #L Mean Platelet Volume 10.7 H Neutrophils % 60.4 Lymphocytes % 25.3 Monocytes % 9.9 Eosinophils % 2.7 Basophils % 0.8 Nucleated Red Blood Cells % 0.3 H Neutrophils # 4.0 Lymphocytes # 1.7 Monocytes # 0.7 Eosinophils # 0.2 Basophils # 0.1 Nucleated Red Blood Cells # 0.0 Sodium Level 137 Potassium Level 3.9 Chloride Level 99 Carbon Dioxide Level 32 H Anion Gap 10 Blood Urea Nitrogen 19 Creatinine 0.74 Glucose Level 249 H Calcium Level 8.7 Phosphorus Level 3.7 Magnesium Level 2.0 Total Bilirubin 0.1 L Direct Bilirubin 0.00 Indirect Bilirubin 0.1 Aspartate Amino Transf (AST/SGOT) 28 Alanine Aminotransferase (ALT/SGPT) 21 Alkaline Phosphatase 128 H Total Protein 6.9 Albumin 3.2 L Globulin 3.70 H Albumin/Globulin Ratio 0.86 Bedside Glucose 327 H Medications Medications Current Medications Ondansetron HCl (Zofran Inj) 4 mg Q6H PRN IV NAUSEA AND/OR VOMITING Last administered on 07/14/16 15:34; Admin Dose 4 MG; Start 07/12/16 at 01:00 Acetaminophen (Tylenol Tab) 650 mg Q6H PRN PO PAIN LEVEL 1-3 OR FEVER Last administered on 07/12/16 22:06; Admin Dose 650 MG; Start 07/12/16 at 01:00 Acetaminophen/ Hydrocodone Bitart ([place] (5/325)) 1 tab Q6H PRN PO MODERATE PAIN LEVEL 4-6 Last administered on 07/15/16 11:05; Admin Dose 1 TAB; Start at 01:00 Hydromorphone HCl (Dilaudid) 0.5 mg Q4H PRN IV SEVERE PAIN LEVEL 7-10 Last administered on 07/15/16 13:26; Admin Dose 0.5 MG; Start 07/12/16 at 01:00 Docusate Sodium (Colace) 100 mg Q12H PRN PO CONSTIPATION; Start 07/12/16 at 01: 00 Magnesium Hydroxide (Milk Of Mag) 30 ml DAILY PRN PO CONSTIPATION; Start at 01:00 Zolpidem Tartrate (Ambien) 5 mg QHS PRN PO SLEEP; Start 07/12/16 at 01:00 Pantoprazole 40 mg 40 mg DAILY@06 PO Last administered on 07/15/16 05:23; Admin Dose 40 MG; Start 07/12/16 at 06:00 Imipenem/ Cilastatin Sodium (Primaxin 500 Mg/ 100 ml (Pmx)) 100 ml @ 100 mls/ hr Q6 IV Last administered on 07/15/16 17:27; Admin Dose 100 MLS/HR; Start at 01:00 Ascorbic Acid (Vitamin C) 250 mg DAILY PO Last administered on 07/15/16 09:36; Admin Dose 250 MG; Start 07/12/16 at 09:00 Bisacodyl (Dulcolax Supp) 10 mg Q24H PRN [place] CONSTIPATION; Start 07/12/16 at 01: 00 Docusate Sodium (Colace) 100 mg BID PO Last administered on 07/15/16 09:38; Admin Dose 100 MG; Start 07/12/16 at 09:00 Duloxetine HCl (Cymbalta) 30 mg DAILY PO Last administered on 07/15/16 09:39; Admin Dose 30 MG; Start 07/12/16 at 09:00 Hydromorphone HCl (Dilaudid) 6 mg QID@00,05,11,17 PO Last administered on 17:26; Admin Dose 6 MG; Start 07/12/16 at 05:00 Magnesium Oxide (Mag-Ox 400) 400 mg BID PO Last administered on 07/15/16 09:37 ; Admin Dose 400 MG; Start 07/12/16 at 09:00 Methadone HCl (Methadone) 10 mg QID@00,08,14,20 PO Last administered on 14:44; Admin Dose 10 MG; Start 07/12/16 at 08:00 Multivitamins Therapeutic (Theragran) 1 tab DAILY PO Last administered on 09:38; Admin Dose 1 TAB; Start 07/12/16 at 09:00 Pyridoxine HCl (Vitamin B6) 100 mg Q8 PO Last administered on 07/15/16 13:26; Admin Dose 100 MG; Start 07/12/16 at 06:00 Saccharomyces Boulardii (Florastor) 250 mg BID PO Last administered on 09:35; Admin Dose 250 MG; Start 07/12/16 at 09:00 Senna (Senokot) 1 tab BID PO Last administered on 07/15/16 09:37; Admin Dose 1 TAB; Start 07/12/16 at 09:00 Tamsulosin HCl (Flomax) 0.4 mg HS PO Last administered on 07/14/16 20:31; Admin Dose 0.4 MG; Start 07/12/16 at 21:00 Zinc Sulfate (Zinc Sulfate) 220 mg DAILY PO Last administered on 07/15/16 09:38 ; Admin Dose 220 MG; Start 07/12/16 at 09:00 Guaifenesin (Mucinex) 600 mg BID PO Last administered on 07/15/16 09:38; Admin Dose 600 MG; Start 07/12/16 at 21:00 Guaifenesin/ Dextromethorphan (Robitussin Dm Liquid Cup) 10 ml Q4H PRN PO cough , Last administered on 07/15/16 09:36; Admin Dose 10 ML; Start 07/12/16 at 18: 30 Furosemide (Lasix) 40 mg DAILY PO Last administered on 07/15/16 09:38; Admin Dose 40 MG; Start 07/13/16 at 09:00 Potassium Chloride (Klor-Con 20) 20 meq DAILY PO Last administered on 07/15/16 09:37; Admin Dose 20 MEQ; Start 07/13/16 at 09:00 Fluconazole (Diflucan) 100 mg DAILY PO Last administered on 07/15/16 09:38; Admin Dose 100 MG; Start 07/13/16 at 15:30 Betamethasone/ Clotrimazole (Lotrisone Cr) 1 applic BID TOP Last administered on 07/15/16 09:39; Admin Dose 1 APPLIC; Start 07/13/16 at 21:00 Diagnostic Test (Pha) (Accu-Chek) 1 ea 02 XX ; Start 07/16/16 at 02:00 Miscellaneous Information 1 ea NOTE XX ; Start 07/15/16 at 15:00 Glucose (Glutose) 15 gm Q15M PRN PO DECREASED GLUCOSE; Start 07/15/16 at 15:00 Glucose (Glutose) 22.5 gm Q15M PRN PO DECREASED GLUCOSE; Start 07/15/16 at 15:00 Dextrose (D50w Syringe) 25 ml Q15M PRN IV DECREASED GLUCOSE; Start 07/15/16 at 15:00 Dextrose (D50w Syringe) 50 ml Q15M PRN IV DECREASED GLUCOSE; Start 07/15/16 at 15:00 Glucagon (Glucagen) 1 mg Q15M PRN IM DECREASED GLUCOSE; Start 07/15/16 at 15:00 Glucose (Glutose) 15 gm Q15M PRN BUCCAL DECREASED GLUCOSE; Start 07/15/16 at 15: 00 GIOVANNA ESCUDERO NP Jul 15, 2016 19:47
[2016-07-15] MEDS: INSULIN ASPART [NOVOLOG] 3 ML PEN SC SCH (21:58)
[2016-07-15] MEDS: TAMSULOSIN (SR) 0.4 MG CAP PO SCH (21:59)
[2016-07-15] MEDS ORDERED: ACCU-CHEK XX SCH (22:00)
[2016-07-16] MEDS: ACCU-CHEK XX SCH ×2 (02:00)
[2016-07-16] MEDS ORDERED: ACCU-CHEK XX SCH (02:00)
[2016-07-16] MEDS: HYDROmorphONE 1 MG/ML SYG IV PRN ×4 (02:24→22:32)
[2016-07-16] MEDS: PANTOPRAZOLE (EC) 40 MG TAB PO SCH (05:16)
[2016-07-16] MEDS: PYRIDOXINE 50 MG TAB PO SCH ×3 (05:16→21:06)
[2016-07-16] MEDS: HYDROmorphONE 2 MG TAB PO SCH ×4 (05:16→17:04)
[2016-07-16] MEDS: IMIPENEM-CILAST 500MG IV (PMX) 100 ML IV SCH ×3 (05:19→17:04)
[2016-07-16] MEDS: ALBUTEROL/IPRATROPIUM (NEB) 3 ML AMP HHN SCH ×3 (07:45→20:00)
[2016-07-16 08:12] VITALS: BP 124/66; RESP 18
[2016-07-16] MEDS: ASCORBIC ACID 250 MG TAB PO SCH (08:15)
[2016-07-16] MEDS: DULOXETINE 30 MG CAP DR PO SCH (08:15)
[2016-07-16] MEDS: METHADONE 10 MG TAB PO SCH ×4 (08:15→20:07)
[2016-07-16] MEDS: SACCHAROMYCES BOULARDII 250 MG CAP PO SCH ×2 (08:15→20:11)
[2016-07-16] MEDS: FLUCONAZOLE 100 MG TAB PO SCH (08:15)
[2016-07-16] MEDS: MAGNESIUM OXIDE 400 MG TAB PO SCH ×2 (08:15→20:11)
[2016-07-16] MEDS: MULTIVITAMINS THERAPEUTIC TAB PO SCH (08:15)
[2016-07-16] MEDS: GUAIFENESIN LA 600 MG TABSR PO SCH ×2 (08:16→20:11)
[2016-07-16] MEDS: SENNA TAB PO SCH ×2 (08:16→20:11)
[2016-07-16] MEDS: FUROSEMIDE 40 MG TAB PO SCH (08:16)
[2016-07-16] MEDS: DOCUSATE SODIUM 100 MG CAP PO SCH ×2 (08:16→20:11)
[2016-07-16] MEDS: ZINC SULFATE 220 MG CAP PO SCH (08:16)
[2016-07-16] MEDS: INSULIN GLARGINE [LANtus] 3 ML PEN SC SCH (08:18)
[2016-07-16] MEDS: INSULIN ASPART [NOVOLOG] 3 ML PEN SC SCH ×5 (08:19→20:08)
[2016-07-16] MEDS: POTASSIUM CHLORIDE (SR) 20 MEQ TAB PO SCH (08:21)
[2016-07-16] MEDS: BETAMETHASONE/CLOTRIMAZOLE 15 GM CR TOP SCH ×2 (08:30→21:07)
[2016-07-16 08:32] LABS: ADD SCAN DIFF NO
[2016-07-16 08:35] LABS: BASOPHIL # 0.1 10^3/ul (0.0-0.1); BASOPHILS % 0.7 % (0.0-2.0); EOSINOPHILS # 0.2 10^3/ul (0.0-0.5); EOSINOPHILS % 3.1 % (0.0-7.0); HEMATOCRIT 33.5 % (37.0-47.0); HEMOGLOBIN 9.7 g/dl (12.0-16.0); LYMPHOCYTES # 1.7 10^3/ul (0.8-2.9); LYMPHOCYTES % 25.7 % (15.0-51.0); MEAN CORPUSCULAR HEMOGLOBIN 28.1 pg (29.0-33.0); MEAN CORPUSCULAR VOLUME 97.1 fl (82.0-101.0); MEAN PLATELET VOLUME 11.3 fl (7.4-10.4); MONOCYTE # 0.6 10^3/ul (0.3-0.9); MONOCYTES % 8.7 % (0.0-11.0); NEUTROPHIL # 4.1 10^3/ul (1.6-7.5); NEUTROPHILS % 60.9 % (39.0-77.0); PLATELET COUNT 116 10^3/UL (140-415); RED BLOOD COUNT 3.45 10^6/ul (4.20-5.40); WHITE BLOOD COUNT 6.7 10^3/ul (4.8-10.8)
[2016-07-16 08:55] LABS: CALCIUM 8.8 mg/dl (8.4-10.2); CREATININE 0.77 mg/dl (0.44-1.00); POTASSIUM 4.1 mmol/L (3.5-5.1)
[2016-07-16 09:00] LABS: MAGNESIUM 2.1 mg/dl (1.7-2.5); PHOSPHORUS 3.7 mg/dl (2.5-4.9)
[2016-07-16] MEDS: HYDROCODONE/APAP (5/325) TAB PO PRN ×2 (14:24→21:06)
[2016-07-16] MEDS ORDERED: MAGNESIUM CITRATE 300 ML BTL PO ONE (15:30)
[2016-07-16] MEDS ORDERED: NA PHOSPHATE/BIPHOS 133 ML ENEMA PR ONE (15:30)
--- NOTE | 2016-07-16 16:08 | PN ---
DATE: 07/16/2016 SUBJECTIVE: Patient seen, unfortunately I noted that the patient's sugar levels is higher 200 and 3 00s. The patient's hemoglobin A1c is 6.1. We will put her on an ADA diet and will consult dietitia n as well. Will repeat urine studies as the patient presented initially with urosepsis. Case discu ssed with family in detail. In addition, the patient reported ongoing constipation. PHYSICAL EXAMINATION: VITAL SIGNS: Temperature 98.3, pulse , blood pressure 124/66, saturation 94% on 2 liters. GENERAL: The patient is in no acute distress, obese, pale. CARDIOVASCULAR: S1, S2, regular rate. LUNGS: Clear. ABDOMEN: Soft, obese. EXTREMITIES: No clubbing, cyanosis, or edema. LABORATORY DATA: White count is 6.7, hemoglobin 9.7, hematocrit 34, platelet 160, improving, neutro phils 61%, lymphocytes 26%. Chemistry: Sodium is 136, potassium 4.1, chloride 98, bicarbonate 32, BUN is 21, creatinine 0.77, glucose of 208, last glucose of 330 and 234. Urine culture on admission show ESBL E. coli sensitive to imipenem. MEDICATIONS: Reviewed, include followin. Lantus 6 units daily. 2. Accu-Chek q.a.c. and at bedtime. 3. Lotrisone cream b.i.d. 4. Diflucan 100 mg daily. 5. Lasix 40 mg daily. 6. KCl 20 mEq daily. 7. Flomax 0.4 at bedtime. 8. Mucinex 600 b.i.d. 9. DuoNeb q.6h. 10. Robitussin-DM q.4h. p.r.n. 11. Xarelto 20 mg every dinner. 12. Vitamin C 250 daily. 13. Colace 100 b.i.d. 14. Cymbalta 300 mg daily. 15. Magnesium oxide 400 t.i.d. 16. Multivitamin 1 tablet daily. 17. Florastor 250 b.i.d. 18. Senna 1 tab b.i.d. 19. Zinc sulfate 220 daily. 20. Methadone 10 mg q.i.d. 21. Protonix 40 mg daily. 22. Vitamin B6 400 q.8h. 23. Dilaudid 6 mg q.i.d. 24. Zofran p.r.n. 25. Tylenol p.r.n. 26. [place] p.r.n. 27. Colace p.r.n. 28. Milk of magnesia p.r.n. 29. Ambien p.r.n. 30. Imipenem 500 IV q. 8. ASSESSMENT AND PLAN: This is a 71-year-old female with history of COPD, O2 dependent, rec urrent UTIs who presented with extended spectrum beta lactamase, E. coli sepsis. 1. Urinary tract infection with extended-spectrum beta-lactamase Escherichia coli. Continue imipen em. We will repeat urine studies. 2. Respiratory. Continue O2 support. The patient with COPD, may consider Symbicort. Continue tod athing treatment and O2 support for now. 3. Continue deep vein thrombosis prophylaxis. The patient is on Xarelto for history of deep venous thrombosis and pulmonary embolism, thrombocytopenia, improving. 4. Perineum discomfort. Continue Diflucan and Lotrisone cream. 5. Constipation. Will increase the stool softeners. Consider magnesium citrate or [place] enema. 6. Chronic pain. Continue Dilaudid and methadone as prescribed by a pain specialist. 7. Continue Protonix for gastrointestinal prophylaxis. 8. Activity as tolerated with physical therapy. 9. Depression, on Cymbalta. 10. Tendency for congestive heart failure. Continue Lasix and potassium supplements. 11. Hyperglycemia. The patient with hemoglobin A1c of 6.1. I started the patient on Lantus 6 unit s in the morning and will add NovoLog 4 units before meals. Continue to monitor. Put on ADA diet a nd consult dietitian. 12. We will follow. Dictated By: EDDY TIAN/ANNA Conf#: [id number] DID#: [id number] CC: EDDY MELVIN MD;*EndCC*
[2016-07-16 16:50] LABS: ADD UMIC YES; URINE BILIRUBIN (Dip) NEGATIVE (NEGATIVE); URINE BLOOD (Dip) NEGATIVE (NEGATIVE); URINE COLOR LT. YELLOW (YELLOW); URINE GLUCOSE (Dip) NEGATIVE (NEGATIVE); URINE KETONES (Dip) NEGATIVE (NEGATIVE); URINE LEUKOCYTE ESTERASE (Dip) 2+ (NEGATIVE); URINE NITRITE (Dip) NEGATIVE (NEGATIVE); URINE TOTAL PROTEIN (Dip) NEGATIVE (NEGATIVE); URINE UROBILINOGEN (Dip) 0.2 E.U./dL (0.1-1.0)
[2016-07-16 17:01] LABS: BACTERIA,URINE FEW; SQUAMOUS EPITHELIAL CELL,UR MANY; URINE RBCS NONE SEEN /HPF (0)
[2016-07-16] MEDS: RIVAROXABAN 20 MG TABLET PO SCH (17:04)
--- NOTE | 2016-07-16 17:48 | CONS ---
Date/Time of Note Date/Time of Note DATE: 07/16/16 TIME: 17:46 Assessment/Plan Assessment/Plan Chief Complaint/Hosp Course SUBJECTIVE: Alert, still with vaginal pain, no fevers, nad MICROBIOLOGY: Urine culture growing E coli ESBL. Blood culture negative. ANTIMICROBIALS: The patient is on: 1. Oral fluconazole. 2. IV imipenem. PHYSICAL EXAMINATION: GENERAL: This is a morbidly obese, well-developed, chronically ill-appearing, elderly woman who is awake, in no distress. HEENT: Head atraumatic, normocephalic. Sclerae anicteric. Buccal mucosa dry. NECK: Supple, trachea midline. CHEST: Rise symmetrical. Breath sounds diminished to bases. HEART: S1, S2. ABDOMEN: Soft. Bowel sounds present. ASSESSMENT: 1. S/p sepsis secondary to recurrent urinary tract infection. 2. Chronic pain syndrome. 3. Chronic obstructive pulmonary disease. 4. Coronary artery disease, status post permanent pacemaker. 5. BLE chronic venous stasis. 6. ALLERGY TO MACROBID AND ZOSYN. 7. Vaginal candidiasis/chronic vaginal pain PLAN: Stable, will repeat urine cx per son's request, continue abx for 5-7 more days DW pt/son Problems: Consultation Date/Type/Reason Admit Date/Time Jul 12, 2016 at 00:40 Type of Consultation: id Exam/Review of Systems Vital Signs Vitals Vital Signs Date Time Temp Pulse Resp B/P Pulse Ox O2 Delivery O2 Flow Rate FiO2 07/16/16 08:45 Nasal Cannula 2.0 07/16/16 08:12 98.3 88 18 124/66 07/16/16 07:46 94 07/13/16 14:43 21 Intake and Output 07/15/16 07/15/16 07/16/16 15:00 23:00 07:00 Intake Total 200 ml 920 ml 950 ml Balance 200 ml 920 ml 950 ml Results Result Diagram: 07/16/16 0725 07/16/16 0725 Results 24 hrs Laboratory Tests Test 07/15/16 21:33 07/16/16 02:38 07/16/16 07:25 07/16/16 08:11 Bedside Glucose 306 H 207 234 H White Blood Count 6.7 Red Blood Count 3.45 L Hemoglobin 9.7 L Hematocrit 33.5 L Mean Corpuscular Volume 97.1 Mean Corpuscular Hemoglobin 28.1 L Mean Corpuscular Hemoglobin Concent 29.0 L Red Cell Distribution Width 18.0 H Platelet Count 116 L Mean Platelet Volume 11.3 H Neutrophils % 60.9 Lymphocytes % 25.7 Monocytes % 8.7 Eosinophils % 3.1 Basophils % 0.7 Nucleated Red Blood Cells % 0.0 Neutrophils # 4.1 Lymphocytes # 1.7 Monocytes # 0.6 Eosinophils # 0.2 Basophils # 0.1 Nucleated Red Blood Cells # 0.0 Sodium Level 136 Potassium Level 4.1 Chloride Level 98 Carbon Dioxide Level 32 H Anion Gap 10 Blood Urea Nitrogen 21 H Creatinine 0.77 Glucose Level 208 Hemoglobin A1c 6.1 H Calcium Level 8.8 Phosphorus Level 3.7 Magnesium Level 2.1 Test 07/16/16 11:57 07/16/16 16:00 07/16/16 17:10 Bedside Glucose 330 H 193 Urine Color LT. YELLOW Urine Clarity CLOUDY Urine pH 7.5 Urine Specific [place] 1.010 Urine Ketones NEGATIVE Urine Nitrite NEGATIVE Urine Bilirubin NEGATIVE Urine Urobilinogen 0.2 E.U./dL Urine Leukocyte Esterase 2+ H Urine Microscopic RBC NONE SEEN Urine Microscopic WBC 25-50 Urine Squamous Epithelial Cells MANY Urine Bacteria FEW Urine Yeast RARE Urine Hemoglobin NEGATIVE Urine Glucose NEGATIVE Urine Total Protein NEGATIVE Medications Medications Current Medications Ondansetron HCl (Zofran Inj) 4 mg Q6H PRN IV NAUSEA AND/OR VOMITING Last administered on 07/14/16 15:34; Admin Dose 4 MG; Start 07/12/16 at 01:00 Acetaminophen (Tylenol Tab) 650 mg Q6H PRN PO PAIN LEVEL 1-3 OR FEVER Last administered on 07/12/16 22:06; Admin Dose 650 MG; Start 07/12/16 at 01:00 Acetaminophen/ Hydrocodone Bitart ([place] (5/325)) 1 tab Q6H PRN PO MODERATE PAIN LEVEL 4-6 Last administered on 07/16/16 14:24; Admin Dose 1 TAB; Start at 01:00 Hydromorphone HCl (Dilaudid) 0.5 mg Q4H PRN IV SEVERE PAIN LEVEL 7-10 Last administered on 07/16/16 16:12; Admin Dose 0.5 MG; Start 07/12/16 at 01:00 Docusate Sodium (Colace) 100 mg Q12H PRN PO CONSTIPATION; Start 07/12/16 at 01: 00 Magnesium Hydroxide (Milk Of Mag) 30 ml DAILY PRN PO CONSTIPATION; Start at 01:00 Zolpidem Tartrate (Ambien) 5 mg QHS PRN PO SLEEP; Start 07/12/16 at 01:00 Pantoprazole 40 mg 40 mg DAILY@06 PO Last administered on 07/16/16 05:16; Admin Dose 40 MG; Start 07/12/16 at 06:00 Imipenem/ Cilastatin Sodium (Primaxin 500 Mg/ 100 ml (Pmx)) 100 ml @ 100 mls/ hr Q6 IV Last administered on 07/16/16 17:04; Admin Dose 100 MLS/HR; Start at 01:00 Ascorbic Acid (Vitamin C) 250 mg DAILY PO Last administered on 07/16/16 08:15; Admin Dose 250 MG; Start 07/12/16 at 09:00 Bisacodyl (Dulcolax Supp) 10 mg Q24H PRN [place] CONSTIPATION; Start 07/12/16 at 01: 00 Docusate Sodium (Colace) 100 mg BID PO Last administered on 07/16/16 08:16; Admin Dose 100 MG; Start 07/12/16 at 09:00 Duloxetine HCl (Cymbalta) 30 mg DAILY PO Last administered on 07/16/16 08:15; Admin Dose 30 MG; Start 07/12/16 at 09:00 Hydromorphone HCl (Dilaudid) 6 mg QID@00,05,11,17 PO Last administered on 17:04; Admin Dose 6 MG; Start 07/12/16 at 05:00 Magnesium Oxide (Mag-Ox 400) 400 mg BID PO Last administered on 07/16/16 08:15 ; Admin Dose 400 MG; Start 07/12/16 at 09:00 Methadone HCl (Methadone) 10 mg QID@00,08,14,20 PO Last administered on 13:55; Admin Dose 10 MG; Start 07/12/16 at 08:00 Multivitamins Therapeutic (Theragran) 1 tab DAILY PO Last administered on 08:15; Admin Dose 1 TAB; Start 07/12/16 at 09:00 Pyridoxine HCl (Vitamin B6) 100 mg Q8 PO Last administered on 07/16/16 13:55; Admin Dose 100 MG; Start 07/12/16 at 06:00 Saccharomyces Boulardii (Florastor) 250 mg BID PO Last administered on 08:15; Admin Dose 250 MG; Start 07/12/16 at 09:00 Senna (Senokot) 1 tab BID PO Last administered on 07/16/16 08:16; Admin Dose 1 TAB; Start 07/12/16 at 09:00 Tamsulosin HCl (Flomax) 0.4 mg HS PO Last administered on 07/15/16 21:59; Admin Dose 0.4 MG; Start 07/12/16 at 21:00 Zinc Sulfate (Zinc Sulfate) 220 mg DAILY PO Last administered on 07/16/16 08:16 ; Admin Dose 220 MG; Start 07/12/16 at 09:00 Guaifenesin (Mucinex) 600 mg BID PO Last administered on 07/16/16 08:16; Admin Dose 600 MG; Start 07/12/16 at 21:00 Guaifenesin/ Dextromethorphan (Robitussin Dm Liquid Cup) 10 ml Q4H PRN PO cough , Last administered on 07/15/16 09:36; Admin Dose 10 ML; Start 07/12/16 at 18: 30 Furosemide (Lasix) 40 mg DAILY PO Last administered on 07/16/16 08:16; Admin Dose 40 MG; Start 07/13/16 at 09:00 Potassium Chloride (Klor-Con 20) 20 meq DAILY PO Last administered on 07/16/16 08:21; Admin Dose 20 MEQ; Start 07/13/16 at 09:00 Fluconazole (Diflucan) 100 mg DAILY PO Last administered on 07/16/16 08:15; Admin Dose 100 MG; Start 07/13/16 at 15:30 Betamethasone/ Clotrimazole (Lotrisone Cr) 1 applic BID TOP Last administered on 07/16/16 08:30; Admin Dose 1 APPLIC; Start 07/13/16 at 21:00 Diagnostic Test (Pha) (Accu-Chek) 1 ea 02 XX ; Start 07/16/16 at 02:00 Miscellaneous Information 1 ea NOTE XX ; Start 07/15/16 at 15:00 Glucose (Glutose) 15 gm Q15M PRN PO DECREASED GLUCOSE; Start 07/15/16 at 15:00 Glucose (Glutose) 22.5 gm Q15M PRN PO DECREASED GLUCOSE; Start 07/15/16 at 15:00 Dextrose (D50w Syringe) 25 ml Q15M PRN IV DECREASED GLUCOSE; Start 07/15/16 at 15:00 Dextrose (D50w Syringe) 50 ml Q15M PRN IV DECREASED GLUCOSE; Start 07/15/16 at 15:00 Glucagon (Glucagen) 1 mg Q15M PRN IM DECREASED GLUCOSE; Start 07/15/16 at 15:00 Glucose (Glutose) 15 gm Q15M PRN BUCCAL DECREASED GLUCOSE; Start 07/15/16 at 15: 00 Diagnostic Test (Pha) (Accu-Chek) 1 ea 02 XX ; Start 07/16/16 at 02:00 Miscellaneous Information 1 ea NOTE XX ; Start 07/15/16 at 22:00 Glucose (Glutose) 15 gm Q15M PRN PO DECREASED GLUCOSE; Start 07/15/16 at 22:00 Glucose (Glutose) 22.5 gm Q15M PRN PO DECREASED GLUCOSE; Start 07/15/16 at 22:00 Dextrose (D50w Syringe) 25 ml Q15M PRN IV DECREASED GLUCOSE; Start 07/15/16 at 22:00 Dextrose (D50w Syringe) 50 ml Q15M PRN IV DECREASED GLUCOSE; Start 07/15/16 at 22:00 Glucagon (Glucagen) 1 mg Q15M PRN IM DECREASED GLUCOSE; Start 07/15/16 at 22:00 Glucose (Glutose) 15 gm Q15M PRN BUCCAL DECREASED GLUCOSE; Start 07/15/16 at 22: 00 Insulin Glargine (Lantus) 6 unit DAILY@08 SC Last administered on 07/16/16t 08: 18; Admin Dose 6 UNIT; Start 07/16/16 at 08:00 GIOVANNA ESCUDERO NP Jul 16, 2016 17:48
[2016-07-16 19:45] VITALS: BP 142/65; RESP 18
[2016-07-16] MEDS: TAMSULOSIN (SR) 0.4 MG CAP PO SCH (20:11)
[2016-07-16 23:28] VITALS: BP 125/58; RESP 18
[2016-07-17] MEDS: METHADONE 10 MG TAB PO SCH ×5 (00:06→20:02)
[2016-07-17] MEDS: IMIPENEM-CILAST 500MG IV (PMX) 100 ML IV SCH ×4 (00:06→17:50)
[2016-07-17] MEDS: HYDROmorphONE 2 MG TAB PO SCH ×4 (00:07→17:32)
[2016-07-17] MEDS: ACCU-CHEK XX SCH ×2 (02:00)
[2016-07-17] MEDS: HYDROmorphONE 1 MG/ML SYG IV PRN ×4 (02:41→20:56)
[2016-07-17] MEDS: PANTOPRAZOLE (EC) 40 MG TAB PO SCH (05:20)
[2016-07-17] MEDS: PYRIDOXINE 50 MG TAB PO SCH ×3 (05:20→22:32)
[2016-07-17 07:33] VITALS: BP 141/74; RESP 18
[2016-07-17] MEDS: ALBUTEROL/IPRATROPIUM (NEB) 3 ML AMP HHN SCH ×3 (08:00→20:00)
[2016-07-17] MEDS: BETAMETHASONE/CLOTRIMAZOLE 15 GM CR TOP SCH ×2 (09:00→21:04)
[2016-07-17] MEDS: INSULIN ASPART [NOVOLOG] 3 ML PEN SC SCH ×6 (09:05→20:11)
[2016-07-17] MEDS: INSULIN GLARGINE [LANtus] 3 ML PEN SC SCH (09:07)
[2016-07-17] MEDS: MULTIVITAMINS THERAPEUTIC TAB PO SCH (09:12)
[2016-07-17] MEDS: SENNA TAB PO SCH ×2 (09:12→20:02)
[2016-07-17] MEDS: SACCHAROMYCES BOULARDII 250 MG CAP PO SCH ×2 (09:12→21:56)
[2016-07-17] MEDS: ASCORBIC ACID 250 MG TAB PO SCH (09:12)
[2016-07-17] MEDS: ZINC SULFATE 220 MG CAP PO SCH (09:12)
[2016-07-17] MEDS: DOCUSATE SODIUM 100 MG CAP PO SCH ×2 (09:33→20:02)
[2016-07-17] MEDS: GUAIFENESIN LA 600 MG TABSR PO SCH ×2 (09:33→21:56)
[2016-07-17] MEDS: DULOXETINE 30 MG CAP DR PO SCH (09:33)
[2016-07-17] MEDS: POTASSIUM CHLORIDE (SR) 20 MEQ TAB PO SCH (09:34)
[2016-07-17] MEDS: FLUCONAZOLE 100 MG TAB PO SCH (09:34)
[2016-07-17] MEDS: MAGNESIUM OXIDE 400 MG TAB PO SCH ×2 (09:34→20:02)
[2016-07-17] MEDS: FUROSEMIDE 40 MG TAB PO SCH (09:34)
[2016-07-17] MEDS: ONDANSETRON 4 MG INJ IV PRN (09:35)
[2016-07-17 11:36] LABS: ADD SCAN DIFF NO
[2016-07-17 11:43] LABS: BASOPHIL # 0.1 10^3/ul (0.0-0.1); BASOPHILS % 0.9 % (0.0-2.0); EOSINOPHILS # 0.2 10^3/ul (0.0-0.5); EOSINOPHILS % 2.6 % (0.0-7.0); HEMATOCRIT 37.8 % (37.0-47.0); HEMOGLOBIN 11.2 g/dl (12.0-16.0); LYMPHOCYTES # 1.8 10^3/ul (0.8-2.9); LYMPHOCYTES % 22.6 % (15.0-51.0); MEAN CORPUSCULAR HEMOGLOBIN 28.6 pg (29.0-33.0); MEAN CORPUSCULAR HGB CONC 29.6 g/dl (32.0-37.0); MEAN CORPUSCULAR VOLUME 96.7 fl (82.0-101.0); MONOCYTE # 0.6 10^3/ul (0.3-0.9); MONOCYTES % 7.2 % (0.0-11.0); NEUTROPHIL # 5.3 10^3/ul (1.6-7.5); PLATELET COUNT 117 10^3/UL (140-415); RED BLOOD COUNT 3.91 10^6/ul (4.20-5.40); WHITE BLOOD COUNT 8.1 10^3/ul (4.8-10.8)
[2016-07-17 11:51] LABS: MAGNESIUM 2.2 mg/dl (1.7-2.5); PHOSPHORUS 4.4 mg/dl (2.5-4.9)
[2016-07-17 11:59] LABS: POTASSIUM 4.5 mmol/L (3.5-5.1)
[2016-07-17 12:01] LABS: CREATININE 0.71 mg/dl (0.44-1.00)
[2016-07-17 12:02] LABS: CALCIUM 8.7 mg/dl (8.4-10.2)
--- NOTE | 2016-07-17 14:21 | CONS ---
Date/Time of Note Date/Time of Note DATE: 07/17/16 TIME: 14:21 Assessment/Plan Assessment/Plan Chief Complaint/Hosp Course SUBJECTIVE: no fevers, nad MICROBIOLOGY: Urine culture growing E coli ESBL. Blood culture negative. ANTIMICROBIALS: The patient is on: 1. Oral fluconazole. 2. IV imipenem. PHYSICAL EXAMINATION: GENERAL: This is a morbidly obese, well-developed, chronically ill-appearing, elderly woman who is awake, in no distress. HEENT: Head atraumatic, normocephalic. Sclerae anicteric. Buccal mucosa dry. NECK: Supple, trachea midline. CHEST: Rise symmetrical. Breath sounds diminished to bases. HEART: S1, S2. ABDOMEN: Soft. Bowel sounds present. ASSESSMENT: 1. S/p sepsis secondary to recurrent urinary tract infection. 2. Chronic pain syndrome. 3. Chronic obstructive pulmonary disease. 4. Coronary artery disease, status post permanent pacemaker. 5. BLE chronic venous stasis. 6. ALLERGY TO MACROBID AND ZOSYN. 7. Vaginal candidiasis/chronic vaginal pain PLAN: Remains stable, pending repeat urine cx per son's request, continue abx for 6 more days DW pt/son Problems: Consultation Date/Type/Reason Admit Date/Time Jul 12, 2016 at 00:40 Type of Consultation: id Exam/Review of Systems Vital Signs Vitals Vital Signs Date Time Temp Pulse Resp B/P Pulse Ox O2 Delivery O2 Flow Rate FiO2 07/17/16 08:00 Nasal Cannula 2.0 07/17/16 07:33 98.9 88 18 141/74 93 07/13/16 14:43 21 Intake and Output 07/16/16 07/16/16 07/17/16 15:00 23:00 07:00 Intake Total 100 ml 1160 ml 1220 ml Balance 100 ml 1160 ml 1220 ml Results Result Diagram: 07/17/16 1125 07/17/16 1125 Results 24 hrs Laboratory Tests Test 07/16/16 16:00 07/16/16 17:10 07/16/16 19:40 07/17/16 02:26 Urine Color LT. YELLOW Urine Clarity CLOUDY Urine pH 7.5 Urine Specific [place] 1.010 Urine Ketones NEGATIVE Urine Nitrite NEGATIVE Urine Bilirubin NEGATIVE Urine Urobilinogen 0.2 E.U./dL Urine Leukocyte Esterase 2+ H Urine Microscopic RBC NONE SEEN Urine Microscopic WBC 25-50 Urine Squamous Epithelial Cells MANY Urine Bacteria FEW Urine Yeast RARE Urine Hemoglobin NEGATIVE Urine Glucose NEGATIVE Urine Total Protein NEGATIVE Bedside Glucose 193 254 H 235 H Test 07/17/16 07:59 07/17/16 11:25 07/17/16 11:55 Bedside Glucose 198 248 H White Blood Count 8.1 # Red Blood Count 3.91 L Hemoglobin 11.2 L Hematocrit 37.8 Mean Corpuscular Volume 96.7 Mean Corpuscular Hemoglobin 28.6 L Mean Corpuscular Hemoglobin Concent 29.6 L Red Cell Distribution Width 18.0 H Platelet Count 117 L Mean Platelet Volume 11.0 H Neutrophils % 66.0 Lymphocytes % 22.6 Monocytes % 7.2 Eosinophils % 2.6 Basophils % 0.9 Nucleated Red Blood Cells % 0.0 Neutrophils # 5.3 Lymphocytes # 1.8 Monocytes # 0.6 Eosinophils # 0.2 Basophils # 0.1 Nucleated Red Blood Cells # 0.0 Sodium Level 138 Potassium Level 4.5 Chloride Level 93 L Carbon Dioxide Level 30 Anion Gap 20 #H Blood Urea Nitrogen 20 Creatinine 0.71 Glucose Level 260 H Calcium Level 8.7 Phosphorus Level 4.4 Magnesium Level 2.2 Medications Medications Current Medications Ondansetron HCl (Zofran Inj) 4 mg Q6H PRN IV NAUSEA AND/OR VOMITING Last administered on 07/17/16 09:35; Admin Dose 4 MG; Start 07/12/16 at 01:00 Acetaminophen (Tylenol Tab) 650 mg Q6H PRN PO PAIN LEVEL 1-3 OR FEVER Last administered on 07/12/16 22:06; Admin Dose 650 MG; Start 07/12/16 at 01:00 Acetaminophen/ Hydrocodone Bitart ([place] (5/325)) 1 tab Q6H PRN PO MODERATE PAIN LEVEL 4-6 Last administered on 07/16/16 21:06; Admin Dose 1 TAB; Start at 01:00 Hydromorphone HCl (Dilaudid) 0.5 mg Q4H PRN IV SEVERE PAIN LEVEL 7-10 Last administered on 07/17/16 08:01; Admin Dose 0.5 MG; Start 07/12/16 at 01:00 Docusate Sodium (Colace) 100 mg Q12H PRN PO CONSTIPATION; Start 07/12/16 at 01: 00 Magnesium Hydroxide (Milk Of Mag) 30 ml DAILY PRN PO CONSTIPATION; Start at 01:00 Zolpidem Tartrate (Ambien) 5 mg QHS PRN PO SLEEP; Start 07/12/16 at 01:00 Pantoprazole 40 mg 40 mg DAILY@06 PO Last administered on 07/17/16 05:20; Admin Dose 40 MG; Start 07/12/16 at 06:00 Imipenem/ Cilastatin Sodium (Primaxin 500 Mg/ 100 ml (Pmx)) 100 ml @ 100 mls/ hr Q6 IV Last administered on 07/17/16 11:11; Admin Dose 100 MLS/HR; Start at 01:00 Ascorbic Acid (Vitamin C) 250 mg DAILY PO Last administered on 07/17/16 09:12; Admin Dose 250 MG; Start 07/12/16 at 09:00 Bisacodyl (Dulcolax Supp) 10 mg Q24H PRN [place] CONSTIPATION; Start 07/12/16 at 01: 00 Docusate Sodium (Colace) 100 mg BID PO Last administered on 07/17/16 09:33; Admin Dose 100 MG; Start 07/12/16 at 09:00 Duloxetine HCl (Cymbalta) 30 mg DAILY PO Last administered on 07/17/16 09:33; Admin Dose 30 MG; Start 07/12/16 at 09:00 Hydromorphone HCl (Dilaudid) 6 mg QID@00,05,11,17 PO Last administered on 11:11; Admin Dose 6 MG; Start 07/12/16 at 05:00 Magnesium Oxide (Mag-Ox 400) 400 mg BID PO Last administered on 07/17/16 09:34 ; Admin Dose 400 MG; Start 07/12/16 at 09:00 Methadone HCl (Methadone) 10 mg QID@00,08,14,20 PO Last administered on 09:04; Admin Dose 10 MG; Start 07/12/16 at 08:00 Multivitamins Therapeutic (Theragran) 1 tab DAILY PO Last administered on 09:12; Admin Dose 1 TAB; Start 07/12/16 at 09:00 Pyridoxine HCl (Vitamin B6) 100 mg Q8 PO Last administered on 07/17/16 05:20; Admin Dose 100 MG; Start 07/12/16 at 06:00 Saccharomyces Boulardii (Florastor) 250 mg BID PO Last administered on 09:12; Admin Dose 250 MG; Start 07/12/16 at 09:00 Senna (Senokot) 1 tab BID PO Last administered on 07/17/16 09:12; Admin Dose 1 TAB; Start 07/12/16 at 09:00 Tamsulosin HCl (Flomax) 0.4 mg HS PO Last administered on 07/16/16 20:11; Admin Dose 0.4 MG; Start 07/12/16 at 21:00 Zinc Sulfate (Zinc Sulfate) 220 mg DAILY PO Last administered on 07/17/16 09:12 ; Admin Dose 220 MG; Start 07/12/16 at 09:00 Guaifenesin (Mucinex) 600 mg BID PO Last administered on 07/17/16 09:33; Admin Dose 600 MG; Start 07/12/16 at 21:00 Guaifenesin/ Dextromethorphan (Robitussin Dm Liquid Cup) 10 ml Q4H PRN PO cough , Last administered on 07/15/16 09:36; Admin Dose 10 ML; Start 07/12/16 at 18: 30 Furosemide (Lasix) 40 mg DAILY PO Last administered on 07/17/16 09:34; Admin Dose 40 MG; Start 07/13/16 at 09:00 Potassium Chloride (Klor-Con 20) 20 meq DAILY PO Last administered on 07/17/16 09:34; Admin Dose 20 MEQ; Start 07/13/16 at 09:00 Fluconazole (Diflucan) 100 mg DAILY PO Last administered on 07/17/16 09:34; Admin Dose 100 MG; Start 07/13/16 at 15:30 Betamethasone/ Clotrimazole (Lotrisone Cr) 1 applic BID TOP Last administered on 07/16/16 21:07; Admin Dose 1 APPLIC; Start 07/13/16 at 21:00 Diagnostic Test (Pha) (Accu-Chek) 1 ea 02 XX ; Start 07/16/16 at 02:00 Miscellaneous Information 1 ea NOTE XX ; Start 07/15/16 at 15:00 Glucose (Glutose) 15 gm Q15M PRN PO DECREASED GLUCOSE; Start 07/15/16 at 15:00 Glucose (Glutose) 22.5 gm Q15M PRN PO DECREASED GLUCOSE; Start 07/15/16 at 15:00 Dextrose (D50w Syringe) 25 ml Q15M PRN IV DECREASED GLUCOSE; Start 07/15/16 at 15:00 Dextrose (D50w Syringe) 50 ml Q15M PRN IV DECREASED GLUCOSE; Start 07/15/16 at 15:00 Glucagon (Glucagen) 1 mg Q15M PRN IM DECREASED GLUCOSE; Start 07/15/16 at 15:00 Glucose (Glutose) 15 gm Q15M PRN BUCCAL DECREASED GLUCOSE; Start 07/15/16 at 15: 00 Diagnostic Test (Pha) (Accu-Chek) 1 ea 02 XX ; Start 07/16/16 at 02:00 Miscellaneous Information 1 ea NOTE XX ; Start 07/15/16 at 22:00 Glucose (Glutose) 15 gm Q15M PRN PO DECREASED GLUCOSE; Start 07/15/16 at 22:00 Glucose (Glutose) 22.5 gm Q15M PRN PO DECREASED GLUCOSE; Start 07/15/16 at 22:00 Dextrose (D50w Syringe) 25 ml Q15M PRN IV DECREASED GLUCOSE; Start 07/15/16 at 22:00 Dextrose (D50w Syringe) 50 ml Q15M PRN IV DECREASED GLUCOSE; Start 07/15/16 at 22:00 Glucagon (Glucagen) 1 mg Q15M PRN IM DECREASED GLUCOSE; Start 07/15/16 at 22:00 Glucose (Glutose) 15 gm Q15M PRN BUCCAL DECREASED GLUCOSE; Start 07/15/16 at 22: 00 Insulin Glargine (Lantus) 10 unit DAILY@08 SC ; Start 07/18/16 at 08:00 GIOVANNA ESCUDERO NP Jul 17, 2016 14:21
[2016-07-17] MEDS: LIDOCAINE 2% JELLY 5 ML TOP SCH (16:30)
[2016-07-17] MEDS ORDERED: SOD CHLORIDE 0.9% 500 ML IV ONE (16:30)
[2016-07-17] MEDS: RIVAROXABAN 20 MG TABLET PO SCH (17:50)
[2016-07-17] MEDS ORDERED: AMIKACIN IV PER PHARMACY XX SCH (18:00)
--- NOTE | 2016-07-17 19:35 | PN ---
DATE: 07/17/2016 SUBJECTIVE: I received a call earlier, that this patient has change in condition. This patient is more lethargic. I came immediately to see the patient. Basically, the patient is alert, she is ans wering questions appropriately. The son is demanding us to add more antibiotics, despite adequate t reatment she is receiving right now with imipenem for a urinary tract infection. The patient is com plaining of urethral pain, a severe, burning stabbing type of pain. The patient's sugar levels up t o the 200s. In addition, the patient does not have urinary retention, and the bladder scan shows ab out 40 mL of urine. Case discussed with both the patient's nurse and charge nurse, as we are trying to assist the patient, and discussed this with the son and addressed his concerns. I have also inf ormed the above to , nurse practitioner for Dr. Milan, infectious disease. PHYSICAL EXAMINATION: VITAL SIGNS: Temperature 98.9, T-max 99, pulse 88, respirations 18, blood pressure 141/74, saturati on 93% on 2 liters. GENERAL: The patient is in no acute distress, slightly pale. CARDIOVASCULAR: S1 and S2, regular rate. LUNGS: Clear. ABDOMEN: Soft, nontender. I examined the patient with the nurse present. No significant redness a t the pelvic area. There are multiple folds. She did not allow us to examine her further. Just op ening her legs causes severe pain. This is not the first time she has been experiencing that; on pr evious admission, she experienced that, and she was seen by Dr. Carney, the urologist. LABS: White count 8.1, hemoglobin 11.2, hematocrit 38, platelet count 170, neutrophils 66%, lymphoc ytes 23%. Sodium 138, potassium 4.5, chloride 93, bicarbonate 30, BUN is 20, creatinine 0.71, gluco se of 260. MEDICATIONS: Include: 1. Lantus 10 units daily. 2. I increased the dose insulin aspart, and I started that today, 6 units before meals. 3. Accu-Chek before meals and at bedtime. 4. Insulin aspart per sliding scale, hypoglycemia protocol. 5. Lotrisone cream b.i.d. 6. Diflucan 100 mg daily. 7. Lasix 40 mg daily. 8. KCl 20 mEq daily. 9. Flomax 0.4 at bedtime. 10. Mucinex 600 b.i.d. 11. DuoNeb q.6 hours. 10. Robitussin q.6 hours p.r.n. 11. Xarelto 20 mg with dinner. 12. DuoNeb p.r.n. 13. Vitamin C 250 daily. 14. Colace 100 b.i.d. 15. Cymbalta 30 mg daily. 16. Mag oxide 400 b.i.d. 17. Multivitamin 1 tablet daily. 18. Florastor 250 b.i.d. 19. Senna 1 tab b.i.d. 20. Zinc sulfate 220 daily. 21. Methadone 10 mg q.i.d. 22. Protonix 20 grams daily. 23. Vitamin B6 100 q.8 hours. 24. Dilaudid 6 mg 4 times daily orally. 25. Zofran p.r.n. 26. Tylenol p.r.n. 27. [place] p.r.n. 28. Dilaudid p.r.n. 29. magnesia p.r.n. 30. Ambien p.r.n. 31. Imipenem 500 q. hours. 32. Dulcolax p.r.n. ASSESSMENT AND PLAN: This is a 71-year-old female with history of chronic obstructive pul monary disease, O2 dependent, recurrent urinary tract infection, presented with extended spectrum be ta lactamase, Escherichia coli sepsis. PLAN: 1. Positive ESBL. Repeat UA does show improvement. WBC went down in the urine, and repeat urine c ulture is negative. We will continue with imipenem. 2. Urethral pain. Will add Desitin cream for diaper rash, possible Lidocaine cream to assist with the pain. As the patient is already on Diflucan, may consider adding Flagyl for vaginitis. May con security tech consulting Urology again 3. Continue deep vein thrombosis prophylaxis, as the patient is on Xarelto. Continue gastrointesti nal prophylaxis with Protonix. 4. Constipation. Continue stool softeners. 5. Depression, on Cymbalta. 6. Hyperglycemia and increasing hemoglobin. Maybe she is hemoconcentrated. We will hydrate her on slightly today, as there is no evidence of fluid overload state. 7. Hyperglycemia. Hemoglobin A1c 61, but likely the above high infection and hospital stress is ca using hyperglycemia. Again, we will follow closely. Dictated By: EDDY TIAN/ANNA Conf#: [id number] DID#: [id number]
[2016-07-17 19:48] VITALS: BP 110/55; RESP 18
[2016-07-17] MEDS: TAMSULOSIN (SR) 0.4 MG CAP PO SCH (20:02)
[2016-07-17] MEDS: AMIKACIN 1,000 MG in SOD CHLORIDE 0.9% 100 ML IVPB SCH (20:57)
[2016-07-17] MEDS: metroNIDAZOLE 500 MG TAB PO SCH (20:57)
[2016-07-17] MEDS: ACETAMINOPHEN 325 MG TAB PO PRN (22:32)
[2016-07-18] MEDS: HYDROmorphONE 2 MG TAB PO SCH ×5 (00:01→23:58)
[2016-07-18] MEDS: METHADONE 10 MG TAB PO SCH ×5 (00:01→23:58)
[2016-07-18] MEDS: HYDROCODONE/APAP (5/325) TAB PO PRN ×3 (02:05→20:10)
[2016-07-18] MEDS: ACCU-CHEK XX SCH ×2 (02:09)
[2016-07-18] MEDS: IMIPENEM-CILAST 500MG IV (PMX) 100 ML IV SCH ×4 (05:06→17:41)
[2016-07-18] MEDS: PYRIDOXINE 50 MG TAB PO SCH ×3 (05:06→22:00)
[2016-07-18] MEDS: PANTOPRAZOLE (EC) 40 MG TAB PO SCH (05:06)
[2016-07-18] MEDS: HYDROmorphONE 1 MG/ML SYG IV PRN ×3 (06:16→20:49)
[2016-07-18] MEDS: ACETAMINOPHEN 325 MG TAB PO PRN (07:28)
[2016-07-18] MEDS ORDERED: INSULIN GLARGINE [LANtus] 3 ML PEN SC SCH (08:00)
[2016-07-18] MEDS: ALBUTEROL/IPRATROPIUM (NEB) 3 ML AMP HHN SCH ×3 (08:02→21:03)
[2016-07-18 08:23] VITALS: BP 113/53; RESP 20
[2016-07-18] MEDS: LIDOCAINE 2% JELLY 5 ML TOP SCH (09:00)
[2016-07-18] MEDS: DULOXETINE 30 MG CAP DR PO SCH (09:10)
[2016-07-18] MEDS: FLUCONAZOLE 100 MG TAB PO SCH (09:10)
[2016-07-18] MEDS: POTASSIUM CHLORIDE (SR) 20 MEQ TAB PO SCH (09:11)
[2016-07-18] MEDS: DOCUSATE SODIUM 100 MG CAP PO SCH ×2 (09:11→20:55)
[2016-07-18] MEDS: metroNIDAZOLE 500 MG TAB PO SCH ×2 (09:11→20:53)
[2016-07-18] MEDS: FUROSEMIDE 40 MG TAB PO SCH (09:11)
[2016-07-18 09:26] LABS: ADD SCAN DIFF NO
[2016-07-18 09:32] LABS: BASOPHIL # 0.1 10^3/ul (0.0-0.1); BASOPHILS % 0.7 % (0.0-2.0); EOSINOPHILS # 0.1 10^3/ul (0.0-0.5); EOSINOPHILS % 1.8 % (0.0-7.0); HEMATOCRIT 33.5 % (37.0-47.0); HEMOGLOBIN 10.2 g/dl (12.0-16.0); LYMPHOCYTES # 2.6 10^3/ul (0.8-2.9); LYMPHOCYTES % 33.5 % (15.0-51.0); MEAN CORPUSCULAR HEMOGLOBIN 29.4 pg (29.0-33.0); MEAN CORPUSCULAR HGB CONC 30.4 g/dl (32.0-37.0); MEAN CORPUSCULAR VOLUME 96.5 fl (82.0-101.0); MEAN PLATELET VOLUME 10.4 fl (7.4-10.4); MONOCYTE # 0.6 10^3/ul (0.3-0.9); MONOCYTES % 7.7 % (0.0-11.0); NEUTROPHIL # 4.3 10^3/ul (1.6-7.5); NEUTROPHILS % 55.5 % (39.0-77.0); PLATELET COUNT 132 10^3/UL (140-415); RED BLOOD COUNT 3.47 10^6/ul (4.20-5.40); RED CELL DISTRIBUTION WIDTH 17.6 % (11.5-14.5); WHITE BLOOD COUNT 7.7 10^3/ul (4.8-10.8)
[2016-07-18] MEDS: INSULIN ASPART [NOVOLOG] 3 ML PEN SC SCH ×7 (09:34→21:00)
[2016-07-18 09:46] LABS: ALBUMIN 3.4 g/dl (3.3-4.9)
[2016-07-18 09:47] LABS: POTASSIUM 3.7 mmol/L (3.5-5.1)
[2016-07-18 09:49] LABS: BILIRUBIN,INDIRECT 0.1 mg/dl (0-1.1); BILIRUBIN,TOTAL 0.1 mg/dl (0.2-1.3); CREATININE 0.8 mg/dl (0.44-1.00); MAGNESIUM 2.3 mg/dl (1.7-2.5); PHOSPHORUS 4.8 mg/dl (2.5-4.9)
[2016-07-18 09:50] LABS: ALBUMIN/GLOBULIN RATIO 0.97; CALCIUM 8.6 mg/dl (8.4-10.2); TOTAL PROTEIN 6.9 g/dl (6.1-8.1)
--- NOTE | 2016-07-18 13:41 | PN ---
DATE: 07/18/2016 SUBJECTIVE: Patient is sleeping, status post multiple pain medications that she received this fabiana egan. She opens eyes, but falls asleep immediately. She is in no distress, no fevers. WBC today 7.7, no shift, no bands. BUN 22, creatinine 0.80. MICROBIOLOGY: Repeat urine culture on 07/16/2016 negative. ANTIMICROBIALS: The patient is on: 1. Flagyl. 2. Amikacin. 3. Imipenem. ALLERGIES: MACROBID AND ZOSYN. PHYSICAL EXAMINATION: GENERAL: This is a morbidly obese, chronically ill-appearing, elderly woman who is in no distress. HEENT: Head atraumatic, normocephalic. Sclerae anicteric. Buccal mucosa dry. NECK: Supple. CHEST: Rise symmetrical. Breath sounds diminished to bases. HEART: S1, S2. ABDOMEN: Soft, bowel tones present. EXTREMITIES: Bilateral lower extremities chronic venous stasis. ASSESSMENT: 1. Status post urinary tract infection. 2. Persistent vaginal pain and chronic pain syndrome. 3. Chronic opioid dependence. 4. Morbid obesity. 5. Chronic obstructive pulmonary disease. 6. Coronary artery disease with a history of permanent pacemaker placement. 7. Bilateral lower extremities, chronic venous stasis. 8. ALLERGIES TO MACROBID AND ZOSYN. PLAN: The patient remains clinically stable. Amikacin was started yesterday because the patient an d son complained that they do not get any response with imipenem. However, urine culture is negativ e. Recommend to complete antibiotics for a couple more days and then discontinue and observe her. Dictated By: GIOVANNA ESCUDERO SENIOR DATASTAGE DEVELOPER for SATYA QUIROZ/ANNA Conf#: [id number] DID#: [id number]
[2016-07-18] MEDS: RIVAROXABAN 20 MG TABLET PO SCH (17:38)
[2016-07-18] MEDS: SACCHAROMYCES BOULARDII 250 MG CAP PO SCH ×2 (17:39→20:52)
[2016-07-18] MEDS: ASCORBIC ACID 250 MG TAB PO SCH (17:39)
[2016-07-18] MEDS: MAGNESIUM OXIDE 400 MG TAB PO SCH ×2 (17:39→20:53)
[2016-07-18] MEDS: MULTIVITAMINS THERAPEUTIC TAB PO SCH (17:39)
[2016-07-18] MEDS: ZINC SULFATE 220 MG CAP PO SCH (17:39)
[2016-07-18] MEDS: GUAIFENESIN LA 600 MG TABSR PO SCH ×2 (17:39→20:53)
[2016-07-18] MEDS: SENNA TAB PO SCH ×2 (17:40→20:54)
[2016-07-18] MEDS: BETAMETHASONE/CLOTRIMAZOLE 15 GM CR TOP SCH (17:41)
[2016-07-18] MEDS ORDERED: BISACODYL (EC) 5 MG TAB PO ONE (18:00)
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
[2016-07-18 20:00] VITALS: BP 108/57; PULSE 84; RESP 23
[2016-07-18] MEDS: LUBIPROSTONE 24 MCG CAP PO SCH (20:48)
[2016-07-18] MEDS: TAMSULOSIN (SR) 0.4 MG CAP PO SCH (20:53)
[2016-07-18] MEDS: NYSTATIN 30 GM POWDER BTL TOP SCH (20:53)
[2016-07-18 21:00] VITALS: BP 108/57; RESP 23
[2016-07-19] MEDS: BETAMETHASONE/CLOTRIMAZOLE 15 GM CR TOP SCH ×3 (00:01→21:01)
[2016-07-19] MEDS: IMIPENEM-CILAST 500MG IV (PMX) 100 ML IV SCH ×3 (00:06→11:33)
[2016-07-19] MEDS: HYDROmorphONE 1 MG/ML SYG IV PRN ×5 (01:52→20:53)
[2016-07-19] MEDS: ACCU-CHEK XX SCH ×2 (02:00)
[2016-07-19] MEDS: HYDROCODONE/APAP (5/325) TAB PO PRN ×2 (03:59→22:21)
[2016-07-19] MEDS: HYDROmorphONE 2 MG TAB PO SCH ×3 (05:08→17:29)
[2016-07-19] MEDS: PANTOPRAZOLE (EC) 40 MG TAB PO SCH (05:08)
[2016-07-19 05:19] LABS: ADD SCAN DIFF NO
[2016-07-19] MEDS: PYRIDOXINE 50 MG TAB PO SCH ×4 (05:48→22:20)
[2016-07-19 05:49] LABS: BASOPHIL # 0.1 10^3/ul (0.0-0.1); BASOPHILS % 0.7 % (0.0-2.0); EOSINOPHILS # 0.2 10^3/ul (0.0-0.5); EOSINOPHILS % 1.5 % (0.0-7.0); HEMATOCRIT 36.6 % (37.0-47.0); HEMOGLOBIN 11.1 g/dl (12.0-16.0); LYMPHOCYTES % 16.6 % (15.0-51.0); MEAN CORPUSCULAR HEMOGLOBIN 29.3 pg (29.0-33.0); MEAN CORPUSCULAR HGB CONC 30.3 g/dl (32.0-37.0); MEAN CORPUSCULAR VOLUME 96.6 fl (82.0-101.0); MEAN PLATELET VOLUME 11.2 fl (7.4-10.4); MONOCYTE # 0.8 10^3/ul (0.3-0.9); NEUTROPHIL # 8.9 10^3/ul (1.6-7.5); NEUTROPHILS % 73.5 % (39.0-77.0); PLATELET COUNT 157 10^3/UL (140-415); RED BLOOD COUNT 3.79 10^6/ul (4.20-5.40); RED CELL DISTRIBUTION WIDTH 17.3 % (11.5-14.5); WHITE BLOOD COUNT 12.1 10^3/ul (4.8-10.8)
[2016-07-19 06:17] LABS: POTASSIUM 4.4 mmol/L (3.5-5.1)
[2016-07-19 06:19] LABS: CREATININE 0.76 mg/dl (0.44-1.00)
[2016-07-19 06:20] LABS: CALCIUM 9.3 mg/dl (8.4-10.2); PHOSPHORUS 4.3 mg/dl (2.5-4.9)
[2016-07-19 06:21] LABS: MAGNESIUM 2.3 mg/dl (1.7-2.5)
[2016-07-19] MEDS: ALBUTEROL/IPRATROPIUM (NEB) 3 ML AMP HHN SCH ×3 (08:00→20:00)
[2016-07-19 08:08] VITALS: BP 130/64; RESP 21
[2016-07-19] MEDS: AMIKACIN 1,000 MG in SOD CHLORIDE 0.9% 100 ML IVPB SCH (08:09)
[2016-07-19] MEDS: METHADONE 10 MG TAB PO SCH ×3 (08:10→20:18)
[2016-07-19] MEDS: DOCUSATE SODIUM 100 MG CAP PO SCH ×2 (08:11→20:55)
[2016-07-19] MEDS: GUAIFENESIN LA 600 MG TABSR PO SCH ×2 (08:11→22:20)
[2016-07-19] MEDS: MAGNESIUM OXIDE 400 MG TAB PO SCH ×2 (08:12→20:56)
[2016-07-19] MEDS: DULOXETINE 30 MG CAP DR PO SCH (08:12)
[2016-07-19] MEDS: metroNIDAZOLE 500 MG TAB PO SCH ×2 (08:13→20:56)
[2016-07-19] MEDS: POTASSIUM CHLORIDE (SR) 20 MEQ TAB PO SCH (08:13)
[2016-07-19] MEDS: FLUCONAZOLE 100 MG TAB PO SCH (08:13)
[2016-07-19] MEDS: FUROSEMIDE 40 MG TAB PO SCH (08:14)
[2016-07-19] MEDS: INSULIN GLARGINE [LANtus] 3 ML PEN SC SCH (08:15)
[2016-07-19] MEDS: INSULIN ASPART [NOVOLOG] 3 ML PEN SC SCH ×7 (08:16→21:00)
[2016-07-19] MEDS: LUBIPROSTONE 24 MCG CAP PO SCH ×2 (08:17→20:57)
[2016-07-19] MEDS: LIDOCAINE 2% JELLY 5 ML TOP SCH (09:00)
[2016-07-19] MEDS: ZINC SULFATE 220 MG CAP PO SCH (11:13)
[2016-07-19] MEDS: SACCHAROMYCES BOULARDII 250 MG CAP PO SCH ×2 (12:00→20:56)
[2016-07-19] MEDS: ONDANSETRON 4 MG INJ IV PRN (12:11)
[2016-07-19] MEDS: SENNA TAB PO SCH ×2 (14:15→20:56)
[2016-07-19] MEDS: MULTIVITAMINS THERAPEUTIC TAB PO SCH (14:15)
[2016-07-19] MEDS: ASCORBIC ACID 250 MG TAB PO SCH (14:15)
[2016-07-19] MEDS: NYSTATIN 30 GM POWDER BTL TOP SCH ×2 (14:41→21:00)
[2016-07-19] MEDS: RIVAROXABAN 20 MG TABLET PO SCH (17:29)
--- NOTE | 2016-07-19 18:25 | CONS ---
DATE OF ADMISSION: 07/12/2016 DATE OF CONSULTATION: 07/19/2016 SUBJECTIVE: Humaira Kelly is an unfortunate 71-year-old female who comes in with recurrent urin ishan tract infections. At this point in time, she had ESBL E. coli. On the , she was put on imi penem. The patient insisted that she was getting worse and I added amikacin to her regimen. At thi s point, her white count was 12.1, but all of her cultures are negative. OBJECTIVE: LUNGS: Clear to P and A. HEART: Without murmur or gallop. ABDOMEN: Soft, nontender without organosplenomegaly or masses. EXTREMITIES: Without cyanosis, clubbing, or edema. Her legs are wrapped. IMPRESSION AND PLAN: Stop all antibiotics at this point and she should be ready for discharge in e near future. I will dictate this to Dr. Londono. Dictated By: SATYA CAMPBELL MD, JD/ANNA Conf#: [id number] DID#: [id number] CC: EDDY LONDONO MD;*EndCC*
[2016-07-19] MEDS ORDERED: NA PHOSPHATE/BIPHOS 133 ML ENEMA PR ONE (18:30)
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
[2016-07-19] MEDS: TAMSULOSIN (SR) 0.4 MG CAP PO SCH (20:56)
[2016-07-19 21:17] VITALS: BP 122/59; RESP 16
[2016-07-19] MEDS: ACETAMINOPHEN 325 MG TAB PO PRN (23:04)
[2016-07-20] MEDS: METHADONE 10 MG TAB PO SCH ×3 (00:19→13:55)
[2016-07-20] MEDS: HYDROmorphONE 2 MG TAB PO SCH ×4 (00:19→17:32)
[2016-07-20] MEDS: ACCU-CHEK XX SCH (02:00)
[2016-07-20] MEDS: HYDROmorphONE 1 MG/ML SYG IV PRN ×3 (02:18→12:06)
[2016-07-20] MEDS: PANTOPRAZOLE (EC) 40 MG TAB PO SCH (05:19)
[2016-07-20] MEDS: PYRIDOXINE 50 MG TAB PO SCH ×2 (05:19→13:59)
[2016-07-20 07:20] VITALS: BP 113/60; RESP 18
[2016-07-20] MEDS: ALBUTEROL/IPRATROPIUM (NEB) 3 ML AMP HHN SCH ×2 (07:59→14:00)
[2016-07-20] MEDS: GUAIFENESIN LA 600 MG TABSR PO SCH (08:49)
[2016-07-20] MEDS: FUROSEMIDE 40 MG TAB PO SCH (08:50)
[2016-07-20] MEDS: DULOXETINE 30 MG CAP DR PO SCH (08:50)
[2016-07-20] MEDS: FLUCONAZOLE 100 MG TAB PO SCH (08:50)
[2016-07-20] MEDS: POTASSIUM CHLORIDE (SR) 20 MEQ TAB PO SCH (08:50)
[2016-07-20] MEDS: metroNIDAZOLE 500 MG TAB PO SCH (08:50)
[2016-07-20] MEDS: INSULIN GLARGINE [LANtus] 3 ML PEN SC SCH (08:55)
[2016-07-20] MEDS: INSULIN ASPART [NOVOLOG] 3 ML PEN SC SCH ×6 (08:56→17:41)
[2016-07-20] MEDS: LIDOCAINE 2% JELLY 5 ML TOP SCH (09:00)
[2016-07-20] MEDS: MULTIVITAMINS THERAPEUTIC TAB PO SCH (09:00)
[2016-07-20] MEDS: LUBIPROSTONE 24 MCG CAP PO SCH (09:00)
[2016-07-20] MEDS: MAGNESIUM OXIDE 400 MG TAB PO SCH (09:00)
[2016-07-20] MEDS: ZINC SULFATE 220 MG CAP PO SCH (09:00)
[2016-07-20] MEDS: SACCHAROMYCES BOULARDII 250 MG CAP PO SCH (09:00)
[2016-07-20] MEDS: DOCUSATE SODIUM 100 MG CAP PO SCH (09:00)
[2016-07-20] MEDS: ASCORBIC ACID 250 MG TAB PO SCH (09:00)
[2016-07-20] MEDS: SENNA TAB PO SCH (09:00)
[2016-07-20] MEDS: BETAMETHASONE/CLOTRIMAZOLE 15 GM CR TOP SCH (11:03)
[2016-07-20] MEDS: ONDANSETRON 4 MG INJ IV PRN (11:43)
[2016-07-20] MEDS: NYSTATIN 30 GM POWDER BTL TOP SCH (12:03)
[2016-07-20 14:21] LABS: ADD SCAN DIFF NO
[2016-07-20 14:23] LABS: BASOPHIL # 0.1 10^3/ul (0.0-0.1); BASOPHILS % 0.8 % (0.0-2.0); EOSINOPHILS # 0.2 10^3/ul (0.0-0.5); EOSINOPHILS % 1.9 % (0.0-7.0); HEMOGLOBIN 11.5 g/dl (12.0-16.0); LYMPHOCYTES # 2.8 10^3/ul (0.8-2.9); LYMPHOCYTES % 24.5 % (15.0-51.0); MEAN CORPUSCULAR HEMOGLOBIN 29.1 pg (29.0-33.0); MEAN CORPUSCULAR HGB CONC 30.3 g/dl (32.0-37.0); MEAN CORPUSCULAR VOLUME 96.2 fl (82.0-101.0); MEAN PLATELET VOLUME 10.7 fl (7.4-10.4); MONOCYTES % 9.1 % (0.0-11.0); NEUTROPHIL # 7.2 10^3/ul (1.6-7.5); NEUTROPHILS % 63.2 % (39.0-77.0); PLATELET COUNT 178 10^3/UL (140-415); RED BLOOD COUNT 3.95 10^6/ul (4.20-5.40); WHITE BLOOD COUNT 11.3 10^3/ul (4.8-10.8)
[2016-07-20 14:44] LABS: ALBUMIN 3.9 g/dl (3.3-4.9); ALBUMIN/GLOBULIN RATIO 0.95; BILIRUBIN,INDIRECT 0.1 mg/dl (0-1.1); BILIRUBIN,TOTAL 0.1 mg/dl (0.2-1.3); CREATININE 0.88 mg/dl (0.44-1.00); POTASSIUM 4.5 mmol/L (3.5-5.1)
[2016-07-20 14:45] LABS: MAGNESIUM 2.2 mg/dl (1.7-2.5); PHOSPHORUS 4.4 mg/dl (2.5-4.9)
--- NOTE | 2016-07-20 15:43 | CONS ---
Date/Time of Note Date/Time of Note DATE: 07/20/16 TIME: 15:42 Assessment/Plan Assessment/Plan Chief Complaint/Hosp Course SUBJECTIVE: No acute events, feels better PHYSICAL EXAMINATION: GENERAL: This is a morbidly obese, well-developed, chronically ill-appearing, elderly woman who is awake, in no distress. HEENT: Head atraumatic, normocephalic. Sclerae anicteric. Buccal mucosa dry. NECK: Supple, trachea midline. CHEST: Rise symmetrical. Breath sounds diminished to bases. HEART: S1, S2. ABDOMEN: Soft. Bowel sounds present. ASSESSMENT: 1. S/p sepsis secondary to recurrent urinary tract infection. 2. Chronic pain syndrome. 3. Chronic obstructive pulmonary disease. 4. Coronary artery disease, status post permanent pacemaker. 5. BLE chronic venous stasis. 6. ALLERGY TO MACROBID AND ZOSYN. 7. Vaginal candidiasis/chronic vaginal pain PLAN: Improving, repeat urine cx negative, s/p abx dc'd, now on Flagyl and Diflucan, pending dc DW son Problems: Consultation Date/Type/Reason Admit Date/Time Jul 12, 2016 at 00:40 Type of Consultation: id Exam/Review of Systems Vital Signs Vitals Vital Signs Date Time Temp Pulse Resp B/P Pulse Ox O2 Delivery O2 Flow Rate FiO2 07/20/16 14:03 Nasal Cannula 2.0 07/20/16 07:20 98.6 76 18 113/60 96 Intake and Output 07/19/16 07/19/16 07/20/16 15:00 23:00 07:00 Intake Total 104 ml 680 ml 440 ml Balance 104 ml 680 ml 440 ml Results Result Diagram: 07/20/16 1350 07/20/16 1350 Results 24 hrs Laboratory Tests Test 07/19/16 17:33 07/19/16 21:01 07/20/16 08:48 07/20/16 11:46 Bedside Glucose 164 148 224 H 160 Test 07/20/16 13:50 White Blood Count 11.3 H Red Blood Count 3.95 L Hemoglobin 11.5 L Hematocrit 38.0 Mean Corpuscular Volume 96.2 Mean Corpuscular Hemoglobin 29.1 Mean Corpuscular Hemoglobin Concent 30.3 L Red Cell Distribution Width 17.0 H Platelet Count 178 Mean Platelet Volume 10.7 H Neutrophils % 63.2 Lymphocytes % 24.5 Monocytes % 9.1 Eosinophils % 1.9 Basophils % 0.8 Nucleated Red Blood Cells % 0.0 Neutrophils # 7.2 Lymphocytes # 2.8 Monocytes # 1.0 H Eosinophils # 0.2 Basophils # 0.1 Nucleated Red Blood Cells # 0.0 Sodium Level 136 Potassium Level 4.5 Chloride Level 96 L Carbon Dioxide Level 32 H Anion Gap 13 Blood Urea Nitrogen 22 H Creatinine 0.88 Glucose Level 103 # Calcium Level 9.0 Phosphorus Level 4.4 Magnesium Level 2.2 Total Bilirubin 0.1 L Direct Bilirubin 0.00 Indirect Bilirubin 0.1 Aspartate Amino Transf (AST/SGOT) 33 Alanine Aminotransferase (ALT/SGPT) 22 Alkaline Phosphatase 137 H Total Protein 8.0 Albumin 3.9 Globulin 4.10 H Albumin/Globulin Ratio 0.95 Medications Medications Current Medications Ondansetron HCl (Zofran Inj) 4 mg Q6H PRN IV NAUSEA AND/OR VOMITING Last administered on 07/20/16 11:43; Admin Dose 4 MG; Start 07/12/16 at 01:00 Acetaminophen (Tylenol Tab) 650 mg Q6H PRN PO PAIN LEVEL 1-3 OR FEVER Last administered on 07/19/16 23:04; Admin Dose 650 MG; Start 07/12/16 at 01:00 Acetaminophen/ Hydrocodone Bitart ([place] (5/325)) 1 tab Q6H PRN PO MODERATE PAIN LEVEL 4-6 Last administered on 07/19/16 22:21; Admin Dose 1 TAB; Start at 01:00 Hydromorphone HCl (Dilaudid) 0.5 mg Q4H PRN IV SEVERE PAIN LEVEL 7-10 Last administered on 07/20/16 12:06; Admin Dose 0.5 MG; Start 07/12/16 at 01:00 Docusate Sodium (Colace) 100 mg Q12H PRN PO CONSTIPATION; Start 07/12/16 at 01: 00 Magnesium Hydroxide (Milk Of Mag) 30 ml DAILY PRN PO CONSTIPATION; Start at 01:00 Zolpidem Tartrate (Ambien) 5 mg QHS PRN PO SLEEP; Start 07/12/16 at 01:00 Pantoprazole (Protonix Tab) 40 mg DAILY@06 PO Last administered on 07/20/16 05: 19; Admin Dose 40 MG; Start 07/12/16 at 06:00 Ascorbic Acid (Vitamin C) 250 mg DAILY PO Last administered on 07/19/16 14:15; Admin Dose 250 MG; Start 07/12/16 at 09:00 Bisacodyl (Dulcolax Supp) 10 mg Q24H PRN [place] CONSTIPATION; Start 07/12/16 at 01: 00 Docusate Sodium (Colace) 100 mg BID PO Last administered on 07/19/16 20:55; Admin Dose 100 MG; Start 07/12/16 at 09:00 Duloxetine HCl (Cymbalta) 30 mg DAILY PO Last administered on 07/20/16 08:50; Admin Dose 30 MG; Start 07/12/16 at 09:00 Hydromorphone HCl (Dilaudid) 6 mg QID@00,05,11,17 PO Last administered on 11:01; Admin Dose 6 MG; Start 07/12/16 at 05:00 Magnesium Oxide (Mag-Ox 400) 400 mg BID PO Last administered on 07/19/16 20:56 ; Admin Dose 400 MG; Start 07/12/16 at 09:00 Methadone HCl (Methadone) 10 mg QID@00,08,14,20 PO Last administered on 13:55; Admin Dose 10 MG; Start 07/12/16 at 08:00 Multivitamins Therapeutic (Theragran) 1 tab DAILY PO Last administered on 14:15; Admin Dose 1 TAB; Start 07/12/16 at 09:00 Pyridoxine HCl (Vitamin B6) 100 mg Q8 PO Last administered on 07/20/16 05:19; Admin Dose 100 MG; Start 07/12/16 at 06:00 Saccharomyces Boulardii (Florastor) 250 mg BID PO Last administered on 20:56; Admin Dose 250 MG; Start 07/12/16 at 09:00 Senna (Senokot) 1 tab BID PO Last administered on 07/19/16 20:56; Admin Dose 1 TAB; Start 07/12/16 at 09:00 Tamsulosin HCl (Flomax) 0.4 mg HS PO Last administered on 07/19/16 20:56; Admin Dose 0.4 MG; Start 07/12/16 at 21:00 Zinc Sulfate (Zinc Sulfate) 220 mg DAILY PO Last administered on 07/19/16 11:13 ; Admin Dose 220 MG; Start 07/12/16 at 09:00 Guaifenesin (Mucinex) 600 mg BID PO Last administered on 07/20/16 08:49; Admin Dose 600 MG; Start 07/12/16 at 21:00 Guaifenesin/ Dextromethorphan (Robitussin Dm Liquid Cup) 10 ml Q4H PRN PO cough , Last administered on 07/15/16 09:36; Admin Dose 10 ML; Start 07/12/16 at 18: 30 Furosemide (Lasix) 40 mg DAILY PO Last administered on 07/20/16 08:50; Admin Dose 40 MG; Start 07/13/16 at 09:00 Potassium Chloride (Klor-Con 20) 20 meq DAILY PO Last administered on 07/20/16 08:50; Admin Dose 20 MEQ; Start 07/13/16 at 09:00 Fluconazole (Diflucan) 100 mg DAILY PO Last administered on 07/20/16 08:50; Admin Dose 100 MG; Start 07/13/16 at 15:30 Betamethasone/ Clotrimazole (Lotrisone Cr) 1 applic BID TOP Last administered on 07/20/16 11:03; Admin Dose 1 APPLIC; Start 07/13/16 at 21:00 Diagnostic Test (Pha) (Accu-Chek) 1 ea 02 XX Last administered on 07/18/16 02: 09; Admin Dose 1 EA; Start 07/16/16 at 02:00 Miscellaneous Information 1 ea NOTE XX ; Start 07/15/16 at 22:00 Glucose (Glutose) 15 gm Q15M PRN PO DECREASED GLUCOSE; Start 07/15/16 at 22:00 Glucose (Glutose) 22.5 gm Q15M PRN PO DECREASED GLUCOSE; Start 07/15/16 at 22:00 Dextrose (D50w Syringe) 25 ml Q15M PRN IV DECREASED GLUCOSE; Start 07/15/16 at 22:00 Dextrose (D50w Syringe) 50 ml Q15M PRN IV DECREASED GLUCOSE; Start 07/15/16 at 22:00 Glucagon (Glucagen) 1 mg Q15M PRN IM DECREASED GLUCOSE; Start 07/15/16 at 22:00 Glucose (Glutose) 15 gm Q15M PRN BUCCAL DECREASED GLUCOSE; Start 07/15/16 at 22: 00 Lidocaine (Xylocaine 2% Jelly) 1 applic DAILY TOP Last administered on 09:00; Admin Dose 1 APPLIC; Start 07/17/16 at 16:30 Metronidazole (Flagyl) 500 mg BID PO Last administered on 07/20/16 08:50; Admin Dose 500 MG; Start 07/17/16 at 21:00 Insulin Glargine (Lantus) 16 unit DAILY@08 SC Last administered on 07/20/16 08: 55; Admin Dose 16 UNIT; Start 07/19/16 at 08:00 Nystatin (Nystatin Powder) 1 applic BID TOP Last administered on 07/20/16 12:03 ; Admin Dose 1 APPLIC; Start 07/18/16 at 21:00 Lubiprostone (Amitiza) 24 mcg BID PO Last administered on 07/18/16 20:48; Admin Dose 24 MCG; Start 07/18/16 at 21:00 GIOVANNA ESCUDERO NP Jul 20, 2016 15:43
[2016-07-20] MEDS: RIVAROXABAN 20 MG TABLET PO SCH (17:32)
--- NOTE | 2016-07-20 17:53 | PDOCDIS ---
Discharge Instructions CONDITION Patient Condition: Stable HOME CARE INSTRUCTIONS: Special Diet: 1800 ada,2 gm NA ACTIVITY: Activity Restrictions: Slowly Increase Activity FOLLOW UP/APPOINTMENTS Appointments see reconciliation, physical therapy at [facility] EDDY MELVIN MD Jul 20, 2016 17:52
--- NOTE | 2016-07-21 02:23 | DS ---
DATE OF ADMISSION: 07/12/2016 DATE OF DISCHARGE: 07/20/2016 REASON FOR ADMISSION: UTI, sepsis, encephalopathy. HOSPITAL COURSE: The patient is a 71-year-old morbidly obese female who currently resides at [facility]. The patient presented to the hospital with increased con fusion. She was found to have fever. In the ER, UA was positive for UTI. Lactic acid was noted to be elevated at 2.8. The patient was hydrated and was started on broad-spectrum antibiotics. I con sulted Dr. Milan, the infectious disease specialist, and urine culture came back as E. coli ESBL on ly sensitive to amikacin, imipenem and nitrofurantoin. The patient was on imipenem. The son wanted us to add amikacin, which we did. The patient overall continues to improve slowly. She was compla ining a lot of urethral pain. We provided with multiple types of cream including steroidal cream, a ntifungal cream and lidocaine gel. This patient was noted to have hyperglycemia suggestive of diabe ulisses mellitus despite normal hemoglobin A1c of 6.1. The patient was started on insulin. The patient was seen by Physical Therapy as well, but the patient refuses to participate unfortunately. She al ways has an excuse. Repeat urine cultures were negative. The plan to [facility] back to the [facility]F wit h IV antibiotics and close monitoring. DISCHARGE MEDICATIONS: The patient will be discharged with: 1. Accu-Chek q.a.c. and at bedtime. 2. Tylenol p.r.n. for mild pain. 3. DuoNeb every 2 hours p.r.n. for shortness of breath and q.6 around the clock for 3 days. 4. Vitamin C 500 mg daily. 5. Lotrisone cream applied b.i.d. to the affected area for 5 more days. 6. Dulcolax p.r.n. for constipation. 7. Colace 100 b.i.d. and routine. 8. Cymbalta 30 mg daily. 9. Diflucan 100 mg daily for 7 days. 10. Lasix 40 mg daily. 11. Hypoglycemia protocol as directed. 12. Robitussin-DM p.r.n. for cough. 13. Mucinex 600 mg b.i.d. for 3 days. 14. [place] 5/325 q.6 p.r.n. 15. Dilaudid as directed q.i.d. 16. Insulin aspart will do 8 units subQ q.a.c. meals. 17. Insulin Lantus 16 units daily. 18. Lidocaine to the affected area. 19. Amitiza 24 mcg b.i.d. 20. Milk of magnesia 30 mL as needed. 21. Magnesium oxide 400 twice a day. 22. Methadone 10 mg q.i.d. as directed. 23. Flagyl 500 b.i.d. for 5 days. 24. Treatment of hypoglycemia. 25. Multivitamin 1 tablet daily. 26. Xarelto 20 mg daily. 27. Nystatin b.i.d. 28. Zofran 4 mg p.o. p.r.n. 29. Protonix 40 mg daily. 30. KCl 20 mEq daily. 31. Vitamin B6 100 mg q.8 p.r.n. 32. Florastor 250 b.i.d. 33. Senna 1 tablet b.i.d. 34. Flomax 0.4 at bedtime. 35. Zinc sulfate 220 daily. 36. Ambien 5 mg at bedtime p.r.n. for insomnia. 37. Antibiotics were discontinued. Will discuss with the son. The patient will be discharged. FINAL DIAGNOSES: 1. Urinary tract infection. 2. Sepsis. 3. Encephalopathy. 4. Sepsis. 5. Urethral pain. 6. Diabetes mellitus. 7. Morbidly obese state. 8. Chronic obstructive pulmonary disease, O2 dependent. 9. Noncompliance. 10. Osteoarthritis. 11. Severe disability as patient is almost bedridden. 12. Hypertension. 13. Chronic pain syndrome. 14. Anemia. 15. History of deep venous thrombosis and pulmonary embolism, on Xarelto. The patient is encouraged to use a bedside commode to go the bathroom. We may continue antibiotics for a few more days to complete at least 10- to 14-day course of IV antibiotics. Upon discussion wi th the son, we did stop the antibiotics. I'll check her urine again in a couple of days and then ma ke further decision depending on symptoms and how she feels and will follow up also with a WBC, make sure it's normal. The patient will be discharged today. Long-term prognosis remains guarded. She is instructed to watch her diet as she is basically new diagnosis of diabetes. We will follow. Dictated By: EDDY TIAN/ANNA Conf#: [id number] DID#: [id number]
== END 2016-07-20 19:56 | DRG 871 ==
LOC: E/R 22:41 → MS4 07-12 00:40 → PP2 07-15 21:09
PROVIDERS: ADMIT Internal Medicine; ATTEND Internal Medicine
DX: A41.9 Sepsis, unspecified organism (principal); G93.40 Encephalopathy, unspecified; N39.0 Urinary tract infection, site not specified; Z99.81 Dependence on supplemental oxygen; I11.0 Hypertensive heart disease with heart failure; I50.32 Chronic diastolic (congestive) heart failure; F11.20 Opioid dependence, uncomplicated; D64.9 Anemia, unspecified; B37.3 Candidiasis of vulva and vagina; J44.9 Chronic obstructive pulmonary disease, unspecified; E66.9 Obesity, unspecified; Z68.30 Body mass index [BMI] 30.0-30.9, adult; B96.20 Unspecified Escherichia coli [E. coli] as the cause of diseases classified elsewhere; Z16.12 Extended spectrum beta lactamase (ESBL) resistance; N36.8 Other specified disorders of urethra; G89.4 Chronic pain syndrome; M19.90 Unspecified osteoarthritis, unspecified site; Z87.891 Personal history of nicotine dependence; Z86.718 Personal history of other venous thrombosis and embolism; Z79.02 Long term (current) use of antithrombotics/antiplatelets; Z95.0 Presence of cardiac pacemaker; Z91.11 Patient's noncompliance with dietary regimen; Z74.01 Bed confinement status; K59.00 Constipation, unspecified; R73.9 Hyperglycemia, unspecified; R11.0 Nausea; I87.8 Other specified disorders of veins
CPT/HCPCS: 71010; 80048; 80053; 81001; 81003; 82962; 83036; 83605; 83735; 83880; 84100; 84134; 84484; 85025; 85610; 85730; 87040; 87086; 93005; 94640; 94664; 96374; 96375; 96376; J0278; J0743; J1170; J1815; J1956; J2405; J2765; J7030; J7040

== ENCOUNTER 2016-07-23 16:43 | Inpatient (IN) | payer MEDICARE, OTHER ==
[~2016-07-23] VITALS: Ht 167.6 cm; Wt 99.3 kg
[~2016-07-23 16:43] MED LIST changes: +BISA10SU75 PR; -DULR PR
[2016-07-23] MEDS ORDERED: SOD CHLORIDE 0.9% 1,000 ML IV STA (17:31)
[2016-07-23 17:56] LABS: ADD SCAN DIFF NO
[2016-07-23 17:59] LABS: BASOPHIL # 0.1 10^3/ul (0.0-0.1); BASOPHILS % 0.6 % (0.0-2.0); EOSINOPHILS # 0.1 10^3/ul (0.0-0.5); EOSINOPHILS % 1.1 % (0.0-7.0); HEMATOCRIT 34.2 % (37.0-47.0); HEMOGLOBIN 10.1 g/dl (12.0-16.0); LYMPHOCYTES % 22.9 % (15.0-51.0); MEAN CORPUSCULAR HEMOGLOBIN 28.6 pg (29.0-33.0); MEAN CORPUSCULAR HGB CONC 29.5 g/dl (32.0-37.0); MEAN CORPUSCULAR VOLUME 96.9 fl (82.0-101.0); MEAN PLATELET VOLUME 11.2 fl (7.4-10.4); MONOCYTE # 0.8 10^3/ul (0.3-0.9); MONOCYTES % 8.8 % (0.0-11.0); NEUTROPHIL # 5.7 10^3/ul (1.6-7.5); NEUTROPHILS % 65.9 % (39.0-77.0); PLATELET COUNT 139 10^3/UL (140-415); RED BLOOD COUNT 3.53 10^6/ul (4.20-5.40); RED CELL DISTRIBUTION WIDTH 17.2 % (11.5-14.5); WHITE BLOOD COUNT 8.6 10^3/ul (4.8-10.8)
[2016-07-23 18:09] LABS: CHLORIDE 99 mmol/L (97-110)
[2016-07-23 18:10] LABS: ALBUMIN 3.6 g/dl (3.3-4.9); SODIUM 140 mmol/L (135-144)
[2016-07-23 18:11] LABS: INR 1.21; POTASSIUM 4.1 mmol/L (3.5-5.1); PROTIME 15.4 Sec (12.2-14.2); PT RATIO 1.2
[2016-07-23 18:12] LABS: PARTIAL THROMBOPLASTIN TIME 42.3 Sec (25.0-35.0)
[2016-07-23 18:13] LABS: ALANINE AMINOTRANSFERASE 19 IU/L (13-69); ALBUMIN/GLOBULIN RATIO 0.85; ALKALINE PHOSPHATASE 124 IU/L (42-121); ANION GAP 16 (8-16); ASPARTATE AMINO TRANSFERASE 26 IU/L (15-46); BILIRUBIN,INDIRECT 0.4 mg/dl (0-1.1); BILIRUBIN,TOTAL 0.4 mg/dl (0.2-1.3); BLOOD UREA NITROGEN 20 mg/dl (7-20); CARBON DIOXIDE 29 mmol/L (21-31); CREATININE 0.92 mg/dl (0.44-1.00); GLUCOSE 167 mg/dl (70-220); TOTAL PROTEIN 7.8 g/dl (6.1-8.1)
[2016-07-23 18:14] LABS: CALCIUM 8.8 mg/dl (8.4-10.2)
[2016-07-23 18:25] LABS: TROPONIN-I < 0.012 ng/ml (0.00-0.12)
[2016-07-23] MEDS ORDERED: HYDROmorphONE 1 MG/ML SYG IV STA ×3 (18:28→20:55)
--- NOTE | 2016-07-23 18:31 | RADRPT ---
PROCEDURE: XR Chest. CLINICAL INDICATION: Chest pain, sepsis TECHNIQUE: AP view of the chest was performed. COMPARISON: None FINDINGS: The heart size and a left subclavian dual chamber cardiac pacer are stable. Mild vascular congestio n again noted. No signs of pleural fluid or pneumothorax are seen. Diffuse osteopenia is present. IMPRESSION: Stable cardiac pacer, and mild vascular congestion. Findings suggest mild fluid overload. Overall, no interval change. RPTAT: QQ .Shannan Gautam MD, Date Time Electronically viewed and signed by .Shannan Gautam MD, on 07/23/2016 18:30 .F/
[2016-07-23] MEDS ORDERED: SOD CHLORIDE 0.9% 1,000 ML IV SCH (18:53)
--- NOTE | 2016-07-23 18:58 | ERA ---
ER Documentation Chief Complaint Date/Time DATE: 07/23/16 TIME: 18:55 Chief Complaint ALOC, INCREASED LETHARGY PER SON AND STAFF AT CONV HOME. HPI This is a 71-year-old female presents to the emergency room for evaluation of altered mental status and increased agitation from a convalescent home. According to the son who is giving the majority of the history this patient does have a previous history of multiple admissions for sepsis and a urinary tract infections in which she does have an infection she becomes mildly agitated and altered. He states that her appearance today is similar to previous times where she has been admitted. Patient has not had a fever at the retirement, is refusing to answer any more my questions. ROS All systems reviewed and are negative except as per history of present illness. Medications Home Meds Reported Medications Sennosides* (Senokot*) 8.6 Mg Tablet, 1 TAB PO BID, TAB 05/31/16 Pantoprazole* (Protonix*) 40 Mg Tablet.dr, 40 MG PO DAILY, TAB 05/31/16 Ipratropium-Albuterol (Ipratropium-Albuterol) 0.5-3 Mg/3 Ml Ampul.neb, 3 ML INHALATION Q6 Y for SHORTNESS OF BREATH, #30 VIAL 05/31/16 Furosemide* (Lasix*) 40 Mg Tablet, 40 MG PO DAILY, TAB 05/31/16 Ferrous Sulfate* (Ferrous Sulfate*) 325 Mg Tabec, 325 MG PO DAILY, TAB 05/31/16 Docusate Sodium* (Docusate Sodium*) 100 Mg Capsule, 100 MG PO BID, #60 CAP 05/31/16 Zinc Sulfate* (Zinc Sulfate*) 220 Mg Tablet, 220 MG PO DAILY, TAB 01/10/16 Rivaroxaban* (Xarelto*) 20 Mg Tablet, 20 MG PO WITH DINNER, TAB 01/10/16 Ascorbic Acid (Vitamin C) 250 Mg Tab, 250 MG PO DAILY, TAB 01/10/16 Pyridoxine Hcl* (Vitamin B-6*) 100 Mg Tablet, 100 MG PO Q8, TAB 01/10/16 Multivitamins* (Theragran*) 1 Tab Tab, 1 TAB PO DAILY, TAB 01/10/16 Methadone Hcl* (Methadone*) 10 Mg Tab, 10 MG PO QID, TAB PER SON GIVE ON SCHEDULE 8AM, 2PM,8 PM, AND 12 AM 01/10/16 Magnesium Oxide* (Magnesium Oxide*) 400 Mg Tablet, 400 MG PO BID, TAB 01/10/16 Saccharomyces Boulardii* (Florastor*) 250 Mg Cap, 250 MG PO BID, CAP 01/10/16 Tamsulosin Hcl* (Flomax*) 0.4 Mg Cap.er.24h, 0.4 MG PO HS, CAP 01/10/16 Bisacodyl* (Bisacodyl*) 10 Mg Supp, 10 MG NV Q24H Y for CONSTIPATION, SUPP 01/10/16 Hydromorphone Hcl* (Dilaudid*) 2 Mg Tablet, 6 MG PO QID, TAB GIVE ON SCHEDULE PER SON 5AM, 11AM, 5PM, AND 12 AM 01/10/16 Duloxetine Hcl* (Cymbalta*) 30 Mg Capsule.dr, 30 MG PO DAILY, CAP 01/10/16 Acetaminophen* (Acetaminophen*) 500 MG Extra Strength Tablet, 1000 MG PO Q6H Y for PAIN, TAB 01/10/16 Allergies Allergies: Coded Allergies: nitrofurantoin (Verified Allergy, Mild, 07/11/16) piperacillin (Verified Allergy, Mild, BURNING SENSATION ALL OVER THE BODY , 07/11/16) tazobactam (Verified Allergy, Mild, BURNING SENSATION ALL OVER THE BODY, ) PMhx/Soc History of Surgery: Yes (hysterectomy 1984, abdo explor, 1990 spine laminect 1996, ) Anesthesia Reaction: No Hx Neurological Disorder: Yes (mild neuropathy, chronic pain) Hx Respiratory Disorders: Yes (mild COPD, past smoker) Hx Cardiac Disorders: Yes (pacer) Hx Psychiatric Problems: No (cymbalta pain control) Hx Miscellaneous Medical Probl: No Hx Alcohol Use: No Hx Substance Use: No Hx Tobacco Use: Yes (quit 1 year ago, 1/2ppd.) Smoking Status: Unknown if ever smoked Physical Exam Vitals Vital Signs Date Time Temp Pulse Resp B/P Pulse Ox O2 Delivery O2 Flow Rate FiO2 07/23/16 18:43 75 18 108/70 99 Mask 07/23/16 17:04 97.6 81 20 107/72 95 07/23/16 16:58 Non Rebreather 10 07/23/16 16:58 79 16 107/72 96 Non Rebreather 10.0 Physical Exam INITIAL VITAL SIGNS: Reviewed by me GENERAL: The patient is well developed and appropriate for usual state of health in no apparent distress HEENT: Pupils equal, round, and reactive to light. EOMI. There is no scleral icterus. NECK: C-spine is soft and supple, there is no meningismus. There is no cervical lymphadenopathy. LUNGS: Clear to auscultation bilaterally. There are no rales, wheezes or rhonchi. HEART: Regular rate and rhythm, no murmurs, clicks, rubs or gallops. ABDOMEN: Soft, non-tender, non-distended. There are bowel sounds in all four quadrants. No rebound or guarding. EXTREMITIES: There is no peripheral cyanosis or edema. No focal swelling or erythema. NEUROLOGICAL: The patient moves all four extremities with 5/5 strength. Cranial nerves II - XII are intact. Normal gait. Alert and oriented to person place and time, no focal neurological deficit SKIN: There is no apparent rash or petechiae. HEME/LYMPHATIC: There is no evidence of excessive bruising or lymphedema. PSYCHIATRIC: The patient is extremely agitated Result Diagram: 07/23/16 1720 07/23/16 1720 Results 24 hrs Laboratory Tests Test 07/23/16 17:20 White Blood Count 8.610^3/ul Red Blood Count 3.5310^6/ul Hemoglobin 10.1g/dl Hematocrit 34.2% Mean Corpuscular Volume 96.9fl Mean Corpuscular Hemoglobin 28.6pg Mean Corpuscular Hemoglobin Concent 29.5g/dl Red Cell Distribution Width 17.2% Platelet Count 09326^3/UL Mean Platelet Volume 11.2fl Neutrophils % 65.9% Lymphocytes % 22.9% Monocytes % 8.8% Eosinophils % 1.1% Basophils % 0.6% Nucleated Red Blood Cells % 0.0/100WBC Neutrophils # 5.710^3/ul Lymphocytes # 2.010^3/ul Monocytes # 0.810^3/ul Eosinophils # 0.110^3/ul Basophils # 0.110^3/ul Nucleated Red Blood Cells # 0.010^3/ul Prothrombin Time 15.4Sec Prothrombin Time Ratio 1.2 INR International Normalized Ratio 1.21 Activated Partial Thromboplast Time 42.3Sec Sodium Level 140mmol/L Potassium Level 4.1mmol/L Chloride Level 99mmol/L Carbon Dioxide Level 29mmol/L Anion Gap 16 Blood Urea Nitrogen 20mg/dl Creatinine 0.92mg/dl Glucose Level 167mg/dl Lactic Acid Level 1.7mmol/L Calcium Level 8.8mg/dl Total Bilirubin 0.4mg/dl Direct Bilirubin 0.00mg/dl Indirect Bilirubin 0.4mg/dl Aspartate Amino Transf (AST/SGOT) 26IU/L Alanine Aminotransferase (ALT/SGPT) 19IU/L Alkaline Phosphatase 124IU/L Troponin I < 0.012ng/ml Total Protein 7.8g/dl Albumin 3.6g/dl Globulin 4.20g/dl Albumin/Globulin Ratio 0.85 Current Medications Medications (Trade) Dose Ordered Sig/Anjana Route PRN Reason Start Time Stop Time Status Last Admin Dose Admin Sodium Chloride (NS) 1,000 ml @ 1,000 mls/hr Q1H STAT IV 07/23/16 17:31 07/23/16 18:30 DC 07/23/16 17:33 Hydromorphone HCl (Dilaudid) 1 mg ONCE STAT IV 07/23/16 18:28 07/23/16 18:29 DC 07/23/16 18:38 Hydromorphone HCl (Dilaudid) 1 mg ONCE STAT IV 07/23/16 18:49 07/23/16 18:52 DC Procedures/MDM Chest X-ray 1V Interpreted by me: Soft Tissue: Mild fluid overload Bones: No acute abnormalities Mediastinum/Cardiac Silhouette/Lungs: [No acute abnormalities] EKG: Rate/Rhythm: [Normal Sinus Rhythm] QRS, ST, T-waves: [No changes consistent w/ acute ischemia] Impression: [No evidence of ischemia or arrhythmia] This 71-year-old female presents to the emergency room for evaluation of altered mental status. When I evaluated this patient she did appear to be agitated towards myself and the staff and was refusing to essentially follow any commands when she received pain medication. This patient is on a heavy regimen of narcotic pain medication at home. The patient was given 1 mg of Dilaudid in the emergency room. Lab work was obtained from this patient. The patient has no leukocytosis, no fever, lactic acid is less than 2. The. Patient is refusing a straight cath, refusing to urinate. However given this patient's altered mental status and previous multiple admissions for sepsis I did start this patient on Rocephin. Blood cultures were obtained. I contacted this patient's primary care physician, Dr. Londono who is okay with admitting this patient at this time. She is hemodynamically stable, no need for pressors. She will be placed on the measures for this time. Departure Diagnosis: Primary Impression: Altered mental status Additional Impressions: Normocytic anemia Possible urinary tract infection Condition: Stable AMINAH PORTER DO Jul 23, 2016 18:57
[2016-07-23] MEDS ORDERED: ACETAMINOPHEN 325 MG TAB PO PRN ×2 (19:00→22:00)
[2016-07-23] MEDS ORDERED: CEFTRIAXONE 1 GM/50 ML (PMX) 50 ML IVPB ONE (19:00)
[2016-07-23] MEDS ORDERED: ONDANSETRON 4 MG INJ IV PRN ×2 (19:00→22:00)
[2016-07-23 20:15] LABS: ADD UMIC YES; URINE BILIRUBIN (Dip) NEGATIVE (NEGATIVE); URINE BLOOD (Dip) 1+ (NEGATIVE); URINE COLOR LT. YELLOW (YELLOW); URINE GLUCOSE (Dip) NEGATIVE (NEGATIVE); URINE KETONES (Dip) NEGATIVE (NEGATIVE); URINE LEUKOCYTE ESTERASE (Dip) 2+ (NEGATIVE); URINE NITRITE (Dip) POSITIVE (NEGATIVE); URINE TOTAL PROTEIN (Dip) NEGATIVE (NEGATIVE); URINE UROBILINOGEN (Dip) 0.2 E.U./dL (0.1-1.0)
[2016-07-23 20:54] LABS: SQUAMOUS EPITHELIAL CELL,UR FEW; URINE RBCS 0-2 /HPF (0)
[2016-07-23 20:55] LABS: BACTERIA,URINE MANY; TRANSITIONAL EPI CELLS,URINE FEW
[2016-07-23] MEDS ORDERED: ALBUTEROL/IPRATROPIUM (NEB) 3 ML AMP NEB PRN (22:00)
[2016-07-23] MEDS ORDERED: BISACODYL 10 MG SUPP PR PRN (22:00)
[2016-07-23] MEDS: IMIPENEM-CILAST 500MG IV (PMX) 100 ML IV SCH (23:52)
[2016-07-24] MEDS ORDERED: HYDROmorphONE 2 MG TAB PO SCH
[2016-07-24 00:10] VITALS: BP 125/60; RESP 22
[2016-07-24] MEDS: ALBUTEROL/IPRATROPIUM (NEB) 3 ML AMP NEB SCH ×6 (01:00→21:00)
[2016-07-24] MEDS: HYDROCODONE/APAP (5/325) TAB PO PRN ×4 (01:20→21:37)
[2016-07-24 02:44] VITALS: Ht 167.6 cm; Wt 99.3 kg
[2016-07-24] MEDS: HYDROmorphONE 1 MG/ML SYG IV PRN ×5 (03:18→19:34)
[2016-07-24] MEDS: HYDROmorphONE 2 MG TAB PO SCH ×3 (06:07→16:49)
[2016-07-24] MEDS: IMIPENEM-CILAST 500MG IV (PMX) 100 ML IV SCH ×3 (06:19→16:49)
[2016-07-24] MEDS: FUROSEMIDE 40 MG TAB PO SCH (06:20)
[2016-07-24] MEDS: PANTOPRAZOLE (EC) 40 MG TAB PO SCH (06:23)
[2016-07-24] MEDS: METHADONE 10 MG TAB PO SCH ×3 (07:55→20:20)
[2016-07-24] MEDS ORDERED: METHADONE 10 MG TAB PO SCH ×2 (08:00→09:00)
[2016-07-24] MEDS: INSULIN ASPART [NOVOLOG] 3 ML PEN SC SCH ×3 (08:15→18:00)
[2016-07-24] MEDS: DOCUSATE SODIUM 100 MG CAP PO SCH ×2 (08:43→20:20)
[2016-07-24] MEDS: SENNA TAB PO SCH ×2 (08:43→20:20)
[2016-07-24] MEDS: ASCORBIC ACID 250 MG TAB PO SCH (08:43)
[2016-07-24] MEDS: ZINC SULFATE 220 MG CAP PO SCH (08:43)
[2016-07-24] MEDS: FERROUS SULFATE (EC) 325 MG TAB PO SCH (08:43)
[2016-07-24] MEDS: MULTIVITAMINS THERAPEUTIC TAB PO SCH (08:43)
[2016-07-24] MEDS: SACCHAROMYCES BOULARDII 250 MG CAP PO SCH ×2 (08:43→20:20)
[2016-07-24] MEDS: DULOXETINE 30 MG CAP DR PO SCH (08:44)
[2016-07-24] MEDS ORDERED: BISACODYL 30 ML ENEMA PR PRN (12:30)
[2016-07-24] MEDS ORDERED: FUROSEMIDE 20 MG INJ IV ONE (12:30)
[2016-07-24] MEDS ORDERED: BISACODYL (EC) 5 MG TAB PO ONE (12:30)
[2016-07-24] MEDS ORDERED: GLUCAGON 1 MG INJ IM PRN (13:00)
[2016-07-24] MEDS ORDERED: DEXTROSE 50% 50 ML SYRINGE IV PRN ×2 (13:00)
[2016-07-24] MEDS ORDERED: GLUCOSE GEL 15 GRAM TUBE BUCCAL PRN (13:00)
[2016-07-24] MEDS ORDERED: GLUCOSE GEL 15 GRAM TUBE PO PRN ×2 (13:00)
--- NOTE | 2016-07-24 13:35 | HP ---
DATE OF ADMISSION: 07/23/2016 REASON FOR ADMISSION: Encephalopathy, urinary tract infection, rule out chronic obstructive pulmonary disease exacerbation. HISTORY OF PRESENT ILLNESS: The patient is an unfortunate 71-year-old female, morbidly obese with history of diabetes mellitus, COPD, O2 dependent, recurrent UTIs, noncompliance with diet and recommendations, osteoarthritis, chronic pain on routine methadone and Dilaudid prescribed by her outpatient pain management physician, history of hypertension, anemia, history of DVT and PE on Xarelto. Recently diagnosed with diabetes and says her sugar levels were above 200 with no improvement unless being treated with insulin, despite hemoglobin A1c of 6.1. The patient is noncompliant with diet. She refuses physical therapy on all occasions. Every time I see her in the shelter, she lies flat and eats while lying flat and also she drinks Coca- Cola and crackers on a routine basis every time I see at the shelter, despite explaining strict diet. The patient's son is very manipulative. He wants everything done the way he wants. Otherwise he is very manipulative and not very pleasant to deal with. I have asked him multiple times to find another physician as our relationship is not at best. Also, I have received phone calls from the patient, from the shelter, child care director. There are definitely quite a lot of issues as the son is taking copies of the chart and looking at it without any permission while the chart is in the nursing station. Overall, he is not acting in the way we would like him to, so we will be comfortable taking care of his mother. Anyway, the patient was just discharged from the hospital for basically the same, as she recently presented with altered mental status as reported by the son, was found to have urinary tract infection and treated with imipenem. Again, the son forced us to add more antibiotics, as Dr. Milan is following closely. The patient was discharged a few days ago back to the care home facility as the patient completed the course of antibiotics. We have recommended multiple times for the patient to use a bedside commode so she can urinate on the bedside commode with assistance but every time I am there , sometimes I see her soaked with urine and feces, as this is partly why she is getting severe urethral discomfort and pain and recurrent UTIs. She was seen also by the urologist on multiple occasions, who recommended that. The patient also takes quite a lot of pain medications which may also worsen her mentation if she has a UTI, so we are dealing with quite a difficult situation as family is very manipulative and we cannot basically touch her pain medications. Otherwise, the son would not allow that. As he states, she takes this pain medications for over 5 years, prescribed by pain specialists. Again, patient presented to the hospital again as she was slightly altered. 911 was called and patient was brought into [facility]. She was placed on a nonrebreather mask and workup was done. White count was normal at 8.6. UA again was positive for nitrite and leukocyte esterase. Patient was started on antibiotics and she was admitted for further care. Upon evaluation, the patient continues to complain of severe pain in the area around the urethra. Denies shortness of breath or chest pain. Patient is admitted for further care. PAST MEDICAL HISTORY: Includes COPD, peripheral vascular disease, venous stasis , hypertension, recurrent UTIs, thrombocytopenia, chronic pain syndrome, history of DVT and PE on Xarelto, hemorrhoids, cardiac pacemaker placement. SURGICAL HISTORY: Pacemaker placement, hysterectomy. ALLERGIES: NITROFURANTOIN, ZOSYN AND TAZOBACTAM. SOCIAL HISTORY: The patient used to be a heavy smoker and per patient she stopped smoking 6 months ago. No history of alcohol or IV drug use. Diet: She does not watch her diet. Her son brings her food from outside including lots of sugary snacks, soda. When she eats it, she also eats it while lying flat. CODE STATUS: The patient is FULL CODE. MEDICATIONS: Patient's medications include the followin. Vitamin C 250 mg daily. 2. Dulcolax 10 mg rectally p.r.n. 3. Colace 100 b.i.d. 4. Diflucan 100 mg daily. 5. Lasix 40 mg daily. 6. Robitussin p.r.n. 7. Mucinex 600 b.i.d. 8. Dilaudid 2 mg 3 tablets every midnight, 5:00 a.m., 11:00 a.m. and 5:00 p.m. 9. Accu-Chek q.a.c. and at bedtime. 10. NovoLog FlexPen 8 units q.a.c. meals. 11. Lantus 16 units daily. 12. Amitiza 24, MCV b.i.d. 13. Magnesium oxide 400 b.i.d. 14. Methadone 10 mg daily at midnight, 8:00 a.m., 2 p.m. and 8 p.m. 15. Flagyl 500 b.i.d. 16. Multivitamin 1 tab daily. 17. Protonix 40 mg daily. 18. KCl 20 mEq daily. 19. Pyridoxine (vitamin B6) 50 mg 2 tabs q.8h. 20. Xarelto 20 mg q.p.m. 21. Florastor 250 b.i.d. 22. Albuterol and Atrovent nebulizer q.12h. p.r.n. 23. Betamethasone and clotrimazole applied b.i.d. to affected area. 24. Lidocaine jelly to urethral area daily. 25. Nystatin powder below the breast b.i.d. and pannus as needed. 26. O2, two liters to keep saturation above 90 and for shortness of breath. 27. Senna b.i.d. 28. Flomax 0.4 at bedtime. 29. Zinc sulfate 220 daily. 30. Tylenol p.r.n. 31. Cymbalta 30 mg daily. 32. Ambien 5 mg at bedtime p.r.n. for insomnia. Another UA was done on 07/22/2016 at the [facility] and it shows trace leukocyte esterase, nitrites positive, and WBC 2 to 5. Cultures were pending. REVIEW OF SYSTEMS: Per HPI. PHYSICAL EXAMINATION: VITAL SIGNS: Temperature 97.6, pulse 79, respirations 22, blood pressure 125/60 , saturation is 90% on 3 liters. GENERAL: The patient is in no acute distress, morbidly obese, pale. HEENT: No JVD. CARDIOVASCULAR: S1 and S2. LUNGS: Decreased lung sounds bilaterally. ABDOMEN: Soft, tender to palpation, more in the right mid abdomen. EXTREMITIES: Venous stasis bilateral lower extremities with bandages. LABORATORY DATA: White count is 8.6, hemoglobin 10.1, hematocrit 34, platelet count 139, neutrophils 66%, lymphocytes 23%. Chemistry: Sodium 140, potassium 4.1, chloride 99, bicarbonate 29, BUN is 20, creatinine 0.92, glucose of 167. AST 26, ALT 19, alkaline phosphatase 124. Troponin less than 0.012. Total protein 7.8, albumin 3.6. UA shows positive nitrites, leukocyte esterase +2, WBC 10 to 25, INR 1.21. IMAGING: Chest x-ray shows stable cardiac pacer in mild vascular congestion. Findings suggest mild fluid overload. Overall, no interval change. Previously she had imaging tests as she had abdominal pain before, so I scanned her on 2 occasions, one on 05/31/2016 and one on 06/09/2016. The most recent on 2016, showed atelectasis of the lung bases and possible right basilar superimposed pneumonia, permanent pacemaker, nonobstructing left renal calculi, atherosclerosis, IVC filter in satisfactory position, status post hysterectomy, constipation, old healed fracture of the right inferior pubic rami, degenerative changes of the spine. They mentioned 2 legs of the IVC filter are protruding through the wall posteriorly. This can cause posterior abdominal pain. Last urine culture on 07/16/2016 was negative and on 07/11/2012 we did show E. coli ESBL sensitive to amikacin, imipenem and nitrofurantoin. EKG: Nonspecific ST and T abnormalities, 79 beats per minute. ASSESSMENT AND PLAN: This is an unfortunate 71-year-old morbidly obese female with history of COPD, O2 dependent, recurrent UTI presents with again episodes of encephalopathy, urinary tract infection and brief episode of respiratory distress. 1. Respiratory. Noted chest x-ray, may give an extra dose of IV Lasix as there is evidence of slight fluid overload state. Continue O2 breathing treatments around the clock. Keep head elevated when eating. 2. Cardiovascular: Continue Xarelto as patient is sedentary and lies in bed all the time. She does have history of pulmonary embolism and deep venous thrombosis. 3. Infectious disease. The patient again with possible urinary tract infection. Continue imipenem, follow up urine culture results. ID was consulted. 4. Constipation, may likely be the reason for abdominal pain. Continue with stool softeners as patient takes a lot of opioids. She may benefit from Movantik, which is for opioid induced constipation. 6. Depression. Continue Cymbalta. 7. Diabetes mellitus. Continue to titrate it up as needed. Follow up Accu- Chek q.a.c. and bedtime. I placed the patient on ADA diet, 1800, 2 g sodium. 8. Overall debilitated state. Refusing physical therapy each time. The son is asking me always to order physical therapy. 9. Chronic pain. We will continue current oral pain medication. 10. Place the patient on air mattress bed for DVT prophylaxis and GI prophylaxis. Monitor closely. We will follow. Dictated By: EDDY TIAN/ANNA Conf#: [id number] DID#: [id number] MTDD
--- NOTE | 2016-07-24 13:42 | PN ---
DATE: 07/24/2016 SUBJECTIVE: The patient is lying comfortably in bed. She is awake and looks comfortable, no fevers . VITAL SIGNS: Temperature 97.7, pulse 79, respirations 20, blood pressure 125/60, saturation 100% on 3 liters. LABORATORY: WBC 8.6 on admission, H and H 10.1 and 34.2, platelets 139. No bands. BUN 20, creatin ine 0.92. ANTIMICROBIALS: The patient is on Imipenem. DIAGNOSTICS: Chest x-ray on admission revealed mild vascular congestion. PHYSICAL EXAMINATION: GENERAL: This is an obese, ill-appearing, elderly woman who is in no distress. HEENT: Head atraumatic, normocephalic. Sclerae anicteric. Buccal mucosa dry. NECK: Obese. CHEST: Rise symmetrical. Breath sounds clear, diminished at the bases. HEART: S1, S2. ABDOMEN: Obese, soft, bowel tones present. EXTREMITIES: Without cyanosis. ASSESSMENT: 1. Acute encephalopathy possibly overdosed with opioid. 2. Chronic pain syndrome with opioid dependence. 3. Status post Escherichia coli extended-spectrum beta-lactamase urinary tract infection on 017 with repeat urine culture on 07/16/2016 was negative, completed antibiotics. 4. Chronic bilateral lower extremity venous stasis. 5. Chronic obstructive pulmonary disease. 6. Vaginal candidiasis and chronic vaginal pain. 7. ALLERGY TO MACROBID AND ZOSYN. 8. History of permanent pacemaker placement. PLAN: Pending urine culture. Continue present care, antibiotics, encourage activity, physical therapist clinic director apy. Dictated By: GIOVANNA ESCUDERO MIXER FOAM RUBBER for SATYA QUIROZ/ANNA Conf#: [id number] DID#: [id number]
[2016-07-24] MEDS: RIVAROXABAN 20 MG TABLET PO SCH (18:13)
[2016-07-24 20:00] VITALS: BP 114/61; RESP 20
[2016-07-24] MEDS: LUBIPROSTONE 24 MCG CAP PO SCH (20:20)
[2016-07-24] MEDS: TAMSULOSIN (SR) 0.4 MG CAP PO SCH (20:20)
[2016-07-24] MEDS: INSULIN GLARGINE [LANtus] 3 ML PEN SC SCH (20:24)
--- NOTE | 2016-07-24 22:51 | RADRPT ---
PROCEDURE: XR Abdomen. CLINICAL INDICATION: Abdomen pain. TECHNIQUE: AP supine abdomen x-ray. COMPARISON: 11/11/2015. FINDINGS: The bowel gas pattern is normal with no evidence of obstruction. There is an inferior vena cava filter with the superior tip at the lower L2 level. Surgical clips a re present in the pelvis. There is a dual lead permanent pacemaker. There are no abnormal calcifications overlying the urinary tracts. There are degenerative changes of the spine and lumbar scoliosis convex left. IMPRESSION: 1. No evidence of bowel obstruction. 2. IVC filter. 3. Prior pelvic surgery. 4. Dual lead permanent pacemaker. 5. Degenerative changes of the spine and lumbar scoliosis convex left. RPTAT: QQ .Conrado Treviño MD, MD Date Time Electronically viewed and signed by .Conrado Treviño MD, on 07/24/2016 22:51 .R/
[2016-07-25] MEDS: METHADONE 10 MG TAB PO SCH ×5 (00:10→23:54)
[2016-07-25] MEDS: HYDROmorphONE 2 MG TAB PO SCH ×5 (00:11→23:54)
[2016-07-25] MEDS: ALBUTEROL/IPRATROPIUM (NEB) 3 ML AMP NEB SCH ×6 (00:17→21:00)
[2016-07-25] MEDS: IMIPENEM-CILAST 500MG IV (PMX) 100 ML IV SCH ×5 (00:24→23:54)
[2016-07-25] MEDS: FUROSEMIDE 40 MG TAB PO SCH (05:16)
[2016-07-25] MEDS: PANTOPRAZOLE (EC) 40 MG TAB PO SCH (05:16)
[2016-07-25 07:27] VITALS: BP 108/57; RESP 20
[2016-07-25] MEDS: DOCUSATE SODIUM 100 MG CAP PO SCH ×2 (08:08→20:18)
[2016-07-25] MEDS: FERROUS SULFATE (EC) 325 MG TAB PO SCH (08:08)
[2016-07-25] MEDS: SACCHAROMYCES BOULARDII 250 MG CAP PO SCH ×2 (08:08→20:19)
[2016-07-25] MEDS: DULOXETINE 30 MG CAP DR PO SCH (08:08)
[2016-07-25] MEDS: SENNA TAB PO SCH ×2 (08:08→20:18)
[2016-07-25] MEDS: ZINC SULFATE 220 MG CAP PO SCH (08:08)
[2016-07-25] MEDS: INSULIN ASPART [NOVOLOG] 3 ML PEN SC SCH ×3 (08:13→17:54)
[2016-07-25] MEDS: LUBIPROSTONE 24 MCG CAP PO SCH ×2 (09:00→20:19)
[2016-07-25] MEDS: HYDROmorphONE 1 MG/ML SYG IV PRN ×2 (09:14→20:28)
[2016-07-25] MEDS: MULTIVITAMINS THERAPEUTIC TAB PO SCH (09:17)
[2016-07-25] MEDS: ASCORBIC ACID 250 MG TAB PO SCH (09:17)
[2016-07-25] MEDS ORDERED: BISACODYL (EC) 5 MG TAB PO ONE (11:30)
[2016-07-25 12:16] LABS: ADD SCAN DIFF NO
[2016-07-25 12:24] LABS: ABNORMAL IP MESSAGE 1; BASOPHIL # 0.1 10^3/ul (0.0-0.1); EOSINOPHILS # 0.2 10^3/ul (0.0-0.5); EOSINOPHILS % 2.4 % (0.0-7.0); HEMOGLOBIN 10.7 g/dl (12.0-16.0); LYMPHOCYTES # 1.5 10^3/ul (0.8-2.9); LYMPHOCYTES % 21.7 % (15.0-51.0); MEAN CORPUSCULAR HEMOGLOBIN 27.9 pg (29.0-33.0); MEAN CORPUSCULAR HGB CONC 28.9 g/dl (32.0-37.0); MEAN CORPUSCULAR VOLUME 96.6 fl (82.0-101.0); MEAN PLATELET VOLUME 10.8 fl (7.4-10.4); MONOCYTE # 0.7 10^3/ul (0.3-0.9); MONOCYTES % 9.6 % (0.0-11.0); NEUTROPHIL # 4.4 10^3/ul (1.6-7.5); NEUTROPHILS % 64.7 % (39.0-77.0); PLATELET COUNT 149 10^3/UL (140-415); RED BLOOD COUNT 3.83 10^6/ul (4.20-5.40); RED CELL DISTRIBUTION WIDTH 17.2 % (11.5-14.5); WHITE BLOOD COUNT 6.8 10^3/ul (4.8-10.8)
--- NOTE | 2016-07-25 12:44 | PN ---
DATE: 07/25/2016 SUBJECTIVE: Patient seen. The patient is feeling better and looks better. More alert and comforta ble in bed. Again, I noted snacks at bedside as she has crackers and humus at bedside, again lying flat. The patient has had no bowel movement for 2 days as I asked the patient. Urine culture came back again ESBL Escherichia coli sensitive to amikacin, cefepime, imipenem, nitrofurantoin and Zosyn . The patient is already on the appropriate antibiotic therapy. PHYSICAL EXAMINATION: VITAL SIGNS: Temperature 98.6, pulse 74, respirations 20, blood pressure 108/57, saturation 94% on 2 liters. GENERAL: The patient is in no acute distress, obese, pale. CARDIOVASCULAR: S1 and S2, regular rate. LUNGS: Clear. ABDOMEN: Soft, nontender, obese. EXTREMITIES: No clubbing, cyanosis, or edema. Patient with venous stasis of the lower extremities with lower extremity elastic bandage. LABORATORIES: No labs despite that I ordered it. Last glucose levels 190, 192 and 129, so slightly still elevated. Urine culture as above. IMAGING: A KUB, which I ordered as patient had no bowel movements and slight pain shows no evidence of bowel obstruction. IVC filter in place prior pelvic surgery, dual-lead permanent pacemaker, deg enerative changes of the spine and lumbar scoliosis convex left. MEDICATIONS: 1. Flomax 0.4 at bedtime. 2. Amitiza 24 b.i.d. she refused, 3. Lantus 14 units daily. 4. Xarelto 20 mg with dinner. 5. Hypoglycemia protocol. 6. Dulcolax p.r.n. 7. Vitamin C 250 daily. 8. Colace 100 b.i.d. 9. Cymbalta 30 mg daily. 10. Ferrous sulfate 325 daily. 11. Multivitamin 1 tablet daily. 12. Florastor 250 b.i.d. 13. Senna 1 tab b.i.d. 14. Zinc sulfate 220 daily. 15. Insulin NovoLog 6 units q.a.c. meals. 16. Methadone 10 mg q.i.d. as directed. 17. Lasix 40 mg daily. 18. Protonix 40 mg daily. 19. Dilaudid 6 mg q.i.d. as directed. 20. Albuterol or DuoNeb every 4 hours. 21. Imipenem 500 IV q.6. 22. Dilaudid p.r.n. 0.5 IV q.4h. 23. Lindsay p.r.n. 24. Zofran p.r.n. 25. Tylenol p.r.n. ASSESSMENT AND PLAN: This is a very unfortunate 71-year-old morbidly obese female with hi story of COPD, O2 dependent, diabetes mellitus recently diagnosed, recurrent UTI, peripheral vascula r disease, history of DVT and PE in the past, now presents again with mild encephalopathy, mild denzel estive heart failure exacerbation and recurrent urinary tract infection again. 1. Respiratory. Status post IV Lasix x1. Continue oral Lasix. Appears to be euvolemic. Continue O2 support, breathing treatments. 2. Cardiovascular: Continue Xarelto as patient has history of DVT and PE in the past. 3. Infectious disease. Continue imipenem. Duration of antibiotics may need to be longer as patien t still appeared to be developing infection. Again, hygiene is very important. Bedside commode was offered. 4. Constipation. We will continue with stool softeners, will give a Dulcolax x1. She may benefit from Movantik for opioid-induced constipation. 5. Depression. Continue Cymbalta. 6. Diabetes mellitus. Will increase slightly her insulin further. Will ask dietitian to assist as patient's son appears to be bringing her snacks all the time, every time there is always food at be dside which is not from her strict diet that she is supposed to get in the hospital. 7. Overall debilitated state. We will ask physical therapy to reevaluate, as patient has been refu sing therapy on multiple occasions. 8. Chronic pain. Continue current medications. 9. Disposition. Will discuss with infectious disease regarding duration of antibiotics. We will f rafia. Dictated By: EDDY TIAN/ANNA Conf#: [id number] DID#: [id number]
[2016-07-25 12:47] LABS: MAGNESIUM 2.1 mg/dl (1.7-2.5); PHOSPHORUS 4.8 mg/dl (2.5-4.9)
[2016-07-25 12:49] LABS: ALBUMIN 3.5 g/dl (3.3-4.9); ALBUMIN/GLOBULIN RATIO 0.87; BILIRUBIN,INDIRECT 0.2 mg/dl (0-1.1); BILIRUBIN,TOTAL 0.2 mg/dl (0.2-1.3); CALCIUM 8.7 mg/dl (8.4-10.2); CREATININE 0.89 mg/dl (0.44-1.00); POTASSIUM 4.4 mmol/L (3.5-5.1); TOTAL PROTEIN 7.5 g/dl (6.1-8.1)
--- NOTE | 2016-07-25 14:29 | PN ---
DATE: 07/25/2016 INFECTIOUS DISEASE PROGRESS NOTE SUBJECTIVE: Patient is alert, feels better, looks comfortable, no fevers. WBC 6.8, no shift, no ba nds. BUN 20, creatinine 0.92. MICROBIOLOGY: Urine culture growing E. coli ESBL, susceptible to Imipenem ALLERGIES: 1. ZOSYN. 2. MACROBID. ANTIMICROBIALS: The patient is on imipenem. PHYSICAL EXAMINATION: GENERAL: This is a morbidly obese elderly woman who is awake, in no distress. HEENT: Head atraumatic, normocephalic. Sclerae anicteric. Buccal mucosa pink, dry. NECK: Supple. CHEST: Rise symmetrical. Breath sounds clear, diminished to bases. HEART: S1, S2. ABDOMEN: Soft. Bowel tones present. EXTREMITIES: With Cristi wrap below knees bilaterally lower extremities. ASSESSMENT: 1. Recurrent urinary tract infection. 2. Chronic pain syndrome. 3. Opioid dependent. 4. ALLERGY TO MACROBID AND ZOSYN. 5. Coronary artery disease, history of permanent pacemaker placement. 6. Chronic obstructive pulmonary disease. PLAN: The patient remains stable, improving on current antimicrobials. Dictated By: GIOVANNA ESCUDERO ROSS FURNACE OPERATOR for SATYA QUIROZ/NTS Conf#: [id number] DID#: [id number]
[2016-07-25] MEDS: RIVAROXABAN 20 MG TABLET PO SCH (17:45)
[2016-07-25 20:00] VITALS: BP 117/62; RESP 20
[2016-07-25] MEDS: TAMSULOSIN (SR) 0.4 MG CAP PO SCH (20:18)
[2016-07-25] MEDS: INSULIN GLARGINE [LANtus] 3 ML PEN SC SCH (20:23)
[2016-07-26] MEDS: ALBUTEROL/IPRATROPIUM (NEB) 3 ML AMP NEB SCH ×6 (01:00→20:47)
[2016-07-26] MEDS: HYDROmorphONE 1 MG/ML SYG IV PRN ×3 (01:33→22:06)
[2016-07-26] MEDS: HYDROmorphONE 2 MG TAB PO SCH ×4 (04:56→23:48)
[2016-07-26] MEDS: PANTOPRAZOLE (EC) 40 MG TAB PO SCH (06:22)
[2016-07-26] MEDS: IMIPENEM-CILAST 500MG IV (PMX) 100 ML IV SCH ×4 (06:22→23:48)
[2016-07-26] MEDS: FUROSEMIDE 40 MG TAB PO SCH (06:23)
[2016-07-26 08:24] VITALS: BP 116/98; RESP 20
[2016-07-26] MEDS: INSULIN ASPART [NOVOLOG] 3 ML PEN SC SCH ×3 (08:42→17:29)
[2016-07-26] MEDS: LUBIPROSTONE 24 MCG CAP PO SCH ×2 (09:00→20:38)
[2016-07-26] MEDS: ZINC SULFATE 220 MG CAP PO SCH (09:11)
[2016-07-26] MEDS: SACCHAROMYCES BOULARDII 250 MG CAP PO SCH ×2 (09:11→20:34)
[2016-07-26] MEDS: DULOXETINE 30 MG CAP DR PO SCH (09:11)
[2016-07-26] MEDS: ASCORBIC ACID 250 MG TAB PO SCH (09:12)
[2016-07-26] MEDS: DOCUSATE SODIUM 100 MG CAP PO SCH ×2 (09:12→20:34)
[2016-07-26] MEDS: FERROUS SULFATE (EC) 325 MG TAB PO SCH (09:12)
[2016-07-26] MEDS: SENNA TAB PO SCH ×2 (09:12→20:34)
[2016-07-26] MEDS: METHADONE 10 MG TAB PO SCH ×4 (09:12→23:48)
[2016-07-26] MEDS: MULTIVITAMINS THERAPEUTIC TAB PO SCH (09:12)
[2016-07-26 14:17] LABS: CALCIUM 9.1 mg/dl (8.4-10.2); CREATININE 0.88 mg/dl (0.44-1.00); PHOSPHORUS 4.3 mg/dl (2.5-4.9); POTASSIUM 4.1 mmol/L (3.5-5.1)
--- NOTE | 2016-07-26 15:36 | PN ---
DATE: 07/26/2016 SUBJECTIVE: No acute events overnight. The patient is alert, looks comfortable, feels slightly bet ter. She is in no distress. No fevers. No nausea, vomiting, diarrhea. MICROBIOLOGY: Urine culture on admission grew E. coli ESBL. INDWELLINGS: Peripheral IV. ANTIMICROBIALS: The patient remains on imipenem day #3. PHYSICAL EXAMINATION: GENERAL: This is a morbidly obese, elderly woman who is awake, in no distress. HEENT: Head atraumatic, normocephalic. Sclerae anicteric. Buccal mucosa dry. NECK: Obese. CHEST: Rise symmetrical. Breath sounds clear, diminished to bases. HEART: S1, S2. ABDOMEN: Soft, bowel sounds present. EXTREMITIES: Without cyanosis. ASSESSMENT: 1. Recurrent urinary tract infection, on appropriate antimicrobials. 2. Chronic pain syndrome with opioid dependence. 3. Bilateral lower extremities chronic venous stasis. 4. Coronary artery disease, history of permanent pacemaker placement. 5. Chronic obstructive pulmonary disease. 6. ALLERGY TO MACROBID AND ZOSYN. PLAN: The patient remains stable. We will continue her on current antimicrobials. Encourage incre ased activity, physical therapy. Dictated By: GIOVANNA ESCUDERO PLATER SUPERVISOR for SATYA QUIROZ/ANNA Conf#: [id number] DID#: [id number]
--- NOTE | 2016-07-26 16:10 | PN ---
DATE: 07/26/2016 SUBJECTIVE: The patient seen. Repeat urine culture done on 07/24/2016, again shows gram-negative r ods, but cultures for that are still pending. Dr. Milan is following closely. The patient is over all feeling better. Case discussed with nursing staff. The patient is requiring still pain medicat ions around the clock despite her routine pain meds which she takes. I also spoke with the son in [place], his name is Virgilio, phone number [phone], over the phone. We discussed the patient's care and plan of care. PHYSICAL EXAMINATION: VITAL SIGNS: Temperature is 98.6, pulse 86, respirations 20, blood pressure 116/98, saturation 95% on 2 liters. GENERAL: The patient is in no acute distress. HEENT: Patient is morbidly obese. Again, she is lying flat and there are snacks at bedside. CARDIOVASCULAR: S1 and S2. LUNGS: Clear. ABDOMEN: Soft, obese. EXTREMITIES: No clubbing, cyanosis, or edema. She does have peripheral vascular disease. LABORATORY DATA: On 07/25/2016, labs reviewed. CBC shows a white count of 6.8, hemoglobin 10.7. T mor, BMP came back. His sodium is 136, potassium 4.1, chloride 97, bicarb 21. BUN is 24, creatini ne 0.88, and glucose of 105. MEDICATIONS: 1. Insulin aspart 8 units q.a.c. meals. 2. Flomax 0.4 at bedtime. 3. Amitiza 24 mcg b.i.d., she is refusing. 4. Lantus 14 units daily. 5. Xarelto 20 mg with dinner. 6. Hypoglycemia protocol. 7. Dulcolax p.r.n. 8. Vitamin C 250 daily. 9. Colace 100 b.i.d. 10. Cymbalta 30 mg daily. 11. Ferrous sulfate 325 daily. 12. Multivitamin 1 tab daily. 13. Florastor 250 b.i.d. 14. Senna 1 tab b.i.d. 15. Zinc sulfate 220 daily. 16. Methadone 10 mg q.i.d. 17. Lasix 40 mg daily. 18. Protonix 40 mg daily. 19. Dilaudid 6 mg q.i.d. 20. Albuterol and Atrovent every 4 hours. 21. Imipenem 500 IV q.6. 22. Dilaudid p.r.n. 23. [place] p.r.n. 24. Zofran p.r.n. 25. Tylenol p.r.n. ASSESSMENT AND PLAN: This is a very unfortunate morbidly obese 71-year-old female with hi story of chronic obstructive pulmonary disease oxygen dependent, diabetes mellitus recently diagnose d, recurrent urinary tract infection, peripheral vascular disease, history of deep venous thrombosis and pulmonary embolism in the past, who presented again with mild encephalopathy, mild congestive h eart failure status post IV Lasix, and recurrent urinary tract infection. 1. Respiratory: Stable. Continue oral Lasix, breathing treatment as needed, and oxygen support. 2. Cardiovascular: Remains on Xarelto as patient has a history of deep venous thrombosis and pulmo nary embolism in the past and she has overall a sedentary life, mostly in bed. 3. Infectious disease: The patient with recurrent urinary tract infection. We will repeat another UA and urine culture with the aim to document resolution the duration of antibiotics per Dr. Milan. 4. Constipation. Continue stool softeners if patient takes opioids and she is in bed, so she has d ifficulty to move her bowels. 5. Depression. Continue Cymbalta. 6. Diabetes mellitus. Remains on current insulin regimen. Accu-Cheks 168, 147, 136. We will cont inue the same regimen. Add metformin once discharged. 7. Overall debilitated state. We will ask physical therapy to reevaluate the patient. 8. Chronic pain, on pain regimen per pain specialist which she sees as an outpatient basis. 9. Disposition. Pending repeat urinalysis and infectious disease recommendation as the patient was recently discharged and came back, so I do not want to prematurely discharge her. Again, I had a l chavez conversation with the son, Virgilio, regarding patient's plan of care. 10. Anemia. H and H remain stable. Continue Protonix for gastrointestinal prophylaxis. We will f rafia. Dictated By: EDDY TIAN/ANNA Conf#: [id number] DID#: [id number]
[2016-07-26 16:26] LABS: ADD SCAN DIFF NO
[2016-07-26 16:27] LABS: BASOPHIL # 0.1 10^3/ul (0.0-0.1); BASOPHILS % 0.7 % (0.0-2.0); EOSINOPHILS # 0.2 10^3/ul (0.0-0.5); HEMATOCRIT 37.5 % (37.0-47.0); HEMOGLOBIN 11.5 g/dl (12.0-16.0); LYMPHOCYTES # 1.9 10^3/ul (0.8-2.9); LYMPHOCYTES % 21.8 % (15.0-51.0); MEAN CORPUSCULAR HEMOGLOBIN 28.8 pg (29.0-33.0); MEAN CORPUSCULAR HGB CONC 30.7 g/dl (32.0-37.0); MEAN CORPUSCULAR VOLUME 93.8 fl (82.0-101.0); MEAN PLATELET VOLUME 10.4 fl (7.4-10.4); MONOCYTE # 0.8 10^3/ul (0.3-0.9); MONOCYTES % 9.7 % (0.0-11.0); NEUTROPHIL # 5.6 10^3/ul (1.6-7.5); NEUTROPHILS % 65.4 % (39.0-77.0); PLATELET COUNT 185 10^3/UL (140-415); RED CELL DISTRIBUTION WIDTH 16.2 % (11.5-14.5); WHITE BLOOD COUNT 8.5 10^3/ul (4.8-10.8)
[2016-07-26] MEDS: RIVAROXABAN 20 MG TABLET PO SCH (17:06)
[2016-07-26] MEDS: HYDROCODONE/APAP (5/325) TAB PO PRN (19:00)
[2016-07-26 20:13] VITALS: BP 114/67; RESP 20
[2016-07-26] MEDS: TAMSULOSIN (SR) 0.4 MG CAP PO SCH (20:33)
[2016-07-26] MEDS: INSULIN GLARGINE [LANtus] 3 ML PEN SC SCH (20:37)
[2016-07-27] MEDS: ALBUTEROL/IPRATROPIUM (NEB) 3 ML AMP NEB SCH ×6 (01:44→20:50)
[2016-07-27] MEDS: HYDROmorphONE 1 MG/ML SYG IV PRN ×4 (01:49→21:06)
[2016-07-27 05:11] LABS: ADD SCAN DIFF NO
[2016-07-27] MEDS: HYDROmorphONE 2 MG TAB PO SCH ×3 (05:11→17:21)
[2016-07-27] MEDS: IMIPENEM-CILAST 500MG IV (PMX) 100 ML IV SCH ×3 (05:11→17:29)
[2016-07-27 05:12] VITALS: BP 116/71; PULSE 63
[2016-07-27] MEDS: FUROSEMIDE 40 MG TAB PO SCH (05:12)
[2016-07-27 05:13] LABS: BASOPHIL # 0.1 10^3/ul (0.0-0.1); BASOPHILS % 0.7 % (0.0-2.0); EOSINOPHILS # 0.1 10^3/ul (0.0-0.5); EOSINOPHILS % 0.9 % (0.0-7.0); HEMOGLOBIN 10.7 g/dl (12.0-16.0); LYMPHOCYTES # 1.5 10^3/ul (0.8-2.9); LYMPHOCYTES % 20.8 % (15.0-51.0); MEAN CORPUSCULAR HGB CONC 29.7 g/dl (32.0-37.0); MEAN CORPUSCULAR VOLUME 94.2 fl (82.0-101.0); MEAN PLATELET VOLUME 9.9 fl (7.4-10.4); MONOCYTE # 0.7 10^3/ul (0.3-0.9); MONOCYTES % 9.7 % (0.0-11.0); NEUTROPHIL # 4.7 10^3/ul (1.6-7.5); NEUTROPHILS % 67.3 % (39.0-77.0); PLATELET COUNT 166 10^3/UL (140-415); RED BLOOD COUNT 3.82 10^6/ul (4.20-5.40); RED CELL DISTRIBUTION WIDTH 16.3 % (11.5-14.5)
[2016-07-27 05:24] LABS: POTASSIUM 3.7 mmol/L (3.5-5.1)
[2016-07-27 05:27] LABS: CREATININE 0.86 mg/dl (0.44-1.00)
[2016-07-27 05:28] LABS: CALCIUM 8.9 mg/dl (8.4-10.2); PHOSPHORUS 4.8 mg/dl (2.5-4.9)
[2016-07-27] MEDS: PANTOPRAZOLE (EC) 40 MG TAB PO SCH (06:14)
[2016-07-27 07:51] VITALS: BP 106/65; RESP 16
[2016-07-27] MEDS: METHADONE 10 MG TAB PO SCH ×3 (08:21→20:07)
[2016-07-27] MEDS: INSULIN ASPART [NOVOLOG] 3 ML PEN SC SCH ×3 (08:35→17:34)
[2016-07-27] MEDS: MULTIVITAMINS THERAPEUTIC TAB PO SCH (09:00)
[2016-07-27] MEDS: ZINC SULFATE 220 MG CAP PO SCH (09:00)
[2016-07-27] MEDS: LUBIPROSTONE 24 MCG CAP PO SCH ×2 (09:00→20:30)
[2016-07-27] MEDS: ASCORBIC ACID 250 MG TAB PO SCH (09:00)
[2016-07-27] MEDS: DULOXETINE 30 MG CAP DR PO SCH (09:07)
[2016-07-27] MEDS: SACCHAROMYCES BOULARDII 250 MG CAP PO SCH ×2 (09:07→20:07)
[2016-07-27] MEDS: SENNA TAB PO SCH ×2 (09:08→20:08)
[2016-07-27] MEDS: FERROUS SULFATE (EC) 325 MG TAB PO SCH (09:08)
[2016-07-27] MEDS: DOCUSATE SODIUM 100 MG CAP PO SCH ×2 (09:08→20:07)
--- NOTE | 2016-07-27 10:14 | PN ---
DATE: 07/27/[address] Londono. SUBJECTIVE: The patient is stable. No acute events overnight. No fevers, chills, nausea, vomiting. No shortness of breath. PHYSICAL EXAMINATION: VITAL SIGNS: Blood pressure 106/65, respirations 16, pulse is 96, temperature 98.4. HEENT: Head is normocephalic. NECK: Supple. HEART: Regular rate. LUNGS: Showed diminished breath sounds at the base. ABDOMEN: Soft, nontender to palpation. No rebound or guarding. EXTREMITIES: Negative for clubbing or cyanosis. Positive edema. Positive bandage, which is clean, dry and intact. NEUROLOGIC: No focal deficits. DERMATOLOGIC: No rashes. MUSCULOSKELETAL: Have no joint effusion. MEDICATION: The patient's medication have been reviewed. LABORATORY DATA: Shows a white count of 7.0, hemoglobin 10.7, platelet count is 166. Sodium 139, p otassium 3.7, chloride 97, BUN 30, creatinine 0.86. ASSESSMENT AND PLAN: 1. Sepsis secondary to urinary tract infection. The patient is currently on antibiotic therapy. Wi ll continue. Followup with infectious disease. 2. Diabetes. Continue the current insulin regimen. 3. Chronic pain syndrome. Continue the current pain regimen. 4. Anemia. Continue to monitor H and H levels. 5. History of deep vein thrombosis and pulmonary embolus. The patient is on Xarelto. Will continu e. 6. History of congestive heart failure. The patient is mildly decompensated. Continue the current medical management. 7. History of venous insufficiency. Continue compression stockings. 8. Depression. Continue Cymbalta. 9. History of coronary artery disease. Continue the current medical management. 10. History of chronic obstructive pulmonary disease. Continue the current treatment plan. 11. History of permanent pacemaker placement. Dictated By: JUAN ROCHA/ANNA Conf#: [id number] DID#: [id number]
--- NOTE | 2016-07-27 14:22 | PN ---
DATE: 07/27/2016 INFECTIOUS DISEASE PROGRESS NOTE SUBJECTIVE: No acute changes. Patient is alert, feels better, looks comfortable. Vital signs stab le. WBC 7. No shift, no bands. BUN 30, creatinine 0.86. ANTIMICROBIALS: Imipenem. PHYSICAL EXAMINATION: GENERAL: Morbidly obese, elderly woman, who is alert, in no distress. HEENT: Head atraumatic, normocephalic. Sclerae anicteric. Buccal mucosa pink. NECK: Supple. CHEST: Chest rise is symmetrical. Breath sounds clear, diminished to the bases. HEART: S1, S2. ABDOMEN: Soft, bowel tones present. EXTREMITIES: Without cyanosis. ASSESSMENT: 1. Escherichia coli extended-spectrum beta-lactamase urinary tract infection, improving on current antimicrobials. 2. Status post acute encephalopathy, likely secondary to opioids. 3. Chronic pain syndrome, with opioid dependence. 4. Chronic obstructive pulmonary disease. 5. Coronary artery disease status post permanent pacemaker placement. 6. ALLERGY TO MACROBID AND ZOSYN. PLAN: The patient remains stable, overall improving. We are going to repeat a urine culture to joe lisa sure her infection is resolving and discontinue isolation if negative. Above was discussed with abdelrahman perkins patient and nurse. Dictated By: GIOVANNA ESCUDERO WASTEWATER SUPERINTENDENT for SATYA QUIROZ/NTS Conf#: [id number] DID#: [id number]
[2016-07-27] MEDS: RIVAROXABAN 20 MG TABLET PO SCH (17:21)
[2016-07-27 19:46] VITALS: BP 104/63; RESP 18
[2016-07-27] MEDS: TAMSULOSIN (SR) 0.4 MG CAP PO SCH (20:07)
[2016-07-27] MEDS: INSULIN GLARGINE [LANtus] 3 ML PEN SC SCH (20:29)
[2016-07-27 21:57] LABS: URINE COLOR YELLOW (YELLOW); URINE GLUCOSE (Dip) NEGATIVE (NEGATIVE); URINE KETONES (Dip) TRACE (NEGATIVE); URINE TOTAL PROTEIN (Dip) NEGATIVE (NEGATIVE)
[2016-07-27 21:58] LABS: ADD UMIC YES; URINE BILIRUBIN (Dip) NEGATIVE (NEGATIVE); URINE BLOOD (Dip) NEGATIVE (NEGATIVE); URINE LEUKOCYTE ESTERASE (Dip) 1+ (NEGATIVE); URINE NITRITE (Dip) NEGATIVE (NEGATIVE); URINE UROBILINOGEN (Dip) 1.0 E.U./dL (0.1-1.0)
[2016-07-27 22:01] LABS: BACTERIA,URINE RARE; SQUAMOUS EPITHELIAL CELL,UR FEW; URINE RBCS 0-2 /HPF (0)
[2016-07-28] MEDS: IMIPENEM-CILAST 500MG IV (PMX) 100 ML IV SCH ×3 (00:13→12:04)
[2016-07-28] MEDS: METHADONE 10 MG TAB PO SCH ×3 (00:13→14:03)
[2016-07-28] MEDS: HYDROmorphONE 2 MG TAB PO SCH ×3 (00:13→11:04)
[2016-07-28] MEDS: ALBUTEROL/IPRATROPIUM (NEB) 3 ML AMP NEB SCH ×4 (01:00→13:00)
[2016-07-28] MEDS: HYDROmorphONE 1 MG/ML SYG IV PRN ×2 (03:56→12:43)
[2016-07-28] MEDS: PANTOPRAZOLE (EC) 40 MG TAB PO SCH (05:23)
[2016-07-28] MEDS: FUROSEMIDE 40 MG TAB PO SCH (05:25)
[2016-07-28 07:53] VITALS: BP 117/58; RESP 19
[2016-07-28] MEDS: FERROUS SULFATE (EC) 325 MG TAB PO SCH (09:00)
[2016-07-28] MEDS: ASCORBIC ACID 250 MG TAB PO SCH (09:00)
[2016-07-28] MEDS: MULTIVITAMINS THERAPEUTIC TAB PO SCH (09:00)
[2016-07-28] MEDS: SACCHAROMYCES BOULARDII 250 MG CAP PO SCH (09:00)
[2016-07-28] MEDS: LUBIPROSTONE 24 MCG CAP PO SCH (09:00)
[2016-07-28] MEDS: DULOXETINE 30 MG CAP DR PO SCH (09:10)
[2016-07-28] MEDS: ZINC SULFATE 220 MG CAP PO SCH (09:10)
[2016-07-28] MEDS: DOCUSATE SODIUM 100 MG CAP PO SCH (09:10)
[2016-07-28] MEDS: SENNA TAB PO SCH (09:10)
[2016-07-28] MEDS: INSULIN ASPART [NOVOLOG] 3 ML PEN SC SCH ×2 (09:15→12:40)
--- NOTE | 2016-07-28 10:48 | DS ---
DATE OF ADMISSION: 07/23/2016 DATE OF DISCHARGE: HOSPITAL COURSE: This is a 71-year-old female with a past medical history of diabetes, COPD, morbid obesity, UTIs, recurrent, history of osteoarthritis, chronic pain syndrome on methadone and Dilaudi d, history of hypertension, anemia, history of DVT and PE who presents to [facility] for evaluation of hypoglycemia and altered mental status. The patient was diagnosed with a UTI i n the emergency room and subsequently admitted to med-surg. In terms of the patient's encephalopath y, etiology is secondary to toxic metabolic. The patient's mental status returned to baseline with treatment of her underlying UTI. In terms of the patient's urinary tract infection, the patient had noted to have an E. coli ESBL. She was seen by infectious disease, Dr. Milan, and was treated wit h IV antibiotics. The patient will continue IV antibiotics for another 7 to 10 days. The patient's other medical problems including diabetes, chronic pain syndrome, anemia, depression, constipation have been clinically stable during the hospital course. The patient also has history of CHF and has been compensated being medically managed with diuretic therapy. Currently at this time the patient is stable, in no acute distress, will be discharged back to nursing home facility as the patient is requesting to go back to her SNF. The patient will be treated with 7 to 10 days of IV antibioti cs and will follow up with her primary care physician, Dr. Londono. At the time of discharge, the patient is stable, in no acute distress. FINAL DIAGNOSES: 1. Sepsis secondary to urinary tract infection. The patient is currently on imipenem and will cont inue for another 7 to 10 days. 2. Diabetes. Continue current insulin regimen. 3. Chronic pain syndrome. 4. Anemia. 5. History of deep venous thrombosis and pulmonary embolism. 6. History of congestive heart failure, compensated. 7. History of venous insufficiency 8. Depression. 9. History of coronary artery disease. 10. History of chronic obstructive pulmonary disease. 11. History of arrhythmia with pacemaker placement. FINAL MEDICATIONS: See reconciliation list. At the time of discharge, the patient is stable, in no acute distress. Please note I spent over 40 minutes of time preparing the patient's discharge. Dictated By: JUAN ROCHA/ANNA Conf#: [id number] [facility]#: [id number]
--- NOTE | 2016-07-28 14:55 | CONS ---
Date/Time of Note Date/Time of Note DATE: 07/28/16 TIME: 14:53 Assessment/Plan Assessment/Plan Chief Complaint/Hosp Course SUBJECTIVE: No acute changes. Patient is alert, feels good, looks comfortable. ANTIMICROBIALS: Imipenem. PHYSICAL EXAMINATION: GENERAL: Morbidly obese, elderly woman, who is alert, in no distress. HEENT: Head atraumatic, normocephalic. Sclerae anicteric. Buccal mucosa pink. NECK: Supple. CHEST: Chest rise is symmetrical. Breath sounds clear, diminished to the bases. HEART: S1, S2. ABDOMEN: Soft, bowel tones present. EXTREMITIES: Without cyanosis. ASSESSMENT: 1. Escherichia coli extended-spectrum beta-lactamase urinary tract infection, improving on current antimicrobials. 2. Status post acute encephalopathy, likely secondary to opioids. 3. Chronic pain syndrome, with opioid dependence. 4. Chronic obstructive pulmonary disease. 5. Coronary artery disease status post permanent pacemaker placement. 6. ALLERGY TO MACROBID AND ZOSYN. PLAN: Continues to improve, repeat urine cx negative, continue abx for 7more days, pending dc plan DW pt/son HENRIQUE Ramos Problems: Consultation Date/Type/Reason Admit Date/Time Jul 23, 2016 at 18:54 Initial Consult Date Type of Consultation: id Exam/Review of Systems Vital Signs Vitals Vital Signs Date Time Temp Pulse Resp B/P Pulse Ox O2 Delivery O2 Flow Rate FiO2 07/28/16 13:22 Nasal Cannula 3.0 07/28/16 07:53 97.9 71 19 117/58 90 07/27/16 20:50 33 Intake and Output 07/27/16 07/27/16 07/28/16 14:59 22:59 06:59 Intake Total 1380 ml 440 ml Balance 1380 ml 440 ml Results Result Diagram: 07/27/16 0450 07/27/16 0450 Results 24 hrs Laboratory Tests Test 07/27/16 17:23 07/27/16 20:10 07/28/16 08:07 07/28/16 09:05 Bedside Glucose 140 154 143 156 Test 07/28/16 12:22 Bedside Glucose 144 GIOVANNA ESCUDERO NP Jul 28, 2016 14:55
== END 2016-07-28 14:20 | DRG 871 ==
LOC: E/R 16:43 → MS2 18:54
PROVIDERS: ADMIT Internal Medicine; ATTEND Internal Medicine
DX: A41.9 Sepsis, unspecified organism (principal); G93.40 Encephalopathy, unspecified; G92 Toxic encephalopathy; E11.8 Type 2 diabetes mellitus with unspecified complications; J44.9 Chronic obstructive pulmonary disease, unspecified; F11.20 Opioid dependence, uncomplicated; N39.0 Urinary tract infection, site not specified; Z68.35 Body mass index [BMI] 35.0-35.9, adult; E66.9 Obesity, unspecified; G89.4 Chronic pain syndrome; D64.9 Anemia, unspecified; Z86.718 Personal history of other venous thrombosis and embolism; Z86.711 Personal history of pulmonary embolism; F32.9 Major depressive disorder, single episode, unspecified; B96.20 Unspecified Escherichia coli [E. coli] as the cause of diseases classified elsewhere; Z16.12 Extended spectrum beta lactamase (ESBL) resistance; Z87.891 Personal history of nicotine dependence; Z79.02 Long term (current) use of antithrombotics/antiplatelets; Z91.11 Patient's noncompliance with dietary regimen; B37.3 Candidiasis of vulva and vagina; I87.8 Other specified disorders of veins; K59.00 Constipation, unspecified
CPT/HCPCS: 71010; 74000; 80048; 80053; 81001; 81003; 82962; 83605; 83735; 84100; 84484; 85025; 85610; 85730; 87040; 87086; 93005; 94640; 94664; 96374; 96375; 96376; J1940; J0696; J0743; J1170; J1815; J2405; J7030

== ENCOUNTER 2016-07-31 00:22 | Inpatient (IN) | payer MEDICARE, OTHER ==
[~2016-07-31] VITALS: Ht 170.2 cm; Wt 107.1 kg
[2016-07-31] MEDS ORDERED: SODIUM CHLORIDE 0.9% 1L BAG IV* STA (00:38)
--- NOTE | 2016-07-31 01:32 | RADRPT ---
PROCEDURE: XR Chest. CLINICAL INDICATION: Sepsis TECHNIQUE: Single AP portable chest COMPARISON: 07/11/2016 Chest x-ray FINDINGS: The cardiac silhouette is enlarged. Dual chamber left chest pacemaker in place. Persistent vascula r congestion. No pleural effusion or focal consolidation. Chronic elevation of the right hemidiaph ragm. . Atherosclerotic calcification of the aorta. No pneumothorax. The osseous structures and s oft tissues are unremarkable. IMPRESSION: 1. Cardiomegaly and vascular congestion without significant interval change. No focal consolidation or pleural effusion . RPTAT:AAJJ Physician Brian Date Time Electronically viewed and signed by Physician Brian on 07/31/2016 01:32 LITZY/
[2016-07-31 02:21] LABS: ABNORMAL IP MESSAGE 1; BASOPHILS % 0.6 % (0.0-2.0); EOSINOPHILS # 0.1 10^3/ul (0.0-0.5); EOSINOPHILS % 1.4 % (0.0-7.0); HEMATOCRIT 36.5 % (37.0-47.0); HEMOGLOBIN 10.5 g/dl (12.0-16.0); LYMPHOCYTES % 30.2 % (15.0-51.0); MEAN CORPUSCULAR HEMOGLOBIN 27.3 pg (29.0-33.0); MEAN CORPUSCULAR HGB CONC 28.8 g/dl (32.0-37.0); MEAN CORPUSCULAR VOLUME 95.1 fl (82.0-101.0); MONOCYTE # 0.7 10^3/ul (0.3-0.9); NEUTROPHIL # 3.8 10^3/ul (1.6-7.5); NEUTROPHILS % 56.5 % (39.0-77.0); PLATELET COUNT 123 10^3/UL (140-415); RED BLOOD COUNT 3.84 10^6/ul (4.20-5.40); RED CELL DISTRIBUTION WIDTH 16.3 % (11.5-14.5); WHITE BLOOD COUNT 6.7 10^3/ul (4.8-10.8)
[2016-07-31 02:22] LABS: ADD SCAN DIFF NO
[2016-07-31] MEDS ORDERED: HYDROmorphONE 2 MG/ML SYG IV STA (02:22)
[2016-07-31 02:40] LABS: ALBUMIN 3.6 g/dl (3.3-4.9); CHLORIDE 102 mmol/L (97-110); POTASSIUM 3.9 mmol/L (3.5-5.1); SODIUM 142 mmol/L (135-144)
[2016-07-31 02:42] LABS: CREATININE 0.83 mg/dl (0.44-1.00)
[2016-07-31 02:43] LABS: ALANINE AMINOTRANSFERASE 13 IU/L (13-69); ALBUMIN/GLOBULIN RATIO 0.83; ALKALINE PHOSPHATASE 112 IU/L (42-121); ANION GAP 16 (8-16); ASPARTATE AMINO TRANSFERASE 23 IU/L (15-46); BILIRUBIN,INDIRECT 0.1 mg/dl (0-1.1); BILIRUBIN,TOTAL 0.1 mg/dl (0.2-1.3); BLOOD UREA NITROGEN 32 mg/dl (7-20); CALCIUM 9.1 mg/dl (8.4-10.2); CARBON DIOXIDE 28 mmol/L (21-31); GLUCOSE 122 mg/dl (70-220); TOTAL PROTEIN 7.9 g/dl (6.1-8.1)
[2016-07-31 02:52] LABS: INR 1.76; PROTIME 20.7 Sec (12.2-14.2); PT RATIO 1.6
[2016-07-31 02:53] LABS: PARTIAL THROMBOPLASTIN TIME 46.3 Sec (25.0-35.0)
[2016-07-31 03:02] LABS: TROPONIN-I < 0.012 ng/ml (0.00-0.12)
[2016-07-31 03:04] LABS: ADD UMIC YES; URINE BILIRUBIN (Dip) NEGATIVE (NEGATIVE); URINE BLOOD (Dip) TRACE (NEGATIVE); URINE GLUCOSE (Dip) NEGATIVE (NEGATIVE); URINE KETONES (Dip) NEGATIVE (NEGATIVE); URINE LEUKOCYTE ESTERASE (Dip) TRACE (NEGATIVE); URINE NITRITE (Dip) POSITIVE (NEGATIVE); URINE TOTAL PROTEIN (Dip) TRACE (NEGATIVE); URINE UROBILINOGEN (Dip) 2.0 E.U./dL (0.1-1.0)
[2016-07-31 03:05] LABS: URINE COLOR YELLOW (YELLOW)
[2016-07-31 03:08] VITALS: TEMP 98
[2016-07-31 03:21] LABS: BACTERIA,URINE OCCASIONAL; SQUAMOUS EPITHELIAL CELL,UR FEW; URINE RBCS 0-2 /HPF (0)
[2016-07-31] MEDS ORDERED: HYDROmorphONE 1 MG/ML SYG IV STA ×2 (04:19→04:44)
[2016-07-31] MEDS ORDERED: BISACODYL 10 MG SUPP PR PRN ×2 (05:00→23:00)
[2016-07-31] MEDS ORDERED: NA PHOSPHATE/BIPHOS 133 ML ENEMA PR PRN ×2 (05:00→23:30)
[2016-07-31] MEDS ORDERED: ONDANSETRON 4 MG INJ IV PRN ×2 (05:00→23:30)
[2016-07-31] MEDS ORDERED: LORAZEPAM 0.5 MG TAB PO PRN (05:00)
[2016-07-31] MEDS ORDERED: ACETAMINOPHEN 325 MG TAB PO PRN (05:00)
[2016-07-31] MEDS ORDERED: ALBUTEROL/IPRATROPIUM (NEB) 3 ML AMP HHN PRN ×2 (05:00→23:00)
[2016-07-31] MEDS ORDERED: BISACODYL (EC) 5 MG TAB PO PRN ×2 (05:00→23:00)
[2016-07-31] MEDS ORDERED: ZOLPIDEM 5 MG TAB PO PRN (05:00)
[2016-07-31] MEDS ORDERED: MAGNESIUM HYDROXIDE 30ML CUP PO PRN ×2 (05:00→23:30)
[2016-07-31] MEDS ORDERED: DOCUSATE SODIUM 100 MG CAP PO PRN ×2 (05:00→23:30)
[2016-07-31] MEDS ORDERED: NACL 0.9% 3 ML SYG IV SCH ×2 (05:00→23:30)
[2016-07-31 05:24] VITALS: Ht 170.2 cm; Wt 107.1 kg
[2016-07-31] MEDS ORDERED: GLUCOSE GEL 15 GRAM TUBE PO PRN ×4 (05:30→23:30)
[2016-07-31] MEDS ORDERED: DEXTROSE 50% 50 ML SYRINGE IV PRN ×4 (05:30→23:30)
[2016-07-31] MEDS ORDERED: GLUCAGON 1 MG INJ IM PRN ×2 (05:30→23:30)
[2016-07-31] MEDS ORDERED: GLUCOSE GEL 15 GRAM TUBE BUCCAL PRN ×2 (05:30→23:30)
[2016-07-31] MEDS: FUROSEMIDE 40 MG TAB PO SCH ×2 (06:00→06:03)
[2016-07-31] MEDS ORDERED: PANTOPRAZOLE (EC) 40 MG TAB PO SCH ×2 (06:00→09:00)
[2016-07-31] MEDS: IMIPENEM-CILAST 500MG IV (PMX) 100 ML IVPB SCH ×3 (06:02→22:02)
[2016-07-31] MEDS: HYDROmorphONE 1 MG/ML SYG IV PRN ×4 (06:05→22:21)
[2016-07-31] MEDS: METHADONE 10 MG TAB PO SCH ×3 (07:56→20:00)
[2016-07-31] MEDS ORDERED: INSULIN GLARGINE [LANtus] 3 ML PEN SC SCH (08:00)
[2016-07-31] MEDS ORDERED: HYDROmorphONE 2 MG TAB PO ONE (08:00)
[2016-07-31] MEDS: INSULIN ASPART [NOVOLOG] 3 ML PEN SC SCH ×3 (08:15→17:09)
[2016-07-31] MEDS: SACCHAROMYCES BOULARDII 250 MG CAP PO SCH ×2 (09:00→21:22)
[2016-07-31] MEDS: SENNA TAB PO SCH ×2 (09:00→21:22)
[2016-07-31] MEDS: MAGNESIUM OXIDE 400 MG TAB PO SCH ×2 (09:00→21:22)
[2016-07-31] MEDS ORDERED: DULOXETINE 30 MG CAP DR PO SCH (09:00)
[2016-07-31] MEDS ORDERED: ZINC SULFATE 220 MG CAP PO SCH (09:00)
[2016-07-31] MEDS: DOCUSATE SODIUM 100 MG CAP PO SCH ×2 (09:00→21:21)
[2016-07-31] MEDS ORDERED: MULTIVITAMINS THERAPEUTIC TAB PO SCH (09:00)
[2016-07-31] MEDS ORDERED: ASCORBIC ACID 250 MG TAB PO SCH (09:00)
[2016-07-31] MEDS: HYDROCODONE/APAP (5/325) TAB PO PRN ×3 (09:19→21:15)
[2016-07-31] MEDS: HYDROmorphONE 2 MG TAB PO SCH ×3 (11:17→23:21)
[2016-07-31] MEDS ORDERED: AMIKACIN IV PER PHARMACY XX SCH ×2 (14:30→23:00)
--- NOTE | 2016-07-31 14:43 | RADRPT ---
PROCEDURE: US Pelvis. CLINICAL INDICATION: Pelvic pain. TECHNIQUE: The pelvis was evaluated with transabdominal sonography in the axial and sagittal plane s. The study is limited due to patient in severe pain. COMPARISON: No prior study is available for comparison. FINDINGS: This is a limited study with the uterus and ovaries not visualized. There is no pelvic mass or free fluid. IMPRESSION: 1. Limited study with uterus and ovaries not visualized. 2. No pelvic mass or free fluid. RPTAT: QQ .Conrado Treviño MD, MD Date Time Electronically viewed and signed by .Conrado Treviño MD, MD on 07/31/2016 14:43 .R/
--- NOTE | 2016-07-31 15:12 | PN ---
DATE: 07/31/2016 SUBJECTIVE: Patient was discharged last week in stable condition, readmitted with acute encephalopa thy. She is lying comfortably in bed, son at bedside. She is afebrile. VITAL SIGNS: Temperature 98, pulse 70, respirations 20, blood pressure 126/73, saturation 94 on 4 l iters. LABORATORY: WBC 6.7, no shift, no bands. BUN 32, creatinine 0.83. Urinalysis revealed positive ni trite, trace leukocyte esterase, occasional bacteria. MICROBIOLOGY: No cultures done yet. DIAGNOSTICS: Chest x-ray revealed cardiomegaly without focal consolidation or pleural effusion. ANTIMICROBIALS: The patient is on imipenem. PHYSICAL EXAMINATION: GENERAL: This is a morbidly obese elderly woman who is lethargic, lying comfortably in bed. HEENT: Head atraumatic, normocephalic. Sclerae anicteric. Buccal mucosa dry. NECK: Supple. CHEST: Rise symmetrical. Breath sounds diminished at the bases. HEART: S1, S2. ABDOMEN: Obese, soft, bowel tones present. EXTREMITIES: Bilateral lower extremity chronic venous stasis. ASSESSMENT: 1. Acute encephalopathy, possibly toxic metabolic, possibly secondary to opioids. 2. Persistent Escherichia coli extended-spectrum beta-lactamase urinary tract infection with urine culture on 07/27/2016 being negative. Patient had been on imipenem. 3. Morbid obesity. 4. Chronic obstructive pulmonary disease. 5. History of permanent pacemaker placement. 6. Bilateral lower extremities chronic venous stasis. 7. History of deep venous thrombosis and pulmonary embolus. PLAN: The patient remains clinically and hemodynamically stable, as per discussion with her son, wh o thinks that imipenem is not sufficient to treat her infection. We will add amikacin to the regime n and await for final cultures. Dictated By: GIOVANNA ESCUDERO PECAN GROWER for SATYA QUIROZ/ANNA Conf#: [id number] DID#: [id number]
[2016-07-31] MEDS ORDERED: AMIKACIN 1,000 MG in SOD CHLORIDE 0.9% 100 ML IVPB SCH (16:00)
[2016-07-31] MEDS: RIVAROXABAN 20 MG TABLET PO SCH (17:03)
[2016-07-31 20:00] VITALS: BP 139/67; RESP 20
[2016-07-31] MEDS: TAMSULOSIN (SR) 0.4 MG CAP PO SCH (21:22)
[2016-08-01] MEDS: METHADONE 10 MG TAB PO SCH ×4 (00:14→20:47)
[2016-08-01] MEDS: HYDROmorphONE 1 MG/ML SYG IV PRN ×4 (02:27→20:11)
--- NOTE | 2016-08-01 03:21 | HP ---
DATE OF ADMISSION: 07/31/2016 CONTINUATION PHYSICAL EXAMINATION: VITAL SIGNS: Temperature 98, pulse 73, respirations 12, blood pressure 148/69, saturation 93% on 2 L. GENERAL: The patient is in discomfort. The patient is pale. CARDIOVASCULAR: S1 and S2, regular rate. LUNGS: Clear bilaterally. ABDOMEN: Soft. Diffuse tenderness throughout. EXTREMITIES: No clubbing, cyanosis or edema. She does have peripheral vascular disease in the lowe r extremities and venous stasis with special elastic bandages on bilateral lower extremities. The p atient is moving all extremities. Of note, the patient's abdominal pain as described on the exam has been there before every time she has this UTI and urethral pain, and she had multiple CT scans of the abdomen and pelvis because of t hat in the past. LABORATORY DATA: White count is 6.7, hemoglobin 10.5, hematocrit 37, platelet count of 123. Neutro phils 57%, lymphocytes 30%. Chemistry: Sodium 142, potassium 3.9, chloride 102, bicarbonate 28, BU N is 32, creatinine 0.83 and glucose of 122. Last glucose level was 120. Lactic acid has been norm al throughout, since admission is 1.3, 0.8 and 0.9. AST 23, ALT 13. Troponin is less than 0.012. Albumin 3.6. INR 1.76 as the patient is on Xarelto. UA as above, nitrites positive, leukocyte boby rase trace, WBC 2 to 5, occasional bacteria, clear urine. IMAGING: The patient's chest x-ray done on admission shows cardiomegaly and vascular congestion wit hout significant interval change. No focal consolidation or pleural effusion. The patient's pelvic ultrasound which was done this morning shows limited study with uterus and ovaries not visualized. No pelvic mass or free fluid. ASSESSMENT AND PLAN: This is a very unfortunate 71-year-old morbidly obese female, body m ass index of 35.3 with history of diabetes mellitus, chronic obstructive pulmonary disease, oxygen d ependent, recurrent urinary tract infections, peripheral vascular disease who presented with urethra l pain, ongoing urinary tract infection. 1. Respiratory. The patient is stable. Breathing treatment to be provided as needed. The patient has history of chronic obstructive pulmonary disease. Continue O2 support. Continue oral Lasix. Clinically no evidence of fluid overload state. 2. Cardiovascular. The patient on Xarelto as patient has history of deep venous thrombosis and pul monary embolism in the past, and also patient has a sedentary life. She definitely would benefit fr om blood thinners. 3. Infectious disease. The patient with ongoing urinary tract infection. She has continued to be treated on imipenem. Amikacin was added earlier this morning as the son was unhappy with the antibi otics that I prescribed. Will follow with repeat urine cultures. The patient likely has this recur rent infection as she is soiling herself and she doesn't let anybody clean her in a timely fashion. In the past, we have recommended her to have a bedside commode and participate with physical therap y, but unfortunately, patient is to the point where she is just too weak, unfortunately, and will co ntinue to try recommending and educating her regarding proper cleaning, and hopefully she will parti cipate with therapy. 4. Constipation. Stool softeners will be given as patient is on multiple opioids. 5. Chronic pain, now exacerbated by her urinary tract infection and chemical burn from the bodily f luids. Try to control her pain as much as possible with current pain regimen. I did ask Dr. Juli villalobos to see her, but family has refused. 6. Overall debilitated state. Needs to participate with therapy, which will ask them to re-evaluat e the patient. 7. Diabetes mellitus. Continue Lantus and NovoLog. I instructed the nurse to hold NovoLog if dane ent does not eat. 8. Depression. Continue Cymbalta. 9. I had extensive conversation with nursing staff regarding patient's current condition. 10. Will continue to follow closely. I have also received multiple calls from the [facility] regarding the patient as they are having difficulties as well regarding the patient's son's be havior. We will follow. Dictated By: EDDY TIAN/ANNA Conf#: [id number] DID#: [id number]
[2016-08-01] MEDS: HYDROmorphONE 2 MG TAB PO SCH ×4 (04:38→23:55)
[2016-08-01] MEDS: PANTOPRAZOLE (EC) 40 MG TAB PO SCH (06:16)
[2016-08-01] MEDS: HYDROCODONE/APAP (5/325) TAB PO PRN ×2 (06:16→11:50)
[2016-08-01] MEDS: IMIPENEM-CILAST 500MG IV (PMX) 100 ML IVPB SCH ×3 (06:17→21:58)
[2016-08-01] MEDS: FUROSEMIDE 40 MG TAB PO SCH (06:17)
[2016-08-01 06:34] LABS: ADD SCAN DIFF NO
[2016-08-01 06:38] LABS: BASOPHILS % 0.9 % (0.0-2.0); EOSINOPHILS # 0.1 10^3/ul (0.0-0.5); EOSINOPHILS % 1.2 % (0.0-7.0); HEMOGLOBIN 9.6 g/dl (12.0-16.0); LYMPHOCYTES # 1.3 10^3/ul (0.8-2.9); LYMPHOCYTES % 30.1 % (15.0-51.0); MEAN CORPUSCULAR HEMOGLOBIN 28.5 pg (29.0-33.0); MEAN PLATELET VOLUME 10.4 fl (7.4-10.4); MONOCYTE # 0.5 10^3/ul (0.3-0.9); MONOCYTES % 11.6 % (0.0-11.0); NEUTROPHIL # 2.4 10^3/ul (1.6-7.5); NEUTROPHILS % 55.5 % (39.0-77.0); PLATELET COUNT 109 10^3/UL (140-415); RED BLOOD COUNT 3.37 10^6/ul (4.20-5.40); RED CELL DISTRIBUTION WIDTH 15.8 % (11.5-14.5); WHITE BLOOD COUNT 4.3 10^3/ul (4.8-10.8)
[2016-08-01] MEDS ORDERED: CEFAZOLIN 1 GM INJ ONE (07:00)
[2016-08-01] MEDS ORDERED: SUCCINYLCHOLINE CHLORIDE 100 MG/5 ML SYG IV ONE (07:00)
[2016-08-01 07:08] LABS: PHOSPHORUS 3.9 mg/dl (2.5-4.9)
[2016-08-01 07:14] LABS: CALCIUM 8.6 mg/dl (8.4-10.2); CREATININE 0.69 mg/dl (0.44-1.00)
[2016-08-01 07:52] VITALS: BP 144/63; RESP 18
[2016-08-01] MEDS ORDERED: INSULIN GLARGINE [LANtus] 3 ML PEN SC SCH (08:00)
--- NOTE | 2016-08-01 08:03 | HP ---
DATE OF ADMISSION: 07/31/2016 REASON FOR ADMISSION: Urethral pain, pelvic pain, ongoing UTI. HISTORY OF PRESENT ILLNESS: The patient is a very unfortunate 71-year-old morbidly obese female with history of diabetes mellitus, COPD, O2 dependent, recurrent UTI, noncompliance with diet and recommendations including cleaning her and participating with physical therapy. Also history o f osteoarthritis, chronic pain syndrome, on methadone and Dilaudid prescribed by her outpatient pain management physician. The patient also has history of hypertension, anemia, history of DVT and pul monary embolism, on Xarelto. The patient has been admitted multiple times to [facility] for basically the same. She has been complaining of pelvic/urethral pain, and her urine ever y time comes back positive, usually ESBL E. coli. Unfortunately, patient has a very sedentary life. She lies in bed most of the time. She has been refusing physical therapy on most occasions if not all. Multiple occasions when I went to see her at the [facility], she has been soiled with urine and feces, and she eats when she lies flat, and there are multiple snacks including [employer] and c rackers each time. The patient's son is very manipulative as he is basically directing patient's ca re. If we do not do everything the way he wants it to be done, then the conversation goes bad, so i t is very challenging to take care of her. The patient was just discharged 2 to 3 days prior for same. She was discharged with IV imipenem for urinary tract infection. On the evening prior to a dmission, she had been complaining of severe urethral pain and total body pain. She was brought aga in to the hospital and was evaluated. Her urine was actually just marginally positive as she has be en still getting treated for UTI. UA showed positive nitrites, only trace leukocyte esterase, WBCs only 2 to 5 and occasional bacteria. Urine was clear. White count was normal at 6.7, and per the p fly's son, again, he always says that she is altered, which every time I see her, she answers my questions appropriately. In the ER as well, she underwent a chest x-ray which showed cardiomegaly a nd vascular congestion without significant interval change, no focal consolidation or pleural effusi on. The patient was started on antibiotic therapy, and she was admitted for further care. Since josette shrestha, she again was this morning around 5 a.m., she was soaked with urine and feces and she refused to be changed. She also refused most of her a.m. medications besides her pain medications. I also , after in being informed of her pain, I asked Dr. Phipps to see the patient in consultation, but again the family is directing the care, and they state they do not want a pain specialist to see her . The patient currently lying in bed. She is feeling uncomfortable because of her urethral pain wh ich radiates throughout her body per patient's and son's description. Otherwise, there were no repo rts of fevers, chest pain or shortness of breath. No new weakness or numbness. PAST MEDICAL HISTORY: Includes the following: COPD, peripheral vascular disease, venous stasis, hy pertension, recurrent UTIs, thrombocytopenia, chronic pain syndrome, history of DVT and pulmonary em bolism, hemorrhoids, cardiac pacemaker placement, constipation. SURGICAL HISTORY: Pacemaker placement and hysterectomy. ALLERGIES: 1. NITROFURANTOIN. 2. ZOSYN. 3. TAZOBACTAM. SOCIAL HISTORY: The patient used to be a heavy smoker. Per patient, she has recently stopped a few months ago. No history of alcohol, IV drug use. The patient does not watch her diet. Son brings snacks frequently including sugary drinks and crackers, etc. CODE STATUS: She is FULL CODE. MEDICATIONS: From the longterm facility include the followin. Primaxin 500 IV q.6 hours for 10 days prescribed on 07/28. 2. Vitamin C 250 mg daily. 3. Bisacodyl 10 mg suppository p.r.n. 4. Colace 100 b.i.d. 5. Lasix 40 mg daily. 6. Dilaudid 2 mg 3 tablets at 12 p.m., 5 a.m., 11 a.m. and 5 p.m. 6. Magnesium oxide 400 mg b.i.d. 7. Methadone 10 mg q.i.d. on midnight, 8 a.m., 2 p.m. and 8 p.m. 8. Multivitamin 1 tablet daily. 9. Protonix 40 mg daily. 10. KCl 20 mEq daily. 11. Xarelto 20 mg daily. 12. Florastor 250 b.i.d. 13. Albuterol 3 mL q.2 p.r.n. 14. Combivent 3 mL q.4 while awake. 15. Ferrous sulfate 325 mg daily. 16. Cymbalta 30 mg daily. 17. Flomax 0.4 mg at bedtime. 18. Zinc sulfate 220 mg daily. 19. Insulin sliding scale. 20. O2 3 L. 21. Tylenol p.r.n. 22. Pyridoxine B6 q.8 hours. 23. Lantus 14 units at night. Previously also on NovoLog, I believe, 6 or 8 units q.a.c. meals. REVIEW OF SYSTEMS: Per HPI. PHYSICAL EXAMINATION: DICTATION ENDS HERE. Dictated By: EDDY TIAN/ANNA Conf#: [id number] DID#: [id number]
[2016-08-01] MEDS: ASCORBIC ACID 250 MG TAB PO SCH (08:11)
[2016-08-01] MEDS: MAGNESIUM OXIDE 400 MG TAB PO SCH ×2 (08:11→20:14)
[2016-08-01] MEDS: MULTIVITAMINS THERAPEUTIC TAB PO SCH (08:11)
[2016-08-01] MEDS: ZINC SULFATE 220 MG CAP PO SCH (08:11)
[2016-08-01] MEDS: DOCUSATE SODIUM 100 MG CAP PO SCH ×2 (08:12→20:16)
[2016-08-01] MEDS: DULOXETINE 30 MG CAP DR PO SCH (08:12)
[2016-08-01] MEDS: SACCHAROMYCES BOULARDII 250 MG CAP PO SCH ×2 (08:12→20:14)
[2016-08-01] MEDS: SENNA TAB PO SCH ×2 (08:12→20:16)
[2016-08-01] MEDS ORDERED: INSULIN ASPART [NOVOLOG] 3 ML PEN SC SCH (08:15)
[2016-08-01] MEDS: ACETAMINOPHEN 325 MG TAB PO PRN ×2 (09:38→16:08)
[2016-08-01] MEDS: INSULIN ASPART [NOVOLOG] 3 ML PEN SC SCH ×2 (12:00→18:00)
--- NOTE | 2016-08-01 12:30 | PN ---
DATE: 08/01/2016 SUBJECTIVE: Patient seen at bedside, appears to be more comfortable, in no distress, communicative. Case discussed briefly with nursing staff. No acute events otherwise. Noted per nursing staff at 2 in the morning, the patient refused to be turned, verbally stated "leave me alone." The patient' s urine culture on admission remains negative. PHYSICAL EXAMINATION: VITAL SIGNS: Temperature 98.7, pulse 71, respirations 18, blood pressure 144/63, saturation 95% on 2 liters. GENERAL: The patient is in no acute distress, morbidly obese. CARDIOVASCULAR: S1, S2, regular rate and rhythm. LUNGS: Clear. ABDOMEN: Soft, less tender. EXTREMITIES: No clubbing, cyanosis, or edema. She does have venous stasis of the lower extremities , chronic venous ulcers of the lower extremities. LABORATORY DATA: White count is 4.3, hemoglobin 9.6, hematocrit 32, platelet count is 109,000, neut rophils 30%. Chemistry: Sodium is 141, potassium 4.0, chloride 104, bicarbonate 27, BUN is 2 0, creatinine 0.69, and glucose of 151. Last glucose level was 127. Overall, glucose levels are un gautam control. Two urine cultures done yesterday remain negative. CURRENT MEDICATIONS: 1. Amikacin IV, dose per pharmacy. 2. Vitamin C 250 daily. 3. Colace 100 b.i.d. 4. Cymbalta 20 mg daily. 5. Magnesium oxide 400 b.i.d. 6. Multivitamin 1 tab daily. 7. Florastor 250 b.i.d. 8. Senna 1 tab b.i.d. 9. Zinc sulfate 220 daily. 10. Insulin aspart 6 units with meals. She refused insulin Lantus 12 units daily. 11. She refused Lasix 40 mg daily. 12. Imipenem 500 IV q.8 h. 13. Protonix 40 mg daily. 14. Dilaudid 6 mg q.i.d. as directed. 15. Methadone 10 mg q.i.d. as directed. 16. Hyperglycemia protocol. 17. Dilaudid 0.5 IV q.4 h. p.r.n. 18. Milk of magnesia p.r.n. 19. Zofran p.r.n. 20. Fleet enema p.r.n. 21. Tylenol p.r.n. 22. DuoNebs p.r.n. 23. Dulcolax p.r.n. 24. Flomax p.r.n. 25. Xarelto 20 mg in the evening. ASSESSMENT AND PLAN: This is a very unfortunate 71-year-old morbidly obese female, actual ly her body mass index is higher, it is 37, with history of diabetes mellitus, chronic obstructive p ulmonary disease, oxygen dependent, recurrent urinary tract infections, peripheral vascular disease, who presented with urethral pain, ongoing urinary tract infection. 1. Respiratory: Stable, breathing comfortably. I advised the patient to eat while lying up again. She had food at bedside and she lies flat. We will discuss with nursing staff orders to be placed. 2. No evidence of fluid overload state, continue to monitor respiratory condition. 3. Cardiovascular, on Xarelto, as the patient has history of deep venous thrombosis and pulmonary e mbolism in the past. 4. Infectious disease. Cultures remain negative, as patient is on antibiotics. Main goal is to ke ep clean and hopefully the patient will allow the nursing staff to help with cleaning her in a timel y fashion. Dr. Milan is following. We will follow his recommendations regarding further antibioti c management and care. 5. Constipation. Continue stool softeners. 6. Chronic pain. Patient likely is also developing some tolerance, unfortunately, to her pain medi cations. She has been on the same regimen for quite some time and she is very sensitive to mild rosalind n. It is quite challenging. She refused assessment by a pain specialist. 7. Overall debilitated state. Physical therapy as tolerated. 8. Diabetes mellitus. We will lower her insulin regimen slightly, though glucose levels are better , and anyway patient is noncompliant. 9. Depression. Continue Cymbalta, which assists also with chronic pain and fibromyalgia. 10. Continue Protonix for gastrointestinal prophylaxis. DISPOSITION: [facility] when deemed appropriate by the inf ectious disease team. We will follow. Dictated By: EDDY TIAN/ANNA Conf#: [id number] DID#: [id number]
--- NOTE | 2016-08-01 17:30 | PN ---
DATE: 08/01/2016 SUBJECTIVE: No acute changes. No fevers. The patient is alert, lying comfortably in bed. Complaining of vaginal pain. MICROBIOLOGY: Urine and blood cultures on July 27 and July 31 negative. ANTIMICROBIALS: She is on amikacin and imipenem. PHYSICAL EXAMINATION: GENERAL: This is a well-developed, elderly woman who is awake, in no distress. HEENT: Head atraumatic, normocephalic. Sclerae anicteric. Buccal mucosa dry. NECK: Supple, trachea midline. CHEST: Rise symmetrical. Breath sounds diminished to bases. HEART: S1, S2. ABDOMEN: Soft. Bowel tones present. EXTREMITIES: Without cyanosis. ASSESSMENT: 1. Status post acute encephalopathy, possibly secondary to pain medications. 2. Escherichia coli extended-spectrum beta-lactamase urinary tract infection, in treatment. 3. Chronic pain syndrome with opioid dependence. 4. History of permanent pacemaker. 5. Bilateral lower extremities chronic venous stasis. 6. History of deep venous thrombosis and pulmonary embolism. PLAN: The patient remains stable. Again, all cultures negative. We are going to discontinue amikacin, will keep her on imipenem and possibly change it to Invanz to complete treatment for recurrent urinary tract infection. Above was discussed with patient in detail at bedside. Dictated By: GIOVANNA ESCUDERO INVESTIGATIVE ASSISTANT for SATYA QUIROZ/ANNA Conf#: [id number] DID#: [id number] MTDD
[2016-08-01] MEDS: RIVAROXABAN 20 MG TABLET PO SCH (18:35)
[2016-08-01 19:00] VITALS: BP 142/63; RESP 20
[2016-08-01] MEDS: TAMSULOSIN (SR) 0.4 MG CAP PO SCH (20:14)
[2016-08-02] MEDS: METHADONE 10 MG TAB PO SCH ×5 (00:41→23:47)
[2016-08-02] MEDS: HYDROmorphONE 1 MG/ML SYG IV PRN ×5 (04:11→21:07)
[2016-08-02] MEDS ORDERED: AMIKACIN 1,000 MG in SOD CHLORIDE 0.9% 100 ML IVPB SCH (05:00)
[2016-08-02 05:38] VITALS: BP 149/70; PULSE 72; RESP 18
[2016-08-02] MEDS: IMIPENEM-CILAST 500MG IV (PMX) 100 ML IVPB SCH ×3 (05:40→21:07)
[2016-08-02] MEDS: FUROSEMIDE 40 MG TAB PO SCH (06:10)
[2016-08-02] MEDS: PANTOPRAZOLE (EC) 40 MG TAB PO SCH (06:10)
[2016-08-02] MEDS: HYDROmorphONE 2 MG TAB PO SCH ×3 (06:13→17:29)
[2016-08-02 07:32] VITALS: BP 134/67; RESP 16
[2016-08-02] MEDS: INSULIN GLARGINE [LANtus] 3 ML PEN SC SCH (07:56)
[2016-08-02] MEDS: INSULIN ASPART [NOVOLOG] 3 ML PEN SC SCH ×3 (07:56→17:25)
[2016-08-02] MEDS: DOCUSATE SODIUM 100 MG CAP PO SCH ×2 (08:37→20:25)
[2016-08-02] MEDS: SENNA TAB PO SCH ×2 (08:37→20:25)
[2016-08-02] MEDS: SACCHAROMYCES BOULARDII 250 MG CAP PO SCH ×2 (08:37→20:24)
[2016-08-02] MEDS: DULOXETINE 30 MG CAP DR PO SCH (08:37)
[2016-08-02] MEDS: MAGNESIUM OXIDE 400 MG TAB PO SCH ×2 (08:43→20:25)
[2016-08-02] MEDS: MULTIVITAMINS THERAPEUTIC TAB PO SCH (08:43)
[2016-08-02] MEDS: ZINC SULFATE 220 MG CAP PO SCH (08:44)
[2016-08-02] MEDS: ASCORBIC ACID 250 MG TAB PO SCH (08:44)
--- NOTE | 2016-08-02 15:12 | CONS ---
Date/Time of Note Date/Time of Note DATE: 08/02/16 TIME: 15:10 Assessment/Plan Assessment/Plan Chief Complaint/Hosp Course SUBJECTIVE: No acute changes. No fevers. The patient is sleeping, lying comfortably in bed. MICROBIOLOGY: Urine and blood cultures on July 27 and July 31 negative. ANTIMICROBIALS: Imipenem. PHYSICAL EXAMINATION: GENERAL: This is a well-developed, elderly woman who is in no distress. HEENT: Head atraumatic, normocephalic. Sclerae anicteric. Buccal mucosa dry. NECK: Supple, trachea midline. CHEST: Rise symmetrical. Breath sounds diminished to bases. HEART: S1, S2. ABDOMEN: Soft. Bowel tones present. EXTREMITIES: Without cyanosis. ASSESSMENT: 1. Status post acute encephalopathy, possibly secondary to pain medications. 2. Escherichia coli extended-spectrum beta-lactamase urinary tract infection, in treatment. 3. Chronic pain syndrome with opioid dependence. 4. History of permanent pacemaker. 5. Bilateral lower extremities chronic venous stasis. 6. History of deep venous thrombosis and pulmonary embolism. PLAN: The patient remains stable, all cultures negative. Continue imipenem and possibly change it to Invanz to complete 7 more days treatment for recurrent urinary tract infection. DW staff Problems: Consultation Date/Type/Reason Admit Date/Time Aug 01, 2016 at 12:15 Initial Consult Date Type of Consultation: ID Exam/Review of Systems Vital Signs Vitals Vital Signs Date Time Temp Pulse Resp B/P Pulse Ox O2 Delivery O2 Flow Rate FiO2 08/02/16 14:18 2.0 08/02/16 08:20 Nasal Cannula 08/02/16 07:32 97.9 72 16 134/67 92 Intake and Output 08/01/16 08/01/16 08/02/16 15:00 23:00 07:00 Intake Total 1100 ml 200 ml 600 ml Balance 1100 ml 200 ml 600 ml Results Result Diagram: 08/01/16 0523 08/01/16 0523 Results 24 hrs Laboratory Tests Test 08/01/16 17:10 08/02/16 07:45 08/02/16 12:32 Bedside Glucose 195 153 130 Medications Medications Current Medications Tamsulosin HCl (Flomax) 0.4 mg HS PO Last administered on 08/01/16t 20:14; Admin Dose 0.4 MG; Start 07/31/16 at 21:00 Acetaminophen (Tylenol Tab) 650 mg Q6H PRN PO PAIN LEVEL 1-3 OR FEVER Last administered on 08/01/16 16:08; Admin Dose 650 MG; Start 07/31/16 at 23:00 Albuterol/ Ipratropium (Duoneb) 3 ml Q6 PRN HHN SHORTNESS OF BREATH; Start at 23:00 Ascorbic Acid (Vitamin C) 250 mg DAILY PO Last administered on 08/01/16 08:11 ; Admin Dose 250 MG; Start 08/01/16 at 09:00 Bisacodyl (Dulcolax) 5 mg DAILY PRN PO CONSTIPATION; Start 07/31/16 at 23:00 Bisacodyl (Dulcolax Supp) 10 mg Q24H PRN [place] CONSTIPATION; Start 07/31/16 at 23: 00 Dextrose (D50w Syringe) 25 ml Q15M PRN IV DECREASED GLUCOSE; Start 07/31/16 at 23:30 Dextrose (D50w Syringe) 50 ml Q15M PRN IV DECREASED GLUCOSE; Start 07/31/16 at 23:30 Docusate Sodium (Colace) 100 mg Q12H PRN PO CONSTIPATION; Start 07/31/16 at 23: 30 Docusate Sodium (Colace) 100 mg BID PO Last administered on 08/02/16 08:37; Admin Dose 100 MG; Start 08/01/16 at 09:00 Duloxetine HCl (Cymbalta) 30 mg DAILY PO Last administered on 08/02/16 08:37; Admin Dose 30 MG; Start 08/01/16 at 09:00 Furosemide (Lasix) 40 mg DAILY@06 PO Last administered on 08/02/16 06:10; Admin Dose 40 MG; Start 08/01/16 at 06:00 Acetaminophen/ Hydrocodone Bitart ([place] (5/325)) 1 tab Q6H PRN PO MODERATE PAIN LEVEL 4-6 Last administered on 08/01/16 11:50; Admin Dose 1 TAB; Start at 23:30 Glucose (Glutose) 15 gm Q15M PRN PO DECREASED GLUCOSE; Start 07/31/16 at 23:30 Glucose (Glutose) 22.5 gm Q15M PRN PO DECREASED GLUCOSE; Start 07/31/16 at 23: 30 Glucagon (Glucagen) 1 mg Q15M PRN IM DECREASED GLUCOSE; Start 07/31/16 at 23:30 Glucose (Glutose) 15 gm Q15M PRN BUCCAL DECREASED GLUCOSE; Start 07/31/16 at 23 :30 Hydromorphone HCl (Dilaudid) 0.5 mg Q4H PRN IV SEVERE PAIN LEVEL 7-10 Last administered on 08/02/16 12:35; Admin Dose 0.5 MG; Start 07/31/16 at 23:30 Hydromorphone HCl 6 mg 6 mg QID@00,05,11,17 PO Last administered on 08/02/16 11:23; Admin Dose 6 MG; Start 08/01/16 at 00:00 Imipenem/ Cilastatin Sodium (Primaxin 500 Mg/ 100 ml (Pmx)) 100 ml @ 100 mls/ hr Q8 IVPB Last administered on 08/02/16 14:34; Admin Dose 100 MLS/HR; Start 08/01/16 at 06:00 Magnesium Hydroxide (Milk Of Mag) 30 ml DAILY PRN PO CONSTIPATION; Start at 23:30 Magnesium Oxide (Mag-Ox 400) 400 mg BID PO Last administered on 08/01/16 20:14 ; Admin Dose 400 MG; Start 08/01/16 at 09:00 Methadone HCl (Methadone) 10 mg QID@00,08,14,20 PO Last administered on 14:32; Admin Dose 10 MG; Start 08/01/16 at 00:00 Multivitamins Therapeutic (Theragran) 1 tab DAILY PO Last administered on 08:11; Admin Dose 1 TAB; Start 08/01/16 at 09:00 Ondansetron HCl (Zofran Inj) 4 mg Q6H PRN IV NAUSEA AND/OR VOMITING; Start at 23:30 Miscellaneous Information 1 ea NOTE XX ; Start 07/31/16 at 23:30 Sodium Biphosphate/ Sodium Phosphate (Fleet Enema) 133 ml DAILY PRN [place] CONSTIPATION; Start 07/31/16 at 23:30 Pantoprazole (Protonix Tab) 40 mg DAILY@06 PO Last administered on 08/02/16 06 :10; Admin Dose 40 MG; Start 08/01/16 at 06:00 Saccharomyces Boulardii (Florastor) 250 mg BID PO Last administered on 08:37; Admin Dose 250 MG; Start 08/01/16 at 09:00 Senna (Senokot) 1 tab BID PO Last administered on 08/02/16 08:37; Admin Dose 1 TAB; Start 08/01/16 at 09:00 Zinc Sulfate (Zinc Sulfate) 220 mg DAILY PO Last administered on 08/01/16 08: 11; Admin Dose 220 MG; Start 08/01/16 at 09:00 Insulin Glargine (Lantus) 8 unit DAILY@08 SC Last administered on 08/02/16 07: 56; Admin Dose 8 UNIT; Start 08/02/16 at 08:00 GIOVANNA ESCUDERO NP Aug 02, 2016 15:12
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
[2016-08-02] MEDS: RIVAROXABAN 20 MG TABLET PO SCH (17:29)
[2016-08-02 19:36] VITALS: BP 121/57; RESP 20
[2016-08-02] MEDS: TAMSULOSIN (SR) 0.4 MG CAP PO SCH (20:25)
[2016-08-03] MEDS: HYDROmorphONE 2 MG TAB PO SCH ×3 (00:15→11:25)
[2016-08-03] MEDS: HYDROmorphONE 1 MG/ML SYG IV PRN ×3 (03:22→14:07)
[2016-08-03] MEDS: PANTOPRAZOLE (EC) 40 MG TAB PO SCH (05:19)
[2016-08-03] MEDS: FUROSEMIDE 40 MG TAB PO SCH (05:20)
[2016-08-03] MEDS: ACETAMINOPHEN 325 MG TAB PO PRN (05:22)
[2016-08-03] MEDS: IMIPENEM-CILAST 500MG IV (PMX) 100 ML IVPB SCH ×2 (06:03→14:22)
[2016-08-03 07:37] VITALS: BP 139/67; RESP 16
[2016-08-03] MEDS: INSULIN GLARGINE [LANtus] 3 ML PEN SC SCH ×2 (08:00→11:46)
[2016-08-03] MEDS: INSULIN ASPART [NOVOLOG] 3 ML PEN SC SCH ×2 (08:12→12:15)
[2016-08-03] MEDS: DULOXETINE 30 MG CAP DR PO SCH (08:21)
[2016-08-03] MEDS: DOCUSATE SODIUM 100 MG CAP PO SCH (08:21)
[2016-08-03] MEDS: METHADONE 10 MG TAB PO SCH ×2 (08:21→14:07)
[2016-08-03] MEDS: MULTIVITAMINS THERAPEUTIC TAB PO SCH (08:22)
[2016-08-03] MEDS: ASCORBIC ACID 250 MG TAB PO SCH (08:22)
[2016-08-03] MEDS: SACCHAROMYCES BOULARDII 250 MG CAP PO SCH (08:22)
[2016-08-03] MEDS: MAGNESIUM OXIDE 400 MG TAB PO SCH (08:22)
[2016-08-03] MEDS: SENNA TAB PO SCH (08:22)
[2016-08-03] MEDS: ZINC SULFATE 220 MG CAP PO SCH (08:22)
--- NOTE | 2016-08-03 12:18 | PDOCDIS ---
Discharge Instructions CONDITION Patient Condition: Stable HOME CARE INSTRUCTIONS: Special Diet: Carb Controlled Diet, no added salt ACTIVITY: Activity Restrictions: Slowly Increase Activity FOLLOW UP/APPOINTMENTS Appointments dc to [facility], [place], see reconciliation, physical therapy and bedside commode at snf. EDDY MELVIN MD Aug 03, 2016 12:18
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
--- NOTE | 2016-08-03 14:46 | CONS ---
Date/Time of Note Date/Time of Note DATE: 08/03/16 TIME: 14:45 Assessment/Plan Assessment/Plan Chief Complaint/Hosp Course SUBJECTIVE: No acute changes. No fevers. MICROBIOLOGY: Urine and blood cultures on July 27 and July 31 negative. ANTIMICROBIALS: Imipenem. PHYSICAL EXAMINATION: GENERAL: This is a well-developed, elderly woman who is in no distress. HEENT: Head atraumatic, normocephalic. Sclerae anicteric. Buccal mucosa dry. NECK: Supple, trachea midline. CHEST: Rise symmetrical. Breath sounds diminished to bases. HEART: S1, S2. ABDOMEN: Soft. Bowel tones present. EXTREMITIES: Without cyanosis. ASSESSMENT: 1. Status post acute encephalopathy, possibly secondary to pain medications. 2. Escherichia coli extended-spectrum beta-lactamase urinary tract infection, in treatment. 3. Chronic pain syndrome with opioid dependence. 4. History of permanent pacemaker. 5. Bilateral lower extremities chronic venous stasis. 6. History of deep venous thrombosis and pulmonary embolism. PLAN: The patient remains stable, all cultures negative. Continue imipenem for 7 more days, pending [facility] DW staff Problems: Consultation Date/Type/Reason Admit Date/Time Aug 01, 2016 at 12:15 Type of Consultation: ID Exam/Review of Systems Vital Signs Vitals Vital Signs Date Time Temp Pulse Resp B/P Pulse Ox O2 Delivery O2 Flow Rate FiO2 08/03/16 07:37 98.5 80 16 139/67 92 08/03/16 01:25 2.0 08/02/16 20:00 Nasal Cannula Intake and Output 08/02/16 08/02/16 08/03/16 15:00 23:00 07:00 Intake Total 200 ml 360 ml Balance 200 ml 360 ml Results Result Diagram: 08/01/16 0523 08/01/16 0523 Results 24 hrs Laboratory Tests Test 08/02/16 17:07 08/03/16 08:03 08/03/16 11:33 Bedside Glucose 125 143 229 H Medications Medications Current Medications Tamsulosin HCl (Flomax) 0.4 mg HS PO Last administered on 08/02/16 20:25; Admin Dose 0.4 MG; Start 07/31/16 at 21:00 Acetaminophen (Tylenol Tab) 650 mg Q6H PRN PO PAIN LEVEL 1-3 OR FEVER Last administered on 08/03/16 05:22; Admin Dose 650 MG; Start 07/31/16 at 23:00 Albuterol/ Ipratropium (Duoneb) 3 ml Q6 PRN HHN SHORTNESS OF BREATH; Start at 23:00 Ascorbic Acid (Vitamin C) 250 mg DAILY PO Last administered on 08/01/16 08:11 ; Admin Dose 250 MG; Start 08/01/16 at 09:00 Bisacodyl (Dulcolax) 5 mg DAILY PRN PO CONSTIPATION; Start 07/31/16 at 23:00 Bisacodyl (Dulcolax Supp) 10 mg Q24H PRN [place] CONSTIPATION; Start 07/31/16 at 23: 00 Dextrose (D50w Syringe) 25 ml Q15M PRN IV DECREASED GLUCOSE; Start 07/31/16 at 23:30 Dextrose (D50w Syringe) 50 ml Q15M PRN IV DECREASED GLUCOSE; Start 07/31/16 at 23:30 Docusate Sodium (Colace) 100 mg Q12H PRN PO CONSTIPATION; Start 07/31/16 at 23: 30 Docusate Sodium (Colace) 100 mg BID PO Last administered on 08/02/16 20:25; Admin Dose 100 MG; Start 08/01/16 at 09:00 Duloxetine HCl (Cymbalta) 30 mg DAILY PO Last administered on 08/03/16 08:21; Admin Dose 30 MG; Start 08/01/16 at 09:00 Furosemide (Lasix) 40 mg DAILY@06 PO Last administered on 08/03/16 05:20; Admin Dose 40 MG; Start 08/01/16 at 06:00 Acetaminophen/ Hydrocodone Bitart ([place] (5/325)) 1 tab Q6H PRN PO MODERATE PAIN LEVEL 4-6 Last administered on 08/01/16 11:50; Admin Dose 1 TAB; Start at 23:30 Glucose (Glutose) 15 gm Q15M PRN PO DECREASED GLUCOSE; Start 07/31/16 at 23:30 Glucose (Glutose) 22.5 gm Q15M PRN PO DECREASED GLUCOSE; Start 07/31/16 at 23: 30 Glucagon (Glucagen) 1 mg Q15M PRN IM DECREASED GLUCOSE; Start 07/31/16 at 23:30 Glucose (Glutose) 15 gm Q15M PRN BUCCAL DECREASED GLUCOSE; Start 07/31/16 at 23 :30 Hydromorphone HCl (Dilaudid) 0.5 mg Q4H PRN IV SEVERE PAIN LEVEL 7-10 Last administered on 08/03/16 14:07; Admin Dose 0.5 MG; Start 07/31/16 at 23:30 Hydromorphone HCl 6 mg 6 mg QID@00,05,11,17 PO Last administered on 08/03/16 11:25; Admin Dose 6 MG; Start 08/01/16 at 00:00 Imipenem/ Cilastatin Sodium (Primaxin 500 Mg/ 100 ml (Pmx)) 100 ml @ 100 mls/ hr Q8 IVPB Last administered on 08/03/16 14:22; Admin Dose 100 MLS/HR; Start 08/01/16 at 06:00 Magnesium Hydroxide (Milk Of Mag) 30 ml DAILY PRN PO CONSTIPATION; Start at 23:30 Magnesium Oxide (Mag-Ox 400) 400 mg BID PO Last administered on 08/02/16 20:25 ; Admin Dose 400 MG; Start 08/01/16 at 09:00 Methadone HCl (Methadone) 10 mg QID@00,08,14,20 PO Last administered on 14:07; Admin Dose 10 MG; Start 08/01/16 at 00:00 Multivitamins Therapeutic (Theragran) 1 tab DAILY PO Last administered on 08:11; Admin Dose 1 TAB; Start 08/01/16 at 09:00 Ondansetron HCl (Zofran Inj) 4 mg Q6H PRN IV NAUSEA AND/OR VOMITING; Start at 23:30 Miscellaneous Information 1 ea NOTE XX ; Start 07/31/16 at 23:30 Sodium Biphosphate/ Sodium Phosphate (Fleet Enema) 133 ml DAILY PRN [place] CONSTIPATION; Start 07/31/16 at 23:30 Pantoprazole (Protonix Tab) 40 mg DAILY@06 PO Last administered on 08/03/16 05 :19; Admin Dose 40 MG; Start 08/01/16 at 06:00 Saccharomyces Boulardii (Florastor) 250 mg BID PO Last administered on 20:24; Admin Dose 250 MG; Start 08/01/16 at 09:00 Senna (Senokot) 1 tab BID PO Last administered on 08/02/16 20:25; Admin Dose 1 TAB; Start 08/01/16 at 09:00 Zinc Sulfate (Zinc Sulfate) 220 mg DAILY PO Last administered on 08/01/16 08: 11; Admin Dose 220 MG; Start 08/01/16 at 09:00 Insulin Glargine (Lantus) 8 unit DAILY@08 SC Last administered on 08/03/16 11: 46; Admin Dose 8 UNIT; Start 08/02/16 at 08:00 GIOVANNA ESCUDERO NP Aug 03, 2016 14:46
== END 2016-08-03 16:00 | DRG 92 ==
LOC: E/R 00:22 → UNDOADMIN 04:39 → MS2 04:39 → OBSVTOIN 08-01 12:15 → MS2 08-02 15:20
PROVIDERS: ADMIT Internal Medicine; ATTEND Internal Medicine
DX: G92 Toxic encephalopathy (principal); N39.0 Urinary tract infection, site not specified; Z99.81 Dependence on supplemental oxygen; F11.20 Opioid dependence, uncomplicated; E11.9 Type 2 diabetes mellitus without complications; B96.20 Unspecified Escherichia coli [E. coli] as the cause of diseases classified elsewhere; E66.01 Morbid (severe) obesity due to excess calories; J44.9 Chronic obstructive pulmonary disease, unspecified; Z68.37 Body mass index [BMI] 37.0-37.9, adult; I87.8 Other specified disorders of veins; G89.4 Chronic pain syndrome; N36.8 Other specified disorders of urethra; F32.9 Major depressive disorder, single episode, unspecified; K59.03 Drug induced constipation; T40.2X5A Adverse effect of other opioids, initial encounter; Y92.129 Unspecified place in nursing home as the place of occurrence of the external cause; Z79.4 Long term (current) use of insulin; Z95.0 Presence of cardiac pacemaker; Z86.711 Personal history of pulmonary embolism; Z91.19 Patient's noncompliance with other medical treatment and regimen
CPT/HCPCS: 71010; 76856; 80048; 80053; 81001; 81003; 82962; 83605; 83735; 84100; 84484; 85025; 85610; 85730; 87040; 87086; 93005; G0378; J0278; J0330; J0690; J0743; J1170; J1815; J7030

== ENCOUNTER → 2016-11-22 | Outpatient (CLI) | payer MEDICARE, OTHER ==
[~2016-11-22] MED LIST changes: -ASC250 PO; +ASCO250T96 PO; -HYDR2TAB15 PO; +HYDR2TAB36 PO; +LIDOCAINE 1% (MPF) 5 ML VIAL SC ONE; +SOD CHLORIDE 0.9% 100 ML ONE
--- NOTE | 2016-11-22 16:10 | RADRPT ---
PROCEDURE: XR Chest. CLINICAL INDICATION: Check Line Placement TECHNIQUE: Single frontal view of the chest was obtained COMPARISON: Chest x-ray 07/31/2016 FINDINGS: Left chest wall dual chamber pacer device with lead tips projecting over the right atrium and right ventricle is stable in position. Newly seen is a right PICC line and / or wire projecting over the right axilla terminating in the ri ght infraclavicular region. There are low lung bars. The cardiac silhouette is mildly enlarged. The aorta appears ectatic, unchanged. No pneumothorax, pleural effusion, or consolidation is identified. Pulmonary vascular congestion brandt s decreased. There are degenerative changes of the visualized spine. IMPRESSION: 1. The right PICC line and / or wire projecting over the right axilla and terminating in the right infraclavicular region. A subsequent chest x-ray performed the same day demonstrates interval repos itioning. 2. No evidence of acute cardiopulmonary process. 3. Mild cardiomegaly. 4. Decreased pulmonary vascular congestion. RPTAT: EE Physician Lissett Date Time Electronically viewed and signed by Physician Lissett on 11/22/2016 16:09 STEPHENIE/
--- NOTE | 2016-11-22 16:27 | RADRPT ---
PROCEDURE: Ultrasound guidance for placement of needle in right upper extremity vein. CLINICAL INDICATION: Venous access. TECHNIQUE: Limited sonography of the right upper extremity was performed. Ultrasound images were recorded and stored in the patient's medical record. COMPARISON: None. FINDINGS: The ultrasound images demonstrate a patent right upper extremity vein. The PICC line was inserted b y the PICC line nurse. IMPRESSION: 1. Ultrasound guidance for a needle placement in a right upper extremity vein. 2. The visualized right upper extremity vein is patent. RPTAT: QQ .Conrado Treviño MD, MD Date Time Electronically viewed and signed by .Conrado Treviño MD, MD on 11/22/2016 16:26 .R/
--- NOTE | 2016-11-22 16:48 | RADRPT ---
PROCEDURE: XR Chest. CLINICAL INDICATION: Check PICC line position. TECHNIQUE: Single frontal view. COMPARISON: Prior study done earlier the same day. FINDINGS: There is a right arm PICC line with the tip in the lower superior vena cava. The left-sided dual le ad permanent pacemaker is once again noted. There are low lung volumes. The lungs are otherwise cl ear. The heart size is normal. There is no pleural effusion. There is no pneumothorax. IMPRESSION: 1. Right arm PICC line tip in satisfactory position. 2. Permanent pacemaker. 3. Clear lungs. RPTAT: QQ .Conrado Treviño MD, Date Time Electronically viewed and signed by .Conrado Treviño MD, on 11/22/2016 16:48 .R/
== END | disposition home or self-care (01) ==
LOC: RAD 13:50
PROVIDERS: ATTEND Internal Medicine
DX: N39.0 Urinary tract infection, site not specified (principal); Z79.899 Other long term (current) drug therapy
CPT/HCPCS: 36569; 71010; 76937; C1769

== ENCOUNTER 2017-05-31 01:32 | Inpatient (IN) | END 2017-06-04 15:48 | DRG 871 ==

== ENCOUNTER 2017-06-14 21:54 | Inpatient (IN) | END 2017-06-26 16:00 | DRG 388 ==

== ENCOUNTER 2017-07-04 02:15 | Inpatient (IN) | END 2017-07-09 14:27 | DRG 871 ==

== ENCOUNTER 2017-09-27 21:08 | Emergency (ER) | END 2017-09-27 22:23 | disposition home or self-care (01) ==

== ENCOUNTER 2018-07-13 18:25 | Inpatient (IN) | payer MEDICARE, OTHER ==
[~2018-07-13] VITALS: Ht 170.2 cm; Wt 90.0 kg
[~2018-07-13 18:25] MED LIST changes: +DEXT15LI10 PO; -DULO30CA45 PO; +DULO30CA47 PO; -FURO-109 PO; +FURO40TA4 PO; -HYDR2TAB36 PO; -IPRA3AMP INHALATION; +IPRA3AMP29 INHALATION; -LIDOCAINE 1% (MPF) 5 ML VIAL SC ONE; +METH-417 PO; -METH10TA2 PO; +MULT-876 PO; -MULTI PO; +NAPR-688 PO; +ONDA4TAB95 PO; +PHEN-717 PO; +POTA-57 PO; -PYRI100T59 PO; +PYRI50CA PO; -RIVA20TA PO; +RIVA20TA5 PO; +ROSU10TA55 PO; -SACC250C PO; +SENN-120 PO; -SENN-36 PO; +SITA1TAB5 PO; -SOD CHLORIDE 0.9% 100 ML ONE; -TAMS-14 PO; +TAMS0.4C2 PO; +ZINC220C5 PO; -ZINC220T PO; +[UNRECOGNIZED DRUG - CODE] IV
[2018-07-13] MEDS ORDERED: CEFEPIME 2GM/50 ML (PMX) 50 ML IVPB STA (18:41)
[2018-07-13] MEDS ORDERED: SODIUM CHLORIDE 0.9% 1L BAG IV* STA (18:41)
[2018-07-13] MEDS ORDERED: OXYCODONE/ACETAMINOPHEN (10/325) TAB PO ONE (20:00)
[2018-07-13] MEDS ORDERED: MAGNESIUM SULFATE 2 GM/50 ML 50 ML IVPB ONE (20:00)
[2018-07-13] MEDS: POTASSIUM CHLORIDE 100 ML IVPB SCH (20:04)
[2018-07-13] MEDS ORDERED: ONDANSETRON 4 MG INJ IV PRN ×2 (21:00→23:30)
[2018-07-13] MEDS ORDERED: ACETAMINOPHEN 325 MG TAB PO PRN (21:00)
[2018-07-13 22:24] VITALS: PULSE 98
[2018-07-13 22:35] VITALS: BP 128/58; PULSE 96; RESP 20
[2018-07-13 22:39] VITALS: Ht 170.2 cm; Wt 90.0 kg
[2018-07-13] MEDS ORDERED: METHADONE 10 MG TAB PO ONE (23:00)
[2018-07-13] MEDS ORDERED: ALBUTEROL/IPRATROPIUM (NEB) 3 ML AMP HHN PRN (23:30)
[2018-07-13] MEDS: PYRIDOXINE 50 MG TAB PO SCH (23:30)
[2018-07-13] MEDS: BISACODYL 10 MG SUPP PR SCH (23:30)
[2018-07-13] MEDS ORDERED: ACETAMINOPHEN 500 MG TAB PO PRN (23:30)
[2018-07-13] MEDS: POTASSIUM CHLORIDE (SR) 20 MEQ TAB PO SCH (23:30)
[2018-07-13] MEDS: PHENAZOPYRIDINE 200 MG TAB PO SCH (23:30)
[2018-07-13] MEDS ORDERED: NACL 0.9% 3 ML SYG IV SCH (23:30)
--- NOTE | 2018-07-13 23:30 | HP ---
Date/Time of Note Date/Time of Note DATE: 07/13/18 TIME: 23:30 Assessment/Plan VTE Prophylaxis Pharmacological prophylaxis: heparin Lines/Catheters IV Catheter Type (from Nrs): Saline Lock Urinary Cath still in place: No Assessment/Plan Hospital Course 73-year-old morbidly obese female with history of diabetes mellitus, COPD, O2 dependent, recurrent UTI, noncompliance, osteoarthritis, chronic pain syndrome, DVT, PE on Xarelto and recurrent UTI sent from the facility for fever, tachycardia and UTI was found to be septic from UTI. PLAN -IV antibiotic, IV fluid -Follow-up culture results -Continue home medications including her pain medication with adjustment as needed -replace potassium -Son requested to consult Dr. [place], ID Result Diagram: 07/13/18 1901 07/13/18 1902 Results 24hrs Laboratory Tests Test 07/13/18 19:01 07/13/18 19:02 07/13/18 20:40 07/13/18 21:02 White Blood Count 11.2 #H Red Blood Count 4.45 # Hemoglobin 12.2 Hematocrit 40.3 Mean Corpuscular 90.6 Volume Mean Corpuscular 27.4 L Hemoglobin Mean Corpuscular 30.3 L Hemoglobin Concent Red Cell 15.9 H Distribution Width Platelet Count 68 #L Mean Platelet Volume 9.8 Immature 0.800 H Granulocytes % Neutrophils % 86.5 H Segmented 87 H Neutrophils % (Manual) Band Neutrophils % 4 (Manual) Lymphocytes % 4.8 L Lymphocytes % 3 L (Manual) Reactive Lymphocytes 1 H % (Manual) Monocytes % 7.5 Monocytes % (Manual) 5 Eosinophils % 0.1 Basophils % 0.3 Nucleated Red Blood 0.0 Cells % Immature 0.090 H Granulocytes # Neutrophils # 9.7 H Neutrophils # 9.8 H (Manual) Band Neutrophils # 0.4 Lymphocytes (Manual) 0.3 L Lymphocytes # 0.5 L Reactive Lymphocytes 0.1 H # Monocytes # 0.8 Monocytes # (Manual) 0.5 Eosinophils # 0.0 Basophils # 0.0 Nucleated Red Blood 0.0 Cells # Platelet Estimate NORMAL Polychromasia 1+ Poikilocytosis 1+ Stomatocytes 1+ Prothrombin Time 13.2 # Prothrombin Time 1.0 Ratio INR International 0.99 Normalized Ratio Activated 33.5 Partial Thromboplast Time Lactic Acid Level 1.2 0.8 Sodium Level 143 Potassium Level 2.7 *L Chloride Level 117 H Carbon Dioxide Level 19 L Anion Gap 7 Blood Urea Nitrogen 10 Creatinine 0.62 Est Glomerular Filtrat Rate mL/min Glucose Level 131 Calcium Level 6.6 L Total Bilirubin 0.4 Direct Bilirubin 0.00 Indirect Bilirubin 0.4 Aspartate Amino 16 Transf (AST/SGOT) Alanine 15 Aminotransferase (AL T/SGPT) Alkaline Phosphatase 67 Troponin I 0.049 Total Protein 5.5 L Albumin 2.8 L Globulin 2.70 Albumin/Globulin 1.03 Ratio Urine Color TRU Urine Clarity CLEAR Urine pH 5.0 Urine Specific 1.016 [place] Urine Ketones 1+ H Urine Nitrite POSITIVE A Urine Bilirubin NEGATIVE Urine Urobilinogen 2+ H Urine Leukocyte TRACE A Esterase Urine Microscopic 8 H RBC Urine Microscopic 108 H WBC Urine Bacteria FEW A Urine Hemoglobin NEGATIVE Urine Glucose NEGATIVE Urine Total Protein 1+ H HPI/ROS Admit Date/Time Admit Date/Time Jul 13, 2018 at 20:43 Hx of Present Illness The patient is a 73-year-old morbidly obese female with history of diabetes mellitus, COPD, O2 dependent, recurrent UTI, noncompliance, osteoarthritis, toddler lead teacher ava pain syndrome, DVT, PE on Xarelto and recurrent UTI. Patient has been admitted here multiple times including by myself. Patient was brought to the ER for fever, generalized weakness and UTI. Currently, patient appears lethargic and as such information is gathered from the son who was at the bedside. Patient has been debilitated for the long time and has been wheelchair-bound. According to the son she has improved to the point where she was able to walk to the bathroom and doing physical therapy. When she presented to ER, she was febrile with a temperature of 1 1.5, heart rate 118, respiratory rate 25. UA consistent with UTI. The patient has a history of recurrent UTIs including multidrug resistance organisms. PMH/Family/Social Past Medical History Medical History: other (See HPI) Medications Current Medications Potassium Chloride 100 ml @ 50 mls/hr Q2H IVPB Last administered on 07/13/18at 20:04; Admin Dose 50 MLS/HR; Start 07/13/18 at 20:00; Stop 07/14/18 at 01:59 Ondansetron HCl (Zofran Inj) 4 mg ER BRIDGE PRN IV NAUSEA/VOMITING; Start 07/13/18 at 21:00; Stop 07/14/18 at 20:59 Acetaminophen (Tylenol Tab) 650 mg ER BRIDGE PRN PO .MILD PAIN 1-3 OR TEMP; Start 07/13/18 at 21:00; Stop 07/14/18 at 20:59 Oxycodone/ Acetaminophen (Endocet (10/ 325)) 1 tab Q4H PO ; Start 07/14/18 at 00 :00 Coded Allergies: nitrofurantoin (Verified Allergy, Mild, 06/14/17) piperacillin (Verified Allergy, Mild, BURNING SENSATION ALL OVER THE BODY, 06/14/17) tazobactam (Verified Allergy, Mild, BURNING SENSATION ALL OVER THE BODY, 06/14/17) Tetracyclines (Verified Allergy, Unknown, 09/27/17) Past Surgical History Past Surgical Hx: other (See HPI) Family History Significant Family History: no pertinent family hx Social History Alcohol Use: other Smoking Status: Current every day smoker Drug Use: other Exam/Review of Systems Vital Signs Vitals Vital Signs Date Temp Pulse Resp B/P (MAP) Pulse Ox O2 O2 Flow FiO2 Time Delivery Rate 07/13/18 Nasal 2.0 23:12 Cannula 07/13/18 99.6 96 20 128/58 91 22:35 (81) Exam Constitutional: other (Appears somehow lethargic and in pain) Head: normocephalic, atraumatic Eyes: EOMI, PERRL Respiratory: clear to auscultation Cardiovascular: other (Tachycardic regular rhythm) Gastrointestinal: soft NATY FLORES MD Jul 13, 2018 23:30
--- NOTE | 2018-07-13 23:31 | ERD ---
ER Documentation Chief Complaint Chief Complaint luis angel guido from [facility] for urinary problems, taking cipro po, HPI 73-year-old female [facility] for a urinary pain and suprapubic pain. She has had symptoms for the past 4 days. Yesterday she was started on Cipro by her primary care doctor, which has not been helping with her symptoms. She denies any other associated symptoms such as vomiting, flank pain, diarrhea, or constipation. She has had some chills and has been generally weak. Per her son at bedside, she has had frequent UTIs in the past. She states that she is not short of breath at this time and is denying any chest pain, ROS All systems reviewed and are negative except as per history of present illness. Medications Home Meds Active Scripts Methadone Hcl* (Methadone*) 5 Mg Tab, 5 MG PO TID, #90 TAB Prov:GISSEL RESTREPO 07/09/17 Reported Medications Zinc Sulfate* (Zinc Sulfate*) 220 Mg Cap, 220 MG PO DAILY, CAP 06/14/17 Multivit-Min/Iron Fum/Folic AC (Xsofp-Ifujmdu-Nonakcog Tablet) 1 Each Tablet, 1 EACH PO DAILY, TAB 06/14/17 Tamsulosin Hcl* (Tamsulosin Hcl*) 0.4 Mg Cap.er.24h, 0.4 MG PO HS, CAP 06/14/17 Sennosides* (Senna Lax*) 8.6 Mg Tablet, 1 TAB PO BID, TAB 06/14/17 Rosuvastatin Calcium* (Crestor*) 10 Mg Tablet, 10 MG PO QHS, #30 TAB 06/14/17 Rivaroxaban* (Xarelto*) 20 Mg Tablet, 20 MG PO WITH DINNER, TAB 06/14/17 Pyridoxine Hcl* (Vitamin B-6*) 50 Mg Capsule, 100 MG PO Q8H, CAP 06/14/17 Pantoprazole* (Protonix*) 40 Mg Tablet.dr, 40 MG PO DAILY, TAB 06/14/17 Phenazopyridine Hcl* (Phenazopyridine Hcl*) 200 Mg Tablet, 200 MG PO Q8H, TAB 06/14/17 Ondansetron Hcl* (Ondansetron Hcl*) 4 Mg Tablet, 4 MG PO Q6H PRN for NAUSEA AND OR VOMITING, TAB 06/14/17 Naproxen* (Naproxen*) 500 Mg Tablet, 500 MG PO BID, TAB 06/14/17 Magnesium Oxide* (Magnesium Oxide*) 400 Mg Tablet, 400 MG PO BID, TAB 06/14/17 Potassium Chloride* (Klor-Con*) 20 Meq Tabsr, 40 MEQ PO Q48H, TAB.SA 06/14/17 Sitagliptin Phos/Metformin HCl (Janumet 50-1,000 mg Tablet) 1 Each Tablet, 1 EACH PO BID, TAB 06/14/17 Ipratropium-Albuterol (Ipratropium-Albuterol) 0.5-3 Mg/3 Ml Ampul.neb, 3 ML INHALATION Q6 for WHEEZING AND SOB, #30 VIAL 06/14/17 Imipenem/Cilastatin Sodium (IMIPENEM-CILASTATIN 500 MG VL) 500 Mg Vial, 500 MG IV Q8H, VIAL FOR 7 DAYS START DATE 06/08/17,STOP DATE 06/15/17 06/14/17 Dextrose (Glucose) 15 Gm/59 Ml Liquid, 32 ML PO NEEDED, TUB 06/14/17 Furosemide* (Furosemide*) 40 Mg Tablet, 40 MG PO DAILY, TAB 06/14/17 Ferrous Sulfate* (Ferrous Sulfate*) 325 Mg Tabec, 325 MG PO DAILY, TAB 06/14/17 Duloxetine Hcl* (Duloxetine Hcl*) 30 Mg Capsule.dr, 30 MG PO DAILY, #30 CAP 06/14/17 Docusate Sodium* (Docusate Sodium*) 100 Mg Capsule, 100 MG PO BID, #60 CAP 06/14/17 Bisacodyl* (Bisacodyl*) 10 Mg Supp, 10 MG NV Q24H for CONSTIPATION, SUPP 06/14/17 Ascorbic Acid (Vitamin C) 250 Mg Tab, 250 MG PO DAILY, TAB 06/14/17 Acetaminophen* (Acetaminophen*) 500 MG Extra Strength Tablet, 500 MG PO Q6H PRN for PAIN, TAB TAKE Q6H FOR PAIN LEVEL 1-5/10,AND 6-10/10 06/14/17 Allergies Allergies: Coded Allergies: nitrofurantoin (Verified Allergy, Mild, 06/14/17) piperacillin (Verified Allergy, Mild, BURNING SENSATION ALL OVER THE BODY, 06/14/17) tazobactam (Verified Allergy, Mild, BURNING SENSATION ALL OVER THE BODY, 06/14/17) Tetracyclines (Verified Allergy, Unknown, 09/27/17) PMhx/Soc History of Surgery: Yes (SPINAL LAMINECTOMY,HYSTERECTOMY,EXPLOR LAP 1990,) Anesthesia Reaction: No Hx Neurological Disorder: No Hx Respiratory Disorders: Yes (COPD) Hx Cardiac Disorders: No Hx Psychiatric Problems: No Hx Miscellaneous Medical Probl: Yes (chronic paoin syndrome, chronic opiate, a- fib, recurrent utis ) Hx Alcohol Use: No Hx Substance Use: No Hx Tobacco Use: Yes (6 CIGARETTE/ DAY) Smoking Status: Current every day smoker FmHx Family History: No diabetes Physical Exam Vitals Vital Signs Date Temp Pulse Resp B/P (MAP) Pulse Ox O2 O2 Flow FiO2 Time Delivery Rate 07/13/18 112 20 128/69 95 Room Air 20:13 (88) 07/13/18 Nasal 18:46 Cannula 07/13/18 101.5 118 25 130/60 92 18:31 (83) Physical Exam Const: Ill-appearing, nontoxic. Head: Atraumatic Eyes: Normal Conjunctiva ENT: Dry mucous membranes. Normal External Ears, Nose and Mouth. Neck: Full range of motion. No meningismus. Resp: Good breath sounds bilaterally with end expiratory wheezing. No rales or rhonchi Cardio: Tachycardic with regular rhythm, no murmurs Abd: Soft, mild suprapubic tenderness without rebound or guarding, non disten ded. Normal bowel sounds Skin: No petechiae or rashes Back: No midline or flank tenderness Ext: No cyanosis, or edema Neur: Awake and alert, normal speech, moving all extremities spontaneously Psych: Normal Mood and Affect Result Diagram: 07/13/18 19007/13/18 190 Results 24 hrs Laboratory Tests Test 07/13/18 19:01 07/13/18 19:02 07/13/18 20:40 White Blood Count 11.2 10^3/ul Red Blood Count 4.45 10^6/ul Hemoglobin 12.2 g/dl Hematocrit 40.3 % Mean Corpuscular Volume 90.6 fl Mean Corpuscular Hemoglobin 27.4 pg Mean Corpuscular 30.3 g/dl Hemoglobin Concent Red Cell Distribution Width 15.9 % Platelet Count 68 10^3/UL Mean Platelet Volume 9.8 fl Immature Granulocytes % 0.800 % Neutrophils % 86.5 % Segmented Neutrophils % (Manual) 87 % Band Neutrophils % (Manual) 4 % Lymphocytes % 4.8 % Lymphocytes % (Manual) 3 % Reactive Lymphocytes % (Manual) 1 % Monocytes % 7.5 % Monocytes % (Manual) 5 % Eosinophils % 0.1 % Basophils % 0.3 % Nucleated Red Blood Cells % 0.0 /100WBC Immature Granulocytes # 0.090 10^3/ul Neutrophils # 9.7 10^3/ul Neutrophils # (Manual) 9.8 10^3/ul Band Neutrophils # 0.4 10^3/ul Lymphocytes (Manual) 0.3 10^3/ul Lymphocytes # 0.5 10^3/ul Reactive Lymphocytes # 0.1 10^3/ul Monocytes # 0.8 10^3/ul Monocytes # (Manual) 0.5 10^3/ul Eosinophils # 0.0 10^3/ul Basophils # 0.0 10^3/ul Nucleated Red Blood Cells # 0.0 10^3/ul Platelet Estimate NORMAL Polychromasia 1+ Poikilocytosis 1+ Stomatocytes 1+ Prothrombin Time 13.2 Sec Prothrombin Time Ratio 1.0 INR International 0.99 Normalized Ratio Activated Partial Thromboplast 33.5 Sec Time Lactic Acid Level 1.2 mmol/L Sodium Level 143 mmol/L Potassium Level 2.7 mmol/L Chloride Level 117 mmol/L Carbon Dioxide Level 19 mmol/L Anion Gap 7 Blood Urea Nitrogen 10 mg/dl Creatinine 0.62 mg/dl Est Glomerular Filtrat mL/min Rate mL/min Glucose Level 131 mg/dl Calcium Level 6.6 mg/dl Total Bilirubin 0.4 mg/dl Direct Bilirubin 0.00 mg/dl Indirect Bilirubin 0.4 mg/dl Aspartate Amino 16 IU/L Transf (AST/SGOT) Alanine 15 IU/L Aminotransferase (ALT/SGPT) Alkaline Phosphatase 67 IU/L Troponin I 0.049 ng/ml Total Protein 5.5 g/dl Albumin 2.8 g/dl Globulin 2.70 g/dl Albumin/Globulin Ratio 1.03 Urine Color TRU Urine Clarity CLEAR Urine pH 5.0 Urine Specific [place] 1.016 Urine Ketones 1+ mg/dL Urine Nitrite POSITIVE mg/dL Urine Bilirubin NEGATIVE mg/dL Urine Urobilinogen 2+ mg/dL Urine Leukocyte Esterase TRACE Shaun/ul Urine Microscopic RBC 8 /HPF Urine Microscopic WBC 108 /HPF Urine Bacteria FEW /HPF Urine Hemoglobin NEGATIVE mg/dL Urine Glucose NEGATIVE mg/dL Urine Total Protein 1+ mg/dl Current Medications Medications Dose Sig/Anjana Start Time Status Last (Trade) Ordered Route PRN Stop Time Admin Dose Reason Admin Sodium 1,500 ml BOLUS OVER 2 07/13/18 DC 07/13/18 Chloride HOURS STAT 18:41 19:02 (NS) IV* 07/13/18 18:44 Cefepime HCl 50 ml @ ONCE STAT 07/13/18 DC 07/13/18 100 mls/hr IVPB 18:41 19:02 07/13/18 19:10 Oxycodone/ 1 tab ONCE ONCE 07/13/18 DC 07/13/18 Acetaminophen PO 20:00 20:10 (Endocet 07/13/18 20:01 (10 325)) Potassium 100 ml @ Q2H IVPB 07/13/18 07/13/18 Chloride 50 mls/hr 20:00 20:04 07/14/18 01:59 Magnesium 50 ml @ 25 ONCE ONCE 07/13/18 DC 07/13/18 Sulfate mls/hr IVPB 20:00 20:04 07/13/18 21:59 Procedures/MDM EMERGENT LABS AND DIAGNOSTIC STUDIES: Lab Results above were reviewed and interpreted by me. CBC: Thrombocytopenia. No anemia or evidence of infection CMP: Hypokalemia. No evidence of renal failure, hypoglycemia, liver failure, or biliary obstruction Troponin within normal limits, not indicative of cardiac ischemia Lactate within normal limits without evidence of sepsis or tissue hypoperfusion UA: Findings consistent with acute infection 12-lead EKG was interpreted by Luis Ramires MD: Sinus tachycardia at 115 bpm with short NV interval Normal axis No QT prolongation No acute ST or T wave changes suggestive of acute ischemia or STEMI. Radiology Results as interpreted by Radiology below were reviewed by Keo Ramires MD: Chest x-ray: IMPRESSION: 1. Mild pulmonary scarring bilaterally. 2. Cardiomegaly. 3. Permanent pacemaker. 4. Otherwise unremarkable chest radiograph. Initial Nursing notes reviewed. Previous Medical Records requested via the Electronic Health Record. EMERGENCY DEPARTMENT COURSE / MEDICAL DECISION MAKING: Patient presents with UTI symptoms as well as fever and tachycardia. Sepsis workup was initiated. No evidence of severe sepsis or septic shock. Antibiotics were given based on her previous urine microbiology results in the patient's record. She did have hypoxia but she has no symptoms from it and has a history of COPD. I doubt acute respiratory failure. Patient was also noted to have hypokalemia for which IV potassium and IV magnesium were ordered. Patient's infectious symptoms have not stabilized and the patient is at risk of rapid decompensation. The patient will be admitted for careful hydration, antib iotic therapy, and infectious source control. Infectious Source: UTI Severe Sepsis Managment: Blood Cultures X 2 before broad spectrum antibiotics initiated within 3 hours of recognition. 30 ml/kg NS bolus Completed Initial Lactate: normal Repeat Lactate not indicated as initial < 2.0 Critical Care: Time: 35 minutes Treatments/Evaluations: Emergent fluid management, while maintaining close respiratory support. Immediate broad spectrum antibiotic therapy. Simultaneous assessment for possible sources in order to direct therapy. Consideration for invasive and chemical support to prevent respiratory or cardiac collapse. Septic Shock Assessment (1 hour post 30 ml/kg fluid bolus): Hypotension (SBP < 90 or 40 mmHg drop, MAP < 65): No Lactic acid > 4.0 No Accepting Care Team: Current data and ongoing care discussed. Time: Time of admission Primary Provider: Dr. Bond Departure Diagnosis: Primary Impression: Sepsis Sepsis type: sepsis due to unspecified organism Qualified Codes: A41.9 - Sepsis, unspecified organism Additional Impressions: UTI (urinary tract infection) Urinary tract infection type: acute cystitis Hematuria presence: without hematuria Qualified Codes: N30.00 - Acute cystitis without hematuria Hypokalemia Condition: CATRACHITO Garcia MD Jul 13, 2018 23:31
[2018-07-14] VITALS (14 sets, daily range): BP systolic 105–188; BP diastolic 54–85; PULSE 71–110; RESP 17–22
[2018-07-14] MEDS: OXYCODONE/ACETAMINOPHEN (10/325) TAB PO SCH ×6 (00:07→20:08)
[2018-07-14] MEDS: POTASSIUM CHLORIDE 100 ML IVPB SCH ×2 (00:07→12:03)
[2018-07-14] MEDS ORDERED: SOD CHLORIDE 0.9% 250 ML IV ONE (00:30)
[2018-07-14] MEDS ORDERED: ACETAMINOPHEN 1000MG/100ML IV 100 ML IVPB ONE (00:30)
[2018-07-14] MEDS: MEROPENEM 1 GM/50ML(PMX) 50 ML IVPB SCH ×3 (01:06→21:08)
[2018-07-14] MEDS ORDERED: METHADONE 10 MG TAB PO ONE (06:30)
[2018-07-14] MEDS ORDERED: GLUCAGON 1 MG INJ IM PRN (07:00)
[2018-07-14] MEDS ORDERED: GLUCOSE GEL 15 GRAM TUBE BUCCAL PRN (07:00)
[2018-07-14] MEDS ORDERED: GLUCOSE GEL 15 GRAM TUBE PO PRN ×2 (07:00)
[2018-07-14] MEDS ORDERED: DEXTROSE 50% 50 ML SYRINGE IV PRN ×2 (07:00)
[2018-07-14] MEDS: PHENAZOPYRIDINE 200 MG TAB PO SCH ×4 (07:30→23:30)
[2018-07-14] MEDS: PYRIDOXINE 50 MG TAB PO SCH ×3 (07:30→23:30)
[2018-07-14] MEDS: MAGNESIUM OXIDE 400 MG TAB PO SCH ×2 (08:11→21:07)
[2018-07-14] MEDS: PANTOPRAZOLE (EC) 40 MG TAB PO SCH (08:11)
[2018-07-14] MEDS: LINAGLIPTIN 5 MG TABLET PO SCH (08:12)
[2018-07-14] MEDS: metFORMIN 500 MG TAB PO SCH ×2 (08:12→17:30)
[2018-07-14] MEDS: DULOXETINE 30 MG CAP DR PO SCH (08:13)
[2018-07-14] MEDS: FUROSEMIDE 40 MG TAB PO SCH (08:14)
[2018-07-14] MEDS ORDERED: NON-FORMULARY/PATIENT OWN MED (Sitagliptin Phos/Metformin HCl (Janumet 50-1,000 mg Tablet) PO SCH (09:00)
[2018-07-14] MEDS: DOCUSATE SODIUM 100 MG CAP PO SCH ×2 (09:00→21:07)
[2018-07-14] MEDS: FERROUS SULFATE (EC) 325 MG TAB PO SCH (09:00)
[2018-07-14] MEDS: ZINC SULFATE 220 MG CAP PO SCH (09:00)
[2018-07-14] MEDS: ASCORBIC ACID 250 MG TAB PO SCH (09:00)
[2018-07-14] MEDS: SENNA TAB PO SCH ×2 (09:00→21:07)
[2018-07-14] MEDS: NAPROXEN 500 MG TAB PO SCH ×2 (09:00→21:07)
[2018-07-14] MEDS ORDERED: METHADONE 10 MG TAB PO SCH (14:00)
--- NOTE | 2018-07-14 15:08 | CONS ---
DATE OF ADMISSION: 07/13/2018 DATE OF CONSULTATION: 07/13/2018 TYPE OF CONSULTATION: Infectious disease. REASON FOR CONSULTATION: Antibiotic management. HISTORY OF PRESENT ILLNESS: Humaira Kelly is a 73-year-old female well known to us from multiple previous admissions to the hospital for urinary tract infections. The patient is brought in from [facility] with urinary tract infection and is on Cipro. She has urinary pain with dysur ia and suprapubic pain which has lasted for the last 4 days. She has no associated symptoms such as nausea, vomiting, flank pain. She had some chills and is generally weak. Her son is at her bedside as he usually is. PAST SURGICAL HISTORY: Includes spinal laminectomy, hysterectomy and exploratory laparotomy. FAMILY HISTORY: Noncontributory. SOCIAL HISTORY: She smokes 6 cigarettes a day. She does not drink or abuse drugs. ALLERGIES: 1. NITROFURANTOIN. 2. ZOSYN. 3. TETRACYCLINE. PAST PROBLEMS INCLUDE: Chronic pain syndrome, chronic opioid use, atrial fibrillation, recurrent UTI s. PHYSICAL EXAMINATION: VITAL SIGNS: Her temperature is 101.5. Vital signs stable. SKIN: Without generalized rash. HEENT: Within normal limits. NECK: Supple. LYMPH NODES: None palpable. CHEST: Decreased breath sounds at the bases. HEART: Without murmur or gallop. She is tachycardic. ABDOMEN: Soft. She has suprapubic tenderness without rebound or guarding. EXTREMITIES: Without cyanosis, clubbing, or edema. RECTAL AND GENITAL: Deferred. NEUROLOGIC: No focal neurological abnormalities. ANCILLARY LABORATORY DATA: White count 11.2, H and H of 12.2 and 40.3, platelet count 68,000. BUN a nd creatinine is 10/0.62, potassium was 2.7. White count 11.2 with 87% neutrophils, 4% bands. Her u rinalysis is positive for nitrite. She has 108 white cells per high powered field, 8 red cells per h igh-power field. The patient was placed on cefepime. Chest x-ray shows mild pulmonary scarring, cardiomegaly, permane nt pacemaker, otherwise unremarkable. X-ray on physical examination is as previously outlined. IMPRESSION AND PLAN: Continue current cefepime regimen. If necessary, will change to meropenem. I will dictate my findings to the hospitalists. Blood cultures were done. Urinalysis and cultures are pending. Continue with current therapy, I will be happy to follow along in her care. Dictated By: SATYA CAMPBELL MD, JD/ANNA Conf#: [id number] DID#: [id number] CC: NATY FLORES MD;*End*
[2018-07-14] MEDS: RIVAROXABAN 20 MG TABLET PO SCH (17:30)
--- NOTE | 2018-07-14 18:29 | PN ---
Date/Time of Note Date/Time of Note DATE: 07/14/18 TIME: 18:26 Assessment/Plan VTE Prophylaxis Risk score (from [facility] [place])>0 risk: 7 SCD applied (from [facility] [place]): Yes Pharmacological prophylaxis: rivaroxaban Lines/Catheters IV Catheter Type (from [facility] Saline Lock Urinary Cath still in place: No Assessment/Plan Hospital Course 1. Sepsis secondary to recurrent UTI Meropenem based on prior cultures ID consultation obtained IV fluids 2. Diabetes Continue insulin regimen 3. COPDstable 4. Chronic pain syndrome Continue methadone 5. History of DVT and PE Continue Xarelto 6. Debility secondary to comorbidities Patient [facility] in a [facility] facility Prophylaxis: Xarelto DC planning: Follow-up on cultures, anticipate DC back to facility once sepsis resolved and cultures have returned Result Diagram: 07/14/1862807/14/18628 Results 24hrs Laboratory Tests Test 07/13/18 19:01 07/13/18 19:02 07/13/18 20:40 07/13/18 21:02 White Blood Count 11.2 #H Red Blood Count 4.45 # Hemoglobin 12.2 Hematocrit 40.3 Mean Corpuscular 90.6 Volume Mean Corpuscular 27.4 L Hemoglobin Mean Corpuscular 30.3 L Hemoglobin Concent Red Cell 15.9 H Distribution Width Platelet Count 68 #L Mean Platelet 9.8 Volume Immature 0.800 H Granulocytes % Neutrophils % 86.5 H Segmented 87 H Neutrophils % (Manual) Band Neutrophils % 4 (Manual) Lymphocytes % 4.8 L Lymphocytes % 3 L (Manual) Reactive 1 H Lymphocytes % (Manual) Monocytes % 7.5 Monocytes % 5 (Manual) Eosinophils % 0.1 Basophils % 0.3 Nucleated Red 0.0 Blood Cells % Immature 0.090 H Granulocytes # Neutrophils # 9.7 H Neutrophils # 9.8 H (Manual) Band Neutrophils # 0.4 Lymphocytes 0.3 L (Manual) Lymphocytes # 0.5 L Reactive 0.1 H Lymphocytes # Monocytes # 0.8 Monocytes # 0.5 (Manual) Eosinophils # 0.0 Basophils # 0.0 Nucleated Red 0.0 Blood Cells # Platelet Estimate NORMAL Polychromasia 1+ Poikilocytosis 1+ Stomatocytes 1+ Prothrombin Time 13.2 # Prothrombin Time 1.0 Ratio INR International 0.99 Normalized Ratio Activated 33.[address] Time Lactic Acid Level 1.2 0.8 Sodium Level 143 Potassium Level 2.7 *L Chloride Level 117 H Carbon Dioxide 19 L Level Anion Gap 7 Blood Urea 10 Nitrogen Creatinine 0.62 Est Glomerular Filtrat Rate mL/min Glucose Level 131 Calcium Level 6.6 L Total Bilirubin 0.4 Direct Bilirubin 0.00 Indirect Bilirubin 0.4 Aspartate Amino 16 Transf (AST/SGOT) Alanine 15 Aminotransferase ( ALT/SGPT) Alkaline 67 Phosphatase Troponin I 0.049 Total Protein 5.5 L Albumin 2.8 L Globulin 2.70 Albumin/Globulin 1.03 Ratio Urine Color TRU Urine Clarity CLEAR Urine pH 5.0 Urine Specific 1.016 [place] Urine Ketones 1+ H Urine Nitrite POSITIVE A Urine Bilirubin NEGATIVE Urine Urobilinogen 2+ H Urine Leukocyte TRACE A Esterase Urine Microscopic 8 H RBC Urine Microscopic 108 H WBC Urine Bacteria FEW A Urine Hemoglobin NEGATIVE Urine Glucose NEGATIVE Urine Total 1+ H Protein Test 07/14/18 00:47 07/14/18 06:29 Lactic Acid Level 1.4 White Blood Count 15.6 #H Red Blood Count 4.33 Hemoglobin 11.7 L Hematocrit 39.5 Mean Corpuscular 91.2 Volume Mean Corpuscular 27.0 L Hemoglobin Mean Corpuscular 29.6 L Hemoglobin Concent Red Cell 16.1 H Distribution Width Platelet Count 64 L Mean Platelet 11.5 H Volume Immature 1.000 H Granulocytes % Neutrophils % Segmented 76 Neutrophils % (Manual) Band Neutrophils % 11 H (Manual) Lymphocytes % Lymphocytes % 3 L (Manual) Monocytes % Monocytes % 10 (Manual) Eosinophils % Basophils % Nucleated Red 0.0 Blood Cells % Immature 0.150 H Granulocytes # Neutrophils # Neutrophils # 12.1 H (Manual) Band Neutrophils # 1.7 H Lymphocytes 0.4 L (Manual) Lymphocytes # Monocytes # Monocytes # 1.5 H (Manual) Eosinophils # Basophils # Nucleated Red Blood Cells # Platelet Estimate SIG DECREASED Polychromasia 3+ Poikilocytosis 1+ Anisocytosis 1+ Microcytosis 1+ Rouleau 1+ Sodium Level 143 Potassium Level 3.7 Chloride Level 106 # Carbon Dioxide 26 Level Anion Gap 11 Blood Urea 15 Nitrogen Creatinine 1.02 H Est Glomerular Filtrat Rate mL/min Glucose Level 186 Calcium Level 8.4 Magnesium Level 2.0 Total Bilirubin 0.4 Direct Bilirubin 0.00 Indirect Bilirubin 0.4 Aspartate Amino 21 Transf (AST/SGOT) Alanine 13 Aminotransferase ( ALT/SGPT) Alkaline 78 Phosphatase Total Protein 7.1 # Albumin 3.6 Globulin 3.50 H Albumin/Globulin 1.02 Ratio Subjective 24 Hr Interval Summary Constitutional: no complaints Exam/Review of Systems Exam Vitals Vital Signs Date Temp Pulse Resp B/P (MAP) Pulse Ox O2 O2 Flow FiO2 Time Delivery Rate 07/14/18 71 16:00 07/14/18 98.0 22 105/54 96 Nasal 15:39 (71) Cannula 07/14/18 2.0 11:14 Intake and Output 07/13/18 07/13/18 07/14/18 1515:00 23:00 07:00 IntakeIntake Total 520 ml BalanceBalance 520 ml Constitutional: alert, oriented Respiratory: clear to auscultation Cardiovascular: regular rate and rhythm Gastrointestinal: soft; No distended Musculoskeletal: nl extremities to inspection Results Results 24hrs Laboratory Tests Test 07/13/18 19:01 07/13/18 19:02 07/13/18 20:40 07/13/18 21:02 White Blood Count 11.2 #H Red Blood Count 4.45 # Hemoglobin 12.2 Hematocrit 40.3 Mean Corpuscular 90.6 Volume Mean Corpuscular 27.4 L Hemoglobin Mean Corpuscular 30.3 L Hemoglobin Concent Red Cell 15.9 H Distribution Width Platelet Count 68 #L Mean Platelet 9.8 Volume Immature 0.800 H Granulocytes % Neutrophils % 86.5 H Segmented 87 H Neutrophils % (Manual) Band Neutrophils % 4 (Manual) Lymphocytes % 4.8 L Lymphocytes % 3 L (Manual) Reactive 1 H Lymphocytes % (Manual) Monocytes % 7.5 Monocytes % 5 (Manual) Eosinophils % 0.1 Basophils % 0.3 Nucleated Red 0.0 Blood Cells % Immature 0.090 H Granulocytes # Neutrophils # 9.7 H Neutrophils # 9.8 H (Manual) Band Neutrophils # 0.4 Lymphocytes 0.3 L (Manual) Lymphocytes # 0.5 L Reactive 0.1 H Lymphocytes # Monocytes # 0.8 Monocytes # 0.5 (Manual) Eosinophils # 0.0 Basophils # 0.0 Nucleated Red 0.0 Blood Cells # Platelet Estimate NORMAL Polychromasia 1+ Poikilocytosis 1+ Stomatocytes 1+ Prothrombin Time 13.2 # Prothrombin Time 1.0 Ratio INR International 0.99 Normalized Ratio Activated 33.[address] Time Lactic Acid Level 1.2 0.8 Sodium Level 143 Potassium Level 2.7 *L Chloride Level 117 H Carbon Dioxide 19 L Level Anion Gap 7 Blood Urea 10 Nitrogen Creatinine 0.62 Est Glomerular Filtrat Rate mL/min Glucose Level 131 Calcium Level 6.6 L Total Bilirubin 0.4 Direct Bilirubin 0.00 Indirect Bilirubin 0.4 Aspartate Amino 16 Transf (AST/SGOT) Alanine 15 Aminotransferase ( ALT/SGPT) Alkaline 67 Phosphatase Troponin I 0.049 Total Protein 5.5 L Albumin 2.8 L Globulin 2.70 Albumin/Globulin 1.03 Ratio Urine Color TRU Urine Clarity CLEAR Urine pH 5.0 Urine Specific 1.016 [place] Urine Ketones 1+ H Urine Nitrite POSITIVE A Urine Bilirubin NEGATIVE Urine Urobilinogen 2+ H Urine Leukocyte TRACE A Esterase Urine Microscopic 8 H RBC Urine Microscopic 108 H WBC Urine Bacteria FEW A Urine Hemoglobin NEGATIVE Urine Glucose NEGATIVE Urine Total 1+ H Protein Test 07/14/18 00:47 07/14/18 06:29 Lactic Acid Level 1.4 White Blood Count 15.6 #H Red Blood Count 4.33 Hemoglobin 11.7 L Hematocrit 39.5 Mean Corpuscular 91.2 Volume Mean Corpuscular 27.0 L Hemoglobin Mean Corpuscular 29.6 L Hemoglobin Concent Red Cell 16.1 H Distribution Width Platelet Count 64 L Mean Platelet 11.5 H Volume Immature 1.000 H Granulocytes % Neutrophils % Segmented 76 Neutrophils % (Manual) Band Neutrophils % 11 H (Manual) Lymphocytes % Lymphocytes % 3 L (Manual) Monocytes % Monocytes % 10 (Manual) Eosinophils % Basophils % Nucleated Red 0.0 Blood Cells % Immature 0.150 H Granulocytes # Neutrophils # Neutrophils # 12.1 H (Manual) Band Neutrophils # 1.7 H Lymphocytes 0.4 L (Manual) Lymphocytes # Monocytes # Monocytes # 1.5 H (Manual) Eosinophils # Basophils # Nucleated Red Blood Cells # Platelet Estimate SIG DECREASED Polychromasia 3+ Poikilocytosis 1+ Anisocytosis 1+ Microcytosis 1+ Rouleau 1+ Sodium Level 143 Potassium Level 3.7 Chloride Level 106 # Carbon Dioxide 26 Level Anion Gap 11 Blood Urea 15 Nitrogen Creatinine 1.02 H Est Glomerular Filtrat Rate mL/min Glucose Level 186 Calcium Level 8.4 Magnesium Level 2.0 Total Bilirubin 0.4 Direct Bilirubin 0.00 Indirect Bilirubin 0.4 Aspartate Amino 21 Transf (AST/SGOT) Alanine 13 Aminotransferase ( ALT/SGPT) Alkaline 78 Phosphatase Total Protein 7.1 # Albumin 3.6 Globulin 3.50 H Albumin/Globulin 1.02 Ratio Medications Medication Current Medications Oxycodone/ Acetaminophen (Endocet (10/ 325)) 1 tab Q4H PO Last administered on 07/14/18at 16:28; Admin Dose 1 TAB; Start 07/14/18 at 00:00 IV Flush (NS 3 ml) 3 ml PER PROTOCOL IV ; Start 07/13/18 at 23:30 Ondansetron HCl (Zofran Inj) 4 mg Q6H PRN IV NAUSEA/VOMITING; Start 07/13/18 at 23:30 Albuterol/ Ipratropium (Duoneb) 3 ml Q2H RESP THERAPY PRN HHN SHORTNESS OF BREATH; Start 07/13/18 at 23:30 Acetaminophen (Tylenol Tab) 500 mg Q6H PRN PO PAIN Last administered on at 04:37; Admin Dose 500 MG; Start 07/13/18 at 23:30 Ascorbic Acid (Vitamin C) 250 mg DAILY PO ; Start 07/14/18 at 09:00 Bisacodyl (Dulcolax Supp) 10 mg Q24H [place] ; Start 07/13/18 at 23:30 Docusate Sodium (Colace) 100 mg BID PO ; Start 07/14/18 at 09:00 Duloxetine HCl (Cymbalta) 30 mg DAILY PO Last administered on 07/14/18at 08:13; Admin Dose 30 MG; Start 07/14/18 at 09:00 Ferrous Sulfate (Ferrous Sulfate (Ec)) 325 mg DAILY PO ; Start 07/14/18 at 09:00 Furosemide (Lasix) 40 mg DAILY PO Last administered on 07/14/18at 08:14; Admin Dose 40 MG; Start 07/14/18 at 09:00 Magnesium Oxide (Mag-Ox 400) 400 mg BID PO Last administered on 07/14/18at 08:11; Admin Dose 400 MG; Start 07/14/18 at 09:00 Naproxen (Naprosyn) 500 mg BID PO ; Start 07/14/18 at 09:00 Pantoprazole (Protonix Tab) 40 mg DAILY PO Last administered on 07/14/18at 08:11; Admin Dose 40 MG; Start 07/14/18 at 09:00 Phenazopyridine HCl (Pyridium) 200 mg Q8H PO ; Start 07/13/18 at 23:30 Potassium Chloride (Klor-Con 20) 40 meq Q48H PO ; Start 07/13/18 at 23:30 Pyridoxine HCl (Vitamin B6) 100 mg Q8H PO ; Start 07/13/18 at 23:30 Rivaroxaban (Xarelto) 20 mg WITH DINNER PO Last administered on 07/14/18at 17:30; Admin Dose 20 MG; Start 07/14/18 at 17:55 Senna (Senokot) 1 tab BID PO ; Start 07/14/18 at 09:00 Tamsulosin HCl (Flomax) 0.4 mg HS PO ; Start 07/14/18 at 21:00 Zinc Sulfate (Zinc Sulfate) 220 mg DAILY PO ; Start 07/14/18 at 09:00 Atorvastatin Calcium (Lipitor) 40 mg DAILY@21 PO ; Start 07/14/18 at 21:00 Meropenem/Sodium Chloride 50 ml @ 100 mls/hr Q12 IVPB Last administered on 07/14/18at 08:15; Admin Dose 100 MLS/HR; Start 07/14/18 at 01:00 Metformin HCl (Glucophage) 1,000 mg BID WITH MEALS PO Last administered on 07/14/18at 17:30; Admin Dose 1,000 MG; Start 07/14/18 at 07:55 Linagliptin (Tradjenta) 5 mg DAILY PO Last administered on 07/14/18at 08:12; Admin Dose 5 MG; Start 07/14/18 at 09:00 Miscellaneous Information 1 ea NOTE XX ; Start 07/14/18 at 07:00 Glucose (Glutose) 15 gm Q15M PRN PO DECREASED GLUCOSE; Start 07/14/18 at 07:00 Glucose (Glutose) 22.5 gm Q15M PRN PO DECREASED GLUCOSE; Start 07/14/18 at 07:00 Dextrose (D50w Syringe) 25 ml Q15M PRN IV DECREASED GLUCOSE; Start 07/14/18 at 07:00 Dextrose (D50w Syringe) 50 ml Q15M PRN IV DECREASED GLUCOSE; Start 07/14/18 at 07:00 Glucagon (Glucagen) 1 mg Q15M PRN IM DECREASED GLUCOSE; Start 07/14/18 at 07:00 Glucose (Glutose) 15 gm Q15M PRN BUCCAL DECREASED GLUCOSE; Start 07/14/18 at 07:00 Methadone HCl (Methadone) 10 mg 0600,1400,2100 PO ; Start 07/14/18 at 21:00 GISSEL RESTREPO Jul 14, 2018 18:29
[2018-07-14] MEDS ORDERED: NON-FORMULARY/PATIENT OWN MED (Rosuvastatin Calcium* (Crestor*) 10 MG) PO SCH (21:00)
[2018-07-14] MEDS: TAMSULOSIN (SR) 0.4 MG CAP PO SCH (21:00)
[2018-07-14] MEDS: METHADONE 10 MG TAB PO SCH (21:07)
[2018-07-14] MEDS: ATORVASTATIN 40 MG TAB PO SCH (21:07)
[2018-07-14] MEDS: BISACODYL 10 MG SUPP PR SCH (23:30)
[2018-07-15] VITALS (11 sets, daily range): BP systolic 117–161; BP diastolic 61–75; PULSE 75–90; RESP 19–20
[2018-07-15] MEDS: OXYCODONE/ACETAMINOPHEN (10/325) TAB PO SCH ×6 (00:08→20:18)
[2018-07-15] MEDS: METHADONE 10 MG TAB PO SCH ×3 (06:11→22:07)
[2018-07-15] MEDS: PYRIDOXINE 50 MG TAB PO SCH ×2 (07:30→15:30)
[2018-07-15] MEDS: PHENAZOPYRIDINE 200 MG TAB PO SCH ×3 (07:30→23:30)
[2018-07-15] MEDS: ZINC SULFATE 220 MG CAP PO SCH (09:00)
[2018-07-15] MEDS: SENNA TAB PO SCH ×2 (09:00→20:22)
[2018-07-15] MEDS: FERROUS SULFATE (EC) 325 MG TAB PO SCH (09:00)
[2018-07-15] MEDS: FUROSEMIDE 40 MG TAB PO SCH (09:00)
[2018-07-15] MEDS: ASCORBIC ACID 250 MG TAB PO SCH (09:00)
[2018-07-15] MEDS: DOCUSATE SODIUM 100 MG CAP PO SCH ×2 (09:00→20:22)
[2018-07-15] MEDS: metFORMIN 500 MG TAB PO SCH ×2 (09:04→17:42)
[2018-07-15] MEDS: DULOXETINE 30 MG CAP DR PO SCH (10:52)
[2018-07-15] MEDS: NAPROXEN 500 MG TAB PO SCH (10:53)
[2018-07-15] MEDS: PANTOPRAZOLE (EC) 40 MG TAB PO SCH (10:54)
[2018-07-15] MEDS: LINAGLIPTIN 5 MG TABLET PO SCH (10:54)
[2018-07-15] MEDS: MEROPENEM 1 GM/50ML(PMX) 50 ML IVPB SCH ×2 (10:54→20:22)
[2018-07-15] MEDS: MAGNESIUM OXIDE 400 MG TAB PO SCH ×2 (10:54→20:22)
--- NOTE | 2018-07-15 14:05 | CONS ---
Assessment/Plan Assessment/Plan Hospital Course (Demo Recall) No acute changes overnight patient is alert feels good no dysuria no fevers no hematuria. Microbiology: Urine culture grew E. coli ESBL 2 days ago. Antimicrobials: Meropenem day #2 Allergy: Tetracycline, Zosyn, nitrofurantoin Physical examination: Pleasant obese elderly woman who is alert in no distress. Head atraumatic normocephalic. Neck is supple. Chest rise symmetrical, breath sounds clear. Heart: S1-S2. Abdomen soft bowel sounds present. Assessment: 1. Recurrent UTI 2. Chronic pain syndrome 3. COPD/tobacco use 4. Obesity 5. Atrial fibrillation, with a history of permanent pacemaker placement Plan: Patient remains stable, on appropriate antibiotic regimen Consultation Date/Type/Reason Admit Date/Time Jul 13, 2018 at 20:43 Initial Consult Date Type of Consult id Date/Time of Note DATE: 07/15/18 TIME: 14:05 Exam/Review of Systems Exam Vitals Vital Signs Date Temp Pulse Resp B/P (MAP) Pulse Ox O2 O2 Flow FiO2 Time Delivery Rate 07/15/18 98.8 85 20 133/70 90 11:38 (91) 07/15/18 Nasal 2.0 10:38 Cannula Intake and Output 07/14/18 07/14/18 07/15/18 1515:00 23:00 07:00 IntakeIntake Total 172 ml 200 ml BalanceBalance 172 ml 200 ml Results Result Diagram: 07/15/18 0633 07/15/18 0633 Results 24hrs Laboratory Tests Test 07/15/18 06:33 White Blood Count 7.6 # Red Blood Count 4.01 L Hemoglobin 11.0 L Hematocrit 37.4 Mean Corpuscular Volume 93.3 Mean Corpuscular Hemoglobin 27.4 L Mean Corpuscular Hemoglobin Concent 29.4 L Red Cell Distribution Width 16.4 H Platelet Count 57 L Mean Platelet Volume 11.4 H Immature Granulocytes % 0.400 Neutrophils % 65.2 Lymphocytes % 19.5 Monocytes % 11.2 H Eosinophils % 2.9 Basophils % 0.8 Nucleated Red Blood Cells % 0.0 Immature Granulocytes # 0.030 Neutrophils # 4.9 Lymphocytes # 1.5 Monocytes # 0.9 Eosinophils # 0.2 Basophils # 0.1 Nucleated Red Blood Cells # 0.0 Sodium Level 145 H Potassium Level 4.5 Chloride Level 111 H Carbon Dioxide Level 28 Anion Gap 6 Blood Urea Nitrogen 30 #H Creatinine 1.25 H Est Glomerular Filtrat Rate mL/min Glucose Level 127 # Calcium Level 8.8 Medications Medication Current Medications Oxycodone/ Acetaminophen (Endocet (10/ 325)) 1 tab Q4H PO Last administered on 07/15/18at 12:02; Admin Dose 1 TAB; Start 07/14/18 at 00:00 IV Flush (NS 3 ml) 3 ml PER PROTOCOL IV ; Start 07/13/18 at 23:30 Ondansetron HCl (Zofran Inj) 4 mg Q6H PRN IV NAUSEA/VOMITING; Start 07/13/18 at 23:30 Albuterol/ Ipratropium (Duoneb) 3 ml Q2H RESP THERAPY PRN HHN SHORTNESS OF BREATH; Start 07/13/18 at 23:30 Acetaminophen (Tylenol Tab) 500 mg Q6H PRN PO PAIN Last administered on 07/14/18at 04:37; Admin Dose 500 MG; Start 07/13/18 at 23:30 Ascorbic Acid (Vitamin C) 250 mg DAILY PO ; Start 07/14/18 at 09:00 Bisacodyl (Dulcolax Supp) 10 mg Q24H [place] ; Start 07/13/18 at 23:30 Docusate Sodium (Colace) 100 mg BID PO Last administered on 07/14/18at 21:07; Admin Dose 100 MG; Start 07/14/18 at 09:00 Duloxetine HCl (Cymbalta) 30 mg DAILY PO Last administered on 07/15/18at 10:52; Admin Dose 30 MG; Start 07/14/18 at 09:00 Ferrous Sulfate (Ferrous Sulfate (Ec)) 325 mg DAILY PO ; Start 07/14/18 at 09:00 Furosemide (Lasix) 40 mg DAILY PO Last administered on 07/14/18at 08:14; Admin Dose 40 MG; Start 07/14/18 at 09:00 Magnesium Oxide (Mag-Ox 400) 400 mg BID PO Last administered on 07/15/18at 10:54; Admin Dose 400 MG; Start 07/14/18 at 09:00 Naproxen (Naprosyn) 500 mg BID PO Last administered on 07/15/18at 10:53; Admin Dose 500 MG; Start 07/14/18 at 09:00 Pantoprazole (Protonix Tab) 40 mg DAILY PO Last administered on 07/15/18at 10:54; Admin Dose 40 MG; Start 07/14/18 at 09:00 Phenazopyridine HCl (Pyridium) 200 mg Q8H PO ; Start 07/13/18 at 23:30 Potassium Chloride (Klor-Con 20) 40 meq Q48H PO ; Start 07/13/18 at 23:30 Pyridoxine HCl (Vitamin B6) 100 mg Q8H PO ; Start 07/13/18 at 23:30 Rivaroxaban (Xarelto) 20 mg WITH DINNER PO Last administered on 07/14/18at 17:30; Admin Dose 20 MG; Start 07/14/18 at 17:55 Senna (Senokot) 1 tab BID PO Last administered on 07/14/18at 21:07; Admin Dose 1 TAB; Start 07/14/18 at 09:00 Tamsulosin HCl (Flomax) 0.4 mg HS PO ; Start 07/14/18 at 21:00 Zinc Sulfate (Zinc Sulfate) 220 mg DAILY PO ; Start 07/14/18 at 09:00 Atorvastatin Calcium (Lipitor) 40 mg DAILY@21 PO Last administered on 07/14/18at 21:07; Admin Dose 40 MG; Start 07/14/18 at 21:00 Meropenem/Sodium Chloride 50 ml @ 100 mls/hr Q12 IVPB Last administered on 07/15/18at 10:54; Admin Dose 100 MLS/HR; Start 07/14/18 at 01:00 Metformin HCl (Glucophage) 1,000 mg BID WITH MEALS PO Last administered on 07/15/18at 09:04; Admin Dose 1,000 MG; Start 07/14/18 at 07:55 Linagliptin (Tradjenta) 5 mg DAILY PO Last administered on 07/15/18at 10:54; Admin Dose 5 MG; Start 07/14/18 at 09:00 Miscellaneous Information 1 ea NOTE XX ; Start 07/14/18 at 07:00 Glucose (Glutose) 15 gm Q15M PRN PO DECREASED GLUCOSE; Start 07/14/18 at 07:00 Glucose (Glutose) 22.5 gm Q15M PRN PO DECREASED GLUCOSE; Start 07/14/18 at 07:00 Dextrose (D50w Syringe) 25 ml Q15M PRN IV DECREASED GLUCOSE; Start 07/14/18 at 07:00 Dextrose (D50w Syringe) 50 ml Q15M PRN IV DECREASED GLUCOSE; Start 07/14/18 at 07:00 Glucagon (Glucagen) 1 mg Q15M PRN IM DECREASED GLUCOSE; Start 07/14/18 at 07:00 Glucose (Glutose) 15 gm Q15M PRN BUCCAL DECREASED GLUCOSE; Start 07/14/18 at 07:00 Methadone HCl (Methadone) 10 mg 0600,1400,2200 PO ; Start 07/15/18 at 14:00 GIOAVNNA ESCUDERO NP Jul 15, 2018 14:05
--- NOTE | 2018-07-15 15:37 | PN ---
Date/Time of Note Date/Time of Note DATE: 07/15/18 TIME: 15:36 Assessment/Plan VTE Prophylaxis Risk score (from [facility])>0 risk: 7 SCD applied (from [facility] [place] Yes Pharmacological prophylaxis: heparin Lines/Catheters IV [facility] (from [facility] Saline Lock Urinary Cath still in place: No Assessment/Plan Hospital Course 1. Sepsis secondary to recurrent UTI Meropenem based on prior cultures ID consultation obtained IV fluids 2. Diabetes Continue insulin regimen 3. COPDstable 4. Chronic pain syndrome Continue methadone 5. History of DVT and PE Continue Xarelto 6. Debility secondary to comorbidities Patient resides in a group home facility MARVIN: - Likely prerenal. Hold lasix and NSAID. Give IVF Prophylaxis: Xarelto DC planning: Follow-up on cultures, anticipate DC back to facility once sepsis resolved and cultures have returne Result Diagram: 07/15/1833 07/15/18632 Results 24hrs Laboratory Tests Test 07/15/18 06:33 White Blood Count 7.6 # Red Blood Count 4.01 L Hemoglobin 11.0 L Hematocrit 37.4 Mean Corpuscular Volume 93.3 Mean Corpuscular Hemoglobin 27.4 L Mean Corpuscular Hemoglobin Concent 29.4 L Red Cell Distribution Width 16.4 H Platelet Count 57 L Mean Platelet Volume 11.4 H Immature Granulocytes % 0.400 Neutrophils % 65.2 Lymphocytes % 19.5 Monocytes % 11.2 H Eosinophils % 2.9 Basophils % 0.8 Nucleated Red Blood Cells % 0.0 Immature Granulocytes # 0.030 Neutrophils # 4.9 Lymphocytes # 1.5 Monocytes # 0.9 Eosinophils # 0.2 Basophils # 0.1 Nucleated Red Blood Cells # 0.0 Sodium Level 145 H Potassium Level 4.5 Chloride Level 111 H Carbon Dioxide Level 28 Anion Gap 6 Blood Urea Nitrogen 30 #H Creatinine 1.25 H Est Glomerular Filtrat Rate mL/min Glucose Level 127 # Calcium Level 8.8 Subjective 24 Hr Interval Summary Free Text/Dictation Feeling great Wants to be discharged tomorrow Exam/Review of Systems Exam Vitals Vital Signs Date Temp Pulse Resp B/P (MAP) Pulse Ox O2 O2 Flow FiO2 Time Delivery Rate 07/15/18 90 12:01 07/15/18 98.8 20 133/70 90 11:38 (91) 07/15/18 Nasal 2.0 10:38 Cannula Intake and Output 07/14/18 07/14/18 07/15/18 1515:00 23:00 07:00 IntakeIntake Total 172 ml 200 ml BalanceBalance 172 ml 200 ml Constitutional: alert, oriented, well developed Psych: no complaints, nl mood/affect Head: normocephalic, atraumatic Eyes: nl conjunctiva, EOMI, nl lids, nl sclera, PERRL ENMT: nl external ears & nose, nl lips & teeth, nl nasal mucosa & septum Neck: supple, non-tender Respiratory: clear to auscultation, normal air movement Cardiovascular: regular rate and rhythm, nl pulses Gastrointestinal: soft, nl liver, spleen, non-tender Musculoskeletal: nl extremities to inspection, nl gait and stance Extremities: normal pulses 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, nl mental status, nl speech, nl strength Skin: nl turgor; No rash or lesions Lymph: nl lymph nodes Results Results 24hrs Laboratory Tests Test 07/15/18 06:33 White Blood Count 7.6 # Red Blood Count 4.01 L Hemoglobin 11.0 L Hematocrit 37.4 Mean Corpuscular Volume 93.3 Mean Corpuscular Hemoglobin 27.4 L Mean Corpuscular Hemoglobin Concent 29.4 L Red Cell Distribution Width 16.4 H Platelet Count 57 L Mean Platelet Volume 11.4 H Immature Granulocytes % 0.400 Neutrophils % 65.2 Lymphocytes % 19.5 Monocytes % 11.2 H Eosinophils % 2.9 Basophils % 0.8 Nucleated Red Blood Cells % 0.0 Immature Granulocytes # 0.030 Neutrophils # 4.9 Lymphocytes # 1.5 Monocytes # 0.9 Eosinophils # 0.2 Basophils # 0.1 Nucleated Red Blood Cells # 0.0 Sodium Level 145 H Potassium Level 4.5 Chloride Level 111 H Carbon Dioxide Level 28 Anion Gap 6 Blood Urea Nitrogen 30 #H Creatinine 1.25 H Est Glomerular Filtrat Rate mL/min Glucose Level 127 # Calcium Level 8.8 Medications Medication Current Medications Oxycodone/ Acetaminophen (Endocet (10/ 325)) 1 tab Q4H PO Last administered on 07/15/18at 12:02; Admin Dose 1 TAB; Start 07/14/18 at 00:00 IV Flush (NS 3 ml) 3 ml PER PROTOCOL IV ; Start 07/13/18 at 23:30 Ondansetron HCl (Zofran Inj) 4 mg Q6H PRN IV NAUSEA/VOMITING; Start 07/13/18 at 23:30 Albuterol/ Ipratropium (Duoneb) 3 ml Q2H RESP THERAPY PRN HHN SHORTNESS OF BREATH; Start 07/13/18 at 23:30 Acetaminophen (Tylenol Tab) 500 mg Q6H PRN PO PAIN Last administered on 07/14/18at 04:37; Admin Dose 500 MG; Start 07/13/18 at 23:30 Ascorbic Acid (Vitamin C) 250 mg DAILY PO ; Start 07/14/18 at 09:00 Bisacodyl (Dulcolax Supp) 10 mg Q24H [place] ; Start 07/13/18 at 23:30 Docusate Sodium (Colace) 100 mg BID PO Last administered on 07/14/18at 21:07; Admin Dose 100 MG; Start 07/14/18 at 09:00 Duloxetine HCl (Cymbalta) 30 mg DAILY PO Last administered on 07/15/18at 10:52; Admin Dose 30 MG; Start 07/14/18 at 09:00 Ferrous Sulfate (Ferrous Sulfate (Ec)) 325 mg DAILY PO ; Start 07/14/18 at 09:00 Magnesium Oxide (Mag-Ox 400) 400 mg BID PO Last administered on 07/15/18at 10:54; Admin Dose 400 MG; Start 07/14/18 at 09:00 Pantoprazole (Protonix Tab) 40 mg DAILY PO Last administered on 07/15/18at 10:54; Admin Dose 40 MG; Start 07/14/18 at 09:00 Phenazopyridine HCl (Pyridium) 200 mg Q8H PO ; Start 07/13/18 at 23:30 Potassium Chloride (Klor-Con 20) 40 meq Q48H PO ; Start 07/13/18 at 23:30 Pyridoxine HCl (Vitamin B6) 100 mg Q8H PO ; Start 07/13/18 at 23:30 Rivaroxaban (Xarelto) 20 mg WITH DINNER PO Last administered on 07/14/18at 17:30; Admin Dose 20 MG; Start 07/14/18 at 17:55 Senna (Senokot) 1 tab BID PO Last administered on 07/14/18at 21:07; Admin Dose 1 TAB; Start 07/14/18 at 09:00 Tamsulosin HCl (Flomax) 0.4 mg HS PO ; Start 07/14/18 at 21:00 Zinc Sulfate (Zinc Sulfate) 220 mg DAILY PO ; Start 07/14/18 at 09:00 Atorvastatin Calcium (Lipitor) 40 mg DAILY@21 PO Last administered on 07/14/18at 21:07; Admin Dose 40 MG; Start 07/14/18 at 21:00 Meropenem/Sodium Chloride 50 ml @ 100 mls/hr Q12 IVPB Last administered on 07/15/18at 10:54; Admin Dose 100 MLS/HR; Start 07/14/18 at 01:00 Metformin HCl (Glucophage) 1,000 mg BID WITH MEALS PO Last administered on 07/15/18at 09:04; Admin Dose 1,000 MG; Start 07/14/18 at 07:55 Linagliptin (Tradjenta) 5 mg DAILY PO Last administered on 07/15/18at 10:54; Admin Dose 5 MG; Start 07/14/18 at 09:00 Miscellaneous Information 1 ea NOTE XX ; Start 07/14/18 at 07:00 Glucose (Glutose) 15 gm Q15M PRN PO DECREASED GLUCOSE; Start 07/14/18 at 07:00 Glucose (Glutose) 22.5 gm Q15M PRN PO DECREASED GLUCOSE; Start 07/14/18 at 07:00 Dextrose (D50w Syringe) 25 ml Q15M PRN IV DECREASED GLUCOSE; Start 07/14/18 at 07:00 Dextrose (D50w Syringe) 50 ml Q15M PRN IV DECREASED GLUCOSE; Start 07/14/18 at 07:00 Glucagon (Glucagen) 1 mg Q15M PRN IM DECREASED GLUCOSE; Start 07/14/18 at 07:00 Glucose (Glutose) 15 gm Q15M PRN BUCCAL DECREASED GLUCOSE; Start 07/14/18 at 07:00 Methadone HCl (Methadone) 10 mg 0600,1400,2200 PO Last administered on 07/15/18at 14:06; Admin Dose 10 MG; Start 07/15/18 at 14:00 Sodium Chloride 500 ml @ 500 mls/hr Q1H ONCE IV ; Start 07/15/18 at 16:00; Stop 07/15/18 at 16:59 ANNMARIE KOHLER MD Jul 15, 2018 15:37
[2018-07-15] MEDS ORDERED: SOD CHLORIDE 0.9% 500 ML IV ONE (16:00)
[2018-07-15] MEDS: RIVAROXABAN 20 MG TABLET PO SCH (17:42)
[2018-07-15] MEDS: TAMSULOSIN (SR) 0.4 MG CAP PO SCH (20:22)
[2018-07-15] MEDS: ATORVASTATIN 40 MG TAB PO SCH (20:22)
[2018-07-15] MEDS ORDERED: hydrALAzine 20 MG INJ IV PRN (22:00)
[2018-07-15] MEDS: BISACODYL 10 MG SUPP PR SCH (23:30)
[2018-07-16] VITALS: BP 164/73; PULSE 72; RESP 19
[2018-07-16] MEDS: OXYCODONE/ACETAMINOPHEN (10/325) TAB PO SCH ×5 (00:20→15:54)
[2018-07-16] MEDS: POTASSIUM CHLORIDE (SR) 20 MEQ TAB PO SCH (00:20)
[2018-07-16] MEDS: PYRIDOXINE 50 MG TAB PO SCH ×4 (00:21→15:54)
[2018-07-16 00:26] VITALS: PULSE 93
[2018-07-16 04:00] VITALS: BP 161/72; PULSE 92; RESP 19
[2018-07-16] MEDS ORDERED: PENDING SANTYL ORDER FOR WOUND CARE XX PRN (04:30)
[2018-07-16] MEDS: METHADONE 10 MG TAB PO SCH ×2 (06:08→14:10)
[2018-07-16] MEDS: PHENAZOPYRIDINE 200 MG TAB PO SCH ×3 (07:30→15:30)
[2018-07-16] MEDS: PANTOPRAZOLE (EC) 40 MG TAB PO SCH (08:19)
[2018-07-16] MEDS: FERROUS SULFATE (EC) 325 MG TAB PO SCH (08:19)
[2018-07-16] MEDS: DOCUSATE SODIUM 100 MG CAP PO SCH (08:19)
[2018-07-16] MEDS: DULOXETINE 30 MG CAP DR PO SCH (08:19)
[2018-07-16] MEDS: metFORMIN 500 MG TAB PO SCH (08:22)
[2018-07-16] MEDS: MAGNESIUM OXIDE 400 MG TAB PO SCH (08:22)
[2018-07-16] MEDS: LINAGLIPTIN 5 MG TABLET PO SCH (08:22)
[2018-07-16 08:23] VITALS: BP 151/70; PULSE 98; RESP 20
[2018-07-16] MEDS: ASCORBIC ACID 250 MG TAB PO SCH (09:17)
[2018-07-16] MEDS: SENNA TAB PO SCH (09:17)
[2018-07-16] MEDS: ZINC SULFATE 220 MG CAP PO SCH (09:18)
[2018-07-16] MEDS: MEROPENEM 1 GM/50ML(PMX) 50 ML IVPB SCH (09:18)
--- NOTE | 2018-07-16 12:22 | CONS ---
Assessment/Plan Assessment/Plan Hospital Course (Demo Recall) All noted. No acute changes overnight Microbiology: Urine culture grew E. coli ESBL 2 days ago. Antimicrobials: Meropenem day #3, s/p Cefepime Allergy: Tetracycline, Zosyn, nitrofurantoin Physical examination: Pleasant obese elderly woman who is alert in no distress. Head atraumatic normocephalic. Neck is supple. Chest rise symmetrical, breath sounds clear. Heart: S1-S2. Abdomen soft bowel sounds present. Assessment: 1. Recurrent UTI 2. Chronic pain syndrome 3. COPD/tobacco use 4. Obesity 5. Atrial fibrillation, with a history of permanent pacemaker placement Plan: Stable, anticipate dc on current abx for 5 more days off isolation Consultation Date/Type/Reason Admit Date/Time Jul 13, 2018 at 20:43 Initial Consult Date Type of Consult id Date/Time of Note DATE: 07/16/18 TIME: 12:21 Exam/Review of Systems Exam Vitals Vital Signs Date Temp Pulse Resp B/P (MAP) Pulse Ox O2 O2 Flow FiO2 Time Delivery Rate 07/16/18 98.8 98 20 151/70 100 08:23 (97) 07/16/18 Nasal 2.0 08:00 Cannula Intake and Output 07/15/18 07/15/18 07/16/18 1414:59 22:59 06:59 IntakeIntake Total 1100 ml BalanceBalance 1100 ml Results Result Diagram: 07/15/18 0633 07/15/18 0633 Results 24hrs Laboratory Tests Test 07/16/18 08:39 Hemoglobin A1c 6.1 H Medications Medication Current Medications Oxycodone/ Acetaminophen (Endocet (10/ 325)) 1 tab Q4H PO Last administered on 07/16/18at 08:21; Admin Dose 1 TAB; Start 07/14/18 at 00:00 IV Flush (NS 3 ml) 3 ml PER PROTOCOL IV ; Start 07/13/18 at 23:30 Ondansetron HCl (Zofran Inj) 4 mg Q6H PRN IV NAUSEA/VOMITING; Start 07/13/18 at 23:30 Albuterol/ Ipratropium (Duoneb) 3 ml Q2H RESP THERAPY PRN HHN SHORTNESS OF BREATH; Start 07/13/18 at 23:30 Acetaminophen (Tylenol Tab) 500 mg Q6H PRN PO PAIN Last administered on 07/14/18 04:37; Admin Dose 500 MG; Start 07/13/18 at 23:30 Ascorbic Acid (Vitamin C) 250 mg DAILY PO Last administered on 07/16/18 09:17; Admin Dose 250 MG; Start 07/14/18 at 09:00 Bisacodyl (Dulcolax Supp) 10 mg Q24H UT ; Start 07/13/18 at 23:30 Docusate Sodium (Colace) 100 mg BID PO Last administered on 07/16/18 08:19; Admin Dose 100 MG; Start 07/14/18 at 09:00 Duloxetine HCl (Cymbalta) 30 mg DAILY PO Last administered on 07/16/18 08:19; Admin Dose 30 MG; Start 07/14/18 at 09:00 Ferrous Sulfate (Ferrous Sulfate (Ec)) 325 mg DAILY PO Last administered on 07/16/18 08:19; Admin Dose 325 MG; Start 07/14/18 at 09:00 Magnesium Oxide (Mag-Ox 400) 400 mg BID PO Last administered on 07/16/18 08:22; Admin Dose 400 MG; Start 07/14/18 at 09:00 Pantoprazole (Protonix Tab) 40 mg DAILY PO Last administered on 07/16/18 08:19; Admin Dose 40 MG; Start 07/14/18 at 09:00 Phenazopyridine HCl (Pyridium) 200 mg Q8H PO ; Start 07/13/18 at 23:30 Potassium Chloride (Klor-Con 20) 40 meq Q48H PO Last administered on 07/16/18 00:20; Admin Dose 40 MEQ; Start 07/13/18 at 23:30 Pyridoxine HCl (Vitamin B6) 100 mg Q8H PO Last administered on 07/16/18 00:21; Admin Dose 100 MG; Start 07/13/18 at 23:30 Rivaroxaban (Xarelto) 20 mg WITH DINNER PO Last administered on 07/15/18 17:42; Admin Dose 20 MG; Start 07/14/18 at 17:55 Senna (Senokot) 1 tab BID PO Last administered on 07/16/18 09:17; Admin Dose 1 TAB; Start 07/14/18 at 09:00 Tamsulosin HCl (Flomax) 0.4 mg HS PO Last administered on 07/15/18 20:22; Admin Dose 0.4 MG; Start 07/14/18 at 21:00 Zinc Sulfate (Zinc Sulfate) 220 mg DAILY PO Last administered on 07/16/18 09:18; Admin Dose 220 MG; Start 07/14/18 at 09:00 Atorvastatin Calcium (Lipitor) 40 mg DAILY@21 PO Last administered on 07/15/18 20:22; Admin Dose 40 MG; Start 07/14/18 at 21:00 Meropenem/Sodium Chloride 50 ml @ 100 mls/hr Q12 IVPB Last administered on 07/16/18 09:18; Admin Dose 100 MLS/HR; Start 07/14/18 at 01:00 Metformin HCl (Glucophage) 1,000 mg BID WITH MEALS PO Last administered on 07/16/18 08:22; Admin Dose 1,000 MG; Start 07/14/18 at 07:55 Linagliptin (Tradjenta) 5 mg DAILY PO Last administered on 07/16/18 08:22; Admin Dose 5 MG; Start 07/14/18 at 09:00 Miscellaneous Information 1 ea NOTE XX ; Start 07/14/18 at 07:00 Glucose (Glutose) 15 gm Q15M PRN PO DECREASED GLUCOSE; Start 07/14/18 at 07:00 Glucose (Glutose) 22.5 gm Q15M PRN PO DECREASED GLUCOSE; Start 07/14/18 at 07:00 Dextrose (D50w Syringe) 25 ml Q15M PRN IV DECREASED GLUCOSE; Start 07/14/18 at 07:00 Dextrose (D50w Syringe) 50 ml Q15M PRN IV DECREASED GLUCOSE; Start 07/14/18 at 07:00 Glucagon (Glucagen) 1 mg Q15M PRN IM DECREASED GLUCOSE; Start 07/14/18 at 07:00 Glucose (Glutose) 15 gm Q15M PRN BUCCAL DECREASED GLUCOSE; Start 07/14/18 at 07:00 Methadone HCl (Methadone) 10 mg 0600,1400,2200 PO Last administered on 07/16/18at 06:08; Admin Dose 10 MG; Start 07/15/18 at 14:00 Hydralazine HCl (Apresoline) 10 mg Q6H PRN IV ELEVATED BLOOD PRESSURE Last administered on 07/15/18at 22:08; Admin Dose 10 MG; Start 07/15/18 at 22:00 Miscellaneous Information (Pending Santyl Order For Wound Care) This patient brandt... PRN PRN XX WOUND CARE; Start 07/16/18 at 04:30 GIOVANNA ESCUDERO NP Jul 16, 2018 12:22
[2018-07-16 14:00] VITALS: BP_SYST 146; BP_SYST 151; BP_DIAS 70; BP_DIAS 79; PULSE 87; PULSE 98; RESP 20
--- NOTE | 2018-07-16 17:02 | DS ---
Date/Time of Note Date/Time of Note DATE: 07/16/18 TIME: 17:01 Discharge Summary Admission/Discharge Info Admit Date/Time Jul 13, 2018 at 20:43 Discharge Date/Time Jul 16, 2018 at 16:05 Discharge Diagnosis Sepsis UTI MARVIN Patient Condition: Stable Hospital Course Sepsis secondary to recurrent UTI . treated with Meropenem based on prior cultures with excellent result. Symtpoms resolved and she was discharged to complete 7 day course of merrem Advised to have her renal fucntion monitored in next 1 week as she suffered MARVIN Home Meds Active Scripts Methadone Hcl* (Methadone*) 5 Mg Tab, 5 MG PO TID, #90 TAB Prov:GISSEL RESTREPO 07/09/17 Reported Medications Zinc Sulfate* (Zinc Sulfate*) 220 Mg Cap, 220 MG PO DAILY, CAP 06/14/17 Multivit-Min/Iron Fum/Folic AC (Witai-Ktjbtpd-Uiraymdi Tablet) 1 Each Tablet, 1 EACH PO DAILY, TAB 06/14/17 Sennosides* (Senna Lax*) 8.6 Mg Tablet, 1 TAB PO BID, TAB 06/14/17 Rosuvastatin Calcium* (Crestor*) 10 Mg Tablet, 10 MG PO QHS, #30 TAB 06/14/17 Rivaroxaban* (Xarelto*) 20 Mg Tablet, 20 MG PO WITH DINNER, TAB 06/14/17 Pyridoxine Hcl* (Vitamin B-6*) 50 Mg Capsule, 100 MG PO Q8H, CAP 06/14/17 Pantoprazole* (Protonix*) 40 Mg Tablet.dr, 40 MG PO DAILY, TAB 06/14/17 Phenazopyridine Hcl* (Phenazopyridine Hcl*) 200 Mg Tablet, 200 MG PO Q8H, TAB 06/14/17 Ondansetron Hcl* (Ondansetron Hcl*) 4 Mg Tablet, 4 MG PO Q6H PRN for NAUSEA AND OR VOMITING, TAB 06/14/17 Magnesium Oxide* (Magnesium Oxide*) 400 Mg Tablet, 400 MG PO BID, TAB 06/14/17 Potassium Chloride* (Klor-Con*) 20 Meq Tabsr, 40 MEQ PO Q48H, TAB.SA 06/14/17 Sitagliptin Phos/Metformin HCl (Janumet 50-1,000 mg Tablet) 1 Each Tablet, 1 EACH PO BID, TAB 06/14/17 Ipratropium-Albuterol (Ipratropium-Albuterol) 0.5-3 Mg/3 Ml Ampul.neb, 3 ML INHALATION Q6 for WHEEZING AND SOB, #30 VIAL 06/14/17 Dextrose (Glucose) 15 Gm/59 Ml Liquid, 32 ML PO NEEDED, TUB 06/14/17 Ferrous Sulfate* (Ferrous Sulfate*) 325 Mg Tabec, 325 MG PO DAILY, TAB 06/14/17 Duloxetine Hcl* (Duloxetine Hcl*) 30 Mg Capsule.dr, 30 MG PO DAILY, #30 CAP 06/14/17 Bisacodyl* (Bisacodyl*) 10 Mg Supp, 10 MG NV Q24H for CONSTIPATION, SUPP 06/14/17 Ascorbic Acid (Vitamin C) 250 Mg Tab, 250 MG PO DAILY, TAB 06/14/17 Acetaminophen* (Acetaminophen*) 500 MG Extra Strength Tablet, 500 MG PO Q6H PRN for PAIN, TAB TAKE Q6H FOR PAIN LEVEL 1-5/10,AND 6-10/10 06/14/17 Discontinued Reported Medications Tamsulosin Hcl* (Tamsulosin Hcl*) 0.4 Mg Cap.er.24h, 0.4 MG PO HS, CAP 06/14/17 Naproxen* (Naproxen*) 500 Mg Tablet, 500 MG PO BID, TAB 06/14/17 Imipenem/Cilastatin Sodium (IMIPENEM-CILASTATIN 500 MG VL) 500 Mg Vial, 500 MG IV Q8H, VIAL FOR 7 DAYS START DATE 06/08/17,STOP DATE 06/15/17 06/14/17 Furosemide* (Furosemide*) 40 Mg Tablet, 40 MG PO DAILY, TAB 06/14/17 Docusate Sodium* (Docusate Sodium*) 100 Mg Capsule, 100 MG PO BID, #60 CAP 06/14/17 Primary Care Provider Magda aLra MD Pending Labs Laboratory Tests Test 07/16/18 08:39 Hemoglobin A1c 6.1 % (0-5.9) ANNMARIE KOHLER MD Jul 16, 2018 17:02
== END 2018-07-16 16:05 | DRG 872 ==
LOC: E/R 18:25 → TEL 20:43 → PP2 07-16 03:28
PROVIDERS: ADMIT Internal Medicine; ATTEND Internal Medicine
DX: A41.9 Sepsis, unspecified organism (principal); N39.0 Urinary tract infection, site not specified; N17.9 Acute kidney failure, unspecified; J44.9 Chronic obstructive pulmonary disease, unspecified; Z72.0 Tobacco use; E11.9 Type 2 diabetes mellitus without complications; R53.81 Other malaise; Z86.718 Personal history of other venous thrombosis and embolism; Z79.02 Long term (current) use of antithrombotics/antiplatelets; Z99.3 Dependence on wheelchair
CPT/HCPCS: 36415; 71045; 80048; 80053; 81001; 83036; 83605; 83735; 84484; 85025; 85610; 85730; 87081; 87086; 93005; 96374; 96375; J0131; J0360; J0692; J2185; J3475; J3480; J7030; J7040

== ENCOUNTER 2018-08-18 10:35 | Inpatient (IN) | payer MEDICARE, OTHER ==
[~2018-08-18] VITALS: Ht 167.6 cm; Wt 91.0 kg
[~2018-08-18 10:35] MED LIST changes: -DOCU-159 PO; -FURO40TA4 PO; -NAPR-688 PO; -ROSU10TA55 PO; +RSV10T PO; -TAMS0.4C2 PO; -[UNRECOGNIZED DRUG - CODE] IV
[2018-08-18] MEDS ORDERED: HYDR30CR75 PR (12:22)
[2018-08-18] MEDS ORDERED: MENT71OI TP (12:24)
[2018-08-18] MEDS ORDERED: RSV10T PO (12:24)
[2018-08-18] MEDS ORDERED: DOCU-144 PO (12:24)
[2018-08-18] MEDS ORDERED: DULO30CA45 PO (12:25)
[2018-08-18] MEDS ORDERED: BISA10SU55 RC (12:25)
[2018-08-18] MEDS ORDERED: FER325 PO (12:26)
[2018-08-18] MEDS ORDERED: NA P133E5 RC (12:27)
[2018-08-18] MEDS ORDERED: SACC250C PO (12:29)
[2018-08-18] MEDS ORDERED: FLUT9.9S NASAL (12:29)
[2018-08-18] MEDS ORDERED: SOD CHLORIDE 0.9% 1,000 ML IV ONE (12:30)
[2018-08-18] MEDS ORDERED: ASCO500C7 PO (12:30)
[2018-08-18] MEDS ORDERED: LEVOFLOXACIN 750MG/D5W (PMX) 150 ML IVPB ONE (12:30)
[2018-08-18] MEDS ORDERED: LOPE2CAP PO (12:30)
[2018-08-18] MEDS ORDERED: SENN-120 PO (12:31)
[2018-08-18] MEDS ORDERED: LIDO30CR17 TP (12:32)
[2018-08-18] MEDS ORDERED: PHEN-717 PO (12:33)
[2018-08-18] MEDS ORDERED: OXYC-380 PO (12:36)
[2018-08-18] MEDS ORDERED: MIRA50TA PO (12:37)
[2018-08-18] MEDS ORDERED: MULTI PO (12:37)
[2018-08-18] MEDS ORDERED: FURO-109 PO (12:39)
[2018-08-18] MEDS ORDERED: METH10TA2 PO (12:39)
[2018-08-18] MEDS ORDERED: MAGN400T27 PO (12:40)
[2018-08-18] MEDS ORDERED: POTA-57 PO (12:40)
[2018-08-18] MEDS ORDERED: SITA1TAB5 PO (12:41)
[2018-08-18] MEDS ORDERED: IPRA3AMP29 INHALATION (12:42)
[2018-08-18] MEDS ORDERED: [UNRECOGNIZED DRUG - CODE] TD (12:44)
[2018-08-18] MEDS ORDERED: RIVA20TA5 PO (12:44)
[2018-08-18] MEDS ORDERED: OXYCODONE/ACETAMINOPHEN (5/325) TAB PO ONE (13:30)
[2018-08-18] MEDS ORDERED: OXYCODONE/ACETAMINOPHEN (10/325) TAB PO ONE (13:30)
--- NOTE | 2018-08-18 13:47 | ERD ---
ER Documentation Chief Complaint Chief Complaint PtVesta ARRIAZA with c/o fever of "102.5". Hx: recurrent UTIs HPI This is a 72 year old female with a past medical history of hypertension, diabetes, congestive heart failure status post pacemaker, obesity, nonambulatory, GERD, esophagitis, venous insufficiency with chronic lower extre mity edema, COPD, chronic anemia, neuropathy, recurrent urinary tract infection who is presenting from her nursing facility for fever and dysuria. She is concerned that she could have a recurrent urinary tract infection. The patient feels generally unwell. She reportedly had a fever of 102.5 at her nursing facility this morning and was given a dose of Tylenol prior to coming to the emergency department. The patient has had no headache or vision changes. The patient does not endorse neck or back pain. The patient denies lightheadedness or dizziness. The patient has had no chest pain or trouble breathing. The patient denies nausea or vomiting. The patient denies abdominal pain. The patient denies changes to bowel movements. The patient has had no focal deficits. The patient has had no weakness or numbness or tingling to the face or extremities. ROS All systems reviewed and are negative except as per history of present illness. Medications Home Meds Reported Medications Rivaroxaban* (Xarelto*) 20 Mg Tablet, 20 MG PO WITH DINNER, TAB 08/18/18 Diclofenac Epolamine (Flector) 1 Each Patch.td12, 1 EACH TD Q12 PRN for PAIN 08/18/18 Ipratropium-Albuterol (Ipratropium-Albuterol) 0.5-3 Mg/3 Ml Ampul.neb, 3 ML INHALATION Q6 PRN for COPD, #30 VIAL 08/18/18 Sitagliptin Phos/Metformin HCl (Janumet 50-1,000 mg Tablet) 1 Each Tablet, 1 EACH PO BID, TAB 08/18/18 Potassium Chloride* (Klor-Con*) 20 Meq Tabsr, 40 MEQ PO DAILY, TAB.SA 08/18/18 Magnesium Oxide* (Mag-Oxide*) 400 Mg Tablet, 400 MG PO BID, TAB 08/18/18 Furosemide* (Lasix*) 40 Mg Tablet, 40 MG PO DAILY, TAB 08/18/18 Methadone Hcl* (Methadone*) 10 Mg Tab, 10 MG PO Q8 PRN for PAIN, TAB SCHEDULE 6AM 2PM 10PM 08/18/18 Multivitamins* (Theragran*) 1 Tab Tab, 1 TAB PO DAILY, TAB 08/18/18 Mirabegron (Myrbetriq) 50 Mg Tab.er.24h, 50 MG PO DAILY, TAB 08/18/18 Oxycodone Hcl-Acetaminophen* (Endocet*) 10-325 Mg Tablet, 1 TAB PO Q4H PRN for CHRONIC PAIN, TAB SCHEDULE 8AM 12PM 4PM 8PM 12MN 4AM 08/18/18 Phenazopyridine Hcl* (Phenazopyridine Hcl*) 200 Mg Tablet, 200 MG PO TID PRN for DYSURIA, TAB 08/18/18 Lidocaine (RECTICARE) 30 Gm Cream..g., 30 GM TP PRN PRN for PAIN 08/18/18 Sennosides* (Senna Lax*) 8.6 Mg Tablet, 1 TAB PO BID, TAB 08/18/18 Ascorbic Acid* (Vitamin C*) 500 Mg Capsule.sa, 500 MG PO DAILY, CAP 08/18/18 Loperamide Hcl* (Imodium*) 2 Mg Capsule, 2 MG PO .WITH EACH DIARRHEA PRN for DIARRHEA, CAP MAX 16 mg/day 08/18/18 Saccharomyces Boulardii* (Florastor*) 250 Mg Cap, 250 MG PO DAILY, CAP 08/18/18 Fluticasone Propionate (Flonase Allergy Relief) 9.9 Ml [place].susp, 1 SPRAY NASAL DAILY, #1 BOTTLE TO EACH NOSTRIL 08/18/18 Na Phos,M-B/Na Phos,Di-Ba (ENEMA) 133 Ml Enema, 133 ML RC PRN PRN for CONSTIPATION, ENEMA 08/18/18 Ferrous Sulfate* (Ferrous Sulfate*) 325 Mg Tabec, 325 MG PO DAILY, TAB 08/18/18 Bisacodyl (Dulcolax) 10 Mg Supp.rect, 10 MG RC PRN PRN for CONSTIPATION, SUPP.RECT 08/18/18 Duloxetine Hcl* (Cymbalta*) 30 Mg Capsule.dr, 30 MG PO DAILY, CAP 08/18/18 Rosuvastatin Calcium* (Crestor*) 10 Mg Tablet, 10 MG PO QHS, #30 TAB 08/18/18 Docusate Sodium* (Colace*) 100 Mg Capsule, 100 MG PO BID, #60 CAP 08/18/18 Menthol/Zinc Oxide (Calmoseptine Ointment) 71 Gm Oint..gm., 1 APPLIC TP PRN PRN for BURNING SENSATION, #1 TUB 08/18/18 Hydrocortisone Acetate* (Anusol-HC*) 30 Gm Cream.gm., 1 APPLIC NC DAILY PRN for HEMORRHOID/EPISIOTMY PAIN, TUB 08/18/18 Discontinued Reported Medications Zinc Sulfate* (Zinc Sulfate*) 220 Mg Cap, 220 MG PO DAILY, CAP 06/14/17 Multivit-Min/Iron Fum/Folic AC (Dxwxp-Xmjgjvg-Wyauuzjf Tablet) 1 Each Tablet, 1 EACH PO DAILY, TAB 06/14/17 Sennosides* (Senna Lax*) 8.6 Mg Tablet, 1 TAB PO BID, TAB 06/14/17 Rosuvastatin Calcium* (Crestor*) 10 Mg Tablet, 10 MG PO QHS, #30 TAB 06/14/17 Rivaroxaban* (Xarelto*) 20 Mg Tablet, 20 MG PO WITH DINNER, TAB 06/14/17 Pyridoxine Hcl* (Vitamin B-6*) 50 Mg Capsule, 100 MG PO Q8H, CAP 06/14/17 Pantoprazole* (Protonix*) 40 Mg Tablet.dr, 40 MG PO DAILY, TAB 06/14/17 Phenazopyridine Hcl* (Phenazopyridine Hcl*) 200 Mg Tablet, 200 MG PO Q8H, TAB 06/14/17 Ondansetron Hcl* (Ondansetron Hcl*) 4 Mg Tablet, 4 MG PO Q6H PRN for NAUSEA AND OR VOMITING, TAB 06/14/17 Magnesium Oxide* (Magnesium Oxide*) 400 Mg Tablet, 400 MG PO BID, TAB 06/14/17 Potassium Chloride* (Klor-Con*) 20 Meq Tabsr, 40 MEQ PO Q48H, TAB.SA 06/14/17 Sitagliptin Phos/Metformin HCl (Janumet 50-1,000 mg Tablet) 1 Each Tablet, 1 EACH PO BID, TAB 06/14/17 Ipratropium-Albuterol (Ipratropium-Albuterol) 0.5-3 Mg/3 Ml Ampul.neb, 3 ML INHALATION Q6 for WHEEZING AND SOB, #30 VIAL 06/14/17 Dextrose (Glucose) 15 Gm/59 Ml Liquid, 32 ML PO NEEDED, TUB 06/14/17 Ferrous Sulfate* (Ferrous Sulfate*) 325 Mg Tabec, 325 MG PO DAILY, TAB 06/14/17 Duloxetine Hcl* (Duloxetine Hcl*) 30 Mg Capsule.dr, 30 MG PO DAILY, #30 CAP 06/14/17 Bisacodyl* (Bisacodyl*) 10 Mg Supp, 10 MG NC Q24H for CONSTIPATION, SUPP 06/14/17 Ascorbic Acid (Vitamin C) 250 Mg Tab, 250 MG PO DAILY, TAB 06/14/17 Acetaminophen* (Acetaminophen*) 500 MG Extra Strength Tablet, 500 MG PO Q6H PRN for PAIN, TAB TAKE Q6H FOR PAIN LEVEL 1-08/23,AND 6-01/2306/14/17 Discontinued Scripts Methadone Hcl* (Methadone*) 5 Mg Tab, 5 MG PO TID, #90 TAB Prov:GISSEL RESTREPO 07/09/17 Allergies Allergies: Coded Allergies: nitrofurantoin (Verified Allergy, Mild, 08/18/18) piperacillin (Verified Allergy, Mild, BURNING SENSATION ALL OVER THE BODY, 08/18/18) tazobactam (Verified Allergy, Mild, BURNING SENSATION ALL OVER THE BODY, 08/18/18) Tetracyclines (Verified Allergy, Unknown, 08/18/18) PMhx/Soc History of Surgery: Yes (SPINAL LAMINECTOMY,HYSTERECTOMY,EXPLOR LAP 1991,) Anesthesia Reaction: No Hx Neurological Disorder: No Hx Respiratory Disorders: Yes (COPD) Hx Cardiac Disorders: No Hx Psychiatric Problems: No Hx Miscellaneous Medical Probl: Yes (chronic paoin syndrome, chronic opiate, a- fib, recurrent utis ) Hx Alcohol Use: No Hx Substance Use: No Hx Tobacco Use: Yes (6 CIGARETTE/ DAY) Smoking Status: Current every day smoker FmHx Family History: No diabetes Physical Exam Vitals Vital Signs Date Temp Pulse Resp B/P (MAP) Pulse Ox O2 O2 Flow FiO2 Time Delivery Rate 08/18/18 99.1 82 20 107/67 94 Nasal 3.0 13:36 (80) Cannula 08/18/18 Nasal 4 11:34 Cannula 08/18/18 98.7 95 20 106/61 92 11:23 (76) Physical Exam Const: No apparent distress, well-developed, well-nourished Head: Normocephalic, Atraumatic Eyes: Normal Conjunctiva. Extraocular movements intact. Pupils equal, round and reactive to light ENT: Normal External Ears, Nose and Mouth. Neck: Full range of motion. No meningismus. Resp: Clear to auscultation bilaterally, No wheezes, rales or rhonchi Cardio: Regular rate and rhythm. No murmurs, rubs or gallops Abd: Soft, non distended. Suprapubic abdominal tenderness. Normal bowel sounds Skin: No petechiae or rashes Back: No midline tenderness. No CVA tenderness Ext: No cyanosis. Nonpitting bilateral lower extremity edema, wrapped with Cristi bandages. Neur: Awake and alert, oriented 4. Cranial nerves intact. No facial droop. Normal strength, sensation and coordination. Psych: Normal Mood and Affect Result Diagram: 08/18/18 1127 08/18/18 1127 Results 24 hrs Laboratory Tests Test 08/18/18 11:27 08/18/18 11:49 08/18/18 12:05 White Blood Count 13.8 10^3/ul Red Blood Count 4.27 10^6/ul Hemoglobin 12.0 g/dl Hematocrit 39.4 % Mean Corpuscular Volume 92.3 fl Mean Corpuscular Hemoglobin 28.1 pg Mean Corpuscular 30.5 g/dl Hemoglobin Concent Red Cell Distribution Width 18.1 % Platelet Count 90 10^3/UL Mean Platelet Volume 10.1 fl Immature Granulocytes % 0.400 % Neutrophils % 83.6 % Lymphocytes % 7.9 % Monocytes % 7.6 % Eosinophils % 0.1 % Basophils % 0.4 % Nucleated Red Blood Cells % 0.0 /100WBC Immature Granulocytes # 0.060 10^3/ul Neutrophils # 11.5 10^3/ul Lymphocytes # 1.1 10^3/ul Monocytes # 1.0 10^3/ul Eosinophils # 0.0 10^3/ul Basophils # 0.1 10^3/ul Nucleated Red Blood Cells # 0.0 10^3/ul Prothrombin Time 14.6 Sec Prothrombin Time Ratio 1.1 INR International 1.13 Normalized Ratio Activated Partial Thromboplast 34.4 Sec Time Sodium Level 140 mmol/L Potassium Level 4.3 mmol/L Chloride Level 103 mmol/L Carbon Dioxide Level 29 mmol/L Anion Gap 8 Blood Urea Nitrogen 21 mg/dl Creatinine 0.94 mg/dl Est Glomerular Filtrat mL/min Rate mL/min Glucose Level 211 mg/dl Calcium Level 9.0 mg/dl Total Bilirubin 0.3 mg/dl Direct Bilirubin 0.00 mg/dl Indirect Bilirubin 0.3 mg/dl Aspartate Amino Transf (AST/SGOT) 16 IU/L Alanine 13 IU/L Aminotransferase (ALT/SGPT) Alkaline Phosphatase 95 IU/L Troponin I < 0.012 ng/ml Total Protein 7.6 g/dl Albumin 3.9 g/dl Globulin 3.70 g/dl Albumin/Globulin Ratio 1.05 POC Venous Lactate 0.8 mmol/L Urine Color YELLOW Urine Clarity CLOUDY Urine pH 5.0 Urine Specific [place]ro[place] 1.017 Urine Ketones TRACE mg/dL Urine Nitrite POSITIVE mg/dL Urine Bilirubin NEGATIVE mg/dL Urine Urobilinogen NEGATIVE mg/dL Urine Leukocyte Esterase 3+ Shaun/ul Urine Microscopic RBC 24 /HPF Urine Microscopic WBC > 182 /HPF Urine Squamous Epithelial Cells FEW /HPF Urine Bacteria MANY /HPF Urine Mucus FEW /HPF Urine Hemoglobin 2+ mg/dL Urine Glucose NEGATIVE mg/dL Urine Total Protein 2+ mg/dl Current Medications Medications Dose Sig/Anjana Start Time Status Last (Trade) Ordered Route PRN Stop Time Admin Dose Reason Admin Sodium 1,000 ml @ Q1H ONCE 08/18/18 DC 08/18/18 Chloride 1,000 mls/hr IV 12:30 08/18/18 12:42 13:29 150 ml @ ONCE ONCE 08/18/18 DC 08/18/18 Levofloxacin/ 100 mls/hr IVPB 12:30 08/18/18 12:42 Dextrose 13:59 Oxycodone/ 1 tab ONCE ONCE 08/18/18 DC Acetaminophen PO 13:30 08/18/18 (Percocet 13:30 (5/ 325)) Oxycodone/ 1 tab ONCE ONCE 08/18/18 DC 08/18/18 Acetaminophen PO 13:30 08/18/18 13:31 (Endocet 13:31 (10/ 325)) Procedures/MDM MDM The patient's presentation warrants further investigation. Previous medical records, if available, were reviewed. LABS The patient's laboratory testing was obtained and reviewed. No emergent treatment was required unless described below. CBC: Leukocytosis with left shift, likely related to an infection. Thrombocytopenia. No E/o anemia Chemistry: No E/o severe acidosis or alkalosis or renal failure or liver disease or diabetic ketoacidosis PT/INR: No E/o significant coagulopathy Lactate: No E/o severe sepsis Troponin: No E/o acute ischemia Urine: E/o acute infection with hematuria EKG EKG read by me: Rate/Rhythm: Regular rate and rhythm at a rate of 90 beats per minute Intervals: Normal [place]: Normal Impression: No evidence of acute ischemia or arrhythmia IMAGING Imaging and Radiology interpretation reviewed. CXR FINDINGS: There is mild cardiomegaly. There is a left-sided pacemaker in place. There is mild pulmonary vascular congestion. There are bilateral perihilar and lower lobe increased interstitial changes. There is a slightly more focal left perihilar and left lower lobe infiltrate. There is no pneumothorax. IMPRESSION: Mild cardiomegaly with pulmonary vascular congestion. Slightly more focal left perihilar and left lower lobe infiltrate. Electronically viewed and signed by .Jeferson Ro MD, MD on 08/18/2018 11:56 TREATMENT/DISPOSITION The patient's presenting with fever, general body aches and suprapubic pain with dysuria. The patient has a history of recurrent UTI. The patient does have evidence of urinary tract infection today. The patient also has evidence of pneumonia. She was reportedly given Tylenol prior to arrival, so she is currently afebrile. However, she had a reported fever of 102.5 at the facility. The patient also has a leukocytosis. The patient's temperature is starting to increase. The patient does meet criteria for a systemic inflammatory response. A septic work-up was completed. The patient does not have a lactic acidosis. Her vital signs are still unremarkable. The patient does have thrombocytopenia, but this is chronic and unlikely to be related to her pathology today. I do not suspect severe sepsis. I do not feel the patient requires a full sepsis bolus. The patient was treated with Levaquin in the emergency department. SEPSIS NOTE SIRS Criteria: Fever, leukocytosis Infectious source: Pneumonia, UTI End organ damage indicated by: None. Thrombocytopenia is chronic. SEPSIS MANAGEMENT Time to recognize sepsis: 11:30AM Time to recognize severe sepsis: No severe sepsis at this time. Time to recognize septic shock: No septic shock at this time. 3 HOUR BUNDLE Blood cultures x 2 before abx: Yes 30 ml/kg NS bolus not indicated as the patient is not in severe sepsis Initial lactate 0.8 Repeat lactate not indicating is the first is within normal limits SEPTIC SHOCK ASSESSMENT: NO lactic acid > 4.0 NO persistent hypotension (SBP < 90 or 40 mmHg drop, MAP < 65) despite 30 L/kg IV fluid bolus CRITICAL CARE Critical care time 35 minutes Emergent fluid management while maintaining close respiratory support. Provision of immediate and broad-spectrum antibiotic therapy. Simultaneous assessment for possible sources in order to direct targeted therapy. Consideration for invasive and chemical support to prevent cardiopulmonary collapse. Critical care time is independent of procedures performed. ADMISSION The patient will be admitted to panel in accordance with the patient's insurance. The patient was accepted by Dr. Renee at 14:12PM. Disclaimer: Inadvertent spelling and grammatical errors are likely due to EHR/dictation software use and do not reflect on the overall quality of patient care. Note that the electronic time recorded on this note does not necessarily reflect the actual time of the patient encounter. Departure Diagnosis: Primary Impression: Sepsis Sepsis type: sepsis due to unspecified organism Qualified Codes: A41.9 - Sepsis, unspecified organism Additional Impressions: Pneumonia Pneumonia type: due to unspecified organism Laterality: left Lung location: unspecified part of lung Qualified Codes: J18.9 - Pneumonia, unspecified organism UTI (urinary tract infection) Urinary tract infection type: acute cystitis Hematuria presence: with hematuria Qualified Codes: N30.01 - Acute cystitis with hematuria Leukocytosis Leukocytosis type: unspecified Qualified Codes: D72.829 - Elevated white blood cell count, unspecified Thrombocytopenia Elevated BUN Chronic venous insufficiency Condition: Serious ANNA PORTILLO MD August 18, 2018 13:47
[2018-08-18] MEDS ORDERED: ONDANSETRON 4 MG INJ IV PRN ×2 (14:30→15:30)
[2018-08-18] MEDS ORDERED: ACETAMINOPHEN 325 MG TAB PO PRN (14:30)
[2018-08-18] MEDS ORDERED: PHENAZOPYRIDINE 200 MG TAB PO PRN (15:00)
[2018-08-18] MEDS ORDERED: BISACODYL 10 MG SUPP PR PRN (15:00)
[2018-08-18] MEDS ORDERED: NA PHOSPHATE/BIPHOS 133 ML ENEMA PR PRN (15:00)
[2018-08-18] MEDS ORDERED: ALBUTEROL/IPRATROPIUM (NEB) 3 ML AMP NEB PRN (15:00)
--- NOTE | 2018-08-18 15:28 | HP ---
Date/Time of Note Date/Time of Note DATE: 08/18/18 TIME: 14:51 Assessment/Plan VTE Prophylaxis SCD applied (from Nsg): No SCD contraindicated: other Pharmacological prophylaxis: LMWH Lines/Catheters IV Catheter Type (from Nrsg): Saline Lock Assessment/Plan Assessment/Plan 1. Sepsis secondary to UTI and PNA - Patient has a history of recurrent UTIs and past urine culture results noted. Discussed with ID and will start Meropenem and awaiting new culture results - ID consultation placed - Continue supportive care - monitor for further episodes of fever - WBC elevated - capellan cultures obtained 2. Recurrent UTI - ID on board for antibiotic recommendations - appears patient gets yearly UTIs - pyridium NV - continue current antibiotic and encourage PO hydration 3. LLE PNA - seen on CXR - no SOB or cough noted - Nebs PRN 4. Thrombocytopenia - chronic - no felipe bleeding appreciated 5. Diabetes Mellitus - ISS and accuchecks - A1c noted - hold home Janumet 6. Chronic pain - continue Methadone and PRN Endocet 7. COPD - nebs PRN 8. h/o DVT and PE - continue Xarelto 9. Diastolic HF - EF 55% from last ECHO 2018 - mild congestion and will continue Lasix 10. Chronic venous stasis - currently with compression wraps - continue and keep legs elevated while in bed 11. PT/OT - bed mobility 12. Disposition - Admit for treatment of sepsis secondary to UTI and Pneumonia. Will await culture results given has history of MDR and ID consulted for antibiotic recommendations. Once stable, will return to [facility] Result Diagram: 08/18/18 1127 08/18/18 1127 Results 24hrs Laboratory Tests Test 08/18/18 11:27 08/18/18 11:49 08/18/18 12:05 White Blood Count 13.8 #H Red Blood Count 4.27 Hemoglobin 12.0 Hematocrit 39.4 Mean Corpuscular Volume 92.3 Mean Corpuscular Hemoglobin 28.1 L Mean Corpuscular Hemoglobin Concent 30.5 L Red Cell Distribution Width 18.1 H Platelet Count 90 #L Mean Platelet Volume 10.1 Immature Granulocytes % 0.400 Neutrophils % 83.6 H Lymphocytes % 7.9 L Monocytes % 7.6 Eosinophils % 0.1 Basophils % 0.4 Nucleated Red Blood Cells % 0.0 Immature Granulocytes # 0.060 H Neutrophils # 11.5 H Lymphocytes # 1.1 Monocytes # 1.0 H Eosinophils # 0.0 Basophils # 0.1 Nucleated Red Blood Cells # 0.0 Prothrombin Time 14.6 Prothrombin Time Ratio 1.1 INR International Normalized Ratio 1.13 Activated Partial Thromboplast Time 34.4 Sodium Level 140 Potassium Level 4.3 Chloride Level 103 Carbon Dioxide Level 29 Anion Gap 8 Blood Urea Nitrogen 21 H Creatinine 0.94 Est Glomerular Filtrat Rate mL/min Glucose Level 211 Calcium Level 9.0 Total Bilirubin 0.3 Direct Bilirubin 0.00 Indirect Bilirubin 0.3 Aspartate Amino Transf (AST/SGOT) 16 Alanine Aminotransferase (ALT/SGPT) 13 Alkaline Phosphatase 95 Troponin I < 0.012 Total Protein 7.6 Albumin 3.9 Globulin 3.70 H Albumin/Globulin Ratio 1.05 POC Venous Lactate 0.8 Urine Color YELLOW Urine Clarity CLOUDY A Urine pH 5.0 Urine Specific Lanse 1.017 Urine Ketones TRACE A Urine Nitrite POSITIVE A Urine Bilirubin NEGATIVE Urine Urobilinogen NEGATIVE Urine Leukocyte Esterase 3+ H Urine Microscopic RBC 24 H Urine Microscopic WBC > 182 H Urine Squamous Epithelial Cells FEW Urine Bacteria MANY A Urine Mucus FEW A Urine Hemoglobin 2+ H Urine Glucose NEGATIVE Urine Total Protein 2+ H HPI/ROS Admit Date/Time Admit Date/Time 08/18/18 Hx of Present Illness 72 yo F with PMH Diabetes, CHF s/p pacer placement, GERD, chronic venous stasis, COPD, chronic anemia, recurrent UTI, and esophagitis presented to ED complaining of not feeling well for the past 2 days. She complains of fevers with Tmax 102 [facility], dysuria, and malaise. Patient was given Tylenol prior to arrival with improvement in fever. Patients son at bedside and history obtained from patient and son. Patient denies any chest pain, shortness of breath, wheezing, cough, sputum production, nausea, vomiting, dizziness, neck pain or back pain, Has compression wraps on LE bilaterally and follows with wound care for venous stasis but no acute wounds on lower extremities. ROS All 12 systems reviewed and pertinent positives as per HPI. All others negative. Constitutional: fatigue, febrile; No nausea Eyes: No discharge ENT: No congestion Respiratory: No cough, No shortness of breath, No sputum Cardiovascular: chest pain, edema, lightheadedness, palpitations Gastrointestinal: No pain, No diarrhea, No nausea, No vomiting Genitourinary: dysuria; No flank pain Musculoskeletal: no complaints Skin: No laceration, No rash Neurologic: No confusion, No focal-weakness, No syncope Endocrine: no complaints Lymphatic: no complaints Psychological: nl mood/affect Immunologic: no complaints PMH/Family/Social Past Medical History Medical History: congestive heart failure, diabetes, GERD, other (chronic venous stasis, thrombocytopenia, esophagitis, chronic pain) Medications Current Medications Ondansetron HCl (Zofran Inj) 4 mg BRIDGE ORDER PRN IV NAUSEA/VOMITING; Start 08/18/18 at 14:30; Stop 08/19/18 at 14:29 Acetaminophen (Tylenol Tab) 650 mg ER BRIDGE PRN PO .MILD PAIN 1-3 OR TEMP; Start 08/18/18 at 14:30; Stop 08/19/18 at 14:29 Coded Allergies: nitrofurantoin (Verified Allergy, Mild, 08/18/18) piperacillin (Verified Allergy, Mild, BURNING SENSATION ALL OVER THE BODY, 08/18/18) tazobactam (Verified Allergy, Mild, BURNING SENSATION ALL OVER THE BODY, 08/18/18) Tetracyclines (Verified Allergy, Unknown, 08/18/18) Past Surgical History Past Surgical Hx: other (TAMMY, exploratory abdominal surgery) Family History Significant Family History: no pertinent family hx Social History Alcohol Use: none Smoking Status: Current every day smoker Drug Use: none Exam/Review of Systems Vital Signs Vitals Vital Signs Date Temp Pulse Resp B/P (MAP) Pulse Ox O2 O2 Flow FiO2 Time Delivery Rate 08/18/18 99.1 82 20 107/67 94 Nasal 3.0 13:36 (80) Cannula Exam Exam General: Pleasant female, lying in bed, mild distress secondary to discomfort and fatigue HEENT: Atraumatic, normocephalic. The pupils are equal, round and reactive. Extraocular motor are intact Neck: Supple with full range of motion. No rigidity or meningismus Chest: Nontender Lungs: Coarse breath sounds at bases, no wheezing, diminished diffusely Heart: Normal S1-S2, Regular rhythm and rate. no murmurs Abdomen: Soft , nontender, nondistended , bowel sounds are present. No guarding no rebound tenderness , No masses or organomegaly. No costovertebral temporal angle mass Extremities: compression dressings bilateral lower extremities, tender with palpation. no cyanosis or clubbing Neurologic: Normal mental status, speech normal, cranial nerves II through XII are intact, motor and sensory are intact, no focal weakness Skin: diaphoretic Additional Comments Home medications reviewed LISA LUCERO MD August 18, 2018 15:27
[2018-08-18] MEDS ORDERED: DOCUSATE SODIUM 100 MG CAP PO PRN (15:30)
[2018-08-18] MEDS ORDERED: MAGNESIUM HYDROXIDE 30ML CUP PO PRN (15:30)
[2018-08-18] MEDS ORDERED: NACL 0.9% 3 ML SYG IV SCH (15:30)
[2018-08-18] MEDS ORDERED: GLUCAGON 1 MG INJ IM PRN (16:00)
[2018-08-18] MEDS ORDERED: GLUCOSE GEL 15 GRAM TUBE BUCCAL PRN (16:00)
[2018-08-18] MEDS ORDERED: GLUCOSE GEL 15 GRAM TUBE PO PRN ×2 (16:00)
[2018-08-18] MEDS ORDERED: DEXTROSE 50% 50 ML SYRINGE IV PRN ×2 (16:00)
[2018-08-18] MEDS ORDERED: ONDANSETRON 4 MG INJ IV STA (16:07)
[2018-08-18] MEDS ORDERED: HYDROmorphONE 1 MG/ML SYG IV STA (16:07)
[2018-08-18] MEDS: MEROPENEM 1 GM/50ML(PMX) 50 ML IVPB SCH ×2 (16:26→22:20)
[2018-08-18] MEDS: METHADONE 10 MG TAB PO SCH ×2 (16:26→22:21)
[2018-08-18] MEDS: OXYCODONE/ACETAMINOPHEN (10/325) TAB PO PRN ×2 (16:26→20:25)
[2018-08-18 17:45] VITALS: Ht 167.6 cm; Wt 91.0 kg
[2018-08-18] MEDS: INSULIN ASPART [NOVOLOG] 3 ML PEN SC SCH ×2 (18:00→20:47)
[2018-08-18] MEDS: RIVAROXABAN 20 MG TABLET PO SCH (18:09)
--- NOTE | 2018-08-18 18:15 | CONS ---
DATE OF ADMISSION: 08/18/2018 DATE OF CONSULTATION: 08/18/2018 TYPE OF CONSULTATION: Infectious Disease. REASON FOR CONSULTATION: Antibiotic management. HISTORY OF PRESENT ILLNESS: Humaira Kelly is a 73-year-old female, who is well known to us from previous multiple admissions. She is brought in now with a fever of 102.5 and history of recurrent U TIs. PAST PROBLEMS INCLUDE: 1. Hypertension. 2. Diabetes. 3. Congestive failure. 4. Status post pacemaker placement. 5. Obesity. 6. GERD. 7. Esophagitis. 8. Venous insufficiency with chronic lower extremity edema. 9. COPD. 10. Anemia of chronic disease. 11. Recurrent urinary tract infections. She presents with fever and dysuria. She could have recurr ent urinary tract infection according to the patient and feels generally unwell with a temperature of 102.5. She has no headache or vision changes. She denies nausea or vomiting. She has no weakness or numbness or tingling of the face or extremities. She is on multiple different medications. PAST SURGICAL HISTORY: Spinal laminectomy, hysterectomy, exploratory laparotomy in 1990. She has a history of COPD, chronic pain syndrome, atrial fibrillation, recurrent UTIs. FAMILY HISTORY: Noncontributory. SOCIAL HISTORY: She smokes 6 cigarettes a day. She does not drink or abuse drugs. ALLERGIES: NITROFURANTOIN, ZOSYN AND TETRACYCLINE. MEDICATIONS: Per chart. REVIEW OF SYSTEMS: Noncontributory. PHYSICAL EXAMINATION: GENERAL: She is a well-developed, well-nourished female in no apparent distress. VITAL SIGNS: Stable. Currently, she is afebrile, though she gives a history of fevers up to 102.5. SKIN: Without generalized rash. HEENT: Within normal limits. NECK: Supple. LYMPH NODES: None palpable. CHEST: Decreased breath sounds at the bases. HEART: Without murmur or gallop. ABDOMEN: Soft, nontender. She has suprapubic abdominal tenderness. No organosplenomegaly or masses . EXTREMITIES: Without cyanosis, clubbing, or edema. She has no CVA tenderness. EXTREMITIES: Nonpitting bilateral lower extremity edema. She is wrapped with Cristi bandages. RECTAL AND GENITAL: Deferred. NEUROLOGIC: No focal neurological abnormalities. ANCILLARY LABORATORY DATA: White count is 13.8, H and H of 12 and 39.4, platelet count 90,000. BUN and creatinine 21/0.94, glucose of 211. She has 84% neutrophils to go along with a 13.8. IMPRESSION AND PLAN: The patient was started on meropenem. She had received a dose of Levaquin as w magali in the emergency room. I will dictate my findings to the hospitalist, to Dr. Renee. She was gi eduardo as well for the burning sensation. Dictated By: SATYA CAMPBELL MD, JD/NTS Conf#: [id number] DID#: [id number] CC: LISA RENEE MD;*EndCC*
[2018-08-18] MEDS: MAGNESIUM OXIDE 400 MG TAB PO SCH (20:24)
[2018-08-18] MEDS: ATORVASTATIN 40 MG TAB PO SCH (20:24)
[2018-08-18] MEDS: DOCUSATE SODIUM 100 MG CAP PO SCH (20:29)
[2018-08-18 21:00] VITALS: BP 165/79; PULSE 81; RESP 17
[2018-08-18] MEDS ORDERED: NON-FORMULARY/PATIENT OWN MED (Rosuvastatin Calcium* (Crestor*) 10 MG) PO SCH (21:00)
[2018-08-19] MEDS: OXYCODONE/ACETAMINOPHEN (10/325) TAB PO PRN ×6 (00:31→21:53)
[2018-08-19 02:00] VITALS: BP 122/59; PULSE 84; RESP 18
[2018-08-19] MEDS: MEROPENEM 1 GM/50ML(PMX) 50 ML IVPB SCH ×3 (06:11→21:53)
[2018-08-19] MEDS: METHADONE 10 MG TAB PO SCH ×3 (06:11→22:31)
[2018-08-19 08:00] VITALS: BP 100/55; PULSE 80; RESP 20
[2018-08-19] MEDS: INSULIN ASPART [NOVOLOG] 3 ML PEN SC SCH ×4 (08:00→20:28)
[2018-08-19] MEDS: DOCUSATE SODIUM 100 MG CAP PO SCH ×2 (08:26→20:29)
[2018-08-19] MEDS: ASCORBIC ACID 500 MG TAB PO SCH (08:27)
[2018-08-19] MEDS: MULTIVITAMINS THERAPEUTIC TAB PO SCH (08:27)
[2018-08-19] MEDS: DULOXETINE 30 MG CAP DR PO SCH (08:36)
[2018-08-19] MEDS: FERROUS SULFATE (EC) 325 MG TAB PO SCH (08:36)
[2018-08-19] MEDS: SACCHAROMYCES BOULARDII 250 MG CAP PO SCH (08:36)
[2018-08-19] MEDS: MAGNESIUM OXIDE 400 MG TAB PO SCH ×2 (08:36→20:29)
[2018-08-19] MEDS: FLUTICASONE 0.05% 16 GM NAS SPRAY NASAL SCH (09:00)
[2018-08-19] MEDS ORDERED: FUROSEMIDE 40 MG TAB PO SCH (09:00)
--- NOTE | 2018-08-19 13:14 | PN ---
Date/Time of Note Date/Time of Note DATE: 08/19/18 TIME: 13:10 Assessment/Plan VTE Prophylaxis Risk score (from Nsg)>0 risk: 8 SCD applied (from Ns): No SCD contraindicated: patient refusal Pharmacological prophylaxis: rivaroxaban Lines/Catheters IV Catheter Type (from Nrs): Saline Lock Urinary Cath still in place: No Assessment/Plan Hospital Course Subjective: cough, loud rales, lethargy Objective: General: A&O x3, answering questions appropriately, obese, anxious HEENT: NC/ AT. PERRL. EOM intact Neck: supple CVS: S1, S2, RRR. no murmurs. no pain on chest wall palpation Lungs: loud rales in upper airway suggestive of secretion Abd: soft, nontender, +BS Ext: moving all extremities skin: no rashes assessment and plan: 1. Sepsis secondary to UTI and PNA - Patient has a history of recurrent UTIs and past urine culture results noted. Discussed with ID and will start Meropenem and awaiting new culture results - ID consultation placed - Continue supportive care - monitor for further episodes of fever - WBC elevated - capellan cultures obtained 2. Recurrent UTI - ID on board for antibiotic recommendations - appears patient gets yearly UTIs - pyridium IA - continue current antibiotic and encourage PO hydration 3. LLE PNA - seen on CXR, expressed concern for aspiration, but patient and son disagree, will get ST eval, strict aspiration precautions attempted, patient not compliant per nursing - no SOB or cough noted - Nebs PRN 4. Thrombocytopenia - chronic - no felipe bleeding appreciated 5. Diabetes Mellitus - ISS and accuchecks - A1c noted - hold home Janumet -Patient not exactly thrilled that the total of using inpatient insulin, I have explained to her that it is temporary only while she is in-house. -Patient also insisting on regular soda per nursing, counselled on compliance 6. Chronic pain - continue Methadone and PRN Endocet -Patient's outpatient pain management doctor Dr. Coy Salvador phone #[phone]. Is recommending CT with contrast of right hip and pelvis. Will order at this time. 7. COPD - nebs PRN 8. h/o DVT and PE - continue Xarelto 9. Diastolic HF - EF 55% from last ECHO 2017 - mild congestion and will continue Lasix 10. Chronic venous stasis - currently with compression wraps - continue and keep legs elevated while in bed 11. PT/OT - bed mobility 12. Disposition - Admit for treatment of sepsis secondary to UTI and Pneumonia. Will await culture results given has history of MDR and ID consulted for antibiotic recommendations. Once stable, will return to SNF -change lasix to IV, scheduled bronchodilator therapy, mucolytics, continue abx, resp cultures Result Diagram: 08/19/18 0448 08/18/18 1127 Results 24hrs Laboratory Tests Test 08/18/18 17:41 08/18/18 18:30 08/18/18 20:45 08/19/18 04:48 Bedside Glucose 209 134 Lactic Acid Level 1.4 White Blood Count 7.3 # Red Blood Count 4.07 L Hemoglobin 11.6 L Hematocrit 37.2 Mean Corpuscular Volume 91.4 Mean Corpuscular 28.5 L Hemoglobin Mean Corpuscular 31.2 L Hemoglobin Concent Red Cell Distribution 18.0 H Width Platelet Count 62 #L Mean Platelet Volume 12.3 #H Immature Granulocytes % 0.700 H Neutrophils % 74.6 Lymphocytes % 13.1 L Monocytes % 10.9 Eosinophils % 0.3 Basophils % 0.4 Nucleated Red Blood 0.0 Cells % Immature Granulocytes # 0.050 H Neutrophils # 5.4 Lymphocytes # 1.0 Monocytes # 0.8 Eosinophils # 0.0 Basophils # 0.0 Nucleated Red Blood 0.0 Cells # Phosphorus Level 2.9 Magnesium Level 2.1 Test 08/19/18 08:20 08/19/18 12:33 Bedside Glucose 189 228 H Exam/Review of Systems Exam Vitals Vital Signs Date Temp Pulse Resp B/P (MAP) Pulse Ox O2 O2 Flow FiO2 Time Delivery Rate 08/19/18 Nasal 2.0 09:06 Cannula 08/19/18 98.5 80 20 100/55 90 08:00 (70) Intake and Output 08/18/18 08/18/18 08/19/18 1414:59 22:59 06:59 IntakeIntake Total 50 ml 1010 ml BalanceBalance 50 ml 1010 ml Results Results 24hrs Laboratory Tests Test 08/18/18 17:41 08/18/18 18:30 08/18/18 20:45 08/19/18 04:48 Bedside Glucose 209 134 Lactic Acid Level 1.4 White Blood Count 7.3 # Red Blood Count 4.07 L Hemoglobin 11.6 L Hematocrit 37.2 Mean Corpuscular Volume 91.4 Mean Corpuscular 28.5 L Hemoglobin Mean Corpuscular 31.2 L Hemoglobin Concent Red Cell Distribution 18.0 H Width Platelet Count 62 #L Mean Platelet Volume 12.3 #H Immature Granulocytes % 0.700 H Neutrophils % 74.6 Lymphocytes % 13.1 L Monocytes % 10.9 Eosinophils % 0.3 Basophils % 0.4 Nucleated Red Blood 0.0 Cells % Immature Granulocytes # 0.050 H Neutrophils # 5.4 Lymphocytes # 1.0 Monocytes # 0.8 Eosinophils # 0.0 Basophils # 0.0 Nucleated Red Blood 0.0 Cells # Phosphorus Level 2.9 Magnesium Level 2.1 Test 08/19/18 08:20 08/19/18 12:33 Bedside Glucose 189 228 H Medications Medication Current Medications Ondansetron HCl (Zofran Inj) 4 mg BRIDGE ORDER PRN IV NAUSEA/VOMITING; Start 08/18/18 at 14:30; Stop 08/19/18 at 14:29 Acetaminophen (Tylenol Tab) 650 mg ER BRIDGE PRN PO .MILD PAIN 1-3 OR TEMP; Start 08/18/18 at 14:30; Stop 08/19/18 at 14:29 Ascorbic Acid (Vitamin C) 500 mg DAILY PO ; Start 08/19/18 at 09:00 Bisacodyl (Dulcolax Supp) 10 mg DAILY PRN [place] CONSTIPATION; Start 08/18/18 at 15:00 Docusate Sodium (Colace) 100 mg BID PO ; Start 08/18/18 at 21:00 Duloxetine HCl (Cymbalta) 30 mg DAILY PO Last administered on 08/19/18at 08:36; Admin Dose 30 MG; Start 08/19/18 at 09:00 Ferrous Sulfate (Ferrous Sulfate (Ec)) 325 mg DAILY PO Last administered on at 08:36; Admin Dose 325 MG; Start 08/19/18 at 09:00 Fluticasone Propionate (Flonase 0.05% Nasal) 1 spray DAILY NASAL ; Start 08/19/18 at 09:00 Furosemide (Lasix) 40 mg DAILY PO Last administered on 08/19/18at 08:36; Admin Dose 40 MG; Start 08/19/18 at 09:00 Albuterol/ Ipratropium (Duoneb) 3 ml Q6H RESP THERAPY PRN NEB COPD; Start 08/18/18 at 15:00 Magnesium Oxide (Mag-Ox 400) 400 mg BID PO Last administered on 08/19/18at 08:36; Admin Dose 400 MG; Start 08/18/18 at 21:00 Multivitamins Therapeutic (Theragran) 1 tab DAILY PO ; Start 08/19/18 at 09:00 Sodium Biphosphate/ Sodium Phosphate (Fleet Enema) 133 ml DAILY PRN [place] CONSTIPATION; Start 08/18/18 at 15:00 Oxycodone/ Acetaminophen (Endocet (10/ 325)) 1 tab Q4H PRN PO CHRONIC PAIN Last administered on 08/19/18at 12:31; Admin Dose 1 TAB; Start 08/18/18 at 15:00 Phenazopyridine HCl (Pyridium) 200 mg TID PRN PO DYSURIA; Start 08/18/18 at 15:00 Rivaroxaban (Xarelto) 20 mg WITH DINNER PO Last administered on 08/18/18at 18:09; Admin Dose 20 MG; Start 08/18/18 at 18:00 Saccharomyces Boulardii (Florastor) 250 mg DAILY PO Last administered on 9at 08:36; Admin Dose 250 MG; Start 08/19/18 at 09:00 Methadone HCl (Methadone) 10 mg Q8 PO Last administered on 08/19/18at 06:11; Admin Dose 10 MG; Start 08/18/18 at 15:00 Meropenem/Sodium Chloride 50 ml @ 100 mls/hr Q8 IVPB Last administered on 08/19/18at 06:11; Admin Dose 100 MLS/HR; Start 08/18/18 at 16:00 IV Flush (NS 3 ml) 3 ml PER PROTOCOL IV ; Start 08/18/18 at 15:30 Ondansetron HCl (Zofran Inj) 4 mg Q6H PRN IV NAUSEA/VOMITING; Start 08/18/18 at 15:30 Acetaminophen (Tylenol Tab) 650 mg Q6H PRN PO .PAIN 1-3 OR TEMP; Start 08/18/18 at 15:30 Docusate Sodium (Colace) 100 mg Q12H PRN PO .CONSTIPATION; Start 08/18/18 at 15:30 Magnesium Hydroxide (Milk Of Mag) 30 ml DAILY PRN PO .CONSTIPATION; Start 08/18/18 at 15:30 Atorvastatin Calcium (Lipitor) 40 mg DAILY@21 PO Last administered on 08/18/18at 20:24; Admin Dose 40 MG; Start 08/18/18 at 21:00 Insulin Aspart (Novolog Insulin Pen) NOVOLOG *MILD* ALGORITHM WITH MEALS BEDTIME SC ; Start 08/18/18 at 18:00 Miscellaneous Information 1 ea NOTE XX ; Start 08/18/18 at 16:00 Glucose (Glutose) 15 gm Q15M PRN PO DECREASED GLUCOSE; Start 08/18/18 at 16:00 Glucose (Glutose) 22.5 gm Q15M PRN PO DECREASED GLUCOSE; Start 08/18/18 at 16:00 Dextrose (D50w Syringe) 25 ml Q15M PRN IV DECREASED GLUCOSE; Start 08/18/18 at 16:00 Dextrose (D50w Syringe) 50 ml Q15M PRN IV DECREASED GLUCOSE; Start 08/18/18 at 16:00 Glucagon (Glucagen) 1 mg Q15M PRN IM DECREASED GLUCOSE; Start 08/18/18 at 16:00 Glucose (Glutose) 15 gm Q15M PRN BUCCAL DECREASED GLUCOSE; Start 08/18/18 at 16:00 DOTTIE HOOD August 19, 2018 13:14
--- NOTE | 2018-08-19 13:29 | CONS ---
Assessment/Plan Assessment/Plan Hospital Course (Demo Recall) Patient is sleeping looks comfortable no fevers overnight WBC today 7.3 neutrophils 74.6 BUN 21 creatinine 0.94 Blood culture negative urine culture growing gram-negative rods Allergy: Tetracycline, Macrobid, Zosyn Antimicrobials: Merrem Chest x-ray on admission revealed slightly more focal left perihilar and left lower lobe infiltrate. Mild cardiomegaly with pulmonary vascular congestion. Physical examination: This is a chronically ill-appearing elderly woman who is in no distress. Head atraumatic normocephalic neck is supple chest rise symmetrical breath sounds diminished bases heart: S1-S2. Abdomen soft bowel sounds present. Extremities Cristi wrap bilateral lower extremities Assessment: 1. Sepsis, present on admission 2. Recurrent UTI 3. Healthcare associated pneumonia 4. Chronic pain syndrome 5. COPD/tobacco use 6. Obesity 7. Atrial fibrillation, with a history of permanent pacemaker placement Plan: Patient is stable, on appropriate antibiotic regimen, will follow final cultures and repeat chest x-ray in a.m. Consultation Date/Type/Reason Admit Date/Time August 18, 2018 at 14:20 Initial Consult Date Type of Consult ID Date/Time of Note DATE: 08/19/18 TIME: 13:28 Exam/Review of Systems Exam Vitals Vital Signs Date Temp Pulse Resp B/P (MAP) Pulse Ox O2 O2 Flow FiO2 Time Delivery Rate 08/19/18 Nasal 2.0 09:06 Cannula 08/19/18 98.5 80 20 100/55 90 08:00 (70) Intake and Output 08/18/18 08/18/18 08/19/18 1515:00 23:00 07:00 IntakeIntake Total 50 ml 1010 ml BalanceBalance 50 ml 1010 ml Results Result Diagram: 08/19/18 0448 08/18/18 1127 Results 24hrs Laboratory Tests Test 08/18/18 17:41 08/18/18 18:30 08/18/18 20:45 08/19/18 04:48 Bedside Glucose 209 134 Lactic Acid Level 1.4 White Blood Count 7.3 # Red Blood Count 4.07 L Hemoglobin 11.6 L Hematocrit 37.2 Mean Corpuscular Volume 91.4 Mean Corpuscular 28.5 L Hemoglobin Mean Corpuscular 31.2 L Hemoglobin Concent Red Cell Distribution 18.0 H Width Platelet Count 62 #L Mean Platelet Volume 12.3 #H Immature Granulocytes % 0.700 H Neutrophils % 74.6 Lymphocytes % 13.1 L Monocytes % 10.9 Eosinophils % 0.3 Basophils % 0.4 Nucleated Red Blood 0.0 Cells % Immature Granulocytes # 0.050 H Neutrophils # 5.4 Lymphocytes # 1.0 Monocytes # 0.8 Eosinophils # 0.0 Basophils # 0.0 Nucleated Red Blood 0.0 Cells # Phosphorus Level 2.9 Magnesium Level 2.1 Test 08/19/18 08:20 08/19/18 12:33 Bedside Glucose 189 228 H Medications Medication Current Medications Ondansetron HCl (Zofran Inj) 4 mg BRIDGE ORDER PRN IV NAUSEA/VOMITING; Start 08/18/18 at 14:30; Stop 08/19/18 at 14:29 Acetaminophen (Tylenol Tab) 650 mg ER BRIDGE PRN PO .MILD PAIN 1-3 OR TEMP; Start 08/18/18 at 14:30; Stop 08/19/18 at 14:29 Ascorbic Acid (Vitamin C) 500 mg DAILY PO ; Start 08/19/18 at 09:00 Bisacodyl (Dulcolax Supp) 10 mg DAILY PRN [place] CONSTIPATION; Start 08/18/18 at 15:00 Docusate Sodium (Colace) 100 mg BID PO ; Start 08/18/18 at 21:00 Duloxetine HCl (Cymbalta) 30 mg DAILY PO Last administered on 08/19/18at 08:36; Admin Dose 30 MG; Start 08/19/18 at 09:00 Ferrous Sulfate (Ferrous Sulfate (Ec)) 325 mg DAILY PO Last administered on 08/19/18at 08:36; Admin Dose 325 MG; Start 08/19/18 at 09:00 Fluticasone Propionate (Flonase 0.05% Nasal) 1 spray DAILY NASAL ; Start 08/19/18 at 09:00 Furosemide (Lasix) 40 mg DAILY PO Last administered on 08/19/18at 08:36; Admin Dose 40 MG; Start 08/19/18 at 09:00 Albuterol/ Ipratropium (Duoneb) 3 ml Q6H RESP THERAPY PRN NEB COPD; Start 08/18/18 at 15:00 Magnesium Oxide (Mag-Ox 400) 400 mg BID PO Last administered on 08/19/18at 08:36; Admin Dose 400 MG; Start 08/18/18 at 21:00 Multivitamins Therapeutic (Theragran) 1 tab DAILY PO ; Start 08/19/18 at 09:00 Sodium Biphosphate/ Sodium Phosphate (Fleet Enema) 133 ml DAILY PRN [place] CONSTIPATION; Start 08/18/18 at 15:00 Oxycodone/ Acetaminophen (Endocet (10/ 325)) 1 tab Q4H PRN PO CHRONIC PAIN Last administered on 08/19/18at 12:31; Admin Dose 1 TAB; Start 08/18/18 at 15:00 Phenazopyridine HCl (Pyridium) 200 mg TID PRN PO DYSURIA; Start 08/18/18 at 15:00 Rivaroxaban (Xarelto) 20 mg WITH DINNER PO Last administered on 08/18/18at 18:09; Admin Dose 20 MG; Start 08/18/18 at 18:00 Saccharomyces Boulardii (Florastor) 250 mg DAILY PO Last administered on 08/19/18at 08:36; Admin Dose 250 MG; Start 08/19/18 at 09:00 Methadone HCl (Methadone) 10 mg Q8 PO Last administered on 08/19/18at 06:11; Admin Dose 10 MG; Start 08/18/18 at 15:00 Meropenem/Sodium Chloride 50 ml @ 100 mls/hr Q8 IVPB Last administered on 08/19/18at 06:11; Admin Dose 100 MLS/HR; Start 08/18/18 at 16:00 IV Flush (NS 3 ml) 3 ml PER PROTOCOL IV ; Start 08/18/18 at 15:30 Ondansetron HCl (Zofran Inj) 4 mg Q6H PRN IV NAUSEA/VOMITING; Start 08/18/18 at 15:30 Acetaminophen (Tylenol Tab) 650 mg Q6H PRN PO .PAIN 1-3 OR TEMP; Start 08/18/18 at 15:30 Docusate Sodium (Colace) 100 mg Q12H PRN PO .CONSTIPATION; Start 08/18/18 at 15:30 Magnesium Hydroxide (Milk Of Mag) 30 ml DAILY PRN PO .CONSTIPATION; Start 08/18/18 at 15:30 Atorvastatin Calcium (Lipitor) 40 mg DAILY@21 PO Last administered on 08/18/18at 20:24; Admin Dose 40 MG; Start 08/18/18 at 21:00 Insulin Aspart (Novolog Insulin Pen) NOVOLOG *MILD* ALGORITHM WITH MEALS BEDTIME SC ; Start 08/18/18 at 18:00 Miscellaneous Information 1 ea NOTE XX ; Start 08/18/18 at 16:00 Glucose (Glutose) 15 gm Q15M PRN PO DECREASED GLUCOSE; Start 08/18/18 at 16:00 Glucose (Glutose) 22.5 gm Q15M PRN PO DECREASED GLUCOSE; Start 08/18/18 at 16:00 Dextrose (D50w Syringe) 25 ml Q15M PRN IV DECREASED GLUCOSE; Start 08/18/18 at 16:00 Dextrose (D50w Syringe) 50 ml Q15M PRN IV DECREASED GLUCOSE; Start 08/18/18 at 16:00 Glucagon (Glucagen) 1 mg Q15M PRN IM DECREASED GLUCOSE; Start 08/18/18 at 16:00 Glucose (Glutose) 15 gm Q15M PRN BUCCAL DECREASED GLUCOSE; Start 08/18/18 at 16:00 GIOVANNA ESCUEDRO NP August 19, 2018 13:29
[2018-08-19 14:00] VITALS: BP 103/54; PULSE 79; RESP 18
[2018-08-19] MEDS: RIVAROXABAN 20 MG TABLET PO SCH (17:51)
[2018-08-19] MEDS: FUROSEMIDE 20 MG INJ IV SCH (17:52)
[2018-08-19 19:30] VITALS: BP 135/61; PULSE 85; RESP 20
[2018-08-19] MEDS: ATORVASTATIN 40 MG TAB PO SCH (20:29)
[2018-08-19] MEDS: ACETYLCYSTEINE 20% 4 ML VIAL NEB SCH (21:09)
[2018-08-19] MEDS: ALBUTEROL/IPRATROPIUM (NEB) 3 ML AMP HHN SCH (21:09)
[2018-08-20] MEDS: OXYCODONE/ACETAMINOPHEN (10/325) TAB PO PRN ×5 (01:47→20:09)
[2018-08-20] MEDS: ACETYLCYSTEINE 20% 4 ML VIAL NEB SCH ×4 (01:51→20:00)
[2018-08-20] MEDS: ALBUTEROL/IPRATROPIUM (NEB) 3 ML AMP HHN SCH ×4 (01:51→20:00)
[2018-08-20 04:07] VITALS: BP 122/58; PULSE 78; RESP 16
[2018-08-20] MEDS: MEROPENEM 1 GM/50ML(PMX) 50 ML IVPB SCH ×3 (05:49→22:04)
[2018-08-20] MEDS: FUROSEMIDE 20 MG INJ IV SCH ×2 (06:33→17:53)
[2018-08-20] MEDS: METHADONE 10 MG TAB PO SCH ×3 (06:33→22:06)
[2018-08-20 08:18] VITALS: BP 101/51; PULSE 71; RESP 20
[2018-08-20] MEDS: ACETAMINOPHEN 325 MG TAB PO PRN (08:49)
[2018-08-20] MEDS: INSULIN ASPART [NOVOLOG] 3 ML PEN SC SCH ×4 (08:54→22:06)
[2018-08-20] MEDS: DULOXETINE 30 MG CAP DR PO SCH (08:55)
[2018-08-20] MEDS: FERROUS SULFATE (EC) 325 MG TAB PO SCH (08:56)
[2018-08-20] MEDS: MULTIVITAMINS THERAPEUTIC TAB PO SCH (08:56)
[2018-08-20] MEDS: MAGNESIUM OXIDE 400 MG TAB PO SCH ×2 (08:56→20:08)
[2018-08-20] MEDS: SACCHAROMYCES BOULARDII 250 MG CAP PO SCH (08:56)
[2018-08-20] MEDS: DOCUSATE SODIUM 100 MG CAP PO SCH ×2 (08:56→20:08)
[2018-08-20] MEDS: ASCORBIC ACID 500 MG TAB PO SCH (08:56)
--- NOTE | 2018-08-20 10:21 | PN ---
Date/Time of Note Date/Time of Note DATE: 08/20/18 TIME: 10:18 Assessment/Plan VTE Prophylaxis Risk score (from Nsg)>0 risk: 12 Pharmacological prophylaxis: rivaroxaban Lines/Catheters IV Catheter Type (from Nrsg): Saline Lock Urinary Cath still in place: No Assessment/Plan Hospital Course Subjective: doing better, less cough Objective: General: A&O x3, answering questions appropriately, obese, anxious HEENT: NC/ AT. PERRL. EOM intact Neck: supple CVS: S1, S2, RRR. no murmurs. no pain on chest wall palpation Lungs: Normal loud rales, breath sounds still coarse however with occasional expiratory wheezing Abd: soft, nontender, +BS Ext: moving all extremities skin: no rashes assessment and plan: 1. Sepsis secondary to UTI and PNA - Patient has a history of recurrent UTIs and past urine culture results noted. Repeat urine interestingly growing E. coli that is pansensitive - ID recommendations noted, appreciate input - Continue supportive care - monitor for further episodes of fever -respiratory cultures pending 2. Recurrent UTI - ID on board for antibiotic recommendations - appears patient gets yearly UTIs - pyridium [place] - continue current antibiotic and encourage PO hydration 3. LLE PNA - seen on CXR, expressed concern for aspiration, but patient and son disagree, w ill get ST eval, strict aspiration precautions attempted, patient not compliant per nursing - no SOB or cough noted - Nebs PRN 4. Thrombocytopenia - chronic - no felipe bleeding appreciated 5. Diabetes Mellitus - ISS and accuchecks - A1c noted - hold home Janumet -Patient not exactly thrilled that the total of using inpatient insulin, I have explained to her that it is temporary only while she is in-house. -Patient also insisting on regular soda per nursing, counselled on compliance 6. Chronic pain - continue Methadone and PRN Endocet -Patient's outpatient pain management doctor Dr. Coy Salvador phone #[phone]. 7. COPD - nebs PRN 8. h/o DVT and PE - continue Xarelto 9. Diastolic HF - EF 55% from last ECHO 2018 - mild congestion and will continue Lasix 10. Chronic venous stasis - currently with compression wraps - continue and keep legs elevated while in bed 11. PT/OT - bed mobility 12. Disposition -Continue current regimen with IV Lasix, antibiotics, bronchodilator therapy. Monitor in-house for 1 more day. Plan to discharge tomorrow on antibiotics per ID and oral Lasix and bronchodilators. Result Diagram: 08/20/18 0656 08/20/18 0656 Results 24hrs Laboratory Tests Test 08/19/18 12:33 08/19/18 17:49 08/19/18 20:21 08/20/18 01:50 Bedside Glucose 228 H 193 275 H 277 H Test 08/20/18 06:56 08/20/18 08:51 White Blood Count 5.1 # Red Blood Count 3.79 L Hemoglobin 10.8 L Hematocrit 36.0 L Mean Corpuscular Volume 95.0 Mean Corpuscular 28.5 L Hemoglobin Mean Corpuscular 30.0 L Hemoglobin Concent Red Cell Distribution 18.2 H Width Platelet Count 65 L Mean Platelet Volume 11.9 H Immature Granulocytes % 0.400 Neutrophils % 61.1 Lymphocytes % 22.5 Monocytes % 12.8 H Eosinophils % 2.2 Basophils % 1.0 Nucleated Red Blood 0.0 Cells % Immature Granulocytes # 0.020 Neutrophils # 3.1 Lymphocytes # 1.1 Monocytes # 0.7 Eosinophils # 0.1 Basophils # 0.1 Nucleated Red Blood 0.0 Cells # Sodium Level 141 Potassium Level 4.7 Chloride Level 106 Carbon Dioxide Level 28 Anion Gap 7 Blood Urea Nitrogen 23 H Creatinine 0.92 Est Glomerular Filtrat Rate mL/min Glucose Level 188 Calcium Level 8.4 Magnesium Level 2.4 Bedside Glucose 207 Subjective 24 Hr Interval Summary Free Text/Dictation doing better Exam/Review of Systems Exam Vitals Vital Signs Date Temp Pulse Resp B/P (MAP) Pulse Ox O2 O2 Flow FiO2 Time Delivery Rate 08/20/18 98.3 71 20 101/51 93 Nasal 2.0 08:18 (68) Cannula Intake and Output 08/19/18 08/19/18 08/20/18 1414:59 22:59 06:59 IntakeIntake Total 880 ml 300 ml 100 ml BalanceBalance 880 ml 300 ml 100 ml Results Results 24hrs Laboratory Tests Test 08/19/18 12:33 08/19/18 17:49 08/19/18 20:21 08/20/18 01:50 Bedside Glucose 228 H 193 275 H 277 H Test 08/20/18 06:56 08/20/18 08:51 White Blood Count 5.1 # Red Blood Count 3.79 L Hemoglobin 10.8 L Hematocrit 36.0 L Mean Corpuscular Volume 95.0 Mean Corpuscular 28.5 L Hemoglobin Mean Corpuscular 30.0 L Hemoglobin Concent Red Cell Distribution 18.2 H Width Platelet Count 65 L Mean Platelet Volume 11.9 H Immature Granulocytes % 0.400 Neutrophils % 61.1 Lymphocytes % 22.5 Monocytes % 12.8 H Eosinophils % 2.2 Basophils % 1.0 Nucleated Red Blood 0.0 Cells % Immature Granulocytes # 0.020 Neutrophils # 3.1 Lymphocytes # 1.1 Monocytes # 0.7 Eosinophils # 0.1 Basophils # 0.1 Nucleated Red Blood 0.0 Cells # Sodium Level 141 Potassium Level 4.7 Chloride Level 106 Carbon Dioxide Level 28 Anion Gap 7 Blood Urea Nitrogen 23 H Creatinine 0.92 Est Glomerular Filtrat Rate mL/min Glucose Level 188 Calcium Level 8.4 Magnesium Level 2.4 Bedside Glucose 207 Medications Medication Current Medications Ascorbic Acid (Vitamin C) 500 mg DAILY PO Last administered on 08/20/18 08:56; Admin Dose 500 MG; Start 08/19/18 at 09:00 Bisacodyl (Dulcolax Supp) 10 mg DAILY PRN [place]ATION; Start 08/18/18 at 15:00 Docusate Sodium (Colace) 100 mg BID PO Last administered on 08/20/18 08:56; Admin Dose 100 MG; Start 08/18/18 at 21:00 Duloxetine HCl (Cymbalta) 30 mg DAILY PO Last administered on 08/20/18 08:55; Admin Dose 30 MG; Start 08/19/18 at 09:00 Ferrous Sulfate (Ferrous Sulfate (Ec)) 325 mg DAILY PO Last administered on 08/20/18 08:56; Admin Dose 325 MG; Start 08/19/18 at 09:00 Fluticasone Propionate (Flonase 0.05% Nasal) 1 spray DAILY NASAL ; Start 08/19/18 at 09:00 Albuterol/ Ipratropium (Duoneb) 3 ml Q6H RESP THERAPY PRN NEB COPD; Start 08/18/18 at 15:00 Magnesium Oxide (Mag-Ox 400) 400 mg BID PO Last administered on 08/20/18 08:56; Admin Dose 400 MG; Start 08/18/18 at 21:00 Multivitamins Therapeutic (Theragran) 1 tab DAILY PO Last administered on 08/20/18 08:56; Admin Dose 1 TAB; Start 08/19/18 at 09:00 Sodium Biphosphate/ Sodium Phosphate (Fleet Enema) 133 ml DAILY PRN [place]ATION; Start 08/18/18 at 15:00 Oxycodone/ Acetaminophen (Endocet (10/ 325)) 1 tab Q4H PRN PO CHRONIC PAIN Last administered on 08/20/18 10:03; Admin Dose 1 TAB; Start 08/18/18 at 15:00 Phenazopyridine HCl (Pyridium) 200 mg TID PRN PO DYSURIA; Start 08/18/18 at 15:00 Rivaroxaban (Xarelto) 20 mg WITH DINNER PO Last administered on 08/19/18 17:51; Admin Dose 20 MG; Start 08/18/18 at 18:00 Saccharomyces Boulardii (Florastor) 250 mg DAILY PO Last administered on 08/20/18 08:56; Admin Dose 250 MG; Start 08/19/18 at 09:00 Methadone HCl (Methadone) 10 mg Q8 PO Last administered on 08/20/18 06:33; Admin Dose 10 MG; Start 08/18/18 at 15:00 Meropenem/Sodium Chloride 50 ml @ 100 mls/hr Q8 IVPB Last administered on 08/20/18 05:49; Admin Dose 100 MLS/HR; Start 08/18/18 at 16:00 IV Flush (NS 3 ml) 3 ml PER PROTOCOL IV ; Start 08/18/18 at 15:30 Ondansetron HCl (Zofran Inj) 4 mg Q6H PRN IV NAUSEA/VOMITING; Start 08/18/18 at 15:30 Acetaminophen (Tylenol Tab) 650 mg Q6H PRN PO .PAIN 1-3 OR TEMP Last administered on 08/20/18 08:49; Admin Dose 650 MG; Start 08/18/18 at 15:30 Docusate Sodium (Colace) 100 mg Q12H PRN PO .CONSTIPATION; Start 08/18/18 at 15:30 Magnesium Hydroxide (Milk Of Mag) 30 ml DAILY PRN PO .CONSTIPATION; Start 08/18/18 at 15:30 Atorvastatin Calcium (Lipitor) 40 mg DAILY@21 PO Last administered on 08/19/18 20:29; Admin Dose 40 MG; Start 08/18/18 at 21:00 Insulin Aspart (Novolog Insulin Pen) NOVOLOG *MILD* ALGORITHM WITH MEALS BEDTIME SC Last administered on 08/20/18 08:54; Admin Dose 2 UNIT; Start 08/18/18 at 18:00 Miscellaneous Information 1 ea NOTE XX ; Start 08/18/18 at 16:00 Glucose (Glutose) 15 gm Q15M PRN PO DECREASED GLUCOSE; Start 08/18/18 at 16:00 Glucose (Glutose) 22.5 gm Q15M PRN PO DECREASED GLUCOSE; Start 08/18/18 at 16:00 Dextrose (D50w Syringe) 25 ml Q15M PRN IV DECREASED GLUCOSE; Start 08/18/18 at 16:00 Dextrose (D50w Syringe) 50 ml Q15M PRN IV DECREASED GLUCOSE; Start 08/18/18 at 16:00 Glucagon (Glucagen) 1 mg Q15M PRN IM DECREASED GLUCOSE; Start 08/18/18 at 16:00 Glucose (Glutose) 15 gm Q15M PRN BUCCAL DECREASED GLUCOSE; Start 08/18/18 at 16:00 Furosemide (Lasix) 20 mg BID DIURETICS IV Last administered on 08/20/18 06:33; Admin Dose 20 MG; Start 08/19/18 at 18:00 Albuterol/ Ipratropium (Duoneb) 3 ml Q6H RESP THERAPY HHN Last administered on 08/20/18 07:53; Admin Dose 3 ML; Start 08/19/18 at 15:30; Stop 08/22/18 at 15:29 Acetylcysteine (Mucomyst) 1 ml Q6H RESP THERAPY NEB Last administered on 08/20/18 07:53; Admin Dose 1 ML; Start 08/19/18 at 15:30; Stop 08/22/18 at 15:29 DOTTIE HOOD August 20, 2018 10:21
[2018-08-20] MEDS: FLUTICASONE 0.05% 16 GM NAS SPRAY NASAL SCH (12:16)
--- NOTE | 2018-08-20 13:17 | CONS ---
Assessment/Plan Assessment/Plan Hospital Course (Demo Recall) Patient is alert feels better looks comfortable she wants to go home today or tomorrow morning her urine culture grew E. coli. She denies nausea vomiting diarrhea no dysuria Allergy: Tetracycline, Macrobid, Zosyn Antimicrobials: Merrem Chest x-ray on admission revealed slightly more focal left perihilar and left lower lobe infiltrate. Mild cardiomegaly with pulmonary vascular congestion. Physical examination: This is a chronically ill-appearing elderly woman who is in no distress. Head atraumatic normocephalic neck is supple chest rise symmetrical breath sounds diminished bases heart: S1-S2. Abdomen soft bowel sounds present. Extremities Cristi wrap bilateral lower extremities Assessment: 1. Sepsis, present on admission, resolving 2. Recurrent UTI 3. Healthcare associated pneumonia 4. Chronic pain syndrome 5. COPD/tobacco use 6. Obesity 7. Atrial fibrillation, with a history of permanent pacemaker placement Plan: Patient is feeling better, we are going to keep her on Merrem for now repeat chest x-ray in a.m. and anticipate discharge to the facility to complete 7 days antibiotics Consultation Date/Type/Reason Admit Date/Time August 18, 2018 at 14:20 Initial Consult Date Type of Consult ID Date/Time of Note DATE: 08/20/18 TIME: 13:15 Exam/Review of Systems Exam Vitals Vital Signs Date Temp Pulse Resp B/P (MAP) Pulse Ox O2 O2 Flow FiO2 Time Delivery Rate 08/20/18 98.3 71 20 101/51 93 Nasal 2.0 08:18 (68) Cannula Intake and Output 08/19/18 08/19/18 08/20/18 1515:00 23:00 07:00 IntakeIntake Total 880 ml 400 ml BalanceBalance 880 ml 400 ml Results Result Diagram: 08/20/18 0656 08/20/18 0656 Results 24hrs Laboratory Tests Test 08/19/18 17:49 08/19/18 20:21 08/20/18 01:50 08/20/18 06:56 Bedside Glucose 193 275 H 277 H White Blood Count 5.1 # Red Blood Count 3.79 L Hemoglobin 10.8 L Hematocrit 36.0 L Mean Corpuscular Volume 95.0 Mean Corpuscular 28.5 L Hemoglobin Mean Corpuscular 30.0 L Hemoglobin Concent Red Cell Distribution 18.2 H Width Platelet Count 65 L Mean Platelet Volume 11.9 H Immature Granulocytes % 0.400 Neutrophils % 61.1 Lymphocytes % 22.5 Monocytes % 12.8 H Eosinophils % 2.2 Basophils % 1.0 Nucleated Red Blood 0.0 Cells % Immature Granulocytes # 0.020 Neutrophils # 3.1 Lymphocytes # 1.1 Monocytes # 0.7 Eosinophils # 0.1 Basophils # 0.1 Nucleated Red Blood 0.0 Cells # Sodium Level 141 Potassium Level 4.7 Chloride Level 106 Carbon Dioxide Level 28 Anion Gap 7 Blood Urea Nitrogen 23 H Creatinine 0.92 Est Glomerular Filtrat Rate mL/min Glucose Level 188 Calcium Level 8.4 Magnesium Level 2.4 Test 08/20/18 08:51 08/20/18 12:16 Bedside Glucose 207 340 H Medications Medication Current Medications Ascorbic Acid (Vitamin C) 500 mg DAILY PO Last administered on 08/20/18 08:56; Admin Dose 500 MG; Start 08/19/18 at 09:00 Bisacodyl (Dulcolax Supp) 10 mg DAILY PRN [place] CONSTIPATION; Start 08/18/18 at 15:00 Docusate Sodium (Colace) 100 mg BID PO Last administered on 08/20/18 08:56; Admin Dose 100 MG; Start 08/18/18 at 21:00 Duloxetine HCl (Cymbalta) 30 mg DAILY PO Last administered on 08/20/18 08:55; Admin Dose 30 MG; Start 08/19/18 at 09:00 Ferrous Sulfate (Ferrous Sulfate (Ec)) 325 mg DAILY PO Last administered on 08/20/18 08:56; Admin Dose 325 MG; Start 08/19/18 at 09:00 Fluticasone Propionate (Flonase 0.05% Nasal) 1 spray DAILY NASAL Last administered on 08/20/18 12:16; Admin Dose 1 SPRAY; Start 08/19/18 at 09:00 Albuterol/ Ipratropium (Duoneb) 3 ml Q6H RESP THERAPY PRN NEB COPD; Start 08/18/18 at 15:00 Magnesium Oxide (Mag-Ox 400) 400 mg BID PO Last administered on 08/20/18 08:56; Admin Dose 400 MG; Start 08/18/18 at 21:00 Multivitamins Therapeutic (Theragran) 1 tab DAILY PO Last administered on 08/20/18 08:56; Admin Dose 1 TAB; Start 08/19/18 at 09:00 Sodium Biphosphate/ Sodium Phosphate (Fleet Enema) 133 ml DAILY PRN [place] CONSTIPATION; Start 08/18/18 at 15:00 Oxycodone/ Acetaminophen (Endocet (10/ 325)) 1 tab Q4H PRN PO CHRONIC PAIN Last administered on 08/20/18 10:03; Admin Dose 1 TAB; Start 08/18/18 at 15:00 Phenazopyridine HCl (Pyridium) 200 mg TID PRN PO DYSURIA Last administered on 08/20/18 10:40; Admin Dose 200 MG; Start 08/18/18 at 15:00 Rivaroxaban (Xarelto) 20 mg WITH DINNER PO Last administered on 08/19/18 17:51; Admin Dose 20 MG; Start 08/18/18 at 18:00 Saccharomyces Boulardii (Florastor) 250 mg DAILY PO Last administered on 9at 08:56; Admin Dose 250 MG; Start 08/19/18 at 09:00 Methadone HCl (Methadone) 10 mg Q8 PO Last administered on 08/20/18 06:33; Admin Dose 10 MG; Start 08/18/18 at 15:00 Meropenem/Sodium Chloride 50 ml @ 100 mls/hr Q8 IVPB Last administered on 08/20/18 05:49; Admin Dose 100 MLS/HR; Start 08/18/18 at 16:00 IV Flush (NS 3 ml) 3 ml PER PROTOCOL IV ; Start 08/18/18 at 15:30 Ondansetron HCl (Zofran Inj) 4 mg Q6H PRN IV NAUSEA/VOMITING; Start 08/18/18 at 15:30 Acetaminophen (Tylenol Tab) 650 mg Q6H PRN PO .PAIN 1-3 OR TEMP Last administered on 08/20/18 08:49; Admin Dose 650 MG; Start 08/18/18 at 15:30 Docusate Sodium (Colace) 100 mg Q12H PRN PO .CONSTIPATION; Start 08/18/18 at 15:30 Magnesium Hydroxide (Milk Of Mag) 30 ml DAILY PRN PO .CONSTIPATION; Start 08/18/18 at 15:30 Atorvastatin Calcium (Lipitor) 40 mg DAILY@21 PO Last administered on 5/6/19at 20:29; Admin Dose 40 MG; Start 08/18/18 at 21:00 Insulin Aspart (Novolog Insulin Pen) NOVOLOG *MILD* ALGORITHM WITH MEALS BEDTIME SC Last administered on 08/20/18 12:25; Admin Dose 5 UNIT; Start 08/18/18 at 18:00 Miscellaneous Information 1 ea NOTE XX ; Start 08/18/18 at 16:00 Glucose (Glutose) 15 gm Q15M PRN PO DECREASED GLUCOSE; Start 08/18/18 at 16:00 Glucose (Glutose) 22.5 gm Q15M PRN PO DECREASED GLUCOSE; Start 08/18/18 at 16:00 Dextrose (D50w Syringe) 25 ml Q15M PRN IV DECREASED GLUCOSE; Start 08/18/18 at 16:00 Dextrose (D50w Syringe) 50 ml Q15M PRN IV DECREASED GLUCOSE; Start 08/18/18 at 16:00 Glucagon (Glucagen) 1 mg Q15M PRN IM DECREASED GLUCOSE; Start 08/18/18 at 16:00 Glucose (Glutose) 15 gm Q15M PRN BUCCAL DECREASED GLUCOSE; Start 08/18/18 at 16:00 Furosemide (Lasix) 20 mg BID DIURETICS IV Last administered on 08/20/18 06:33; Admin Dose 20 MG; Start 08/19/18 at 18:00 Albuterol/ Ipratropium (Duoneb) 3 ml Q6H RESP THERAPY HHN Last administered on 08/20/18 07:53; Admin Dose 3 ML; Start 08/19/18 at 15:30; Stop 08/22/18 at 15:29 Acetylcysteine (Mucomyst) 1 ml Q6H RESP THERAPY NEB Last administered on 08/20/18 07:53; Admin Dose 1 ML; Start 08/19/18 at 15:30; Stop 08/22/18 at 15:29 GIOVANNA ESCUDERO NP August 20, 2018 13:17
[2018-08-20 14:25] VITALS: BP 110/58; PULSE 74; RESP 20
[2018-08-20] MEDS: RIVAROXABAN 20 MG TABLET PO SCH (17:48)
[2018-08-20 19:33] VITALS: BP 121/61; PULSE 83; RESP 18
[2018-08-20] MEDS: ATORVASTATIN 40 MG TAB PO SCH (20:08)
[2018-08-20] MEDS ORDERED: ACCU-CHEK XX ONE (22:30)
[2018-08-20] MEDS ORDERED: INSULIN ASPART [NOVOLOG] 3 ML PEN SC ONE (22:30)
[2018-08-21] MEDS: OXYCODONE/ACETAMINOPHEN (10/325) TAB PO PRN ×4 (00:30→14:31)
[2018-08-21] MEDS: ALBUTEROL/IPRATROPIUM (NEB) 3 ML AMP HHN SCH ×3 (01:50→14:00)
[2018-08-21] MEDS: ACETYLCYSTEINE 20% 4 ML VIAL NEB SCH ×3 (01:50→14:00)
[2018-08-21 02:15] VITALS: BP 151/71; PULSE 77; RESP 20
[2018-08-21] MEDS: MEROPENEM 1 GM/50ML(PMX) 50 ML IVPB SCH ×2 (05:35→14:41)
[2018-08-21] MEDS: FUROSEMIDE 20 MG INJ IV SCH (05:36)
[2018-08-21] MEDS: METHADONE 10 MG TAB PO SCH ×2 (06:46→14:41)
[2018-08-21 07:15] VITALS: BP 146/65; PULSE 77; RESP 18
[2018-08-21] MEDS: MAGNESIUM OXIDE 400 MG TAB PO SCH (08:11)
[2018-08-21] MEDS: SACCHAROMYCES BOULARDII 250 MG CAP PO SCH (08:11)
[2018-08-21] MEDS: DOCUSATE SODIUM 100 MG CAP PO SCH (08:11)
[2018-08-21] MEDS: DULOXETINE 30 MG CAP DR PO SCH (08:11)
[2018-08-21] MEDS: FLUTICASONE 0.05% 16 GM NAS SPRAY NASAL SCH (08:11)
[2018-08-21] MEDS: FERROUS SULFATE (EC) 325 MG TAB PO SCH (08:12)
[2018-08-21] MEDS: ASCORBIC ACID 500 MG TAB PO SCH (08:12)
[2018-08-21] MEDS: MULTIVITAMINS THERAPEUTIC TAB PO SCH (08:12)
[2018-08-21] MEDS: INSULIN ASPART [NOVOLOG] 3 ML PEN SC SCH ×2 (08:16→12:00)
[2018-08-21] MEDS: ACETAMINOPHEN 325 MG TAB PO PRN (08:23)
--- NOTE | 2018-08-21 10:02 | DS ---
Date/Time of Note Date/Time of Note DATE: 08/21/18 TIME: 09:57 Discharge Summary Admission/Discharge Info Admit Date/Time August 18, 2018 at 14:20 Discharge Date/Time Discharge Diagnosis 1. Sepsis secondary to UTI and PNA: resolved Patient came 2. Recurrent UTI 3. LLE PNA, possible aspiration, 4. Thrombocytopenia: Patient has a history of this condition. No acute issues s o far on this admission. 5. Diabetes Mellitus type 2, with on compliance 6. Chronic pain -Patient's outpatient pain management doctor Dr. Coy Salvador phone #[phone]. 7. COPD 8. h/o DVT and PE 9. Diastolic HF - EF 55% from last ECHO 2018 10. Chronic venous stasis - currently with compression wraps - continue and keep legs elevated while in bed 11. Chronic deility: has been improving per family . Patient Condition: Stable Consults Infectious disease . Hospital Course 73-year-old female with a past medical history of COPD, chronic tobacco use, diabetes mellitus was admitted for sepsis secondary to UTI and pneumonia. Patient also has chronic pain on chronic methadone and Percocet therapy under the care of pain management as outpatient. She was also found to have a mild diastolic heart failure. She was treated with scheduled bronchodilator therapy, empiric antibiotics and has done well. At this time she is stable will be discharged back to the shelter facility to complete therapy. assessment and plan: Home Meds Reported Medications Rivaroxaban* (Xarelto*) 20 Mg Tablet, 20 MG PO WITH DINNER, TAB 08/18/18 Diclofenac Epolamine (Flector) 1 Each Patch.td12, 1 EACH TD Q12 PRN for PAIN 08/18/18 Ipratropium-Albuterol (Ipratropium-Albuterol) 0.5-3 Mg/3 Ml Ampul.neb, 3 ML INHALATION Q6 PRN for COPD, #30 VIAL 08/18/18 Sitagliptin Phos/Metformin HCl (Janumet 50-1,000 mg Tablet) 1 Each Tablet, 1 EACH PO BID, TAB 08/18/18 Potassium Chloride* (Klor-Con*) 20 Meq Tabsr, 40 MEQ PO DAILY, TAB.SA 08/18/18 Magnesium Oxide* (Mag-Oxide*) 400 Mg Tablet, 400 MG PO BID, TAB 08/18/18 Furosemide* (Lasix*) 40 Mg Tablet, 40 MG PO DAILY, TAB 08/18/18 Methadone Hcl* (Methadone*) 10 Mg Tab, 10 MG PO Q8 PRN for PAIN, TAB SCHEDULE 6AM 2PM 10PM 08/18/18 Multivitamins* (Theragran*) 1 Tab Tab, 1 TAB PO DAILY, TAB 08/18/18 Mirabegron (Myrbetriq) 50 Mg Tab.er.24h, 50 MG PO DAILY, TAB 08/18/18 Oxycodone Hcl-Acetaminophen* (Endocet*) 10-325 Mg Tablet, 1 TAB PO Q4H PRN for CHRONIC PAIN, TAB SCHEDULE 8AM 12PM 4PM 8PM 12MN 4AM 08/18/18 Phenazopyridine Hcl* (Phenazopyridine Hcl*) 200 Mg Tablet, 200 MG PO TID PRN for DYSURIA, TAB 08/18/18 Lidocaine (RECTICARE) 30 Gm Cream..g., 30 GM TP PRN PRN for PAIN 08/18/18 Sennosides* (Senna Lax*) 8.6 Mg Tablet, 1 TAB PO BID, TAB 08/18/18 Ascorbic Acid* (Vitamin C*) 500 Mg Capsule.sa, 500 MG PO DAILY, CAP 08/18/18 Loperamide Hcl* (Imodium*) 2 Mg Capsule, 2 MG PO .WITH EACH DIARRHEA PRN for DIARRHEA, CAP MAX 16 mg/day 08/18/18 Saccharomyces Boulardii* (Florastor*) 250 Mg Cap, 250 MG PO DAILY, CAP 08/18/18 Fluticasone Propionate (Flonase Allergy Relief) 9.9 Ml [place].susp, 1 SPRAY NASAL DAILY, #1 BOTTLE TO EACH NOSTRIL 08/18/18 Na Phos,M-B/Na Phos,Di-Ba (ENEMA) 133 Ml Enema, 133 ML RC PRN PRN for CONSTIPATION, ENEMA 08/18/18 Ferrous Sulfate* (Ferrous Sulfate*) 325 Mg Tabec, 325 MG PO DAILY, TAB 08/18/18 Bisacodyl (Dulcolax) 10 Mg Supp.rect, 10 MG RC PRN PRN for CONSTIPATION, SUPP.RECT 08/18/18 Duloxetine Hcl* (Cymbalta*) 30 Mg Capsule.dr, 30 MG PO DAILY, CAP 08/18/18 Rosuvastatin Calcium* (Crestor*) 10 Mg Tablet, 10 MG PO QHS, #30 TAB 08/18/18 Docusate Sodium* (Colace*) 100 Mg Capsule, 100 MG PO BID, #60 CAP 08/18/18 Menthol/Zinc Oxide (Calmoseptine Ointment) 71 Gm Oint..gm., 1 APPLIC TP PRN PRN for BURNING SENSATION, #1 TUB 08/18/18 Hydrocortisone Acetate* (Anusol-HC*) 30 Gm Cream.gm., 1 APPLIC NE DAILY PRN for HEMORRHOID/EPISIOTMY PAIN, TUB 08/18/18 Discontinued Reported Medications Zinc Sulfate* (Zinc Sulfate*) 220 Mg Cap, 220 MG PO DAILY, CAP 06/14/17 Multivit-Min/Iron Fum/Folic AC (Igzoz-Brlbafa-Xscaagcr Tablet) 1 Each Tablet, 1 EACH PO DAILY, TAB 06/14/17 Sennosides* (Senna Lax*) 8.6 Mg Tablet, 1 TAB PO BID, TAB 06/14/17 Rosuvastatin Calcium* (Crestor*) 10 Mg Tablet, 10 MG PO QHS, #30 TAB 06/14/17 Rivaroxaban* (Xarelto*) 20 Mg Tablet, 20 MG PO WITH DINNER, TAB 06/14/17 Pyridoxine Hcl* (Vitamin B-6*) 50 Mg Capsule, 100 MG PO Q8H, CAP 06/14/17 Pantoprazole* (Protonix*) 40 Mg Tablet.dr, 40 MG PO DAILY, TAB 06/14/17 Phenazopyridine Hcl* (Phenazopyridine Hcl*) 200 Mg Tablet, 200 MG PO Q8H, TAB 06/14/17 Ondansetron Hcl* (Ondansetron Hcl*) 4 Mg Tablet, 4 MG PO Q6H PRN for NAUSEA AND OR VOMITING, TAB 06/14/17 Magnesium Oxide* (Magnesium Oxide*) 400 Mg Tablet, 400 MG PO BID, TAB 06/14/17 Potassium Chloride* (Klor-Con*) 20 Meq Tabsr, 40 MEQ PO Q48H, TAB.SA 06/14/17 Sitagliptin Phos/Metformin HCl (Janumet 50-1,000 mg Tablet) 1 Each Tablet, 1 EACH PO BID, TAB 06/14/17 Ipratropium-Albuterol (Ipratropium-Albuterol) 0.5-3 Mg/3 Ml Ampul.neb, 3 ML INHALATION Q6 for WHEEZING AND SOB, #30 VIAL 06/14/17 Dextrose (Glucose) 15 Gm/59 Ml Liquid, 32 ML PO NEEDED, TUB 06/14/17 Ferrous Sulfate* (Ferrous Sulfate*) 325 Mg Tabec, 325 MG PO DAILY, TAB 06/14/17 Duloxetine Hcl* (Duloxetine Hcl*) 30 Mg Capsule.dr, 30 MG PO DAILY, #30 CAP 06/14/17 Bisacodyl* (Bisacodyl*) 10 Mg Supp, 10 MG NE Q24H for CONSTIPATION, SUPP 06/14/17 Ascorbic Acid (Vitamin C) 250 Mg Tab, 250 MG PO DAILY, TAB 06/14/17 Acetaminophen* (Acetaminophen*) 500 MG Extra Strength Tablet, 500 MG PO Q6H PRN for PAIN, TAB TAKE Q6H FOR PAIN LEVEL 1-5/10,AND 6-10/10 06/14/17 Discontinued Scripts Methadone Hcl* (Methadone*) 5 Mg Tab, 5 MG PO TID, #90 TAB Prov:GISSEL RESTREPO 07/09/17 Follow-up Plan Complete 7 days of antibiotics at shelter facility, further management per assigned physician. . Primary Care Provider Magda Lara MD Time spent on discharge: > 30 minutes Pending Labs Laboratory Tests Test 08/20/18 12:16 08/20/18 17:50 08/20/18 22:00 08/21/18 00:31 Bedside 340 210 327 335 Glucose mg/dL (70-220) mg/dL (70-220) mg/dL (70-220) mg/dL (70-220) Test 08/21/18 02:22 08/21/18 07:03 08/21/18 07:47 Bedside 267 252 Glucose mg/dL (70-220) mg/dL (70-220) White Blood 6.0 Count 10^3/ul (4.8-1 0.8) Red Blood 4.20 Count 10^6/ul (4.20- 5.40) Hemoglobin 11.8 g/dl (12.0-16. 0) Hematocrit 38.4 % (37.0-47.0) Mean 91.4 Corpuscular fl (82.0-101.0 Volume ) Mean 28.1 Corpuscular pg (29.0-33.0) Hemoglobin Mean 30.7 Corpuscular g/dl (32.0-37. Hemoglobin Conc 0) ent Red Cell 17.4 Distribution % (11.5-14.5) Width Platelet Count 91 10^3/UL (140-4 15) Mean Platelet 10.9 Volume fl (7.4-10.4) Immature 0.500 Granulocytes % % (0.001-0.429 ) Neutrophils % 62.3 % (39.0-77.0) Lymphocytes % 23.4 % (15.0-51.0) Monocytes % 9.8 % (0.0-11.0) Eosinophils % 3.0 % (0.0-7.0) Basophils % 1.0 % (0.0-2.0) Nucleated Red 0.0 Blood Cells % /100WBC (0.0-0 .0) Immature 0.030 Granulocytes # 10^3/ul (0.0-0 .031) Neutrophils # 3.8 10^3/ul (1.6-7 .5) Lymphocytes # 1.4 10^3/ul (0.8-2 .9) Monocytes # 0.6 10^3/ul (0.3-0 .9) Eosinophils # 0.2 10^3/ul (0.0-0 .5) Basophils # 0.1 10^3/ul (0.0-0 .1) Nucleated Red 0.0 Blood Cells # 10^3/ul (0.0-0 .0) Sodium Level 142 mmol/L (135-14 4) Potassium 3.8 Level mmol/L (3.5-5. 1) Chloride Level 102 mmol/L (97-110 ) Carbon Dioxide 31 Level mmol/L (21-31) Anion Gap 9 (5-13) Blood Urea 24 Nitrogen mg/dl (7-20) Creatinine 0.81 mg/dl (0.44-1. 00) Est Glomerular mL/min (>60) Filtrat Rate mL/min Glucose Level 249 mg/dl (70-220) Calcium Level 9.0 mg/dl (8.4-10. 2) DOTTIE HOOD August 21, 2018 10:02
[2018-08-21] MEDS ORDERED: POTA-57 PO (10:09)
[2018-08-21] MEDS ORDERED: METH10TA2 PO (10:09)
[2018-08-21] MEDS ORDERED: MERO1PIG2 IV (10:09)
[2018-08-21] MEDS ORDERED: IPRA3AMP29 HHN (10:09)
--- NOTE | 2018-08-21 14:24 | CONS ---
Assessment/Plan Assessment/Plan Hospital Course (Demo Recall) Patient is alert feels better Allergy: Tetracycline, Macrobid, Zosyn Antimicrobials: [place]rem Chest x-ray on admission revealed slightly more focal left perihilar and left lower lobe infiltrate. Mild cardiomegaly with pulmonary vascular congestion. Physical examination: This is a chronically ill-appearing elderly woman who is in no distress. Head atraumatic normocephalic neck is supple chest rise symmetrical breath sounds diminished bases heart: S1-S2. Abdomen soft bowel sounds present. Extremities Cristi wrap bilateral lower extremities Assessment: 1. Sepsis, present on admission, resolving 2. Recurrent UTI 3. Healthcare associated pneumonia 4. Chronic pain syndrome 5. COPD/tobacco use 6. Obesity 7. Atrial fibrillation, with a history of permanent pacemaker placement Plan: Stable, cxr nored, pending dc back to [facility] on [place] to complete 7 days course DW pt/son at bedside Consultation Date/Type/Reason Admit Date/Time August 18, 2018 at 14:20 Initial Consult Date Type of Consult ID Date/Time of Note DATE: 08/21/18 TIME: 14:22 Exam/Review of Systems Exam Vitals Vital Signs Date Temp Pulse Resp B/P (MAP) Pulse Ox O2 O2 Flow FiO2 Time Delivery Rate 08/21/18 Nasal 2.0 08:40 Cannula 08/21/18 70 20 96 08:13 08/21/18 98.2 146/65 07:15 (92) Intake and Output 08/20/18 08/20/18 08/21/18 1515:00 23:00 07:00 IntakeIntake Total 800 ml 200 ml 100 ml BalanceBalance 800 ml 200 ml 100 ml Results Result Diagram: 08/21/18 0703 08/21/18 0703 Results 24hrs Laboratory Tests Test 08/20/18 17:50 08/20/18 22:00 08/21/18 00:31 08/21/18 02:22 Bedside Glucose 210 327 H 335 H 267 H Test 08/21/18 07:03 08/21/18 07:47 08/21/18 11:49 White Blood Count 6.0 Red Blood Count 4.20 Hemoglobin 11.8 L Hematocrit 38.4 Mean Corpuscular Volume 91.4 Mean Corpuscular 28.1 L Hemoglobin Mean Corpuscular 30.7 L Hemoglobin Concent Red Cell Distribution 17.4 H Width Platelet Count 91 #L Mean Platelet Volume 10.9 H Immature Granulocytes % 0.500 H Neutrophils % 62.3 Lymphocytes % 23.4 Monocytes % 9.8 Eosinophils % 3.0 Basophils % 1.0 Nucleated Red Blood 0.0 Cells % Immature Granulocytes # 0.030 Neutrophils # 3.8 Lymphocytes # 1.4 Monocytes # 0.6 Eosinophils # 0.2 Basophils # 0.1 Nucleated Red Blood 0.0 Cells # Sodium Level 142 Potassium Level 3.8 Chloride Level 102 Carbon Dioxide Level 31 Anion Gap 9 Blood Urea Nitrogen 24 H Creatinine 0.81 Est Glomerular Filtrat Rate mL/min Glucose Level 249 H Calcium Level 9.0 Bedside Glucose 252 H 349 H Medications Medication Current Medications Ascorbic Acid (Vitamin C) 500 mg DAILY PO Last administered on 08/21/18 08:12; Admin Dose 500 MG; Start 08/19/18 at 09:00 Bisacodyl (Dulcolax Supp) 10 mg DAILY PRN [place] CONSTIPATION; Start 08/18/18 at 15:00 Docusate Sodium (Colace) 100 mg BID PO Last administered on 08/21/18 08:11; Admin Dose 100 MG; Start 08/18/18 at 21:00 Duloxetine HCl (Cymbalta) 30 mg DAILY PO Last administered on 08/21/18 08:11; Admin Dose 30 MG; Start 08/19/18 at 09:00 Ferrous Sulfate (Ferrous Sulfate (Ec)) 325 mg DAILY PO Last administered on 08/21/18 08:12; Admin Dose 325 MG; Start 08/19/18 at 09:00 Fluticasone Propionate (Flonase 0.05% Nasal) 1 spray DAILY NASAL Last administered on 08/21/18 08:11; Admin Dose 1 SPRAY; Start 08/19/18 at 09:00 Albuterol/ Ipratropium (Duoneb) 3 ml Q6H RESP THERAPY PRN NEB COPD; Start 08/18/18 at 15:00 Magnesium Oxide (Mag-Ox 400) 400 mg BID PO Last administered on 08/21/18 08:11; Admin Dose 400 MG; Start 08/18/18 at 21:00 Multivitamins Therapeutic (Theragran) 1 tab DAILY PO Last administered on 08/21/18 08:12; Admin Dose 1 TAB; Start 08/19/18 at 09:00 Sodium Biphosphate/ Sodium Phosphate (Fleet Enema) 133 ml DAILY PRN [place] CONSTIPATION; Start 08/18/18 at 15:00 Oxycodone/ Acetaminophen (Endocet (10/ 325)) 1 tab Q4H PRN PO CHRONIC PAIN Last administered on 08/21/18 10:21; Admin Dose 1 TAB; Start 08/18/18 at 15:00 Phenazopyridine HCl (Pyridium) 200 mg TID PRN PO DYSURIA Last administered on 08/20/18 10:40; Admin Dose 200 MG; Start 08/18/18 at 15:00 Rivaroxaban (Xarelto) 20 mg WITH DINNER PO Last administered on 08/20/18 17:48; Admin Dose 20 MG; Start 08/18/18 at 18:00 Saccharomyces Boulardii (Florastor) 250 mg DAILY PO Last administered on 08/21/18 08:11; Admin Dose 250 MG; Start 08/19/18 at 09:00 Methadone HCl (Methadone) 10 mg Q8 PO Last administered on 08/21/18 06:46; Admin Dose 10 MG; Start 08/18/18 at 15:00 Meropenem/Sodium Chloride 50 ml @ 100 mls/hr Q8 IVPB Last administered on 08/21/18 05:35; Admin Dose 100 MLS/HR; Start 08/18/18 at 16:00 IV Flush (NS 3 ml) 3 ml PER PROTOCOL IV ; Start 08/18/18 at 15:30 Ondansetron HCl (Zofran Inj) 4 mg Q6H PRN IV NAUSEA/VOMITING; Start 08/18/18 at 15:30 Acetaminophen (Tylenol Tab) 650 mg Q6H PRN PO .PAIN 1-3 OR TEMP Last administered on 08/21/18 08:23; Admin Dose 650 MG; Start 08/18/18 at 15:30 Docusate Sodium (Colace) 100 mg Q12H PRN PO .CONSTIPATION; Start 08/18/18 at 15:30 Magnesium Hydroxide (Milk Of Mag) 30 ml DAILY PRN PO .CONSTIPATION; Start at 15:30 Atorvastatin Calcium (Lipitor) 40 mg DAILY@21 PO Last administered on 08/20/18 20:08; Admin Dose 40 MG; Start 08/18/18 at 21:00 Insulin Aspart (Novolog Insulin Pen) NOVOLOG *MILD* ALGORITHM WITH MEALS BEDTIME SC Last administered on 08/21/18at 12:00; Admin Dose 5 UNIT; Start 08/18/18 at 18:00 Miscellaneous Information 1 ea NOTE XX ; Start 08/18/18 at 16:00 Glucose (Glutose) 15 gm Q15M PRN PO DECREASED GLUCOSE; Start 08/18/18 at 16:00 Glucose (Glutose) 22.5 gm Q15M PRN PO DECREASED GLUCOSE; Start 08/18/18 at 16:00 Dextrose (D50w Syringe) 25 ml Q15M PRN IV DECREASED GLUCOSE; Start 08/18/18 at 16:00 Dextrose (D50w Syringe) 50 ml Q15M PRN IV DECREASED GLUCOSE; Start 08/18/18 at 16:00 Glucagon (Glucagen) 1 mg Q15M PRN IM DECREASED GLUCOSE; Start 08/18/18 at 16:00 Glucose (Glutose) 15 gm Q15M PRN BUCCAL DECREASED GLUCOSE; Start 08/18/18 at 16:00 Furosemide (Lasix) 20 mg BID DIURETICS IV Last administered on 08/21/18at 05:36; Admin Dose 20 MG; Start 08/19/18 at 18:00 Albuterol/ Ipratropium (Duoneb) 3 ml Q6H RESP THERAPY HHN Last administered on 08/21/18at 08:13; Admin Dose 3 ML; Start 08/19/18 at 15:30; Stop 08/22/18 at 15:29 Acetylcysteine (Mucomyst) 1 ml Q6H RESP THERAPY NEB Last administered on 08/21/18at 01:50; Admin Dose 1 ML; Start 08/19/18 at 15:30; Stop 08/22/18 at 15:29 GIOVANNA ESCUDERO NP August 21, 2018 14:24
[2018-08-21 14:44] VITALS: BP 137/70; PULSE 75; RESP 18
== END 2018-08-21 15:50 | DRG 871 ==
LOC: E/R 10:35 → PP2 14:20
PROVIDERS: ADMIT Internal Medicine; ATTEND Family Medicine
DX: A41.9 Sepsis, unspecified organism (principal); J18.9 Pneumonia, unspecified organism; I50.33 Acute on chronic diastolic (congestive) heart failure; N39.0 Urinary tract infection, site not specified; I50.30 Unspecified diastolic (congestive) heart failure; I48.91 Unspecified atrial fibrillation; D69.6 Thrombocytopenia, unspecified; I11.0 Hypertensive heart disease with heart failure; E11.9 Type 2 diabetes mellitus without complications; D63.8 Anemia in other chronic diseases classified elsewhere; B96.20 Unspecified Escherichia coli [E. coli] as the cause of diseases classified elsewhere; J44.9 Chronic obstructive pulmonary disease, unspecified; G89.4 Chronic pain syndrome; F17.210 Nicotine dependence, cigarettes, uncomplicated; I87.8 Other specified disorders of veins; E66.9 Obesity, unspecified; Z68.32 Body mass index [BMI] 32.0-32.9, adult; Z95.0 Presence of cardiac pacemaker; Z87.440 Personal history of urinary (tract) infections; Z86.711 Personal history of pulmonary embolism; Z90.710 Acquired absence of both cervix and uterus; Z86.718 Personal history of other venous thrombosis and embolism; Z79.4 Long term (current) use of insulin
CPT/HCPCS: 36415; 71045; 80048; 80053; 81001; 82962; 83605; 83735; 84100; 84484; 85025; 85610; 85730; 87086; 93005; 94640; 96374; 97162; 97165; J1815; J1940; J1956; J2185; J7030